=== PATIENT | male | born 1955 | race Caucasian/White ===

== ENCOUNTER 2020-04-14 09:02 | Outpatient (CLI) | payer MEDICARE, SELFPAY ==
--- NOTE | 2020-04-14 09:14 | FL_ITS ---
WS: [id number] MODIFIED BARIUM SWALLOW TECHNIQUE: Modified barium swallow with speech therapy using multiple consistencies. FLUOROSCOPY TIME: 2.6 minutes. CLINICAL INFORMATION: Other dysphagia COMPARISON: None. FINDINGS: Multiple consistencies utilized. Esophageal dilatation with stricture involving the distal esophagus. This results in delayed emptying with delayed transit of the barium tablet. Differential considerati ons include stricture related to reflux esophagitis versus carcinoma. Recommend further evaluation wi endoscopy. No aspiration or penetration. FL/FL barium swallow modifd 88952 IMPRESSION: High-grade stricture involving the distal esophagus with delayed emptying and d elayed transit of the barium tablet. Recommend further evaluation with endoscop y.
== END 2020-04-14 09:03 | disposition home or self-care (01) ==
LOC: RAD 09:10
PROVIDERS: PCP Electrodiagnostic Medicine; Visit Provider Electrodiagnostic Medicine
DX: R13.19 Other dysphagia (principal); K22.2 Esophageal obstruction
CPT/HCPCS: 74230; 92611

== ENCOUNTER 2020-04-15 12:48 | Outpatient (CLI) | payer MEDICARE, SELFPAY ==
--- NOTE | 2020-04-15 13:04 | USCV_ITS ---
Roshan Shell Age: 65 Gender: M : 1955 Exam Date: 04/15/2020 13:37 Ordering Phys: Joy Michaels Technologist: Chary Manzanares [place]am Location[place] [facility] [place] Indication: TACHY BP: 101 / 66 HR: 96 Rhythm: Other Technical Quality: Adequate MEASUREMENTS (Male / Female) Normal Values 2D ECHO LV Diastolic Diameter PLAX 5.7 cm 4.2 - 5.9 / 3.9 - 5.3 cm LV Systolic Diameter PLAX 3.1 cm LV Chamber Size 5.3 cm IVS Diastolic Thickness 0.7 cm 0.6 - 1.0 / 0.6 - 0.9 cm IVS Systolic Thickness 1.1 cm LVPW Diastolic Thickness 0.8 cm 0.6 - 1.0 / 0.6 - 0.9 cm LVPW Systolic Thickness 0.9 cm RV Chamber Size 3.9 cm LVOT Diameter 2.0 cm LV Ejection Fraction 2D Teich 75.4 % LV Ejection Fraction MOD 2C 42.1 % LV Ejection Fraction 2C AL 41.8 % LA Diameter 4.5 cm LA Width 4.7 cm LA Height 6.4 cm RA Width 3.3 cm RA Height 6.2 cm Aorta at Sinotubular Diameter 3.1 cm M-MODE LV Diastolic Diameter MM 5.6 cm 4.2 - 5.9 / 3.9 - 5.3 cm LV Systolic Diameter MM 4.2 cm LV Ejection Fraction MM Teich 49.5 % IVS Diastolic Thickness MM 0.8 cm 0.6 - 1.0 / 0.6 - 0.9 cm IVS Systolic Thickness MM 1.1 cm LVPW Diastolic Thickness MM 1.1 cm 0.6 - 1.0 / 0.6 - 0.9 cm LVPW Systolic Thickness MM 1.9 cm RV Diastolic Diameter MM 1.7 cm Aortic Annulus Diameter 3.3 cm LA Ao Ratio MM 1.5 MV E Point Septal Separation 0.2 cm DOPPLER AV Peak Velocity 110.0 cm/s LVOT Peak Velocity 80.0 cm/s AV Area Cont Eq vti 2.4 cm squared AV Area Cont Eq pk 2.3 cm squared TV Peak E Velocity 61.0 cm/s Right Atrial Pressure 3.0 mmHg PV Peak Velocity 70.0 cm/s FINDINGS Left Ventricle Normal left ventricular size, systolic function and wall thickness, with no regional wall motion abnormalities. LVEF is 50 to 55%. Normal left ventricular wall thickness. Diastolic function is indeterminate because of heart rhythm. Right Ventricle The right ventricle is normal in size and function. Right Atrium The right atrium is enlarged Left Atrium The left atrium is severely enlarged. Mitral Valve Mild mitral annular calcification is noted. There is no significant mitral stenosis. There is mild mitral regurgitation. Aortic Valve Aortic valve is thickened without any significant stenosis. There is no aortic regurgitation. Tricuspid Valve Structurally normal tricuspid valve without significant stenosis or regurgitation. Insufficient TR jet to calculate RVSP. Pulmonic Valve Structurally normal pulmonic valve without significant stenosis. There is no pulmonic regurgitation. Pericardium Normal pericardium without effusion. Aorta Normal ascending aorta dimension. CONCLUSIONS LV systolic function is normal with EF of 50 to 55%. Diastolic function is indeterminate because of rhythm. Mild mitral regurgitation is noted No comparison studies are available. Anton Castillo MD (Electronically Signed) Final Date: 15 April 2020 17:10 S
== END 2020-04-15 12:49 | disposition home or self-care (01) ==
LOC: RAD 12:50
PROVIDERS: PCP Electrodiagnostic Medicine; Visit Provider Nurse Practitioner Family
DX: R00.0 Tachycardia, unspecified (principal); I50.9 Heart failure, unspecified; K21.9 Gastro-esophageal reflux disease without esophagitis
CPT/HCPCS: 93306

== ENCOUNTER 2020-04-20 13:15 | Outpatient (CLI) | payer MEDICARE, SELFPAY ==
--- NOTE | 2020-04-20 13:25 | CT_ITS ---
WS: [id number] CT CHEST AND ABDOMEN TECHNIQUE: Contrast-enhanced CT of the chest and abdomen with coronal and sagittal reformatted images . CLINICAL INFORMATION: dysphagia COMPARISON: None. DLP: 1771.[address] scans at [facility] use at least one of these dose optimization techniques: automat ed exposure control; mA and/or kV adjustment per patient size (includes targeted exams where dose is matched to clinical indication); or iterative reconstruction. CT CHEST: Mild chronic emphysematous changes. No acute pulmonary infiltrates. Both lungs are well aerated. No f ocal pneumonia. No pleural fluid. Normal caliber thoracic aorta. Aortic calcification. Coronary calci fication. Proximal main pulmonary arteries are normal. No axillary lymphadenopathy. Normal thyroid gl and. Hypertrophic changes thoracic spine. Multiple chronic left rib fractures with callus formation. CT ABDOMEN: Mild diffuse fatty infiltration liver. Normal gallbladder. Normal spleen. Small esophageal hiatal [place]. Small left adrenal adenoma measuring 10 mm. Normal right adrenal gland. Normal portal vein and s plenic vein. Normal pancreas. Normal caliber abdominal aorta. Moderate calcification with peripherall y atheromatous disease. No aneurysm. Normal renal parenchymal enhancement. No hydronephrosis. Lumbar curve. Hypertrophic changes lumbar s pine. Advanced arthropathy lower lumbar spine. CT/CT chest abdomen w con* IMPRESSION: 1. Mild chronic emphysematous changes. No acute pulmonary infiltrates. 2. No mediastinal or hilar lymphadenopathy. 3. Small esophageal hiatal hernia. 4. Mild diffuse fatty infiltration liver. 5. Small left adrenal adenoma measuring 10 mm. 6. Normal caliber abdominal aorta. 7. Incidental fat-containing umbilical hernia.
[2020-04-20] MEDS: iohexol 300 mg/mL 50 mL Btl PO (13:29)
--- NOTE | 2020-04-20 13:35 | CT_ITS ---
WS: [id number] CT NECK TECHNIQUE: Contrast-enhanced CT of the neck with coronal and sagittal reformatted images. CLINICAL INFORMATION: DYSPHAGIA COMPARISON: G DLP: 2956.[address] scans at [facility] use at least one of these dose optimization techniques: automat ed exposure control; mA and/or kV adjustment per patient size (includes targeted exams where dose is matched to clinical indication); or iterative reconstruction. FINDINGS: Parotid glands are normal. Submandibular glands are normal. Normal tongue base. Mastoid air cells and paranasal sinuses are well aerated. Partially visualized intracranial contents are normal. No cervic al lymphadenopathy. Mild nodular thickening of the right greater than left true vocal cords. This could be further evalua karan with endoscopy. No evidence of supraglottic mass. Normal piriform sinuses. Subglottic airway is p atent. Normal thyroid gland. No cervical lymphadenopathy. Carotid bulb calcification. Moderate spondy litic changes cervical spine. CT/CT neck w con* 19231 IMPRESSION: 1. Mild nodular thickening of the true vocal cords bilaterally. This can be fu rther evaluated with endoscopy. 2. No evidence of supraglottic mass. Normal vallecula and piriform sinuses. 3. No cervical lymphadenopathy. 4. Normal salivary glands. 5. Moderate carotid bulb calcification. 6. Normal thyroid gland.
[2020-04-20 13:38] LABS: Blood Urea Nitrogen 9 mg/dL (8-23); Glomerular Filtration Rate 113.2 mL/min (90-130)
[2020-04-20] MEDS: iohexol 300 mg/mL 100 mL Btl IV ×2 (13:59→14:00)
== END 2020-04-20 13:16 | disposition home or self-care (01) ==
LOC: RADWPI 13:18
PROVIDERS: PCP Electrodiagnostic Medicine; Visit Provider Surgery
DX: K44.9 Diaphragmatic hernia without obstruction or gangrene (principal); K76.0 Fatty (change of) liver, not elsewhere classified; D35.02 Benign neoplasm of left adrenal gland; K42.9 Umbilical hernia without obstruction or gangrene; J43.9 Emphysema, unspecified; R13.10 Dysphagia, unspecified
CPT/HCPCS: 70491; 71260; 74160; 82565; 84520; Q9967

== ENCOUNTER → 2020-04-23 07:50 | Outpatient (BNVA) | payer MEDICARE, SELFPAY | PROVIDERS: PCP Electrodiagnostic Medicine; Visit Provider Surgery | DX: Z11.59 Encounter for screening for other viral diseases (principal); R13.10 Dysphagia, unspecified | CPT/HCPCS: 87635 ==

== ENCOUNTER 2020-04-28 08:30 | Day surgery (SDC) | payer MEDICARE, SELFPAY ==
[2020-04-26 11:22] VITALS: BMI 25.1
[2020-04-28 09:37] VITALS: BP 124/74; PULSE 90; RESP 16; TEMP 36.6; O2SAT 99
[2020-04-28] MEDS: sodium chloride 0.9% 1,000 ML 30 ML IV (09:38)
--- NOTE | 2020-04-28 09:42 | P.ANESASSM_ITS ---
Pre-Anesthetic Assessment Pre-Anesthetic Assessment: Height/Weight: Height 1.78 m Weight 79.379 kg Temp Pulse Resp BP Pulse Ox 98 F 90 16 124/74 99 04/28/20 09:37 04/28/20 09:37 04/28/20 09:37 04/28/20 09:37 04/28/20 09:37 Preop Diagnosis: Difficulty in swallowing Proposed Procedure: Operation Date: 04/28/20 10:15 Proposed Procedures p EGD 67028 R13.10(Not Applicable) - Ariel Whitten MD Familial anesthetic complications: None Was Beta Jany taken within 24 hours: Yes Last intake: Intake Last Liquid Date 04/27/20 Last Liquid Time 20:00 Last Solid Date 04/27/20 Last Solid Time 15:00 Social: Social History: Alcohol (10-12 beers daily, denies withdrawal symptoms) and No tobacco Exam: Pre-Anes Outpt Exam: alert, oriented x 3, clear to auscultation bilatera lly and regular rate & rhythm Airway: Cervical ROM: WNL MP: 3 Dentition: Full CV/HEM: CV/HEM: Arrythmia (irregular heart beat) and CHF ( many years ago ) Comments: echo 55%, mild MVR Hepatic: Comments: fatty liver seen on CT GI: GI: Hiatus hernia Anesthetic Plan: ASA status: 2 Anesthesia: MAC Risk of > 500 ml blood loss (7ml/kg in children): No Meds/Allergies Current Medications: Current Medications Generic Name Dose Route Start Last Admin Trade Name Freq PRN Reason Stop Dose Admin Sodium Chloride 1,000 mls @ 30 ml s/hr 04/28/20 09:00 04/28/20 09:38 Sodium Chloride 0.9% IV 30 mls/hr .Q24H T[place]LE Administration PFSH Anesthesia PFSH: Family History Denies family history of Anesthesia complication Bleeding disorder Social History Smoking and tobacco status: never smoked Second hand smoke exposure: No Alcohol intake: never Data Anesthesia Cardiac Studies: No Data to Display
--- NOTE | 2020-04-28 11:03 | SUR.OPER ---
Balloon dilation used at 8mm for 2 min, then at 9mm for 2 min.
[2020-04-28 11:15] VITALS: BP 108/69; PULSE 87; RESP 16; TEMP 36.2; O2SAT 99
--- NOTE | 2020-04-28 11:45 | ANE.PACU2 ---
Inpatient post-anesthesia follow up: Airway intact: Yes Vital signs: Temperature 97.1 F Pulse Rate 87 Respiratory Rate 16 Blood Pressure 108/69 Pulse Oximetry 99 Oxygen Delivery Me thod Nasal Cannula Oxygen Flow Rate Fraction of Inspir ed Oxygen Hydration adequate: Yes Nausea and vomiting: No Pain level: 1 Mental status: Baseline
[2020-04-29 06:09] LABS: H. Pylori / CLO Test Negative
--- NOTE | 2020-04-29 16:16 | W.PM.OPSUD ---
Surgery/Procedure H&P Update DATE OF PROCEDURE: April 28, 2020 DATE H&P PERFORMED: 04/19/20 H&P UPDATE INFORMATION: I have reviewed H&P completed within last 30 days, I have examined patient prior to procedure and No changes to prior documentation PREOP DIAGNOSIS: Difficulty in swallowing PRIMARY INDICATION FOR PROCEDURE: The same PLANNED PROCEDURE: Operation Date: 04/28/20 10:15 Proposed Procedures p EGD 25644 R13.10(Not Applicable) - Ariel Whitten MD
[2020-05-24 11:07] LABS: HER2 FISH/IHC (Non-Gastric) See Report
== END 2020-04-28 11:53 | disposition home or self-care (01) ==
PROVIDERS: PCP Electrodiagnostic Medicine; Visit Provider Surgery
PROC: 0DJ08ZZ Inspection of Upper Intestinal Tract, Via Natural or Artificial Opening Endoscopic (ICD-10-PCS; CPT 43235; principal; 2020-04-28 10:15)
DX: R13.10 Dysphagia, unspecified (principal); K29.70 Gastritis, unspecified, without bleeding; K29.80 Duodenitis without bleeding; C15.9 Malignant neoplasm of esophagus, unspecified
CPT/HCPCS: 12345; 43239; 43249; 87077; 88104; 88305; J2704; J7030

== ENCOUNTER 2020-05-13 12:55 | Outpatient (CLI) | payer MEDICARE, SELFPAY ==
--- NOTE | 2020-05-13 15:45 | ONC CON_ITS ---
Dr. Carlos New Patient Note Patient: Roshan Shell Unit #: [id number]: 1955 Dicatated By: Genoveva Carlos M.D.Date of Visit: May 13, 2020 Onc MED New Patient/Consult Referring Physician: Dr. CIARA OLSON M.D. History of Present Illness: Mr. Roshan Shell, 65-year-old gentleman with a history of progressive dysphagia since September or October 2019, as per patient initially it was solid food and then off and on with liquids too, he has lost about 75 pounds over 6 months. Because of progressive dysphagia. Patient denies any hematemesis or hemoptysis. Denies any nausea or vomiting. Denies any melena or hematochezia, denies any jaundice. Denies any abdominal pain. But longstanding history of esophageal reflux disease, as per patient he used to take Tums or Rolaids. Longstanding history of alcohol use since 1975 as per patient he takes about 5-6 beers a day in addition to 4-5 drinks per day he is a former smoker but now smoke marijuana off and on. Patient was referred to GI for evaluation and on April 28, 2020 he underwent EGD which showed in the lower third esophagus a moderate, malignant appearing, intrinsic stenosis was noted. Stenosis was 3 cm in length and 0.5 cm in diameter. And the stenosis was traversed after dilation. And in mid esophagus a 2 cm segment of sharp segment Ocampo's mucosa was present. 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 Patient underwent CT scan of neck and chest on April 20, 2020 which shows mild nodular thickening of the true vocal cords bilaterally otherwise unremarkable neck CT scan of chest abdomen showed mild chronic emphysematous changes, no acute pulmonary infiltrates. No mediastinal or hilar lymphadenopathy. Small esophageal hiatal hernia. Mild diffuse fatty infiltration liver. Small left adrenal adenoma measuring 10 mm. Also complaining of bilateral shoulder pain, Which is chronic in nature, more on the left side which are chronic in nature and limiting mobility in both shoulder joints, patient take Tylenol 10 to 15 tablets a day Past Medical History: Mr. Hanks medical history is unremarkable. Past Surgical History: Mr. Hanks surgical/procedural history consists of ACL repair. Medications: Metoprolol Succinate ER 1 Tablet (of 25 mg) Tablet SR 24 HR Oral b.i.d., Pantoprazole Sodium 1 Tablet (of 40 mg) Tablet, enteric coated Oral daily Allergies: No Known Allergies. Social History: Mr. Shell is and he is an unknown. Mr. Shell has never smoked. He has no history of drinking. Family History: Mr. Hongs mother at age 85: breast cancer. Mr. Hongs father at age 74: lung cancer. Mr. Shell has 1 brother who is alive: pancreas cancer. He has 1 sister who is alive: melanoma. Review Of Symptoms: Constitutional - Appetite is poor and weight is decreasing. No fever, night sweats, or hot flashes. Energy level is poor, ENMT - No sinus congestion/drainage. No mouth sores. No sore throat or difficulty swallowing, Hematologic/Lymphatic - No abnormal bruising or bleeding, Respiratory - Positive for shortness of breath. No cough. No pleuritic pain or hemoptysis, Cardiovascular - No angina pain. No palpitations, Gastrointestinal - No nausea or vomiting. Positive for heartburn and acid reflux. No diarrhea or constipation. No blood in the stool or black stools, Genitourinary (M) - No dysuria or hematuria. No urinary frequency. No urgency or incontinence, Musculoskeletal - No joint or bone pain, Neurologic - No headache. Positive for dizziness. No numbness or tingling. No other focal neurologic symptoms, Psychiatric - Positive for anxiety, depression and insomnia. Vital Signs: Performed on May 13, 2020 14:26: 0, 26.11, 2.01 sq.m, 70.00 in, 100 %, 108 /min (HIGH), 20 /min, 119/74 mm(hg), 98.8 F, and 182.0 lbs (HIGH). Performance Status: 1 - No physically strenuous activity, but ambulatory and able to carry out light or sedentary work (e.g. office work, light house work). (ECOG) Physical Examination: ENMT - No mouth sores, no thrush, no jaundice, No supraclavicular lymphadenopathy, Respiratory - Lungs are clear to auscultation, Cardiovascular - Regular rate and rhythm of heart, Abdomen - Soft, bowel sounds present, Extremities - No visible edema. Lab/Imaging: Most recent lab results are not available for this patient. 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 Small left adrenal adenoma measuring 10 mm. Incidental fat-containing umbilical hernia. Clinically T2 or 3, NX, MX Dysphagia/weight loss due to above. Hypertension. Plan: Discussed with patient regarding his EGD report as well as final pathology report which confirmed patient has distal esophageal moderately differentiated adenocarcinoma and a CT scan of chest abdomen showed no mediastinal or hilar or upper abdominal lymphadenopathy, clinically appears patient has localized disease eg T2 or 3 but at this point , will complete staging work-up with CT PET scan which somewhat more sensitive than CT scan of chest abdomen and also consider referral to radiation oncology and GI surgery at [place] for evaluation, and if PET scan shows local regional disease then we may consider neoadjuvant therapy with a combined chemoradiation with weekly carboplatin/Taxol followed by surgical evaluation.Patient may need J-tube for nutrition purposes and also give him Ensure for better nutritional support. As far as bilateral shoulder pain is concerned, which is chronic, patient has limited mobility in both shoulder could be due to osteoarthritis, we will refer him to orthopedics for evaluation in the meantime we will give him liquid Percocet for better pain control as patient is taking 10-15 Percocet daily to control his bilateral shoulder pain. Patient will return to clinic after CT PET scan with CBC CMP. Signed By: Genoveva Carlos M.D. <<Signature on File>>
== END 2020-05-13 12:56 | disposition home or self-care (01) ==
LOC: ONCMED 13:00
PROVIDERS: PCP Electrodiagnostic Medicine; Visit Provider Internal Medicine Hematology & Oncology
DX: C15.5 Malignant neoplasm of lower third of esophagus (principal); I10 Essential (primary) hypertension; R63.4 Abnormal weight loss; M25.512 Pain in left shoulder; M25.511 Pain in right shoulder; Z79.891 Long term (current) use of opiate analgesic
CPT/HCPCS: 99205

== ENCOUNTER → 2020-05-25 09:33 | Outpatient (BNVA) | payer MEDICARE, SELFPAY | PROVIDERS: PCP Electrodiagnostic Medicine; Referring Provider Internal Medicine Hematology & Oncology; Visit Provider Orthopaedic Surgery | DX: M25.511 Pain in right shoulder (principal); M25.512 Pain in left shoulder; M54.2 Cervicalgia | CPT/HCPCS: 72050; 73030 ==

== ENCOUNTER 2020-05-26 06:28 | Outpatient (CLI) | payer MEDICARE, SELFPAY ==
[2020-05-26 12:39] LABS: Basophils % 0.4 %; Eosinophils # 0.1 10^3/uL (0.0-0.8); Eosinophils % 0.7 %; Hematocrit 42.2 % (42.0-52.0); Hemoglobin 13.9 g/dL (11.7-16.6); Lymphocytes # 1.8 10^3/uL (0.8-4.8); Lymphocytes % 24.9 %; Mean Corpuscular HGB Conc 32.9 g/dL (30.0-36.0); Mean Corpuscular Hemoglobin 31.2 pg (28.0-34.0); Mean Corpuscular Volume 94.8 fL (80-94); Mean Platelet Volume 11.1 fL (7.4-10.4); Monocytes # 0.6 10^3/uL (0.2-0.9); Monocytes % 8.9 %; Neutrophils # 4.64 10^3/uL (1.8-7.7); Neutrophils % 64.8 %; Nucleated Red Blood Cells % 0 %; Platelet Count 160 10^3/cmm (130-400); Red Blood Count 4.45 10^6/uL (4.1-5.3); Red Cell Distribution Width 12.9 % (12.1-15.1); White Blood Count 7.2 10^3/uL (4.0-10.0)
[2020-05-26 12:56] LABS: Alanine Aminotransferase 34 U/L (0-41); Alkaline Phosphatase 73 IU/L (40-130); Anion Gap 14.1 (5-19); Aspartate Amino Transferase 27 U/L (0-40); Blood Urea Nitrogen 14 mg/dL (8-23); Calcium 9.1 mg/dL (8.5-10.5); Carbon Dioxide 25 mmol/L (22-29); Chloride 104 mmol/L (98-107); Globulin 2.5 g/dL (1.3-4.6); Glomerular Filtration Rate 135.2 mL/min (90-130); Glucose 133 mg/dL (65-115); Osmolality Calculated 290 mOsm/kg (285-295); Potassium 4.1 mmol/L (3.5-5.1); Sodium 139 mmol/L (136-145); Total Bilirubin 0.4 mg/dL (0.15-1.2); Total Protein 6.5 g/dL (6.6-8.7)
== END 2020-05-26 06:29 | disposition home or self-care (01) ==
LOC: ONCMED 06:31
PROVIDERS: PCP Electrodiagnostic Medicine; Visit Provider Internal Medicine Hematology & Oncology
DX: C15.5 Malignant neoplasm of lower third of esophagus (principal)
CPT/HCPCS: 36415; 80053; 85025

== ENCOUNTER 2020-06-10 13:55 | Outpatient (CLI) | payer MEDICARE, SELFPAY ==
--- NOTE | 2020-06-10 15:13 | N.ONRAD NP_ITS ---
Radiation Oncology Consult Patient: Roshan Shell MR#: [id number] : 1955 Attending Physician: Ramon Spicer M.D. Date of Service: 06/10/2020 Roshan Shell was seen in consultation this afternoon for evaluation regarding neoadjuvant radiotherapy for his recent diagnosis of esophageal cancer. He presented with dysphagia and a 50 pound weight loss to his primary care physician. A modified barium swallow was ordered on April 14, 2020 identified a distal esophageal stenosis. An esophagogastroduodenoscopy was performed by Ariel Schafer M.D. on April 28, 2020. In the lower third of the esophagus a malignant appearing intrinsic stenosis was present. The stenosis measured 3 cm in length and 0.5 cm in diameter with the upper border located 37 cm from the central incisors. Biopsies revealed an invasive, moderately differentiated adenocarcinoma. Immunohistochemical stains were positive for Her-2. A PET CT obtained on May 27, 2020 confirmed focal FDG uptake in the distal esophagus with a maximum SUV of 5 without evidence of metastatic disease. The patient presents for discussion about neoadjuvant radiotherapy. The patient does not have a significant past medical history. His previous surgical interventions include ACL repair. I have reviewed the patient's medication profile which is available in the electronic medical record. He denied any drug allergies. The patient's family history was remarkable for pancreatic cancer (brother). The patient was accompanied to this consultation by his domestic partner. He denied a tobacco habit but reported daily marijuana use. He also accounted for approximately 10 alcoholic drinks daily. On review of systems, he did described a 50 pound weight loss in approximately 6 months. He reported tinnitus and dysphagia to liquids and solids, but there were no head neck complaints including diplopia or epistaxis. He described an intermittent productive cough but denied angina, or palpitations. On gastrointestinal review, he reported dyspepsia and vomiting. There were no genitourinary complaints such as dysuria or hematuria. He did not report any musculoskeletal complaints including bone pain or muscle weakness. There were no neurological symptoms such as headaches, paresthesias, or seizures. On physical examination, the patient has an ECOG performance status of 0. He was 5ft 10 in tall and weighed 186 lbs. The temperature was 98.3???F. The blood pressure was 131/80 mmHg. The pulse was 103 bpm and the respiratory rate of was 18. The head was normocephalic and atraumatic. Ophthalmoscopy identified bilateral red reflexes with sharp fundi visualized. Otoscopy revealed cerumen.. Rhinoscopy exhibited non-inflamed turbinates. The oral cavity had moist mucous membranes and no oropharyngeal exudate was present. There was no cervical adenopathy or thyromegaly. Normal fremitus was noted with resonance to percussion elicited. Bronchovesicular breath sounds were auscultated in the posterior lung navarrete. Cardiac sounds were irregular in rhythm and tachycardic. No auscultated gallops or murmurs present. No JVD noted. The abdomen had active bowel sounds. No tenderness to palpation. No evidence of organomegaly. No muscle weakness upon testing. No tenderness to deep palpation along the axial skeleton. Cranial nerves II through XII were intact. No sensory deficits. Normal reflexes noted. Gait was normal. In summary, the patient presented was seen in consultation this afternoon for evaluation regarding neoadjuvant radiotherapy for his recent diagnosis of esophageal cancer. He presented with dysphagia to his primary care physician. A modified barium swallow was ordered on April 14, 2020 identified a distal esophageal stenosis. An esophagogastroduodenoscopy was performed by Ariel Schafer M.D. on April 28, 2020. In the lower third of the esophagus a malignant appearing intrinsic stenosis was present. The stenosis measured 3 cm in length and 0.5 cm in diameter with the upper border located 37 cm from the central incisors. Biopsies revealed an invasive, moderately differentiated adenocarcinoma. Immunohistochemical stains were positive for Her-2. A PET CT obtained on May 27, 2020 confirmed focal FDG uptake in the distal esophagus with a maximum SUV of 5 without evidence of metastatic disease. The patient presents for discussion about neoadjuvant radiotherapy. I discussed the patient's AJCC stage IIA versus stage IIB (T2/3N0) esophageal cancer. I reviewed the NCCN guidelines for preoperative chemoradiation. Recommendations are based upon the CROSS study which compared surgery alone to preoperative chemo-radiotherapy significantly improved overall survival and disease-free survival compared to surgery alone in patients with resectable esophageal or esophago-gastric junction cancers. I have requested surgical oncology consultation with completion of staging to include endoscopic ultrasonography. If the EUS demonstrates invasion beyond the submucosa, I would recommend neoadjuvant chemo-radiotherapy that will begin following CT radiotherapy planning. Potential toxicities of radiation treatment have been reviewed. The patient has verbalized understanding would like to proceed as recommended. Signed by: Dr. Ramon Spicer 06/10/2020 3:11:42 PM
== END 2020-06-10 13:56 | disposition home or self-care (01) ==
LOC: ONCMED 13:57
PROVIDERS: PCP Electrodiagnostic Medicine; Visit Provider Radiology Radiation Oncology
DX: C15.5 Malignant neoplasm of lower third of esophagus (principal); F12.90 Cannabis use, unspecified, uncomplicated; Z80.0 Family history of malignant neoplasm of digestive organs
CPT/HCPCS: 99203

== ENCOUNTER 2020-06-15 05:44 | Outpatient (CLI) | payer MEDICARE, SELFPAY ==
[2020-06-15 11:03] LABS: Basophils % 0.4 %; Eosinophils # 0.1 10^3/uL (0.0-0.8); Eosinophils % 0.6 %; Hematocrit 43.1 % (42.0-52.0); Hemoglobin 14.4 g/dL (11.7-16.6); Lymphocytes # 1.3 10^3/uL (0.8-4.8); Lymphocytes % 17.2 %; Mean Corpuscular HGB Conc 33.4 g/dL (30.0-36.0); Mean Corpuscular Hemoglobin 31.5 pg (28.0-34.0); Mean Corpuscular Volume 94.3 fL (80-94); Mean Platelet Volume 10.6 fL (7.4-10.4); Monocytes # 0.6 10^3/uL (0.2-0.9); Monocytes % 7.7 %; Neutrophils # 5.72 10^3/uL (1.8-7.7); Neutrophils % 73.8 %; Nucleated Red Blood Cells % 0 %; Platelet Count 176 10^3/cmm (130-400); Red Blood Count 4.57 10^6/uL (4.1-5.3); Red Cell Distribution Width 12.3 % (12.1-15.1); White Blood Count 7.8 10^3/uL (4.0-10.0)
[2020-06-15 11:23] LABS: Alanine Aminotransferase 29 U/L (0-41); Albumin Level 3.9 g/dL (3.5-5.2); Alkaline Phosphatase 70 IU/L (40-130); Anion Gap 15.1 (5-19); Aspartate Amino Transferase 23 U/L (0-40); Blood Urea Nitrogen 15 mg/dL (8-23); Calcium 9.3 mg/dL (8.5-10.5); Carbon Dioxide 25 mmol/L (22-29); Chloride 104 mmol/L (98-107); Globulin 2.7 g/dL (1.3-4.6); Glomerular Filtration Rate 135.2 mL/min (90-130); Glucose 226 mg/dL (65-115); Osmolality Calculated 298 mOsm/kg (285-295); Potassium 4.1 mmol/L (3.5-5.1); Sodium 140 mmol/L (136-145); Total Bilirubin 0.4 mg/dL (0.15-1.2); Total Protein 6.6 g/dL (6.6-8.7)
== END 2020-06-15 05:45 | disposition home or self-care (01) ==
LOC: ONCMED 05:46
PROVIDERS: PCP Electrodiagnostic Medicine; Visit Provider Internal Medicine Hematology & Oncology
DX: C15.5 Malignant neoplasm of lower third of esophagus (principal)
CPT/HCPCS: 36415; 80053; 85025

== ENCOUNTER 2020-06-16 05:33 | Outpatient (CLI) | payer MEDICARE, SELFPAY ==
--- NOTE | 2020-06-16 09:11 | ONC FU_ITS ---
Dr. Carlos follow up note Patient: Roshan Shell Unit #: [id number]: 1955 Dicatated By: Genoveva Carlos M.D.Date of Visit:Jun 16, 2020 Onc Med Follow-up/Prog Note History of Present Illness: Mr. Roshan Shell, 65-year-old gentleman with a history of progressive dysphagia since September or October 2019, as per patient initially it was solid food and then off and on with liquids too, he has lost about 75 pounds over 6 months. Because of progressive dysphagia. Patient denies any hematemesis or hemoptysis. Denies any nausea or vomiting. Denies any melena or hematochezia, denies any jaundice. Denies any abdominal pain. But longstanding history of esophageal reflux disease, as per patient he used to take Tums or Rolaids. Longstanding history of alcohol use since 1975 as per patient he takes about 5-6 beers a day in addition to 4-5 drinks per day he is a former smoker but now smoke marijuana off and on. Patient was referred to GI for evaluation and on April 28, 2020 he underwent EGD which showed in the lower third esophagus a moderate, malignant appearing, intrinsic stenosis was noted. Stenosis was 3 cm in length and 0.5 cm in diameter. And the stenosis was traversed after dilation. And in mid esophagus a 2 cm segment of sharp segment Ocampo's mucosa was present. 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 Patient underwent CT scan of neck and chest on April 20, 2020 which shows mild nodular thickening of the true vocal cords bilaterally otherwise unremarkable neck CT scan of chest abdomen showed mild chronic emphysematous changes, no acute pulmonary infiltrates. No mediastinal or hilar lymphadenopathy. Small esophageal hiatal hernia. Mild diffuse fatty infiltration liver. Small left adrenal adenoma measuring 10 mm. Patient was referred to GI surgery at [facility] he was evaluated on May 21, 2020 and the recommendations were to review CT PET scan before deciding about upfront surgery versus neoadjuvant chemoradiation followed by evaluation for surgery. Patient was also recommended to quit smoking marijuana and alcohol as a preparation and also arrange for PFTs. Staging CT PET scan was done on May 27, 2020 showed distal esophageal focal hypermetabolic activity with SUV of 5.01 and incidental, focus uptake seen at the left ventricle apex can be associated with hypertrophic cardiomyopathy. No evidence of distant mets. Came for follow-up, complaining of dysphagia but tolerating liquids and Ensure well in fact, gaining weight. But denies any fever chills denies any aspiration denies any shortness of breath denies any hemoptysis or hematemesis denies any jaundice. Still smoking marijuana and consumes about 2 drinks at night, as per patient he sleeps well with couple of drinks at night. Has a chronic back pain for which he follows with chiropractor and client on pain medication. Patient has seen surgical oncology at [facility] and, they are awaiting for CT PET scan before the making any decision. Patient has also seen radiation oncology Dr. Spicer and esophageal EUS was ordered and scheduled for June 22, 2020 in [place]. Medications: HYDROcodone-Acetaminophen 15 mL (of 7.5-325 mg/15mL) Solution Oral q 4 hours, Metoprolol Succinate ER 1 Tablet (of 25 mg) Tablet SR 24 HR Oral b.i.d., Pantoprazole Sodium 1 Tablet (of 40 mg) Tablet, enteric coated Oral daily Allergies: No Known Allergies. Review of Systems: Constitutional - Appetite is fair and weight is improving. No fever, positive for night sweats, no hot flashes. Energy level is poor, ENMT - No sinus congestion/drainage. No mouth sores. No sore throat or difficulty swallowing, Hematologic/Lymphatic - No abnormal bruising or bleeding, Respiratory - Positive for shortness of breath. No cough. No pleuritic pain or hemoptysis, Cardiovascular - No angina pain. No palpitations, Gastrointestinal - Positive for nausea or vomiting. Positive for heartburn and acid reflux. No diarrhea or constipation. No blood in the stool or black stools, Genitourinary (M) - No dysuria or hematuria. No urinary frequency. No urgency or incontinence, Musculoskeletal - positive for joint pain no bone pain, Neurologic - No headache. Positive for dizziness. No numbness or tingling. No other focal neurologic symptoms, Psychiatric - Positive for anxiety, depression and insomnia. Vital Signs: Performed on Jun 16, 2020 08:06 Height - 70.00 in Weight - 187.0 lbs (HIGH) BSA - 2.03 sq.m BMI - 26.83 Temperature - 97.7 F (LOW) Pulse - 98 /min Respiration - 18 /min BP - 121/76 mm(hg) O2 Sat - 97 % Pain - 7 Performance Status: 0 - Fully active, able to carry on all predisease activities without restrictions. (ECOG) Physical Examination: ENMT - No mouth sores, no thrush, no jaundice, Respiratory - Lungs are clear to auscultation, Cardiovascular - Regular rate and rhythm of heart, Abdomen - Soft, bowel sounds present, Extremities - No visible edema or rash. Lab/Imaging: Test performed on May 26, 2020 12:05 Sodium 139 mmol/L Potassium 4.1 mmol/L Chloride 104 mmol/L CO2 25 mmol/L Anion Gap 14.1 BUN 14 mg/dL Creatinine 0.6 mg/dL Cr Clearance (Est) 143.3300 mL/min eGFR 135.2 mL/min Glucose 133 mg/dL Osmolality - Calculated 290 mOsm/kg Calcium 9.1 mg/dL Protein, Total 6.5 g/dL Albumin 4.0 g/dL Globulin 2.5 g/dL Bilirubin, Total 0.4 mg/dL ALT (SGPT) 34 U/L AST (SGOT) 27 U/L Alkaline Phosphatase 73 IU/L WBC 7.2 10 3/uL RBC 4.45 10 6/uL HGB 13.9 g/dL HCT 42.2 % MCV 94.8 fL MCH 31.2 pg MCHC 32.9 g/dL RDW 12.9 % Platelet Count 160 10 3/cmm MPV 11.1 fL Neutrophils 4.64 10 3/uL Lymphocytes 1.8 10 3/uL Monocytes 0.6 10 3/uL Eosinophils 0.1 10 3/uL Basophils 0.0 10 3/uL Neutrophil % 64.8 % Lymphocyte % 24.9 % Monocyte % 8.9 % Eosinophil % 0.7 % Basophils % 0.4 % NRBC % 0 % Impression: Moderately differentiated invasive adenocarcinoma involving distal/mid esophagus for EGD done on April 28, 2020 HER-2/justus 3+ positive CT scan of neck/chest abdomen done on April 20, 2020 showed mild nodular thickening of true vocal cord bilaterally otherwise unremarkable neck and CT scan of chest abdomen showed no mediastinal or hilar lymphadenopathy small esophageal hiatal hernia, mild diffuse fatty infiltration liver. Small left adrenal adenoma measuring 10 mm. Incidental fat-containing umbilical hernia. CT PET scan done on May 27, 2020 showed distal esophageal focal hypermetabolic activity. No findings to suggest distant metastatic disease. Incidental focal uptake at the left ventricle apex can be associated with hypertrophic cardiomyopathy. Dysphagia/weight loss due to above. Hypertension. Plan: Discussed with patient regarding his labs white blood count 7.8 hemoglobin 14.4 hematocrit 43.1 platelets 176,000 CMP within normal limits and CT PET scan findings which shows localized disease and no evidence of distant mets Clinically, patient is doing reasonably well now with persistent but stable dysphagia tolerating liquids including Ensure, well in fact, gaining weight. Patient was referred to surgical oncology at [facility] regarding evaluation for esophagectomy and they are waiting for CT PET scan to make decision regarding upfront esophagectomy versus neoadjuvant chemoradiation followed by evaluation for esophagectomy, and patient was also suggested to quit smoking marijuana as well as alcohol use but unfortunately patient still smoking marijuana and consuming alcohol but saying he is cutting down. Case was discussed with radiation oncology esophageal EUS has been scheduled for June 22, 2020 and if it shows early disease then upfront esophagectomy may be considered on the other hand if it shows locally advanced disease then will consider combined chemoradiation with weekly carboplatin/Taxol and also refer him to surgery for Port-A-Cath placement, if needed. Patient will return to clinic next week after esophageal EUS done at [place] on Sunday, and then will discuss further treatment plans. Case was discussed with radiation oncology this morning. Patient was advised to quit marijuana and also advised to avoid alcohol use and narcotics for his chronic back pain and was offered orthopedic evaluation but patient said he will think about it. Signed By: Genoveva Carlos M.D. <<Signature on File>>
== END 2020-06-16 05:34 | disposition home or self-care (01) ==
LOC: ONCMED 05:36
PROVIDERS: PCP Electrodiagnostic Medicine; Visit Provider Internal Medicine Hematology & Oncology
DX: C15.8 Malignant neoplasm of overlapping sites of esophagus (principal); K76.0 Fatty (change of) liver, not elsewhere classified; D35.02 Benign neoplasm of left adrenal gland; I10 Essential (primary) hypertension; R63.4 Abnormal weight loss; Z68.26 Body mass index [BMI] 26.0-26.9, adult; F12.929 Cannabis use, unspecified with intoxication, unspecified; G89.29 Other chronic pain; M54.9 Dorsalgia, unspecified; Z79.891 Long term (current) use of opiate analgesic
CPT/HCPCS: 99214

== ENCOUNTER 2020-06-29 05:51 | Outpatient (RCR) | payer MEDICARE, SELFPAY ==
[2020-06-23 16:04] LABS: Basophils % 0.3 %; Eosinophils # 0.1 10^3/uL (0.0-0.8); Eosinophils % 1.5 %; Hematocrit 41.2 % (42.0-52.0); Hemoglobin 13.4 g/dL (11.7-16.6); Lymphocytes # 1.6 10^3/uL (0.8-4.8); Lymphocytes % 22.2 %; Mean Corpuscular HGB Conc 32.5 g/dL (30.0-36.0); Mean Corpuscular Hemoglobin 30.9 pg (28.0-34.0); Mean Corpuscular Volume 95.2 fL (80-94); Mean Platelet Volume 10.7 fL (7.4-10.4); Monocytes # 0.6 10^3/uL (0.2-0.9); Neutrophils # 4.82 10^3/uL (1.8-7.7); Neutrophils % 67.7 %; Nucleated Red Blood Cells % 0 %; Platelet Count 159 10^3/cmm (130-400); Red Blood Count 4.33 10^6/uL (4.1-5.3); Red Cell Distribution Width 12.3 % (12.1-15.1); White Blood Count 7.1 10^3/uL (4.0-10.0)
[2020-06-23 16:18] LABS: Alanine Aminotransferase 31 U/L (0-41); Albumin Level 3.9 g/dL (3.5-5.2); Alkaline Phosphatase 71 IU/L (40-130); Anion Gap 15.1 (5-19); Aspartate Amino Transferase 24 U/L (0-40); Blood Urea Nitrogen 17 mg/dL (8-23); Carbon Dioxide 25 mmol/L (22-29); Chloride 102 mmol/L (98-107); Globulin 2.6 g/dL (1.3-4.6); Glomerular Filtration Rate 113.2 mL/min (90-130); Glucose 161 mg/dL (65-115); Osmolality Calculated 291 mOsm/kg (285-295); Potassium 4.1 mmol/L (3.5-5.1); Sodium 138 mmol/L (136-145); Total Bilirubin 0.2 mg/dL (0.15-1.2); Total Protein 6.5 g/dL (6.6-8.7)
--- NOTE | 2020-06-24 10:04 | ONC FU_ITS ---
Dr. Carlos follow up note Patient: Roshan Shell < Unit #: [id number]: 1955 Dicatated By: Genoveva Carlos M.D.Date of Visit:Jun 24, 2020 Onc Med Follow-up/Prog Note History of Present Illness: Mr. Roshan Shell, 65-year-old gentleman with a history of progressive dysphagia since September or October 2019, as per patient initially it was solid food and then off and on with liquids too, he has lost about 75 pounds over 6 months. Because of progressive dysphagia. Patient denies any hematemesis or hemoptysis. Denies any nausea or vomiting. Denies any melena or hematochezia, denies any jaundice. Denies any abdominal pain. But longstanding history of esophageal reflux disease, as per patient he used to take Tums or Rolaids. Longstanding history of alcohol use since 1975 as per patient he takes about 5-6 beers a day in addition to 4-5 drinks per day he is a former smoker but now smoke marijuana off and on. Patient was referred to GI for evaluation and on April 28, 2020 he underwent EGD which showed in the lower third esophagus a moderate, malignant appearing, intrinsic stenosis was noted. Stenosis was 3 cm in length and 0.5 cm in diameter. And the stenosis was traversed after dilation. And in mid esophagus a 2 cm segment of sharp segment Ocampo's mucosa was present. 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 Patient underwent CT scan of neck and chest on April 20, 2020 which shows mild nodular thickening of the true vocal cords bilaterally otherwise unremarkable neck CT scan of chest abdomen showed mild chronic emphysematous changes, no acute pulmonary infiltrates. No mediastinal or hilar lymphadenopathy. Small esophageal hiatal hernia. Mild diffuse fatty infiltration liver. Small left adrenal adenoma measuring 10 mm. Patient was referred to GI surgery at [facility] he was evaluated on May 21, 2020 and the recommendations were to review CT PET scan before deciding about upfront surgery versus neoadjuvant chemoradiation followed by evaluation for surgery. Patient was also recommended to quit smoking marijuana and alcohol as a preparation and also arrange for PFTs. Staging CT PET scan was done on May 27, 2020 showed distal esophageal focal hypermetabolic activity with SUV of 5.01 and incidental, focus uptake seen at the left ventricle apex can be associated with hypertrophic cardiomyopathy. No evidence of distant mets. Underwent EUS on June 22, 2020 showed large, fungating mass in the distal esophageal, lesion was circumferential well-defined measured up to 12 mm in thickness suggesting invasion into adventitia and unable to traverse the structure so further structures were not evaluated, 2 enlarged lymph nodes were visualized in the middle paraesophageal mediastinum largest 15 mm Came for follow-up, complaining of mid sternum pain but under control with current pain medication and still having significant dysphagia, as per patient physician at [facility] suggested to him esophageal stent or J-tube placement, Medications: HYDROcodone-Acetaminophen 15 mL (of 7.5-325 mg/15mL) Solution Oral q 4 hours, Metoprolol Succinate ER 1 Tablet (of 25 mg) Tablet SR 24 HR Oral b.i.d., Pantoprazole Sodium 1 Tablet (of 40 mg) Tablet, enteric coated Oral daily Allergies: No Known Allergies. Review of Systems: Constitutional - Appetite is fair and weight is improving. No fever, positive for night sweats, no hot flashes. Energy level is poor, ENMT - No sinus congestion/drainage. No mouth sores. No sore throat or difficulty swallowing, Hematologic/Lymphatic - No abnormal bruising or bleeding, Respiratory - Positive for shortness of breath. No cough. No pleuritic pain or hemoptysis, Cardiovascular - No angina pain. No palpitations, Gastrointestinal - Positive for nausea or vomiting. Positive for heartburn and acid reflux. No diarrhea or constipation. No blood in the stool or black stools, Genitourinary (M) - No dysuria or hematuria. No urinary frequency. No urgency or incontinence, Musculoskeletal - positive for joint pain no bone pain, Neurologic - No headache. Positive for dizziness. No numbness or tingling. No other focal neurologic symptoms, Psychiatric - Positive for anxiety, depression and insomnia. Vital Signs: Performed on Jun 24, 2020 08:51 Height - 70.00 in Weight - 187.8 lbs (HIGH) BSA - 2.03 sq.m BMI - 26.95 Temperature - 98.7 F Pulse - 111 /min (HIGH) Respiration - 18 /min BP - 133/83 mm(hg) O2 Sat - 99 % Pain - 7 Performance Status: 0 - Fully active, able to carry on all predisease activities without restrictions. (ECOG) Physical Examination: ENMT - No mouth sores, no thrush, no jaundice, Respiratory - Lungs are clear to auscultation, Cardiovascular - Regular rate and rhythm of heart, Abdomen - Soft, bowel sounds present, Extremities - No visible edema or rash. Lab/Imaging: Test performed on Jun 15, 2020 10:54 Sodium 140 mmol/L Potassium 4.1 mmol/L Chloride 104 mmol/L CO2 25 mmol/L Anion Gap 15.1 BUN 15 mg/dL Creatinine 0.6 mg/dL Cr Clearance (Est) 147.26 mL/min eGFR 135.2 mL/min Glucose 226 mg/dL Osmolality - Calculated 298 mOsm/kg Calcium 9.3 mg/dL Protein, Total 6.6 g/dL Albumin 3.9 g/dL Globulin 2.7 g/dL Bilirubin, Total 0.4 mg/dL ALT (SGPT) 29 U/L AST (SGOT) 23 U/L Alkaline Phosphatase 70 IU/L WBC 7.8 10 3/uL RBC 4.57 10 6/uL HGB 14.4 g/dL HCT 43.1 % MCV 94.3 fL MCH 31.5 pg MCHC 33.4 g/dL RDW 12.3 % Platelet Count 176 10 3/cmm MPV 10.6 fL Neutrophils 5.72 10 3/uL Lymphocytes 1.3 10 3/uL Monocytes 0.6 10 3/uL Eosinophils 0.1 10 3/uL Basophils 0.0 10 3/uL Neutrophil % 73.8 % Lymphocyte % 17.2 % Monocyte % 7.7 % Eosinophil % 0.6 % Basophils % 0.4 % NRBC % 0 % Test performed on Jun 15, 2020 00:00 Manual Diff Cancelled via OM: Cancelled in Connected System Impression: Moderately differentiated invasive adenocarcinoma involving distal/mid esophagus for EGD done on April 28, 2020 HER-2/justus 3+ positive CT scan of neck/chest abdomen done on April 20, 2020 showed mild nodular thickening of true vocal cord bilaterally otherwise unremarkable neck and CT scan of chest abdomen showed no mediastinal or hilar lymphadenopathy small esophageal hiatal hernia, mild diffuse fatty infiltration liver. Small left adrenal adenoma measuring 10 mm. Incidental fat-containing umbilical hernia. CT PET scan done on May 27, 2020 showed distal esophageal focal hypermetabolic activity. No findings to suggest distant metastatic disease. Incidental focal uptake at the left ventricle apex can be associated with hypertrophic cardiomyopathy. EUS done on June 22, 2020 showed mass in the distal esophagus, circumferential measures up to 12 mm in thickness suggesting invasion into adventitia, T3 and 2 lymph nodes were seen in the middle paraesophageal mediastinum largest is 15 mm ,N1, Clinical stage III Dysphagia/weight loss due to above. Hypertension. Plan: Discussed with patient regarding his labs white blood count 7.1 hemoglobin 13.4 hematocrit 41.2 platelets 159,000 CMP within normal limits and disease status and treatment options, based on recently done EUS finding, patient has locally advanced disease so combined chemoradiation therapy with weekly carboplatin AUC 2 and Taxol 50 mg/m??? concurrent with radiation therapy is recommended. All the side effects possible benefits associated with carboplatin/Taxol including but not limited to, nausea vomiting, allergic reaction especially to the Taxol, peripheral neuropathy, bone marrow suppression, life-threatening infection, hair loss were mentioned further teaching will be done by chemotherapy nurse, will obtain approval from his insurance prior to the treatment. I will also request Port-A-Cath placement to facilitate chemotherapy administration. Patient will return to clinic 1 week after combined chemoradiation therapy is initiated with CBC CMP. Patient will discuss with radiation oncology regarding stent placement or J-tube placement or supportive care with Magic mouthwash/pain medication if and when needed, to maintain nutrition and hydration. Signed By: Genoveva Carlos M.D. <<Signature on File>>
--- NOTE | 2020-06-29 | CT_ITS ---
Radiation Therapy Planning CT images; total exam DLP: 1101.40 mGy-cm MTDD
== END 2020-07-08 23:59 | disposition home or self-care (01) ==
LOC: ONCMED 05:51
PROVIDERS: Internal Medicine Hematology & Oncology; PCP Electrodiagnostic Medicine; Visit Provider Radiology Radiation Oncology
DX: Z51.0 Encounter for antineoplastic radiation therapy (principal); C15.5 Malignant neoplasm of lower third of esophagus; I42.2 Other hypertrophic cardiomyopathy; R13.10 Dysphagia, unspecified; R63.4 Abnormal weight loss; I10 Essential (primary) hypertension; Z79.899 Other long term (current) drug therapy
CPT/HCPCS: 36415; 77290; 77300; 77301; 77334; 77338; 77470; 80053; 85025; 99215; Q9967

== ENCOUNTER → 2020-07-14 13:19 | Outpatient (BNVA) | payer MEDICARE, SELFPAY | PROVIDERS: PCP Electrodiagnostic Medicine; Visit Provider Surgery | DX: Z20.828 Contact with and (suspected) exposure to other viral communicable diseases (principal); C15.9 Malignant neoplasm of esophagus, unspecified | CPT/HCPCS: 87635 ==

== ENCOUNTER 2020-07-19 05:40 | Day surgery (SDC) | payer MEDICARE, SELFPAY ==
[2020-07-16 10:52] VITALS: BMI 25.9
[2020-07-19] VITALS (8 sets, daily range): BP systolic 108–136; BP diastolic 72–98; PULSE 95–112; RESP 9–18; TEMP 36.1–36.6; O2SAT 95–98
--- NOTE | 2020-07-19 | SCC_ITS ---
Procedure Done: Right subclavian vein PowerPort placement under fluoroscopic guidance 16.9 seconds of fluoroscopic guidance, for a cumulative dose of 2.36 mGy, was provided to Dr. Whitten by the radiology department. C-arm images of the chest were saved for the patient's permanent record. [facility]
--- NOTE | 2020-07-19 06:04 | SC_ITS ---
WS: [id number] INTRAOPERATIVE TECHNIQUE: 2 Spot fluoroscopic images for intraoperative purposes. FLUOROSCOPY TIME: 16.9 seconds CLINICAL INFORMATION: Powerport Placement COMPARISON: None. FINDINGS: Right Port-A-Cath with tip in the mid to distal SVC in good position. No visualized pneumothorax. End otracheal tube in good position. SC/C-arm FL for CVA 20751 IMPRESSION: Images obtained for intraoperative purposes.
--- NOTE | 2020-07-19 06:06 | W.PM.OPSUD ---
Surgery/Procedure H&P Update DATE OF PROCEDURE: July 19, 2020 DATE H&P PERFORMED: 07/12/20 H&P UPDATE INFORMATION: I have reviewed H&P completed within last 30 days, I have examined patient prior to procedure and Changes to prior documentation as noted here (Patient apparently changed his mind with regard to the esophageal stent and is interested to pursue feeding jejunostomy.) CHANGES TO PREVIOUS DOCUMENTATION: Patient understands the risks, benefits alternatives and indications for both procedures and he is interested to proceed. Informed consent per chart. PREOP DIAGNOSIS: Esophageal cancer PRIMARY INDICATION FOR PROCEDURE: The same PLANNED PROCEDURE: Operation Date: 07/19/20 07:00 Proposed Procedures p Portacath Placement 46667 C15.9(Not Applicable) - Ariel Whitten MD s Laparoscopic Jejunum Feeding Tube Insertion 98750 C15.9(Not Applicable) - Ariel Whitten MD
[2020-07-19] MEDS: sodium chloride 0.9% 1,000 ML 30 ML IV (06:29)
--- NOTE | 2020-07-19 06:49 | ANES.PREANE2 ---
Pre-Anesthetic Assessment Pre-Anesthetic Assessment: Height/Weight: Height 1.78 m Weight 82.1 kg Temp Pulse Resp BP Pulse Ox 97.7 F 95 16 108/72 98 07/19/20 06:13 07/19/20 06:13 07/19/20 06:13 07/19/20 06:13 07/19/20 06:13 Preop Diagnosis: Esophageal cancer Proposed Procedure: Operation Date: 07/19/20 07:00 Proposed Procedures p Portacath Placement 58285 C15.9(Not Applicable) - Ariel Whitten MD s Laparoscopic Jejunum Feeding Tube Insertion 61158 C15.9(Not Applicable) - Ariel Whitten MD Was Beta Jany taken within 24 hours: N/A Last intake: Intake Last Liquid Date 07/18/20 Last Liquid Time 21:00 Last Solid Date 07/18/20 Last Solid Time 21:00 Social: Social History: Tobacco and No alcohol Exam: Pre-Anes Outpt Exam: alert, oriented x 3 and regular rate & rhythm Airway: Submandibular: WNL Cervical ROM: WNL MP: 2 Dentition: Full Pulmonary: Pulmonary: COPD CV/HEM: CV/HEM: None reported : : None reported Hepatic: Hepatic: None reported GI: Comments: CA, weight loss Metabolic: Metabolic: None reported Musc/skel: Musc/skel: None reported Neuropsych: Neuropsych: None reported Anesthetic Plan: ASA status: 3 Anesthesia: General Risk of > 500 ml blood loss (7ml/kg in children): No Meds/Allergies Current Medications: Current Medications Generic Name Dose Route Start Last Admin Trade Name Freq PRN Reason Stop Dose Admin Sodium Chloride 1,000 mls @ 30 ml s/hr 07/19/20 06:15 07/19/20 06:29 Sodium Chloride 0.9% IV 07/20/20 06:14 30 mls/hr .Q24H [place] Administration PFSH Anesthesia PFSH: Family History Denies family history of Anesthesia complication Bleeding disorder Social History Smoking and tobacco status: never smoked Second hand smoke exposure: No Alcohol intake: never Data Anesthesia Cardiac Studies: No Data to Display
[2020-07-19] MEDS: lidocaine 2% INJ 20 mL ×2 (07:32→08:30)
[2020-07-19] MEDS: heparin, porcine 1,000 unit/mL INJ 10 mL 10000 UNIT (07:33)
--- NOTE | 2020-07-19 09:41 | P.OP_ITS ---
Operative Report Date of procedure: July 19, 2020 Pre-op Diagnosis: Esophageal cancer Post-op diagnosis: same Post-op Findings: Normal anatomy of right subclavian vein No evidence of intra-abdominal carcinomatosis and no ascites Procedure Done: Right subclavian vein PowerPort placement under fluoroscopic guidance.Interpretation of the fluoroscopy was done by me through the whole entire procedure Laparoscopic placement of feeding jejunostomy 16 [place] Citizen Implants: Right upper chest PowerPort placement at Right subclavian vein Feeding jejunostomy 16 [place] Citizen Surgeon: Ariel Whitten Fly Worker: Surgical yeison Daniel Circulating nurse Evelina Anesthesia: MAC (Terrence Zamora) Estimated blood loss (mL): 10 Condition: stable Disposition: same day Brief History: This is a pleasant 65 years old gentleman with history of esophageal cancer requiring PowerPort placement and feeding jejunostomy.Full H&P per chart Informed consent per chart Procedure: Patient was identified in the holding area and taken to the operative room and placed in supine position intubated by the anesthesia provider,both arms were tucked,Time-out was done verifying the patient's name/date of /planned procedure and destination after the procedure, all were in agreement. SCDs confirmed to be functioning, preoperative antibiotics administered per protocol, and beta silvestre protocol was confirmed, appropriate positioning of the patient was done by me. Medications were reviewed to assess for anticoagulant usage. Risks and benefits and prevention of central line associated blood stream infection (CLABSI) were discussed with the patient/CPOA, and a consent was obtained. Monitors were in place and monitored throughout the procedure. All necessary supplies were available prior to start. Hand hygiene was completed prior to starting. Maximum barrier technique was utilized including a sterile gown, sterile gloves with a hat and mask. Site was was prepped with [chlorhexidine] and a full body drape was placed. 5 mL of 2% lidocaine was injected into the skin with a 25 gauge needle. Prep& drape was done under the usual sterile technique, lidocaine 2% was injected at the site of the stick, started by the right subclavian stick that retrieved venous blood was obtained from the first stick, a guidewire was then threaded and under the guidance of fluoroscopy position was confirmed to be in the IVC and my interpretation, there was no PVC changes, at that point the guidewire was secured to the drapes with a hemostat and the needle was taken out, attention was then deviated towards creation of a pocket for the port were lidocaine 2% was injected using an 15 blade knife skin incision was created dissection using the Bovie to create a pocket for the Power port to be accommodated, hemostasis was secured, after the port being appropriately flushed it was inserted into the pocket and a tunneler was used to accommodate the catheter of the port cath to be delivered through the incision first created at the site of the stick, at that point under fluoroscopy an estimated length was measured for the catheter and was cut at the designed level, followed by that a dilator with the sheath introduced onto the guidewire the dilator and the wire were retrieved and the catheter of the port was introduced via the sheath where it was peeled off and the catheter maintained to be in the SVC that was confirmed with fluoroscopy, and the fluoroscopy interpretation was done by me throughout the entire procedure. The port was kept in its pocket,3-0 Vicryl deep subdermal interrupted sutures, skin was then closed by 4-0 Monocryl as subcuticular closure. The stick site was closed by 4-0 Monocryl and surgical glue was used followed by dry dressing. Patient tolerated the procedure well was taken to the recovery area Count was correct at the end of the procedure I was present for the whole entire procedure Laparoscopic Feeding jejunostomy placement: Attention now was deviated towards the feeding jejunostomy placement where the drapes were taken down and shoulder supports and a footboard were placed, and patient continued to be in secure position. Prep and drape of the abdomen was done under the usual sterile technique. Started by longitudinal skin incision supraumbilical using a Dumont trocar technique safe entry to the abdominal cavity was achieved verified by using 10 mm zero degree laparoscopy there were no injuries, switched to a 30? scope under direct visualization, started by low flow gas then high flow additional 11 mm was applied at the right upper quadrant followed by a 5 mm trocar at the right lower quadrant create a triangle with Dumont trocar . There was no evidence of carcinomatosis or ascites or liver metastases. At this point I asked anesthesia to place the patient in reverse T Beauchamp, where I lifted the transverse colon. I was able to locate the ligament of Treitz, using laparoscopic bowel graspers. I was able to measure 60 cm distal to ligament of Treitz, at 2-0 silk stitches x two were used to anchor the antimesenteric border of the jejunum to the abdominal wall, that was placed in the seromuscular layer,. Additional 2-0 silk stitch was applied as a pursestring suture and another 2-0 silk stitch applied left lateral to the pursestring suture at 3:00 for jejuno-pexy ,the stitch was taken anchored the jejunal loop to the abdominal wall. 5 mm trocar was introduced at the site of the feeding jejunostomy after location of the feeding jejunostomy was decided upon, local anesthesia was infiltrated and the skin incision was done, fascia was reached and a feeding jejunostomy 16 [place], was introduced through the skin incision under direct visualization, after creating an enterotomy using a [place] forceps hooked to a cautery, the tube before introduction for the enterotomy, the balloon was tested for leak,and it was intact ,the tube was lubricated ,that was done extracorporeally. The tube was then introduced distally under direct visualization and was placed in good position distally,a pursestring suture was at the jejunostomy site using 2-0 silk prior to the introduction of the feeding jejunostomy tube, followed by 2-0 silk was used to anchor the antimesenteric border 2 inches distal to the jejunostomy site x two, and another one at 9:00 o'clock at the site of the enterotomy anchored to the abdominal wall, the balloon was then inflated using 9 mL of sterile water,a 50 mL of sterile saline was infused through the tube showing no leak and no resistance Under direct visualization. Final survey under normal pressure was done showing no injuries to the viscera and otherwise normal-looking viscera,Under direct visualization using fascial closure device Dumont trocar Fascial defect was closed by interrupted #1 PDS sutures And the same technique was used to close the right upper quadrant 11 mm trocar site also under direct visualization.All trocars were taken out under direct visualization,gas was allowed to escape slowly, where there was an appropriate fixation of the jejunostomy to the abdominal wall Tension-free onto the mesentery.A 4-0 Monocryl were used to close all trocar site incisions, followed by Surgical glue. The feeding jejunostomy was anchored to the skin using 2-0 nylon stitches, count of sponges,needles and instruments were completed at the end I was present for the whole entire procedure, after extubation patient was taken to the recovery in stable condition Position of the catheter was checked with a postoperative chest x-ray and it was in good position without evidence of pneumothorax.
--- NOTE | 2020-07-19 09:45 | XRR_ITS ---
PROCEDURE INFORMATION: Exam: XR Chest, 1 View Exam date and time: 07/19/2020 9:48 AM Age: 65 years old Clinical indication: Other vascular access device placement or adjustment; Port; Additional info: Status post right subclavian powerport placement TECHNIQUE: Imaging protocol: XR of the chest Views: 1 view. COMPARISON: CT chest abdomen w con* 04/20/2020 1:45 PM FINDINGS: Tubes, catheters and devices: The tip of the right subclavian catheter projects on the SVC. Lungs: No pulmonary infiltrates are seen. There is a poor inspiration. Pleural space: Unremarkable. No pleural effusion. No pneumothorax. Heart/Mediastinum: The heart size is normal for the AP semi lordotic projection. Bones/joints: Unremarkable. Intraperitoneal space: There is free intraperitoneal air under the diaphragm. XR/XR chest 1V portable [id number] IMPRESSION: 1. The tip of the subclavian catheter projects in satisfactory position on the SVC. 2. No pneumothorax. 3. There is free intraperitoneal air. Possible etiologies include bowel perforation or recent surgery. Correlation with history is advised.
--- NOTE | 2020-07-19 10:22 | ANE.PACU2 ---
Inpatient post-anesthesia follow up: Airway intact: Yes Vital signs: Temperature 97 F Pulse Rate 108 Respiratory Rate 18 Blood Pressure 129/87 Pulse Oximetry 97 Oxygen Delivery Me thod Room Air Oxygen Flow Rate Fraction of Inspir ed Oxygen Hydration adequate: Yes Nausea and vomiting: No Pain level: 1 Mental status: Baseline
[2020-07-19] MEDS: HYDROcodone-acetaminophen 5-325 mg Tablet 1 TAB PO (11:02)
== END 2020-07-19 11:45 | disposition home or self-care (01) ==
PROVIDERS: PCP Electrodiagnostic Medicine; Visit Provider Surgery
PROC: (CPT 36561; principal; 2020-07-19 07:00)
PROC: (CPT 36561; 2020-07-19 07:00)
DX: C15.9 Malignant neoplasm of esophagus, unspecified (principal); J44.9 Chronic obstructive pulmonary disease, unspecified
CPT/HCPCS: 36561; 12345; 71045; 76000; 77001; C1788; J0330; J0690; J1100; J1644; J2405; J2704; J3010; J3490; J7030

== ENCOUNTER 2020-07-22 08:44 | Outpatient (RCR) | payer MEDICARE, SELFPAY ==
[2020-07-20 09:04] LABS: Basophils % 0.1 %; Hematocrit 38.5 % (42.0-52.0); Hemoglobin 12.9 g/dL (11.7-16.6); Lymphocytes # 0.5 10^3/uL (0.8-4.8); Lymphocytes % 4.4 %; Mean Corpuscular HGB Conc 33.5 g/dL (30.0-36.0); Mean Corpuscular Hemoglobin 31.2 pg (28.0-34.0); Mean Platelet Volume 11.2 fL (7.4-10.4); Monocytes # 0.2 10^3/uL (0.2-0.9); Monocytes % 1.5 %; Neutrophils # 11.39 10^3/uL (1.8-7.7); Neutrophils % 93.4 %; Nucleated Red Blood Cells % 0 %; Platelet Count 157 10^3/cmm (130-400); Red Blood Count 4.14 10^6/uL (4.1-5.3); Red Cell Distribution Width 12.5 % (12.1-15.1); White Blood Count 12.2 10^3/uL (4.0-10.0)
[2020-07-20 09:32] LABS: Alanine Aminotransferase 35 U/L (0-41); Alkaline Phosphatase 87 IU/L (40-130); Anion Gap 13.6 (5-19); Aspartate Amino Transferase 24 U/L (0-40); Blood Urea Nitrogen 21 mg/dL (8-23); Calcium 8.8 mg/dL (8.5-10.5); Carbon Dioxide 25 mmol/L (22-29); Chloride 102 mmol/L (98-107); Globulin 2.9 g/dL (1.3-4.6); Glomerular Filtration Rate 166.9 mL/min (90-130); Glucose 268 mg/dL (65-115); Osmolality Calculated 294 mOsm/kg (285-295); Potassium 4.6 mmol/L (3.5-5.1); Sodium 136 mmol/L (136-145); Total Bilirubin 0.5 mg/dL (0.15-1.2); Total Protein 6.9 g/dL (6.6-8.7)
--- NOTE | 2020-07-20 10:25 | ONCRAD TMN_ITS ---
Radiation OncologyTreatment Management Note Patient Name: Roshan Shell Date of : 1955 Date of Service: 07/20/2020 Attending Physician: Ramon Spicer M.D. 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 The patient has received 2 Gy of a prescribed 50 Reid with an intensity modulated radiotherapy plan utilizing a step and shoot treatment technique. He has been prescribed carboplatin(AUC 2) and paclitaxel (50 mg/m2) weekly during radiotherapy. Upon review of systems, he denied any complaints related to radiotherapy. On physical examination, the patient weighed 192 lbs. His temperature was 98.8 ???F with a blood pressure of 127/79 mmHg. His pulse was 103 bpm and the respiratory rate was 20. No erythema within the treatment navarrete. Continue esophageal radiotherapy as prescribed. Signed by: Dr. Ramon Spicer 07/20/2020 9:47:11 AM
[2020-07-20] MEDS: palonosetron 0.25 mg/5 mL SDV IVP (10:30)
[2020-07-20] MEDS: sodium chloride 0.9% 250 ML 75 ML IV (10:30)
[2020-07-20] MEDS: famotidine 20 mg/2 mL INJ IVP (10:32)
[2020-07-20] MEDS: diphenhydrAMINE 50 mg/mL SDV 1mL 25 MG IVP (10:34)
--- NOTE | 2020-07-21 10:13 | ONC FU_ITS ---
[facility] Patient Note Patient: Roshan Shell Unit #: [id number]: 1955 Dictated By: Jose HassanDate of Visit: Jul 20, 2020 Onc MED Follow-Up/Prog Note Chief Complaint: Esophageal cancer History of Present Illness: Mr. Shell is a 65-year-old gentleman with a history of progressive dysphagia since September or October 2019. He reports that he had a 75 pound weight loss over about 6 months. He began having trouble swallowing solid food off and on and then began having trouble with liquids. He states he has had esophageal reflux in the past and he used Tums or Rolaids He also has a longstanding history of alcohol use since 1975. Mr Shell states he drinks 5-6 beers in a day in addition to 4-5 drinks per day. He does smoke marijuana since age 14. He states it is off and on. He states he used to smoke it recreationally but now he smokes for pain relief and sleep benefits. He has chronic back pain. Mr. Shell underwent GI evaluation for Dr. Whitten at [facility] and on April 28, 2020 he underwent EGD which did show a malignant stricturing mass in the lower third of the esophagus. Stenosis was reported at 3 cm in length and 0.5 cm in diameter. And the stenosis was traversed after dilation. In the mid esophagus a 2 cm segment of sharp segment Ocampo's mucosa was present. 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 He had a CT of the chest/abdomen from 04/20/2020 reported mild chronic emphysematous changes no acute pulmonary infiltrates. There was no mediastinal or hilar lymphadenopathy. He did have a small esophageal hiatal hernia. Mild diffuse fatty infiltration of the liver; small adrenal adenoma-10 mm; and incidental fat-containing umbilical hernia. Mr Shell underwent CT scan of neck on April 20, 2020 which shows mild nodular thickening of the true vocal cords bilaterally otherwise unremarkable. Mr Shell was referred to GI surgery at [facility]. He was evaluated on May 21, 2020 but he had not yet had his staging PET/CT. The recommendations were to review PET/CT scan before deciding about upfront surgery versus neoadjuvant chemoradiation followed by evaluation for surgery. He was also advised to quit smoking marijuana and alcohol as a preparation for treatment. Coleen Cardenas NP did arrange for PFTs. Staging CT PET scan was done on May 27, 2020 showed distal esophageal focal hypermetabolic activity with SUV of 5.01 and incidental, focus uptake seen at the left ventricle apex can be associated with hypertrophic cardiomyopathy. No evidence of distant mets. EUS on June 22, 2020 showed large, fungating mass in the distal esophageal, lesion was circumferential well-defined measured up to 12 mm in thickness suggesting invasion into adventitia and unable to traverse the structure so further structures were not evaluated, 2 enlarged lymph nodes were visualized in the middle paraesophageal mediastinum largest 15 mm. Mr. Shell had right subclavian PowerPort port placement and jejunostomy [address] [place] placed [address] Dr[address] Whitten on July 19, 2020. He is here today to start his first week of Carboplatin/Taxol. He has no new concerns today. He denies any new pain or shortness of breath. He denies any fever or chills. He states his abdomen is little sore from the J-tube being placed yesterday but overall he feels that he is doing well. He denies any nausea or vomiting. He is able to swallow some liquids but not a lot. He denies any lower extremity edema. His ECOG is 1. Past Medical History: Congestive heart failure Gastroesophageal reflux disease Hypertension Past Surgical History: ACL repair Jejunostomy feeding tube???Dr. Whitten in 2020 Right subclavian PowerPort???Dr. Whitten in 2020 Allergies: No Known Allergies. Medications: HYDROcodone-Acetaminophen 15 mL (of 7.5-325 mg/15mL) Solution Oral q 4 hours Metoprolol Succinate ER 1 Tablet (of 25 mg) Tablet SR 24 HR Oral b.i.d. Pantoprazole Sodium 1 Tablet (of 40 mg) Tablet, enteric coated Oral daily Family History: Mr. Shell's mother at age 85: breast cancer. Mr. Shell's father at age 74: lung cancer. Mr. Shell has 1 brother who is alive: prostate cancer. He has 1 sister who is alive: melanoma. Social History: Mr. Shell is and he is an unknown. Mr. Shell has never smoked. He is an active drinker.He consumes 10 drinks/day 7 days/week. He has indicated exposure to the following products: marijuana, beer, and liquor. Mr. Shell reports the following support systems: lives with spouse, significant other, family, or friends, supportive family/friends willing to assist with needs, and adequate transportation available for expected visits. His diet consists of liquid diet. 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 Review Of Symptoms: Constitutional Denies fevers, chills, night sweats, excessive fatigue or recent/continued weight loss. Allergic/Immunologic No reactions. Eyes Denies significant visual changes. No diplopia. No amaurosis. ENMT Denies changes in hearing, sore throat, mouth sores. Has difficulty swallowing-can get crushed pills and liquid down sometimes. Hematologic/Lymphatic Denies easy bruising or bleeding. The patient denies any tender or palpable lymph nodes. Respiratory Denies dyspnea on exertion, chest pain, cough or hemoptysis. Denies orthopnea. Cardiovascular Denies anginal chest pain, palpitations or orthopnea. Sharp chest pain about 3-4 nights ago with sweats . Resolved on its own and no recurrence. Gastrointestinal Denies nausea, vomiting, diarrhea, GI bleeding, or constipation. Denies change in bowel habits and/or stool color, no heartburn or early satiety. Some abdominal discomfort due to Jejunostomy tube placement yesterday. Genitourinary (M) Denies hematuria, dysuria, increased frequency, urgency, hesitancy or incontinence. Musculoskeletal Denies joint pain, swelling or redness. No decreased range of motion. Integumentary Denies chronic rashes, inflammation, ulcerations or skin changes. Neurologic Denies headache, blurred vision, and no areas of focal weakness or numbness. Normal gait. No sensory problems. Psychiatric Denies insomnia, depression, oscar or mood swings. Vital Signs: Performed on Jul 20, 2020 09:35 Height - 70.00 in Weight - 192.4 lbs Temperature - 98.8 F Pulse - 103 Respiration - 20 BP - 127/79 mm(hg) O2 Sat - 98 % Pain - 8 Performed on Jul 20, 2020 09:35 BMI - 27.607 kg/m2 (HIGH),0 - Fully active, able to carry on all predisease activities without restrictions. (ECOG) Physical Examination: Constitutional Alert, oriented, no acute distress. Skin pink, warm and dry. Head Normocephalic; atraumatic. Eyes Conjunctivae and sclerae are clear and without icterus. Pupils are reactive and equal. Neck Supple without masses or thyromegaly. No jugular venous distension. Hematologic/Lymphatic No petechiae or purpura. No tender or palpable lymph nodes in the cervical or supraclavicular areas. Respiratory Lungs are clear to auscultation without rhonchi or wheezing. Cardiovascular Regular rate and rhythm of heart without murmurs,clicks, gallops or rubs. Chest Right subclavian venous access device insertion site is unremarkable. It was placed July 19, [address] Whitten. Abdomen Non-tender, non-distended, no masses or ascites. Good bowel sounds noted in all quads. No guarding or rebound tenderness. No pulsatile masses. Feeding tube site not assessed due to dressing. The dressing is clean, dry and intact. Back/Spine Non-tender to palpation. Extremities No visible deformities, no cyanosis, clubbing or edema. Musculoskeletal No tenderness or swelling, normal range of motion without obvious weakness. Integumentary No rashes or lesions. Neurologic No sensory or motor deficits, normal cerebellar function, normal gait. Psychiatric Alert and oriented times three. Coherent speech. Verbalizes understanding of our discussions today. Laboratory:Test performed on Jul 20, 2020 08:45 Sodium 136 mmol/L Potassium 4.6 mmol/L Chloride 102 mmol/L CO2 25 mmol/L Anion Gap 13.6 BUN 21 mg/dL Creatinine 0.5 mg/dL Cr Clearance (Est) 177.4700 mL/min eGFR 166.9 mL/min Glucose 268 mg/dL Osmolality - Calculated 294 mOsm/kg Calcium 8.8 mg/dL Protein, Total 6.9 g/dL Albumin 4.0 g/dL Globulin 2.9 g/dL Bilirubin, Total 0.5 mg/dL ALT (SGPT) 35 U/L AST (SGOT) 24 U/L Alkaline Phosphatase 87 IU/L WBC 12.2 10 3/uL RBC 4.14 10 6/uL HGB 12.9 g/dL HCT 38.5 % MCV 93.0 fL MCH 31.2 pg MCHC 33.5 g/dL RDW 12.5 % Platelet Count 157 10 3/cmm MPV 11.2 fL Neutrophils 11.39 10 3/uL Lymphocytes 0.5 10 3/uL Monocytes 0.2 10 3/uL Eosinophils 0.0 10 3/uL Basophils 0.0 10 3/uL Neutrophil % 93.4 % Lymphocyte % 4.4 % Manual Lymphocytes 4.4 % Manual Monocytes 1.5 % Monocyte % 1.5 % Eosinophil % 0.0 % Manual Eosinophils 0.0 % Basophils % 0.1 % Manual Basophils 0.1 % NRBC % 0 % Test performed on Jun 15, 2020 00:00 Manual Diff Cancelled via OM: Cancelled in Connected System Impression: Moderately differentiated invasive adenocarcinoma involving distal/mid esophagus for EGD done on April 28, 2020 HER-2/justus 3+ positive CT scan of neck/chest abdomen done on April 20, 2020 showed mild nodular thickening of true vocal cord bilaterally otherwise unremarkable neck and CT scan of chest abdomen showed no mediastinal or hilar lymphadenopathy small esophageal hiatal hernia, mild diffuse fatty infiltration liver. Small left adrenal adenoma measuring 10 mm. Incidental fat-containing umbilical hernia. CT PET scan done on May 27, 2020 showed distal esophageal focal hypermetabolic activity. No findings to suggest distant metastatic disease. Incidental focal uptake at the left ventricle apex can be associated with hypertrophic cardiomyopathy. EUS done on June 22, 2020 showed mass in the distal esophagus, circumferential measures up to 12 mm in thickness suggesting invasion into adventitia, T3 and 2 lymph nodes were seen in the middle paraesophageal mediastinum largest is 15 mm ,N1 Dysphagia/weight loss due to above. Hypertension. Dr Carlos discussed disease status and treatment options with Mr Shell. Based on the EUS finding, he has locally advanced disease so combined chemoradiation therapy with weekly carboplatin AUC 2 and Taxol 50 mg/m??? concurrent with radiation therapy was recommended. Dr Carlos did request Port-A-Cath placement to facilitate chemotherapy administration. Mr. Shell had right subclavian PowerPort port placement and jejunostomy 16 [place] placed for Dr. Whitten on July 19, 2020. Plan: PROBLEMS ADDRESSED TODAY 1. Moderately differentiated invasive adenocarcinoma in the distal/mid esophagus. A. Proceed with week 1 carboplatinum/paclitaxel in combination with radiation. B. Steroid compliance confirmed. C. Today's labs were reviewed in detail discussed with Mr. Shell and a copy was given to him. WBC 12.2 hemoglobin 12.9 platelets 1 57,000 his ANC is 11,000. Potassium 4.6 creatinine 0.5 LFTs are normal random glucose was 268 after steroids. D. He will return weekly for weekly CBC CMP and follow-up for weekly carboplatin paclitaxel while on radiation. E. He will have prochlorperazine and lorazepam on hand at home for antiemetics as needed. I have also advised him that he could try lorazepam to help him sleep if he has trouble with the steroids. F. The patient was informed of chemotherapy plan and specific drugs were discussed. We also discussed how chemotherapy works and identified common side effects including alopecia; myelosuppression-including neutropenia, anemia, thrombocytopenia; peripheral neuropathy; fatigue; nausea; diarrhea; constipation; bleeding or bruising; skin changes; mouth sores; drug hypersensitivity/allergic reactions or anaphylaxis and extravasation. They have also been informed how to contact the clinic with side effects or symptoms, including but not limited to fever greater than 100.4???, chills, sore throat, bleeding or bruising that is not explained or mouth sores, cough, nasal discharge, diarrhea, constipation, nausea and/or vomiting not relieved with medications on hand at home, as well as any other concern or question they may have. Our hours are 8:00 a.m. to 4:30 p.m. on Sunday through and 8-12:00 on Sunday. 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 We have also discussed potential long-term side effects of chemotherapy including secondary cancers, infertility, pulmonary complications, cardiac complications, and again peripheral neuropathy. We have discussed that they certainly need to let us know before taking any antioxidants or herbal or further dietary supplements, as we are unsure of how these agents react with chemotherapy and we request that they avoid these products for now. They were informed that it is okay to take multivitamins at normal doses. They verbally state that they understand to take all medications as directed by their healthcare provider unless otherwise indicated. They also verbalized understanding to leave the pressure dressing on the intravenous administration site for at least two hours after treatment. Instructions for oral care with baking soda and salt water rinses as well as a guide for use of [id number] medication were provided with the treatment plan. They have been given a written patient treatment plan, of which a copy is in the chart, as well as specific drug information. They have no questions and verbalized understanding and are willing to proceed with chemotherapy at this time. The majority of this visit was spent in face to face communication with this patient in regards to the plan of care, side effect identification and management. Signed By: Jose Hassan-WAQAS, AOCNP Genoveva Carlos MD <<Signature on File>>
== END 2020-07-22 10:00 | disposition home or self-care (01) ==
LOC: ONCMED 08:44
PROVIDERS: Internal Medicine Hematology & Oncology; PCP Electrodiagnostic Medicine; Visit Provider Radiology Radiation Oncology
DX: Z51.0 Encounter for antineoplastic radiation therapy (principal); Z51.11 Encounter for antineoplastic chemotherapy; C15.5 Malignant neoplasm of lower third of esophagus; I10 Essential (primary) hypertension; Z79.899 Other long term (current) drug therapy; Z79.52 Long term (current) use of systemic steroids
CPT/HCPCS: 77386; 80053; 85025; 96367; 96375; 96413; 96417; 99215; J1100; J1200; J2469; J3490; J7030; J7050; J9045; J9267

== ENCOUNTER 2020-07-22 10:46 | Observation (INO) | payer MEDICARE, SELFPAY ==
[2020-07-22] VITALS (8 sets, daily range): BP systolic 96–136; BP diastolic 67–89; PULSE 94–137; RESP 16–18; TEMP 36.2–36.9; O2SAT 95–99; BMI 26.5
--- NOTE | 2020-07-22 11:21 | CT_ITS ---
WS: [id number] CT ABDOMEN PELVIS TECHNIQUE: Contrast-enhanced CT of the abdomen and pelvis with coronal and sagittal reformatted image s. CLINICAL INFORMATION: recent feeding tube placed; extremely tender abd; cellulitis COMPARISON: Prior CT April 20, 2020 and June 29, 2020 DLP: 1162.[address] scans at [facility] use at least one of these dose optimization techniques: automat ed exposure control; mA and/or kV adjustment per patient size (includes targeted exams where dose is matched to clinical indication); or iterative reconstruction. FINDINGS: Contrast administered through the jejunostomy tube. Jejunostomy tube appears in good position. No hernán dence of contrast leak. Contrast is confined to the jejunum. Tubing follows the normal course of the jejunum. Cellulitis involving the left anterior abdominal wall with subcutaneous air and induration. Edema wit hin the anterior abdominal wall extending into the rectus sheath. Small amount of edema and hematoma involving the left rectus sheath. No evidence of well-defined drainable abscess or fluid collection. Scattered edema and subcutaneous air in the abdominal wall. Small scattered locules of free air in th e abdomen from recent surgery. Mild diffuse fatty infiltration liver. Small esophageal hiatal hernia. Stable small left adrenal mechelle su. Normal caliber abdominal aorta. Moderate aortic calcification. Hypertrophic changes lumbar spine . Lung bases are well aerated. Sigmoid diverticulosis. No evidence of acute diverticulitis. Normal re nal parenchymal enhancement. No hydronephrosis. Proximal gastric diverticulum measuring 4.9 with air- fluid level is unchanged. CT/CT abdomen pelvis w con* [id number] IMPRESSION: 1. Normal jejunostomy 2 no evidence of contrast leak. 2. Left abdominal wall cellulitis with subcutaneous air and scattered edema. S mall amount of scattered fluid. No drainable abscess or fluid collection. Small amount of hematoma left rectus sheath. 3. Small amount of intra-abdominal free air from recent surgery. 4. No other significant changes since the prior examinations.
--- NOTE | 2020-07-22 11:23 | ED_ITS ---
Documented by User: ANJALI Grullon 07/22/20 13:28 HPI - Abdominal Pain General: Chief Complaint: General Medical Stated Complaint: Feeding tube leaking Time Seen by Provider: 07/22/20 11:02 Source: patient Mode of arrival: ambulatory Limitations: no limitations History of Present Illness: HPI narrative: Patient is a very nice 65-year-old male who presents to the ED today at the request of Dr. Whitten for a concern related to his recent jejunostomy tube placement. Patient recently had a Port-A-Cath placed as well as feeding tube placement so patient can start chemotherapy for esophageal cancer. Patient states over the past few days he has noticed worsening pain around the site of the feeding tube and has noticed a foul odor drainage. Patient tells me he has been tolerating PO liquids, passing gas, and having normal bowel movements. Denies fevers. Oncology providers include Dr. Spicer and Dr. Carlos. MD elicited complaint: abdominal pain Associated Symptoms: Reports chills; Denies change in stool character, diarrhea, dysuria, fever(s), nausea and vomiting Review of Systems Const: Reports: chills; Denies: fever(s), body aches, fatigue or malaise Card: Denies: chest pain Resp: Denies: dyspnea GI: Reports: abdominal pain; Denies: nausea, vomiting, diarrhea or change in stool character : Denies: flank pain or dysuria Musc: Denies: neck pain or back pain Skin/Breast: Reports: erythema (abdominal skin) Neuro: Denies: headache(s) PFSH ED PFSH: Medical History 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 Carlos, HER-2/justus 3+positive, Clinical Stage III, started carboplatin/taxol 07/21/20, receiving radiation therapy History of heart failure per patient years ago, not currently on any treatment for such; Echo 04/2020 with normal EF, indeterminant diastolic function due to tachycardia Hypertension Surgical History History of incision and drainage (07/22/20) abdominal wall abscess/hematoma History of jejunostomy tube placement (07/19/20) History of knee surgery ACL reconstruction Port-A-Cath in place (07/19/20) Family History Father Cancer lung Mother Cancer breast Brother Cancer prostate cancer Sister Cancer melanoma Denies family history of Anesthesia complication Bleeding disorder Social History Smoking and tobacco status: never smoked Alcohol intake: current Alcohol intake frequency: 3 or more drinks per day Alcohol use comment: none in about a week; quart liquor/day in winter, beer in [place] Substance/Drug Use: current Substance/Drug use type: Marijuana Other substance/drug use details: occasional Physical Exam Const: COMMON NORMALS: no acute distress, patient oriented x3, no limitations, alert and well nourished ORIENTATION/CONSCIOUSNESS: Yes awake, Yes oriented to person, Yes oriented to place and Yes oriented to time Resp: COMMON NORMALS: normal respiratory effort and clear to auscultation bilaterally AUSCULTATION: clear to auscultation bilaterally Cardio: COMMON NORMALS: regular rhythm RATE: tachycardic RHYTHM: regular rhythm GI: AUSCULTATION: Yes normoactive bowel sounds OTHER: patient has diffuse abdominal tenderness mainly around L abdomen near his jejunostomy site; he has purulent foul smelling coming from site; he has warmth/cellulitis to L lower abdomen surrounding site Extremity: COMMON NORMALS: normal to inspection Neuro: COMMON NORMALS: patient oriented x3 SENSORIUM/ORIENTATION: Yes alert, Yes oriented to person, Yes oriented to place and Yes oriented to time Skin: OTHER: see abdominal exam Course Vital Signs: Vital signs: Vital Signs Temperature 97.8 F 07/24/20 14:49 Pulse Rate 95 07/24/20 14:49 Respiratory Rate 18 07/24/20 14:49 Blood Pressure 106/64 07/24/20 14:49 Pulse Oximetry 98 07/24/20 14:49 MDM - Abdominal Pain MDM Narrative: Medical decision making narrative: I spoke to Dr. Whitten prior to patient arrival to the ED. he would like CBC, CMP, lactate and would like to make the patient NPO. He requested IV Zosyn. He requested CT abdomen/pelvis with oral, IV, and feeding tube contrast. Will add blood cultures and a wound culture from site drainage. Dr. Whitten has seen patient in the emergency department. He has reviewed patient's CT abdomen/pelvis findings. He would like patient admitted to observation under his service with plan for drainage of hematoma/abscess. Patient has received IV Zosyn per Dr. Whitten here. Will have Dr[facility] Fuentes [facility] admit orders. Lab Data: Labs: Lab Results 07/22/20 07/22/20 07/22/20 Range/Units 11:20 11:20 11:20 WBC 19.4 H (4.0-10.0) 10^3/ uL RBC 4.49 (4.1-5.3) 10^6/u L Hgb 13.8 (11.7-16.6) g/dL Hct 42.1 (42.0-52.0) % MCV 93.8 (80-94) fL MCH 30.7 (28.0-34.0) pg MCHC 32.8 (30.0-36.0) g/dL RDW 12.3 (12.1-15.1) % Plt Count 134 (130-400) 10^3/c mm MPV 11.8 H (7.4-10.4) fL Neut % (Auto) 91.5 % Lymph % (Auto) 2.8 % Saunders % (Auto) 3.2 % Eos % (Auto) 0.4 % Baso % (Auto) 0.2 % Neut # (Auto) 17.71 H (1.8-7.7) 10^3/u L Lymph # (Auto) 0.5 L (0.8-4.8) 10^3/u L Saunders # (Auto) 0.6 (0.2-0.9) 10^3/u L Eos # (Auto) 0.1 (0.0-0.8) 10^3/u L Baso # (Auto) 0.0 (0.0-0.1) 10^3/u L Nucleated RBC % (a uto) 0 % Nucleated RBCs # 0.0 /100WBC Sodium 135 L (136-145) mmol/L Potassium 4.3 (3.5-5.1) mmol/L Chloride 98 (98-107) mmol/L Carbon Dioxide 27 (22-29) mmol/L Anion Gap 14.3 (5-19) BUN 20 (8-23) mg/dL Creatinine 0.6 L (0.7-1.2) mg/dL GFR Calculation 135.2 H (90-130) mL/min Glucose 213 H (65-115) mg/dL Calculated Osmolal ity 289 (285-295) mOsm/k g Lactic Acid 1.6 (0.5-2.2) mmol/L Calcium 8.9 (8.5-10.5) mg/dL Total Bilirubin 2.0 H (0.15-1.2) mg/dL AST 16 (0-40) U/L ALT 34 (0-41) U/L Alkaline Phosphata se 91 (40-130) IU/L Total Protein 6.5 L (6.6-8.7) g/dL Albumin 3.9 (3.5-5.2) g/dL Globulin 2.6 (1.3-4.6) g/dL Urine Color (Yellow) Urine Appearance (CLEAR) Urine pH (5-7) Ur Specific Gravit y (1.005-1.030) Urine Protein (Negative) Urine Glucose (UA) (Normal) Urine Ketones (Negative) Urine Blood (Negative) Urine Nitrate (Negative) Urine Bilirubin (Negative) Urine Urobilinogen (Negative) mg/dL Ur Leukocyte Raissa ase (Negative) Urine RBC (0-2) /hpf Urine WBC (0-5) /hpf Ur Squamous Epith Cells (0-5) /hpf Amorphous Sediment Urine Bacteria (NONE) /hpf 07/22/20 Range/Units 12:41 WBC (4.0-10.0) 10^3/ uL RBC (4.1-5.3) 10^6/u L Hgb (11.7-16.6) g/dL Hct (42.0-52.0) % MCV (80-94) fL MCH (28.0-34.0) pg MCHC (30.0-36.0) g/dL RDW (12.1-15.1) % Plt Count (130-400) 10^3/c mm MPV (7.4-10.4) fL Neut % (Auto) % Lymph % (Auto) % Saunders % (Auto) % Eos % (Auto) % Baso % (Auto) % Neut # (Auto) (1.8-7.7) 10^3/u L Lymph # (Auto) (0.8-4.8) 10^3/u L Saunders # (Auto) (0.2-0.9) 10^3/u L Eos # (Auto) (0.0-0.8) 10^3/u L Baso # (Auto) (0.0-0.1) 10^3/u L Nucleated RBC % (a uto) % Nucleated RBCs # /100WBC Sodium (136-145) mmol/L Potassium (3.5-5.1) mmol/L Chloride (98-107) mmol/L Carbon Dioxide (22-29) mmol/L Anion Gap (5-19) BUN (8-23) mg/dL Creatinine (0.7-1.2) mg/dL GFR Calculation (90-130) mL/min Glucose (65-115) mg/dL Calculated Osmolal ity (285-295) mOsm/k g Lactic Acid (0.5-2.2) mmol/L Calcium (8.5-10.5) mg/dL Total Bilirubin (0.15-1.2) mg/dL AST (0-40) U/L ALT (0-41) U/L Alkaline Phosphata se (40-130) IU/L Total Protein (6.6-8.7) g/dL Albumin (3.5-5.2) g/dL Globulin (1.3-4.6) g/dL Urine Color Dark yellow (Yellow) Urine Appearance Clear (CLEAR) Urine pH 5 (5-7) Ur Specific Gravit y 1.020 (1.005-1.030) Urine Protein Trace (Negative) Urine Glucose (UA) 2+ (Normal) Urine Ketones Negative (Negative) Urine Blood Neg (Negative) Urine Nitrate Negative (Negative) Urine Bilirubin 1+ H (Negative) Urine Urobilinogen Norm (Negative) mg/dL Ur Leukocyte Raissa ase Negative (Negative) Urine RBC 0-4 H (0-2) /hpf Urine WBC 0-4 H (0-5) /hpf Ur Squamous Epith Cells None (0-5) /hpf Amorphous Sediment Not Reportable Urine Bacteria Trace (NONE) /hpf Imaging Data ^: CXR: Radiologist's impression: [address] [address] XRay Report Signed Patient: Roshan Shell Unit #: [id number] : 1955 Age/Sex: 65 / M ADM Date: 07/22/20 Loc: ER Room/Bed: Attending Dr: Ordering Provider/Ordering MD: Jes Murphy Date of Service: 07/22/20 Procedure(s): XR chest 1V portable [id number] Accession Number(s): [id number] Report Number: [id number] WS: [id number] Portable AP upright chest, 07/22/2020 Clinical Data: admission Comparison: Portable chest, 07/19/2020 Findings: The right subclavian catheter remains in same position ending in the superior vena cava. There is still air underneath the diaphragm but it has diminished. The heart is enlarged. The lungs show no nodules, masses or effusions. No pneumonia or pneumothorax is present. There are old left fourth through sixth rib fractures. XR/XR chest 1V portable [id number] Impression: 1. Cardiomegaly. 2. Right subclavian catheter unchanged. 3. Decrease in free air underneath right diaphragm. Dictated By: Renae Sol MD Signed By: Renae Sol MD Signed Date/Time: 07/22/20 1218 DD/ 1216 CT Abd/Pel: Radiologist's impression: [address] [address] [address] Scan Report Signed Patient: Roshan Shell Unit #: [id number] : 1955 Age/Sex: 65 / M ADM Date: 07/22/20 Loc: ER Room/Bed: Attending Dr: Ordering Provider/Ordering MD: Jes Murphy Date of Service: 07/22/20 Procedure(s): CT abdomen pelvis w con* [id number] Accession Number(s): [id number] Report Number: [id number] WS: [id number] CT ABDOMEN PELVIS TECHNIQUE: Contrast-enhanced CT of the abdomen and pelvis with coronal and sagittal reformatted images. CLINICAL INFORMATION: recent feeding tube placed; extremely tender abd; cellulitis COMPARISON: Prior CT April 20, 2020 and June 29, 2020 DLP: 1162.[address] scans at [facility] use at least one of these dose optimization techniques: automated exposure control; mA and/or kV adjustment per patient size (includes targeted exams where dose is matched to clinical indication); or iterative reconstruction. FINDINGS: Contrast administered through the jejunostomy tube. Jejunostomy tube appears in good position. No evidence of contrast leak. Contrast is confined to the jejunum. Tubing follows the normal course of the jejunum. Cellulitis involving the left anterior abdominal wall with subcutaneous air and induration. Edema within the anterior abdominal wall extending into the rectus sheath. Small amount of edema and hematoma involving the left rectus sheath. No evidence of well-defined drainable abscess or fluid collection. Scattered edema and subcutaneous air in the abdominal wall. Small scattered locules of free air in the abdomen from recent surgery. Mild diffuse fatty infiltration liver. Small esophageal hiatal hernia. Stable small left adrenal adenoma. Normal caliber abdominal aorta. Moderate aortic calcification. Hypertrophic changes lumbar spine. Lung bases are well aerated. Sigmoid diverticulosis. No evidence of acute diverticulitis. Normal renal parenchymal enhancement. No hydronephrosis. Proximal gastric diverticulum measuring 4.9 with air-fluid level is unchanged. CT/CT abdomen pelvis w con* [id number] IMPRESSION: 1. Normal jejunostomy 2 no evidence of contrast leak. 2. Left abdominal wall cellulitis with subcutaneous air and scattered edema. Small amount of scattered fluid. No drainable abscess or fluid collection. Small amount of hematoma left rectus sheath. 3. Small amount of intra-abdominal free air from recent surgery. 4. No other significant changes since the prior examinations. Dictated By: Mehdi Washington MD Signed By: Mehdi Washington MD Signed Date/Time: 07/22/20 1258 DD/ 1234 Discharge Plan Discharge Patient Disposition: Admitted As Inpatient Admit Provider: Ariel Whitten Clinical Impression: Abdominal wall cellulitis, Hematoma of rectus sheath Condition: Stable Discharge Diet: Usual diet Discharge Activity: Limit activity as instructed Coding Level of Care Code ED Wall Crane Operator for Chg Fwd Exam Detailed Documented by User: Caitlin Fuentes MD, [facility] [place] 07/24/20 23:15 HPI - Abdominal Pain General: Chief Complaint: General Medical Stated Complaint: Feeding tube leaking Time Seen by Provider: 07/22/20 11:02 PFSH ED PFSH: Medical History 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 Carlos, HER-2/justus 3+positive, Clinical Stage III, started carboplatin/taxol 07/21/20, receiving radiation therapy History of heart failure per patient years ago, not currently on any treatment for such; Echo 04/2020 with normal EF, indeterminant diastolic function due to tachycardia Hypertension Surgical History History of incision and drainage (07/22/20) abdominal wall abscess/hematoma History of jejunostomy tube placement (07/19/20) History of knee surgery ACL reconstruction Port-A-Cath in place (07/19/20) Family History Father Cancer lung Mother Cancer breast Brother Cancer prostate cancer Sister Cancer melanoma Denies family history of Anesthesia complication Bleeding disorder Social History Smoking and tobacco status: never smoked Alcohol intake: current Alcohol intake frequency: 3 or more drinks per day Alcohol use comment: none in about a week; quart liquor/day in winter, beer in [place] Substance/Drug Use: current Substance/Drug use type: Marijuana Other substan ce/drug use details: occasional Course Vital Signs: Vital signs: Vital Signs Temperature 97.8 F 07/24/20 14:49 Pulse Rate 95 07/24/20 14:49 Respiratory Rate 18 07/24/20 14:49 Blood Pressure 106/64 07/24/20 14:49 Pulse Oximetry 98 07/24/20 14:49 MDM - Abdominal Pain MDM Narrative: Medical decision making narrative: Kindly see the midlevel providers note for complete history and physical examination. I also evaluated this patient. Essentially he is a 65-year-old male who recently had a feeding tube placed and it appears that the feeding tube has been displaced. He was evaluated by the general surgeon who placed a feeding tube and he felt he needed a revision of the tube. He was taken to the OR for revision. Lab Data: Labs: Lab Results 07/22/20 07/22/20 07/22/20 Range/Units 11:20 11:20 11:20 WBC 19.4 H (4.0-10.0) 10^3/ uL RBC 4.49 (4.1-5.3) 10^6/u L Hgb 13.8 (11.7-16.6) g/dL Hct 42.1 (42.0-52.0) % MCV 93.8 (80-94) fL MCH 30.7 (28.0-34.0) pg MCHC 32.8 (30.0-36.0) g/dL RDW 12.3 (12.1-15.1) % Plt Count 134 (130-400) 10^3/c mm MPV 11.8 H (7.4-10.4) fL Neut % (Auto) 91.5 % Lymph % (Auto) 2.8 % Saunders % (Auto) 3.2 % Eos % (Auto) 0.4 % Baso % (Auto) 0.2 % Neut # (Auto) 17.71 H (1.8-7.7) 10^3/u L Lymph # (Auto) 0.5 L (0.8-4.8) 10^3/u L Saunders # (Auto) 0.6 (0.2-0.9) 10^3/u L Eos # (Auto) 0.1 (0.0-0.8) 10^3/u L Baso # (Auto) 0.0 (0.0-0.1) 10^3/u L Nucleated RBC % (a uto) 0 % Nucleated RBCs # 0.0 /100WBC Sodium 135 L (136-145) mmol/L Potassium 4.3 (3.5-5.1) mmol/L Chloride 98 (98-107) mmol/L Carbon Dioxide 27 (22-29) mmol/L Anion Gap 14.3 (5-19) BUN 20 (8-23) mg/dL Creatinine 0.6 L (0.7-1.2) mg/dL GFR Calculation 135.2 H (90-130) mL/min Glucose 213 H (65-115) mg/dL Calculated Osmolal ity 289 (285-295) mOsm/k g Lactic Acid 1.6 (0.5-2.2) mmol/L Calcium 8.9 (8.5-10.5) mg/dL Total Bilirubin 2.0 H (0.15-1.2) mg/dL AST 16 (0-40) U/L ALT 34 (0-41) U/L Alkaline Phosphata se 91 (40-130) IU/L Total Protein 6.5 L (6.6-8.7) g/dL Albumin 3.9 (3.5-5.2) g/dL Globulin 2.6 (1.3-4.6) g/dL Urine Color (Yellow) Urine Appearance (CLEAR) Urine pH (5-7) Ur Specific Gravit y (1.005-1.030) Urine Protein (Negative) Urine Glucose (UA) (Normal) Urine Ketones (Negative) Urine Blood (Negative) Urine Nitrate (Negative) Urine Bilirubin (Negative) Urine Urobilinogen (Negative) mg/dL Ur Leukocyte Raissa ase (Negative) Urine RBC (0-2) /hpf Urine WBC (0-5) /hpf Ur Squamous Epith Cells (0-5) /hpf Amorphous Sediment Urine Bacteria (NONE) /hpf 07/22/20 Range/Units 12:41 WBC (4.0-10.0) 10^3/ uL RBC (4.1-5.3) 10^6/u L Hgb (11.7-16.6) g/dL Hct (42.0-52.0) % MCV (80-94) fL MCH (28.0-34.0) pg MCHC (30.0-36.0) g/dL RDW (12.1-15.1) % Plt Count (130-400) 10^3/c mm MPV (7.4-10.4) fL Neut % (Auto) % Lymph % (Auto) % Saunders % (Auto) % Eos % (Auto) % Baso % (Auto) % Neut # (Auto) (1.8-7.7) 10^3/u L Lymph # (Auto) (0.8-4.8) 10^3/u L Saunders # (Auto) (0.2-0.9) 10^3/u L Eos # (Auto) (0.0-0.8) 10^3/u L Baso # (Auto) (0.0-0.1) 10^3/u L Nucleated RBC % (a uto) % Nucleated RBCs # /100WBC Sodium (136-145) mmol/L Potassium (3.5-5.1) mmol/L Chloride (98-107) mmol/L Carbon Dioxide (22-29) mmol/L Anion Gap (5-19) BUN (8-23) mg/dL Creatinine (0.7-1.2) mg/dL GFR Calculation (90-130) mL/min Glucose (65-115) mg/dL Calculated Osmolal ity (285-295) mOsm/k g Lactic Acid (0.5-2.2) mmol/L Calcium (8.5-10.5) mg/dL Total Bilirubin (0.15-1.2) mg/dL AST (0-40) U/L ALT (0-41) U/L Alkaline Phosphata se (40-130) IU/L Total Protein (6.6-8.7) g/dL Albumin (3.5-5.2) g/dL Globulin (1.3-4.6) g/dL Urine Color Dark yellow (Yellow) Urine Appearance Clear (CLEAR) Urine pH 5 (5-7) Ur Specific Gravit y 1.020 (1.005-1.030) Urine Protein Trace (Negative) Urine Glucose (UA) 2+ (Normal) Urine Ketones Negative (Negative) Urine Blood Neg (Negative) Urine Nitrate Negative (Negative) Urine Bilirubin 1+ H (Negative) Urine Urobilinogen Norm (Negative) mg/dL Ur Leukocyte Raissa ase Negative (Negative) Urine RBC 0-4 H (0-2) /hpf Urine WBC 0-4 H (0-5) /hpf Ur Squamous Epith Cells None (0-5) /hpf Amorphous Sediment Not Reportable Urine Bacteria Trace (NONE) /hpf Discharge Plan Discharge Patient Disposition: Admitted As Inpatient Admit Provider: Ariel Whitten Clinical Impression: Abdominal wall cellulitis, Hematoma of rectus sheath Condition: Stable Discharge Diet: Usual diet Discharge Activity: Limit activity as instructed Coding Level of Care Code ED Wall Crane Operator for Chg Fwd Exam Detailed
[2020-07-22 11:40] LABS: Basophils % 0.2 %; Eosinophils # 0.1 10^3/uL (0.0-0.8); Eosinophils % 0.4 %; Hematocrit 42.1 % (42.0-52.0); Hemoglobin 13.8 g/dL (11.7-16.6); Lymphocytes # 0.5 10^3/uL (0.8-4.8); Lymphocytes % 2.8 %; Mean Corpuscular HGB Conc 32.8 g/dL (30.0-36.0); Mean Corpuscular Hemoglobin 30.7 pg (28.0-34.0); Mean Corpuscular Volume 93.8 fL (80-94); Mean Platelet Volume 11.8 fL (7.4-10.4); Monocytes # 0.6 10^3/uL (0.2-0.9); Monocytes % 3.2 %; Neutrophils # 17.71 10^3/uL (1.8-7.7); Neutrophils % 91.5 %; Nucleated Red Blood Cells % 0 %; Platelet Count 134 10^3/cmm (130-400); Red Blood Count 4.49 10^6/uL (4.1-5.3); Red Cell Distribution Width 12.3 % (12.1-15.1); White Blood Count 19.4 10^3/uL (4.0-10.0)
[2020-07-22] MEDS: piperacillin-tazobactam 3.375 GM in sodium chloride 0.9% (plus) 50 ML IV ×2 (11:47→17:43)
[2020-07-22] MEDS: ondansetron 2 mg/ML SDV 2 mL 4 MG IVP (11:55)
[2020-07-22 12:02] LABS: Alanine Aminotransferase 34 U/L (0-41); Albumin Level 3.9 g/dL (3.5-5.2); Alkaline Phosphatase 91 IU/L (40-130); Anion Gap 14.3 (5-19); Aspartate Amino Transferase 16 U/L (0-40); Blood Urea Nitrogen 20 mg/dL (8-23); Calcium 8.9 mg/dL (8.5-10.5); Carbon Dioxide 27 mmol/L (22-29); Chloride 98 mmol/L (98-107); Globulin 2.6 g/dL (1.3-4.6); Glomerular Filtration Rate 135.2 mL/min (90-130); Glucose 213 mg/dL (65-115); Osmolality Calculated 289 mOsm/kg (285-295); Potassium 4.3 mmol/L (3.5-5.1); Sodium 135 mmol/L (136-145); Total Protein 6.5 g/dL (6.6-8.7)
[2020-07-22 12:03] LABS: Lactic Sepsis W/Reflex 1.6 mmol/L (0.5-2.2)
--- NOTE | 2020-07-22 12:03 | XR_ITS ---
WS: [id number] Portable AP upright chest, 07/22/2020 Clinical Data: admission Comparison: Portable chest, 07/19/2020 Findings: The right subclavian catheter remains in same position ending in the superior vena cava. Th ere is still air underneath the diaphragm but it has diminished. The heart is enlarged. The lungs yesenia w no nodules, masses or effusions. No pneumonia or pneumothorax is present. There are old left fourth through sixth rib fractures. XR/XR chest 1V portable [id number] Impression: 1. Cardiomegaly. 2. Right subclavian catheter unchanged. 3. Decrease in free air underneath right diaphragm.
[2020-07-22] MEDS: iohexol 300 mg/mL 100 mL Btl IV (12:29)
[2020-07-22] MEDS: iohexol 300 mg/mL 50 mL Btl PO (12:29)
[2020-07-22 13:06] LABS: Add Urine Microscopic? YES; Bacteria Urine TRACE /hpf; Bilirubin Urine 1+ (Negative); Blood Urine Neg (Negative); Glucose Urine UA 2+ (Normal); Ketones Urine Negative (Negative); Leukocyte Esterase Urine Negative (Negative); Nitrate Urine Negative (Negative); Protein Urine Trace (Negative); RBC Urine 0-4 /hpf (0-2); Urine Appearance Clear (CLEAR); Urine Color Dark Yellow (Yellow); Urobilinogen Urine Norm (Negative); WBC Urine 0-4 /hpf (0-5); pH Urine 5 (5-7)
--- NOTE | 2020-07-22 13:41 | PC.NURSE ---
patient arrived to unit from er with 20g iv in right AC
--- NOTE | 2020-07-22 14:01 | P.ANESUD_ITS ---
Pre-Anesthetic Update Pre-Anesthetic Assessment: Date of Surgery/Procedure: 07/22/20 Preop Jennifer gnosis: Abdominal wall collection Proposed Procedure: Operation Date: 07/22/20 15:20 Proposed Procedures p Incision And Drainage abdominal hematoma(Not Applicable) - Ariel Whitten MD Any changes to Pre-Anesthetic Assessment?: No Last Intake: Intake Last Liquid Date 07/22/20 Last Liquid Time 06:30 Last Solid Date 07/21/20 Last Solid Time 14:00 Last Intake: 07:00 Labs Last 48hrs: Laboratory Results - last 48 hr 07/22/20 07/22/20 07/22/20 11:20 11:20 11:20 WBC 19.4 H RBC 4.49 Hgb 13.8 Hct 42.1 MCV 93.8 MCH 30.7 MCHC 32.8 RDW 12.3 Plt Count 134 MPV 11.8 H Neut % (Auto) 91.5 Lymph % (Auto) 2.8 [place] % (Auto) 3.2 Eos % (Auto) 0.4 Baso % (Auto) 0.2 Neut # (Auto) 17.71 H Lymph # (Auto) 0.[address] [place] # (Auto) 0.6 Eos # (Auto) 0.1 Baso # (Auto) 0.0 Nucleated RBC % (a uto) 0 Nucleated RBCs # 0.0 Sodium 135 L Potassium 4.3 Chloride 98 Carbon Dioxide 27 Anion Gap 14.3 BUN 20 Creatinine 0.6 L GFR Calculation 135.2 H Glucose 213 H Calculated Osmolal ity 289 Lactic Acid 1.6 Calcium 8.9 Total Bilirubin 2.0 H AST 16 ALT 34 Alkaline Phosphata se 91 Total Protein 6.5 L Albumin 3.9 Globulin 2.6 Urine Color Urine Appearance Urine pH Ur Specific Gravit y Urine Protein Urine Glucose (UA) Urine Ketones Urine Blood Urine Nitrate Urine Bilirubin Urine Urobilinogen Ur Leukocyte Raissa ase Urine RBC Urine WBC Ur Squamous Epith Cells Amorphous Sediment Urine Bacteria 07/22/20 12:41 WBC RBC Hgb Hct MCV MCH MCHC RDW Plt Count MPV Neut % (Auto) Lymph % (Auto) [place] % (Auto) Eos % (Auto) Baso % (Auto) Neut # (Auto) Lymph # (Auto) [place] # (Auto) Eos # (Auto) Baso # (Auto) Nucleated RBC % (a uto) Nucleated RBCs # Sodium Potassium Chloride Carbon Dioxide Anion Gap BUN Creatinine GFR Calculation Glucose Calculated Osmolal ity Lactic Acid Calcium Total Bilirubin AST ALT Alkaline Phosphata se Total Protein Albumin Globulin Urine Color Dark yellow Urine Appearance Clear Urine pH 5 Ur Specific Gravit y 1.020 Urine Protein Trace Urine Glucose (UA) 2+ Urine Ketones Negative Urine Blood Neg Urine Nitrate Negative Urine Bilirubin 1+ H Urine Urobilinogen Norm Ur Leukocyte Raissa ase Negative Urine RBC 0-4 H Urine WBC 0-4 H Ur Squamous Epith Cells None Amorphous Sediment Not Reportable Urine Bacteria Trace Vitals: Temperature 97.2 F L 07/22/20 13:42 Temperature Source Skin 07/22/20 13:42 Pulse Rate 133 H 07/22/20 13:42 Respiratory Rate 18 07/22/20 13:42 Respiratory Effort Non-Labored 07/22/20 10:48 Respiratory Depth Normal 07/22/20 10:48 Respiratory Patter n 07/22/20 10:48 Blood Pressure 136/87 07/22/20 13:42 Blood Pressure Clemencia n 103 07/22/20 13:42 Blood Pressure Pos ition Semi Fowlers 07/22/20 13:14 Pulse Oximetry 99 07/22/20 13:42 Oxygen Delivery Me thod 07/22/20 13:42 Sepsis Recent Feve r Within 48 Hours No 07/22/20 10:48 Sepsis New/Unexpla ined Change in Men cat Status No 07/22/20 10:48 Exam: Pre-Anes Outpt Exam: alert, oriented x 3, clear to auscultation bilaterally and regular rate & rhythm Cardiac Studies: No Data to Display
[2020-07-22] MEDS: lidocaine 2% INJ 20 mL INJECTION (14:36)
--- NOTE | 2020-07-22 15:02 | PM.OP ---
Operative Report Date of procedure: July 22, 2020 Pre-op Diagnosis: Abdominal wall collection Post-op diagnosis: other (Abdominal wall abscess) Post-op Findings: Infected hematoma of anterior abdominal wall towards the left rectus sheath muscle Procedure Done: Incision and drainage of abdominal wall abscess/infected hematoma Sharp debridement of the abscess Implants: Packing the abscess cavity with Kerlix wet-to-dry soaked in lidocaine 2% Specimens removed/disposition: Tissues for cultures and sensitivities Swabs for cultures and sensitivities Surgeon: Ariel Whitten Environmental Geologist: Surgical Sis Pedroza and Yara bowserub tech student Anesthesia: MAC (metal patternmaker apprentice Smart) Estimated blood loss (mL): 20 IV fluids (mL): 500 Condition: stable Disposition: observation Brief History: This is a pleasant 65 years old gentleman with history of esophageal cancer recently had uneventful right subclavian PowerPort placement and at the same session undergone a laparoscopic feeding jejunostomy tube placement. 2 days after surgery patient started to have worsening pain towards the left side of the abdomen with concern of discharge around the tube.He was seen and evaluated today at my office as a postop visit and I was concerned that the patient developed infected collection towards the left side of the abdomen so I elected to send the patient to the emergency department for an urgent CT scan of the abdomen and pelvis with IV and per jejunostomy tube contrast placement. There was no evidence of leak at the feeding tube and the contrast did not show any extravasation yet there was a hematoma towards the left rectus muscle with no drainable fluid collection yet per my physical examination I did appreciate purulent discharge around the site of the tube and I elected to consult the patient for incision and drainage of left abdominal wall collection. Informed consent per chart Procedure: After identifying the patient holding area, patient was then taken to the operative suite, was placed in supine position, IV propofol was infused by anesthesia patient was already started on IV Zosyn in the emergency department so he was within therapeutic levels prep and drape of the abdomen was done under the usual sterile technique. Time-out was done verifying the patient's name/date of /planned procedure and destination after the procedure, all were in agreement After palpation of the left lower side of the abdomen fluid collection was appreciated and a stab incision was created towards the lower part of the swelling(located at the left lower side of the abdomen) about 2 inches in diameter and A hemostat was thrusted and there was pus revealed a total of about 20, all loculations were taken down by the examining finger all the way to the site of the feeding jejunostomy without jeopardizing the entrance to the abdominal cavity. Copious and thorough irrigation were done using Pulsavac 6 L of warm saline after swabs and tissue was obtained for cultures and sensitivities. Appropriate flushing of the feeding J tube was done with 50 mL of saline without complication Appropriate hemostasis was done followed by packing the wound with Kerlix soaked in lidocaine 2% Dry dressing was then applied in the form of ABDs followed by an abdominal binder. Patient tolerated the procedure well, count of instruments, needles and sponges were completed at the end of the procedure.And then patient was taken to the recovery area in stable condition. I Was present for the whole entire procedure
--- NOTE | 2020-07-22 15:27 | SUR.PHASEI ---
1505 PT TO OPS 11 AWAKE ALERT VSS PT DENIES PAIN ABD SOFT WITH ABD BINDER OVER WET TO DRY OPEN PACKED INCISION. 1525 PT ALERT USED HIS CELL PHONE TO TALK TO FAMILY, DR PEOPLES TALKED WITH FAMILY PT TO GO TO FLOOR OVERNIGHT.
--- NOTE | 2020-07-22 15:41 | ANE.PACU2 ---
Inpatient post-anesthesia follow up: Airway intact: Yes Vital signs: Temperature 98.5 F Pulse Rate [Monito r] 137 Pulse Rate 101 Respiratory Rate 17 Blood Pressure [Le ft Arm] 96/67 Blood Pressure 128/89 Pulse Oximetry 99 Oxygen Delivery Me thod Room Air Oxygen Flow Rate Fraction of Inspir ed Oxygen Hydration adequate: Yes Nausea and vomiting: No Pain level: 2 Mental status: Baseline
[2020-07-22] MEDS: sodium chloride 0.9% 1,000 ML 50 ML IV (17:40)
[2020-07-22] MEDS: HYDROcodone-acetaminophen 5-325 mg Tablet 1 TAB PO (17:46)
[2020-07-22] MEDS: metoprolol tartrate 25 mg Tablet PO (17:47)
[2020-07-22] MEDS: famotidine 20 mg/2 mL INJ IVP (17:49)
--- NOTE | 2020-07-22 18:02 | PC.NURSE ---
Patient's bar code and medications would not scan with this scanner/computer. Patient was manually verified by name and and medications were verified prior to administration. SCDs were placed as ordered. Telemetry was placed as ordered. Patient tolerated medication administration well. He denies further needs at this time.
[2020-07-23] VITALS (11 sets, daily range): BP systolic 99–131; BP diastolic 65–79; PULSE 67–124; RESP 16–24; TEMP 36.4–37.2; O2SAT 94–99
--- NOTE | 2020-07-23 | IR_ITS ---
WS: [id number] INDICATION: Feeding tube injection. Assess for leak. TECHNIQUE: Fluoroscopic guided feeding tube injection FLUOROSCOPY TIME 0.9 minutes FINDINGS: Fluoroscopic guided jejunostomy tube injection with 15 cc oral contrast. Rapid filling of t he jejunum. No evidence of contrast leak. No other significant findings. IR/IR contrast inj [facility] [place] [id number] IMPRESSION: No evidence of jejunostomy tube leak
--- NOTE | 2020-07-23 00:53 | ECG_ITS ---
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 Measurements Intervals [place] Rate: 125 P: MO: QRS: -26 QRSD: 106 T: 35 QT: 299 QTc: 432 Interpretive Statements ATRIAL FIBRILLATION WITH RAPID VENTRICULAR RESPONSE BORDERLINE LEFT AXIS DEVIATION [QRS AXIS < -20] INCOMPLETE RIGHT BUNDLE BRANCH BLOCK [90+ ms QRS DURATION, TERMINAL R IN V1/V2, 40+ ms S IN I/aVL/V4/V5/V6] ABNORMAL RHYTHM ECG No previous ECG available for comparison Electronically Signed On 07-25-2020 9:00:27 MUSIC THERAPIST by Greta Truong M.D. [email or web address] [email or web address] [email or web address].[employer]/store/OM/[id number]
--- NOTE | 2020-07-23 01:30 | P.CONIM_ITS ---
Providers/Reason For Consult Consulting Physican/Specialty*: Frase/Hospitalist Reason for Consult*: afib with rvr Requesting Physcian: Dr Whitten Attending Physician: Ariel Whitten MD Primary Care Provider: Raleigh Boyd DO History of Present Illness History of Present Illness Roshan Shell is a 65 year old male who was sent to the emergency room by Dr. Whitten due to abdominal pain and discomfort in the abdominal wall. He had a Port-A-Cath placement and jejunostomy tube placement on the . He received his first dose of chemotherapy on the , with carboplatin and Taxol. He has been undergoing concurrent radiation therapy. Work-up in the emergency room revealed abdominal wall abscess/hematoma. He underwent incision and drainage of this area last evening. Tonight he has developed atrial fibrillation with rapid ventricular response. He is chronically on beta-blockade. He reports that he has had a irregular rhythm for years. He has never been on any form of anticoagulation. He does not know the term atrial fibrillation or atrial flutter. He says that he had heart failure years ago. No specific details surrounding this are known. Denies a history of coronary artery disease. Review of records which originate here in April of last year shows that he had an echocardiogram as part of his oncological work-up. This showed a normal ejection fraction although diastolic function was not able to be determined secondary to the rhythm. All I can identify is that he was tachycardic. I do not have prior EKGs for comparison. In talking with nursing staff, patient went into atrial fibrillation after getting up to go to the bathroom. He got back in bed and has been resting comfortably but heart rate has persisted and being elevated to the 120s to 130s. Mr. Shell himself is asymptomatic. His pain has been controlled much better than it was prior to having his procedure done. He has had some drainage noted on the abdominal binder but it has not expanded significantly. No gross bleeding has been seen. Hospitalist were consulted because of the development of arrhythmia. I did confirm that he had had his usual metoprolol dose this afternoon. Review of Systems Const: Reports: change in weight (Significant weight loss over the last 6 months or so), night sweats and diaphoresis (Sometimes) Eyes: Denies: change in vision ENMT: Reports: odynophagia and dry mouth Card: Denies: chest pain, palpitations or edema Resp: Denies: dyspnea, productive cough or non-productive cough GI: Reports: abdominal pain, nausea and constipation; Denies: vomiting or diarrhea : Denies: difficulty urinating Musc: Denies: joint swelling or joint redness Skin/Breast: Denies: rash or pruritus Neuro: Denies: headache(s), numbness in extremities, weakness in extremities or dizziness Psych: Denies: anxiety or depression Sundeep/Lymph: Denies: easy bruising or easy bleeding Meds/Allergies Home Medications and Allergies Home Medications Medication Instructions Recorded Confirmed Last Taken Type metoprolol tartrate 25 mg tablet 25 mg PO Q12H 04/19/20 07/22/20 07/22/20 05:00 History pantoprazole [Protonix] 40 mg PO DAILY 30 Days #30 tab 04/28/20 07/22/20 07/18/20 Rx hydrocodone-acetaminophen [[place]] 1 tab PO Q6H PRN #28 tab 07/19/20 07/22/20 07/22/20 05:00 Rx acetaminophen [Tylenol Arthritis 1,300 - 1,950 mg PO PRN 07/22/20 07/22/20 07/21/20 History Pain] 2 tabs acetaminophen [Tylenol Extra 1,000 mg PO PRN 07/22/20 07/22/20 Unknown History Strength] dexamethasone See Rx Instructions .ROUTE .COMPLEX 07/22/20 07/22/20 07/19/20 History hydrocodone-acetaminophen 15 ml PO Q4H PRN 07/22/20 07/22/20 07/22/20 07:30 History 7 ml ibuprofen 600 mg PO PRN 07/22/20 07/22/20 07/21/20 History lorazepam 1 mg PO TID PRN 07/22/20 07/22/20 Unknown History prochlorperazine maleate 10 mg PO Q4H PRN 07/22/20 07/22/20 Unknown History Allergies Allergy/AdvReac Type Severity Reaction Status Date / Time No Known Allergies Allergy Verified 07/22/20 11:59 Current Medications Current Medications Generic Name Dose Route Start Last Admin Trade Name Freq PRN Reason Stop Dose Admin Hydrocodone Bitart/Acetaminophen 1 tab 07/22/20 15:11 07/22/20 17:46 Hydrocodone-Acetaminophen 5-325 Mg Tablet PO 1 tab Q6H PRN Administration MODERATE PAIN Famotidine 20 mg 07/22/20 16:00 07/22/20 17:49 Famotidine 20 Mg/2 Ml Inj IVP 20 mg Q12H TENNILLE Administration Sodium Chloride 1,000 mls @ 50 mls/hr 07/22/20 15:15 07/22/20 17:40 Sodium Chloride 0.9% IV 50 mls/hr .Q20H [place]ENN[place] Administration Piperacillin Sod/Tazobactam 50 mls @ 12.5 mls/hr 07/22/20 18:00 07/22/20 17:43 Sod 3.375 gm/ Sodium Chloride IV 12.5 mls/hr Q8H TENNILLE Administration Protocol Metoprolol Tartrate 25 mg 07/22/20 16:30 07/22/20 17:47 Metoprolol Tartrate 25 Mg Tablet PO 25 mg Q12H TENN[place] Administration PFSH Acute PFSH: Medical History (Updated 07/23/20 @ 06:20 by Marilu Nieto MD) 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 Carlos, HER-2/justus 3+positive, Clinical Stage III, started carboplatin/taxol 07/21/20, receiving radiation therapy History of heart failure per patient years ago, not currently on any treatment for such; Echo 04/2020 with normal EF, indeterminant diastolic function due to tachycardia Hypertension Surgical History (Updated 07/23/20 @ 05:41 by Marilu Nieto MD) History of incision and drainage (07/22/20) abdominal wall abscess/hematoma History of jejunostomy tube placement (07/19/20) History of knee surgery ACL reconstruction Port-A-Cath in place (07/19/20) Family History (Updated 07/23/20 @ 05:45 by Marilu Nieto MD) Father Cancer lung Mother Cancer breast Brother Cancer prostate cancer Sister Cancer melanoma Denies family history of Anesthesia complication Bleeding disorder Social History (Updated 07/23/20 @ 05:52 by Marilu Nieto MD) Smoking and tobacco status: never smoked Alcohol intake: current Alcohol intake frequency: 3 or more drinks per day Alcohol use comment: none in about a week; quart liquor/day in winter, beer in [place] Substance/Drug Use: current Substance/Drug use type: Marijuana Other substance/drug use details: occasional Vitals/I&O/Wt Last Vital Signs Temp 98 F 07/23/20 00:00 Pulse 94 07/23/20 00:00 Resp 18 07/23/20 00:00 BP 99/65 07/23/20 00:00 Pulse Ox 94 07/23/20 00:00 07/22/20 07/22/20 07/23/20 14:59 22:59 06:59 Intake Total 100 / 100 Balance 100 / 100 Weight last 48 hrs Weight 83.915 kg Physical Exam Const: OTHER: Alert, oriented x3, cooperative HENMT: OTHER: Mild bitemporal wasting, dry mucous membranes, prominent gumline Eye: OTHER: Pupils equally round and reactive to light Neck/C-Spine: OTHER: Supple Resp: OTHER: No tachypnea or accessory muscle use, clear to auscultation bilaterally Cardio: OTHER: Irregularly irregular rhythm, no murmurs noted, pulses equal peripherally GI: OTHER: Abdominal binder in place over the abdomen. It was not removed. There is an area of yellowish discharge on the right side and an area of brownish red-tinged discharge on the left side of the binder. Positive bowel sounds : OTHER: Deferred Extremity: NARRATIVE EXTREMITY EXAM: No pitting edema Neuro: OTHER: Face symmetric, speech clear, moves all extremities, no tremors noted Psych: OTHER: Normal affect Skin: OTHER: Radiation therapy markers noted above the abdominal binder, skin is dry, bronze looking Data Micro: Micro: Microbiology 07/22/20 14:40 Gram Stain - Final Abdomen 07/22/20 14:40 Gram Stain - Final Abdomen 07/22/20 11:20 Gram Stain - Final Abdomen 07/22/20 12:07 Blood Culture - Pr eliminary Blood SPECIMEN [facility] 07/22/20 12:02 Blood Culture - Pr eliminary Blood SPECIMEN [facility] A&P Assessment and plan (1) Atrial fibrillation/flutter: I am not sure if patient has a history of atrial fib/flutter in the past or not. He does describe having an abnormal heart rhythm for some time off and on. Onset was with getting up to the bathroom. Hoping that he will convert on his own. Status: Acute (2) Alcohol use: Status: Acute (3) Esophageal cancer: Status: Chronic Additional A&P Information Telemetry monitoring Serial cardiac enzymes and EKGs Check electrolytes Check hemoglobin Give some IV beta-blockade, continue oral beta-blockade IV fluid bolus As needed Ativan Ensure pain control Had echocardiogram in April, prior to chemo therapy, will check a limited to reevaluate EF Antibiotics and other post procedure management as per surgery Will follow along Thank you for consultation Coding Level of Care Code Acute Accounts Payable Or Receivable Clerk for Jasen Fwd Diagnoses Atrial fibrillation/flutter I48.91; I48.92 Alcohol use Z72.89 Esophageal cancer C15.9
--- NOTE | 2020-07-23 01:30 | PC.NURSE ---
This nurse noticed the patient's HR was in the 160's. When this nurse and charge investigated, the patient was standing using the urinal. When the patient finished and lay back down his HR was in the 130's. EKG was ordered which illustrated AFIB w RVR. Patient stated that he felt fine. A fresh set of V/S were obtained. Surgeon was called and notified about the patient and consultation was setup with hospitalist.
[2020-07-23] MEDS: piperacillin-tazobactam 3.375 GM in sodium chloride 0.9% (plus) 50 ML IV ×3 (01:46→16:53)
[2020-07-23 02:01] LABS: Basophils # 0.1 10^3/uL (0.0-0.1); Basophils % 0.4 %; Eosinophils % 0.1 %; Hematocrit 36.9 % (42.0-52.0); Hemoglobin 12.1 g/dL (11.7-16.6); Lymphocytes # 0.5 10^3/uL (0.8-4.8); Lymphocytes % 4.1 %; Mean Corpuscular HGB Conc 32.8 g/dL (30.0-36.0); Mean Corpuscular Hemoglobin 30.7 pg (28.0-34.0); Mean Corpuscular Volume 93.7 fL (80-94); Mean Platelet Volume 11.2 fL (7.4-10.4); Monocytes # 0.4 10^3/uL (0.2-0.9); Monocytes % 3.3 %; Neutrophils # 12.02 10^3/uL (1.8-7.7); Neutrophils % 90.4 %; Nucleated Red Blood Cells % 0 %; Platelet Count 118 10^3/cmm (130-400); Red Blood Count 3.94 10^6/uL (4.1-5.3); Red Cell Distribution Width 12.4 % (12.1-15.1); White Blood Count 13.3 10^3/uL (4.0-10.0)
[2020-07-23 02:31] LABS: Magnesium 1.9 mg/dL (1.7-2.3); Phosphorus 1.7 mg/dL (2.5-4.5); Sodium 134 mmol/L (136-145); Troponin(5th) Baseline 33 ng/L (0-15)
[2020-07-23 02:32] LABS: Anion Gap 12.2 (5-19); Blood Urea Nitrogen 17 mg/dL (8-23); Calcium 8.7 mg/dL (8.5-10.5); Carbon Dioxide 26 mmol/L (22-29); Chloride 100 mmol/L (98-107); Glomerular Filtration Rate 166.9 mL/min (90-130); Glucose 164 mg/dL (65-115); Osmolality Calculated 283 mOsm/kg (285-295); Potassium 4.2 mmol/L (3.5-5.1)
[2020-07-23] MEDS: famotidine 20 mg/2 mL INJ IVP ×2 (03:17→15:00)
[2020-07-23] MEDS: metoprolol tartrate 1 mg/1 mL SDV 5 mL 5 MG IV (03:17)
--- NOTE | 2020-07-23 03:28 | ECG_ITS ---
[facility] Test Date: 2020-07-23 Pat Name: Roshan Shell Department: Room: 278 Gender: Male Corporate Administrative Assistant: : 1955 Requested By: Marilu Nieto Order Number: [id number] Oleksandr MD: Greta Truong M.D. Measurements Intervals [place] Rate: 107 P: AR: QRS: -27 QRSD: 111 T: 32 QT: 344 QTc: 460 Interpretive Statements ATRIAL FIBRILLATION WITH RAPID VENTRICULAR RESPONSE BORDERLINE LEFT AXIS DEVIATION [QRS AXIS < -20] INCOMPLETE RIGHT BUNDLE BRANCH BLOCK [90+ ms QRS DURATION, TERMINAL R IN V1/V2, 40+ ms S IN I/aVL/V4/V5/V6] ABNORMAL RHYTHM ECG INTERPRETATION BASED ON A DEFAULT AGE OF 40 YEARS Compared to ECG 07/23/2020 01:08:31 No significant changes Electronically Signed On 07-25-2020 9:23:11 FLEET ASSISTANT by Greta Truong M.D. [email or web address] [email or web address] ionia hospitalPurdue Research Foundation/store/NU/[id number] f
[2020-07-23] MEDS: HYDROcodone-acetaminophen 5-325 mg Tablet 1 TAB PO (03:58)
[2020-07-23] MEDS: metoprolol tartrate 25 mg Tablet PO ×2 (03:58→15:00)
[2020-07-23 04:28] LABS: Troponin 5 2HR 31.63 ng/L (0-15)
[2020-07-23 05:09] LABS: Troponin 5 2HR Delta -1.37 ABS# (0-10)
--- NOTE | 2020-07-23 05:17 | USCV_ITS ---
SulemanRoshan hurley Age: 65 Gender: M : 1955 Exam Date: 07/23/2020 15:17 Ordering Phys: Marilu Nieto MD Technologist: Luis Angel Darnell Exam Location: [facility] [place] Indication: afib BP: 112 / 69 HR: 119 Rhythm: Sinus Technical Quality: Poor MEASUREMENTS (Male / Female) Normal Values 2D ECHO LV Diastolic Diameter PLAX 4.2 cm 4.2 - 5.9 / 3.9 - 5.3 cm LV Systolic Diameter PLAX 3.1 cm IVS Diastolic Thickness 1.2 cm 0.6 - 1.0 / 0.6 - 0.9 cm IVS Systolic Thickness 1.2 cm LVPW Diastolic Thickness 1.3 cm 0.6 - 1.0 / 0.6 - 0.9 cm LVPW Systolic Thickness 1.7 cm LVOT Diameter 2.1 cm LV Ejection Fraction 2D Teich 52.9 % LV Ejection Fraction MOD 2C 51.0 % LV Ejection Fraction 2C AL 50.3 % LA Diameter 5.2 cm LA Width 4.5 cm LA Height 5.8 cm RA Width 4.7 cm RA Height 6.8 cm Aorta at Sinotubular Diameter 2.9 cm FINDINGS Left Ventricle Diffuse hypokinesia of the left ventricle with slightly diminished ejection fraction of 50%. Normal LV size. Right Ventricle Normal right ventricular size and systolic function. Right Atrium Moderately increased right atrial size. Left Atrium Moderately increased left atrial size. Mitral Valve Thickened mitral valve. Moderate mitral annular calcification. Aortic Valve Thickened aortic valve. Tricuspid Valve No gross abnormalities noted Pulmonic Valve No gross abnormalities noted Pericardium No pericardial effusion. Aorta Normal aortic annulus size. CONCLUSIONS Diffuse hypokinesia of the left ventricle with slightly diminished ejection fraction of 50%. Normal LV size. Moderate biatrial enlargement Thickened mitral valve. Moderate mitral annular calcification. Thickened aortic valve. There is no pericardial effusion. There are no intracardiac masses. Compared to the previous study from 04/15/2020, there may not be a significant change, and the 2D findings Dr Greta Truong MD [facility] (Electronically Signed) Final Date: 23 July 2020 20:18 S
--- NOTE | 2020-07-23 05:44 | P.PN_ITS ---
Subjective Subjective: Interval history: Overall patient feels better, noticed to have increase in heart rate overnight with atrial fibrillation noticed on the monitor, hospitalist consulted for medical evaluation and electrolytes replacement were done in addition to increase the dosage of beta-silvestre and was given digoxin as well.That helped with the heart rate to slow down. Trending down in leukocytosis, tolerating p.o. intake Drainage around the feeding jejunostomy site is appreciated yet wound packing shows serosanguineous with some tinge of enteric content likely the packing cause some pressure around the feeding tube site. Vitals/I&O/Wt Last Vital Signs Temp 98.9 F 07/23/20 04:00 Pulse 105 H 07/23/20 04:00 Resp 18 07/23/20 04:00 BP 112/69 07/23/20 04:00 Pulse Ox 96 07/23/20 04:00 07/22/20 07/22/20 07/23/20 14:59 22:59 06:59 Intake Total 100 / 100 50 / 150 30 / 180 Output Total 900 / 900 Balance 100 / 100 50 / 150 -870 / -720 Weight last 48 hrs Weight 185 lb Physical Exam Narrative: EXAM NARRATIVE: Patient is conscious alert oriented X3 BMI 26.5 Head and neck examination PERRLA no masses no cervical lymphadenopathy no radha dice Cardiac examination audible S1-S2 no murmurs no gallops no arrhythmias Chest is clear bilateral,abscence of Rhonchi or wheezes,no surgical emphysema Abdomen nontender except at the I&D site nondistended soft no organomegaly guarding or rigidity/no signs of peritonitis. Mild Enteric content leaking around the feeding jejunostomy Packing was removed bedside and was reapplied by me Extremities no cyanosis no clubbing no edema Data : 07/23/20 01:50 07/23/20 01:50 Micro: Microbiology 07/22/20 14:40 Gram Stain - Final Abdomen 07/22/20 14:40 Gram Stain - Final Abdomen 07/22/20 11:20 Gram Stain - Final Abdomen 07/22/20 12:07 Blood Culture - Preliminary Blood SPECIMEN COLLECTED 07/22/20 12:02 Blood Culture - Preliminary Blood SPECIMEN COLLECTED A&P Assessment and plan (1) Hematoma of rectus sheath: Continue packing daily with Kerlix wet-to-dry followed by ABDs Adjustment of feeding tube bedside by me Continue clear liquid diet and Ensure We will plan to keep the patient overnight for trending down of leukocytosis and get the benefit of antimicrobial therapy IV I appreciate the hospitalist service looking into patient's cardiac status Assurance and education All questions have been answered and all concerns have been addressed to patient's satisfaction. Status: Acute Qualifiers: Encounter type: initial encounter Qualified Code(s): S30.1XXA - Contusion of abdominal wall, initial encounter Attestations Medical Necessity Statement*: Observation for medical and surgical care. Time Spent in Patient Care: (>than 50% of time spent in counselling and/or direct pt care on unit) . Coding Level of Care Code Acute Digital Color Press Operator for Chg Fwd Diagnoses Hematoma of rectus sheath S30.1XXA Encounter type: initial encounter
[2020-07-23] MEDS: digoxin 250 mcg/ml INJ 2 mL IVP (05:45)
[2020-07-23] MEDS: LORazepam 1 mg Tablet PO (05:45)
[2020-07-23] MEDS: sodium chloride 0.9% 500 ML IV (05:46)
--- NOTE | 2020-07-23 07:43 | NUR.SHIFT ---
During the night the patient was in Afib, when the patient stood up to void, the patient's rate raised to the 150's. It stayed there until the patient lay back down in the bed, which the HR dropped to 130's and stayed their until the patient received metoprolol 5mg IV and oral metoprolol, which dropped HR down to 110's. Patients HR further dropped after receiving digoxin 2 mg to 100's. bank representative doctor examed and spoke with the patient about his condition and what staff is attempting to fix his RVR. The patient then received 500ml bolus of NS. The surgeon arrived to examed the patient surgical incisions and drainage.. The surgeon cleaned the area, repacked and pulled the feeding tube and marked said tube. New abdominal binder and dressing were applied. During the night the patient stated that he was exhausted, this was noted when this nurse would speak with the patient during the night, he would wake up and immediately fall back asleep after 30 seconds of inactivity.
[2020-07-23 08:38] LABS: Lactic Sepsis W/Reflex 1.2 mmol/L (0.5-2.2)
[2020-07-23 08:41] LABS: INR 1.32 (0.8-1.2)
[2020-07-23 08:42] LABS: Partial Thromboplastin Time 42.3 SECONDS (23.9-36.7)
[2020-07-23 08:47] LABS: Troponin 5 6HR 34.32 ng/L (0-15); Troponin 5 6HR Delta 1.32 ng/L (0-12)
[2020-07-23 08:50] LABS: Creatine Phosphokinase 31 U/L (39-308); Lactate Dehydrogenase 153 U/L (135-225)
[2020-07-23] MEDS: docusate sodium 10 mg/mL (5ml) Liq 100 MG PO ×2 (09:20→16:53)
[2020-07-23] MEDS: sodium chloride 0.9% 1,000 ML 50 ML IV (11:30)
--- NOTE | 2020-07-23 11:39 | FL_ITS ---
WS: [id number] INDICATION: Feeding tube injection. Assess for leak. TECHNIQUE: Fluoroscopic guided feeding tube injection FLUOROSCOPY TIME 0.9 minutes FINDINGS: Fluoroscopic guided jejunostomy tube injection with 15 cc oral contrast. Rapid filling of t he jejunum. No evidence of contrast leak. No other significant findings.
--- NOTE | 2020-07-23 11:50 | PC.CHAP ---
Pastoral Care Encounter/Spiritual Assessment Type of Contact [] Declined long chain quiller tender visit [] Patient/Family/Request visit [] Outpatient visit [] Follow-up visit [] Physician referral [] Code/Alert [] Routine visit [] Staff referral [] Actively dying [xx] Patient sleeping [] Family support [] [] Out of room [] Palliative care [] [xx] Receiving care in room [] Pre-surgical visit [] Trauma [] Long length of stay [] ICU visit [] Other: Relational/Emotional Strength [] Patient feels connected with others/family/visitors/staff [] Distress [] Loneliness/isolation [] Abandonment Spirituality of Patient [] Person of Mayda [] Attends Latter-Day of their Mayda [] Believes in Prayer [] Reads Bible or Nondenominational materials [] There are Spiritual issues to be addressed Investigations Director Interventions [] Prayer [] Active listening [] Non-anxious presence [] Spiritual/emotional support [] Crisis/trauma care [] Spiritual counseling [] Bereavement support [] Provided bereavement packet [] Provided Bible/devotional materials [] Provided toy/stuffed animal, coloring book to patient or family member [] Provided Communion [] Anointing/Stella [] Salvation [] Completed spiritual assessment [] Other: Impact on Illness or Injury [] Angry [] Fearful [] Anxious [] Often cries [] Exhaustion [] Unable to work [] Unable to attend evangelical [] Unable to walk/stand [] Unable to read [] Unable to drive [] Unable to eat/drink [] Unable to sleep [] Unable to be with family [] Patient intubated [] Other: Summary Patient still sedated from surgery. Follow up needed. Time spent with patient
[2020-07-23] MEDS: diatrizoate meglumine 30 mL Sol PO (12:26)
--- NOTE | 2020-07-23 12:46 | PC.NURSE ---
new large abdominal binder placed, due to previous binder too small and difficult for patient to have deep breathing.
--- NOTE | 2020-07-23 14:30 | PC.NURSE ---
patient up to bathroom, X1 void, unable to have BM but passing gas, back to bed, noted drainage on ABD over incision site on left lower abdomen, purulent serous drainage noted, new ABD applied and taped in place.
[2020-07-23] MEDS: morphine 4 mg/mL SDV 1 mL 2 MG IVP (16:50)
--- NOTE | 2020-07-23 17:10 | P.PN_ITS ---
Subjective Subjective: Interval history: Overnight notes from the hospitalist reviewed. Patient continues to be in atrial fibrillation, however rate is between 100 to 110 bpm for the most part, patient relatively asymptomatic, hemodynamically stable. Electrolytes yesterday returned within normal range. Potassium at 4.2, mag is 1.9, limited echo taken and results pending at this time. Medications: Reviewed: Yes Vitals/I&O/Wt Last Vital Signs Temp 97.6 F 07/23/20 16:00 Pulse 67 07/23/20 16:00 Resp 16 07/23/20 16:50 BP 131/79 07/23/20 16:00 Pulse Ox 99 07/23/20 16:00 07/23/20 07/23/20 07/23/20 06:59 14:59 22:59 Intake Total 80 / 230 1421.667 / 1421.667 Output Total 900 / 900 600 / 600 Balance -820 / -670 821.667 / 821.667 Weight last 48 hrs Weight 83.915 kg Physical Exam Narrative: EXAM NARRATIVE: GEN: Awake, alert and oriented, no acute distress HEENT normocephalic atraumatic, PERRLA CVS: S1S2 N RS: CTA B/L, no added sounds Abd: Soft, binder in place over the abdomen, slight discharge noticed around the jejunostomy site. LOAN SPECIALIST: no focal neuro motor deficits Data : 07/23/20 01:50 07/23/20 01:50 Micro: Microbiology 07/22/20 11:20 Gram Stain - Final Abdomen Wound Culture - Preliminary Gram Negative Rods Gram Negative Rods#2 07/22/20 12:07 Blood Culture - Preliminary Blood NEGATIVE TO DATE 07/22/20 12:02 Blood Culture - Preliminary Blood NEGATIVE TO DATE 07/22/20 14:40 Gram Stain - Final Abdomen 07/22/20 14:40 Gram Stain - Final Abdomen A&P Assessment and plan (1) Atrial fibrillation/flutter: Patient reports a history of irregular heart rate even in the past, though no documented A. fib has been noted. Currently rhythm is atrial fibrillation, rate between 100 to 120 bpm.. Patient is asymptomatic. Blood pressure is stable. Increase metoprolol to 37.5 mg p.o. twice daily. Limited echo pending Troponin without significant delta, no acute ST-T wave changes on EKG to suggest ACS Potassium and magnesium within range Would not add anticoagulation right now even if A. fib becomes persistent as patient is currently admitted for an infected rectus sheath hematoma and high risk of bleeding. On vital signs check, system charted heart rate of 67 at 1650 does not appear to be accurate as correspondingly on telemetry patient's heart rate was 120 bpm. Status: Acute (2) Alcohol use: Status: Acute (3) Esophageal cancer: Status: Chronic (4) Abdominal wall cellulitis: Management per surgical team Status: Acute (5) Hematoma of rectus sheath: Status: Acute Qualifiers: Encounter type: initial encounter Qualified Code(s): S30.1XXA - Contusion of abdominal wall, initial encounter Additional A&P Information Will follow along Thank you for consultation Attestations Medical Necessity Statement*: Please see admitting team's note. Coding Level of Care Code Acute Health Education Director for Kamerong Fwd Diagnoses Atrial fibrillation/flutter I48.91; I48.92 Alcohol use Z72.89 Esophageal cancer C15.9 Abdominal wall cellulitis L03.311 Hematoma of rectus sheath S30.1XXA Encounter type: initial encounter
--- NOTE | 2020-07-23 17:58 | PC.NURSE ---
patient resting in bed with eyes closed, equal chest rise and fall.
[2020-07-23] MEDS: sennosides 8.6 mg Tablet PO (21:28)
[2020-07-23] MEDS: metoprolol tartrate 25 mg Tablet 37.5 MG PO (21:28)
[2020-07-24] MEDS: piperacillin-tazobactam 3.375 GM in sodium chloride 0.9% (plus) 50 ML IV ×2 (02:27→12:25)
[2020-07-24 03:47] VITALS: BP 130/74; PULSE 112; RESP 20; TEMP 37.2; O2SAT 99
[2020-07-24] MEDS: famotidine 20 mg/2 mL INJ IVP (04:55)
--- NOTE | 2020-07-24 05:59 | PM.PN ---
Subjective Subjective: Interval history: Per nursing report Aliyah funes nurse, patient has been doing well and resting and has been making good urine output. No apparent distress was reported and no leaks around the feeding jejunostomy, there was some serous drainage at the packing site and the secondary dressing was changed. Fluroscopy 07/23/2020 FINDINGS: Fluoroscopic guided jejunostomy tube injection with 15 cc oral contrast. Rapid filling of the jejunum. No evidence of contrast leak. No other significant findings. FL/FL fluoroscopy 66522 IMPRESSION: No evidence of jejunostomy tube leak. Per patient's words he feels better, passing some gas but did not have a bowel movement yet. Denies any pressure or pain like the one he had prior to the I&D. Continues to have atrial fibrillation and hospitalist service on board with that. Trending down leukocytosis and no acute events overnight otherwise. Vitals/I&O/Wt Last Vital Signs Temp 98.9 F 07/24/20 03:47 Pulse 112 H 07/24/20 03:47 Resp 20 H 07/24/20 03:47 BP 130/74 07/24/20 03:47 Pulse Ox 99 07/24/20 03:47 07/23/20 07/23/20 07/24/20 14:59 22:59 06:59 Intake Total 1421.667 / 1421.667 440 / 1861.667 300 / 2161.667 Output Total 600 / 600 100 / 700 Balance 821.667 / 821.667 340 / 1161.667 300 / 1461.667 Weight last 48 hrs Weight 185 lb Physical Exam Narrative: EXAM NARRATIVE: Patient is conscious alert oriented X3 BMI 26.5 Head and neck examination PERRLA no masses no cervical lymphadenopathy no jaundice Cardiac examination audible S1-S2 no murmurs no gallops no arrhythmias Chest is clear bilateral,abscence of Rhonchi or wheezes,no surgical emphysema Abdomen nontender except at the I&D site nondistended soft no organomegaly guarding or rigidity/no signs of peritonitis. No Enteric content leaking around the feeding jejunostomy,yet some discharge that mopped and cleaned bymyself bedside. Feeding jejunostomy in good position without complication Packing was removed bedside and was reapplied by me in the form of 2 inches Nu Gauze soaked in saline. Followed by ABDs Extremities no cyanosis no clubbing no edema Data : 07/24/20 05:28 07/24/20 05:28 Micro: Microbiology 07/22/20 11:20 Gram Stain - Final Abdomen Wound Culture - Preliminary Gram Negative Rods Gram Negative Rods#2 07/22/20 12:07 Blood Culture - Preliminary Blood NEGATIVE TO DATE 07/22/20 12:02 Blood Culture - Preliminary Blood NEGATIVE TO DATE A&P Assessment and plan (1) Hematoma of rectus sheath: Continue packing daily with 2 inches Nu Gauze wet-to-dry followed by ABDs Continue clear liquid diet and Ensure Lactulose 30 mL every 6 hours as needed p.o. or per feeding jejunostomy. Education with regard to feeding jejunostomy care with cleansing of alcohol swab using Q-tip around the jejunostomy site. I did discuss with the patient in length and in depth about the importance of taking care of the feeding jejunostomy and local wound care with daily packing at least once a day. And I did explain for the patient about the importance to understand that the feeding jejunostomy should be considered as a lifeline particularly when he gets more radiation to his esophageal cancer he will encounter harder time with swallowing and likely the primary source of feeding and nutrition would be the jejunostomy tube. I did discuss the case yesterday with Dr. Carlos and Dr. Spicer and for the time being until the wound heals chemotherapy will be held because of the potential percussions on the immune status in the presence of a wound. With regard to radiation oncology Dr. Spicer would like to proceed with radiation therapy starting Sunday as the radiation field should be away from the I&D site. Patient is well educated about this discussion and the plan of care among his providers and he does express his understanding and agreement to proceed accordingly. From surgical standpoint of view once patient has a bowel movement he can be discharged home today on oral antibiotics, as long as Dr. Larios would release him medically to be discharged with regard to his other medical comorbidities including but not limited to his atrial fibrillation. 1-nutrition optimization 2-wound care in the form of packing daily using 2 inches Nu Gauze wet-to-dry w saline followed by ABD 3-management of medical comorbidities 4-feeding jejunostomy care and management, flushing of feeding jejunostomy with 50 mL of saline daily to maintain patency per jejunostomy hub and avoid deflation of the balloon at any time. 5-assurance and education All questions have been answered and all concerns have been addressed to patient's satisfaction. I appreciate the hospitalist service looking into patient's cardiac status Assurance and education All questions have been answered and all concerns have been addressed to patient's satisfaction. Status: Resolved Qualifiers: Encounter type: initial encounter Qualified Code(s): S30.1XXA - Contusion of abdominal wall, initial encounter Attestations Medical Necessity Statement*: Observation medical and surgical care Time Spent in Patient Care: 16 - 35 minutes (>than 50% of time spent in counselling and/or direct pt care on unit). Coding Level of Care Code Acute Make Ready Worker for Chg Fwd Diagnoses Hematoma of rectus sheath S30.1XXA Encounter type: initial encounter
[2020-07-24 06:00] VITALS: PULSE 122
[2020-07-24 06:12] LABS: Basophils # 0.1 10^3/uL (0.0-0.1); Basophils % 0.5 %; Eosinophils # 0.1 10^3/uL (0.0-0.8); Eosinophils % 0.8 %; Hematocrit 35.7 % (42.0-52.0); Hemoglobin 11.8 g/dL (11.7-16.6); Lymphocytes # 0.5 10^3/uL (0.8-4.8); Mean Corpuscular HGB Conc 33.1 g/dL (30.0-36.0); Mean Corpuscular Hemoglobin 30.7 pg (28.0-34.0); Mean Platelet Volume 11.1 fL (7.4-10.4); Monocytes # 0.5 10^3/uL (0.2-0.9); Monocytes % 4.9 %; Neutrophils # 8.98 10^3/uL (1.8-7.7); Neutrophils % 87.1 %; Nucleated Red Blood Cells % 0 %; Platelet Count 165 10^3/cmm (130-400); Red Blood Count 3.84 10^6/uL (4.1-5.3); Red Cell Distribution Width 12.4 % (12.1-15.1); White Blood Count 10.3 10^3/uL (4.0-10.0)
[2020-07-24 06:35] LABS: Blood Urea Nitrogen 15 mg/dL (8-23); Calcium 8.6 mg/dL (8.5-10.5); Carbon Dioxide 26 mmol/L (22-29); Chloride 103 mmol/L (98-107); Glomerular Filtration Rate 215.9 mL/min (90-130); Glucose 150 mg/dL (65-115); Osmolality Calculated 286 mOsm/kg (285-295); Sodium 136 mmol/L (136-145)
[2020-07-24 08:00] VITALS: BP 127/80; PULSE 119; RESP 20; TEMP 37.1; O2SAT 96
[2020-07-24] MEDS: HYDROcodone-acetaminophen 5-325 mg Tablet 1 TAB PO (08:20)
--- NOTE | 2020-07-24 08:54 | P.SS_ITS ---
Short Stay Summary Providers Date of Admit/Discharge: 07/24/20 Attending Provider: Ariel Whitten MD Primary Care Provider: Raleigh Boyd DO Chief Complaint: Feeding tube leaking HPI History of Present Illness oRshan Shell is a 65 year old male diagnosed with a locally advanced esophageal cancer that requiring neoadjuvant chemoradiation, patient undergone uneventful right subclavian vein PowerPort placement and laparoscopic feeding jejunostomy last Sunday and unfortunately a day or so after surgery patient started to en counter left lower sided abdominal pain and swelling and was noticed to have purulent discharge around the feeding jejunostomy per nursing staff at the cancer treatment center on Sunday, patient reports to me that 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 Patient was seen and evaluated at my office on as a postop visit as when he reported to us about that incident and urgently sent the patient for CT scan of the abdomen and pelvis with potential admission, I was concerned initially about leaking of the feeding jejunostomy or an intra-abdominal event. The CT scan showed no issues with the feeding jejunostomy location or leaking of the contrast and no evidence of intra- abdominal pathology. Except for hematoma of the left rectus muscle without distinct fluid collection for drainage, yet clinically I did appreciate purulent discharge around the feeding tube and I elected to take the patient for surgery urgently for I&D which she did undergo without complications. Packing was done for the wound and patient was kept on my service on parenteral antimicrobial therapy and hospitalist was consulted eventually overnight due to worsening tachycardia likely due to his atrial fibrillation. Patient continues to be stable with regard to his vital signs and showed trending down of WBC count and appropriate response to surgical drainage and antimicrobial therapy. And GI study in the form of water-soluble contrast was placed into the feeding jejunostomy tube per IR yesterday as there was some enteric content around the feeding tube likely it was malpositioned and so I did readjust it and obtained a study that showed no evidence of leak. Patient continued to be hemodynamically stable and tolerating p.o. intake and passing gas. Review of Systems General: Reports: 10 or more systems reviewed and unremarkable except in HPI and below Home Meds/Allergies Home Medications and Allergies Home Medications Medication Instructions Recorded Confirmed Type metoprolol tartrate 25 mg tablet 25 mg PO Q12H 04/19/20 07/22/20 History Tylenol Arthritis Pain 1,300 - 1,950 mg PO PRN 07/22/20 07/22/20 History dexamethasone See Rx Instructions .ROUTE .COMPLEX 07/22/20 07/22/20 History hydrocodone-acetaminophen 15 ml PO Q4H PRN 07/22/20 07/22/20 History ibuprofen 600 mg PO PRN 07/22/20 07/22/20 History lorazepam 1 mg PO TID PRN 07/22/20 07/22/20 History prochlorperazine maleate 10 mg PO Q4H PRN 07/22/20 07/22/20 History Allergies Allergy/AdvReac Type Severity Reaction Status Date / Time No Known Allergies Allergy Verified 07/24/20 08:59 PFSH Acute PFSH: Medical History 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 Carlos, HER-2/justus 3+positive, Clinical Stage III, started carboplatin/taxol 07/21/20, receiving radiation therapy History of heart failure per patient years ago, not currently on any treatment for such; Echo 04/2020 with normal EF, indeterminant diastolic function due to tachycardia Hypertension Surgical History History of incision and drainage (07/22/20) abdominal wall abscess/hematoma History of jejunostomy tube placement (07/19/20) History of knee surgery ACL reconstruction Port-A-Cath in place (07/19/20) Family History Father Cancer lung Mother Cancer breast Brother Cancer prostate cancer Sister Cancer melanoma Denies family history of Anesthesia complication Bleeding disorder Social History Smoking and tobacco status: never smoked Alcohol intake: current Alcohol intake frequency: 3 or more drinks per day Alcohol use comment: none in about a week; quart liquor/day in winter, beer in [place] Substance/Drug Use: current Substance/Drug use type: Marijuana Other substance/drug use details: occasional Vitals/I&O/Wt Last Vital Signs Temp 98.9 F 07/24/20 03:47 Pulse 122 H 07/24/20 06:00 Resp 20 H 07/24/20 03:47 BP 130/74 07/24/20 03:47 Pulse Ox 99 07/24/20 03:47 07/23/20 07/24/20 07/24/20 22:59 06:59 14:59 Intake Total 440 / 1861.667 540 / 2401.667 Output Total 450 / 1050 750 / 1800 Balance -10 / 811.667 -210 / 601.667 Weight last 48 hrs Weight 185 lb Physical Exam Narrative: EXAM NARRATIVE: Patient is conscious alert oriented X3 BMI 26.5 Head and neck examination PERRLA no masses no cervical lymphadenopathy no jaundice Cardiac examination audible S1-S2 no murmurs no gallops no arrhythmias Chest is clear bilateral,abscence of Rhonchi or wheezes,no surgical emphysema Abdomen nontender except at the I&D site nondistended soft no organomegaly guarding or rigidity/no signs of peritonitis. No Enteric content leaking around the feeding jejunostomy,yet some discharge that mopped and cleaned bymyself bedside. Feeding jejunostomy in good position without complication Packing was removed bedside and was reapplied by me in the form of 2 inches Nu Gauze soaked in saline. Followed by ABDs Extremities no cyanosis no clubbing no edema SSS Data Data Completed and Pending: Completed Studies During Hospitalization Category Date Time Status CT abdomen pelvis w con* [id number] Urge nt Cat Scan 07/22/20 11:21 Completed FL fluoroscopy 76 000 Routine Exams 07/23/20 11:39 Completed XR chest 1V carl ble 34611 Urgent Exams 07/22/20 12:03 Completed CV echo limited 9 3308 Routine Ultrasound 07/23/20 05:17 Completed Pending at discharge Category Date Time Status Abscess Culture a nd Gram Stain Rout ine Lab 07/22/20 14:40 Results Anaerobic Culture Routine Lab 07/22/20 14:40 Results Basic Metabolic P eugene AM LABS Lab 07/25/20 04:00 Ordered Blood Culture Sta t Lab 07/22/20 12:07 Results Complete Blood Co unt w/Auto AM LABS Lab 07/25/20 04:00 Ordered Tissue Culture an d Gram Stain Routi ne Lab 07/22/20 14:40 Results Wound Culture and Gram Stain Stat Lab 07/22/20 11:20 Results Diagnoses at Discharge Discharge Diagnosis (1) Hematoma of rectus sheath: Status: Resolved Permanent problem details: Packing of the wound daily using 2 inches wet-to-dry followed by ABD Qualifiers: Encounter type: initial encounter Qualified Code(s): S30.1XXA - Contu pauline of abdominal wall, initial encounter Discharge Plan Discharge Patient Disposition: Home Condition: Stable Prescriptions: New [place] 5-325 mg tablet 1 tab PO Q6H PRN (Reason: pain) Qty: 28 RF: 0 Cipro 500 mg tablet 500 mg PO BID 7 Days Qty: 14 RF: 0 Flagyl 500 mg tablet 500 mg PO Q8H 7 Days Qty: 21 RF: 0 Continued metoprolol tartrate 25 mg tablet 25 mg PO Q12H RF: 0 pantoprazole [Protonix] 40 mg tablet,delayed release (DR/EC) 40 mg PO DAILY 30 Days Qty: 30 RF: 2 hydrocodone-acetaminophen [[place]] 5-325 mg tablet 1 tab PO Q6H PRN (Reason: pain) Qty: 28 RF: 0 prochlorperazine maleate 10 mg tablet 10 mg PO Q4H PRN (Reason: mild nausea) RF: 0 Tylenol Arthritis Pain 650 mg Tablet Extended Release 1,300 - 1,950 mg PO PRN RF: 0 dexamethasone 4 mg tablet See Rx Instructions .ROUTE .COMPLEX RF: 0 ibuprofen 200 mg Tablet 600 mg PO PRN RF: 0 lorazepam 1 mg tablet 1 mg PO TID PRN (Reason: Nausea) RF: 0 hydrocodone-acetaminophen 7.5-325 mg/15 mL solution 15 ml PO Q4H PRN (Reason: Pain) RF: 0 Discontinued acetaminophen [Tylenol Extra Strength] 500 mg Tablet 1,000 mg PO PRN RF: 0 Discharge Orders: Discharge Order (Routine); Ordered 07/24/20 Ordered By: Ariel Whitten Referrals: Ariel Whitten MD [Physician] - (Return to surgery office this coming Sunday at surgical endoscopist in the afternoon clinic with Dr. Whitten) Ramon Spicer MD [Physician] - (Resume radiation therapy this coming 07/26/2020 as scheduled) Raleigh Boyd DO [Primary Care Provider] - (Please call Dr. Boyd's office on Sunday morning and schedule an appointment to be seen next week.) Discharge Diet: Usual diet Discharge Activity: Limit activity as instructed Patient Instructions: Alcoholism, Atrial Fibrillation, Cellulitis, Ciprofloxacin (By mouth), Hydrocodone/Acetaminophen (By mouth), Metronidazole (By mouth), How to Use and Care for Your PEG Tube (GEN) Activity Restrictions/Additional Instructions: 1. Patient can shower after 48 hours from surgery 2. Flushing of feeding jejunostomy daily with 50 mL of saline to maintain patency using the jejunostomy hub and avoid deflation of the balloon at any time. 3. Up and walking as tolerated 4. Do lift more than 5 pounds until otherwise specified by surgery service 5. Do not operate heavy machinery or drive while using pain medications. 6.Contact the office or return to the ER for worsening nausea vomiting fevers or chills, or noticing any redness around incision sites or discharge. 7. Avoid constipation 8. Daily packing of the wound with 2 inches Nu Gauze wet-to-dry using saline followed by ABDs Attestations Medical Necessity Statement*: Observation for medical and surgical care Time Spent in Patient Care*: greater than 30 min Time Spent in Smoking Cessation: Time spent discussing smoking cessation with patient: more than 10 minutes Specific Discharge Activities: Specific discharge activities: educating patient and educating and/or supporting family/caregiver Status at Discharge: Cognitive status at discharge: cognitively intact , Behavioral status at discharge: cooperative , Overall status at discharge: patient is progressing back to baseline Quality Metrics Clinical Quality Measures: During this hospital stay, did patient experience: None Coding Level of Care Code Acute Central Office Technician for Chg Fwd Diagnoses Hematoma of rectus sheath S30.1XXA Encounter type: initial encounter
[2020-07-24] MEDS: metoprolol tartrate 25 mg Tablet 37.5 MG PO (09:26)
[2020-07-24] MEDS: lactulose oral liq 20 gm/30 mL UDC PO (09:26)
[2020-07-24 09:44] VITALS: PULSE 106; RESP 18; O2SAT 96
--- NOTE | 2020-07-24 10:53 | P.PN_ITS ---
Subjective Subjective: Interval history: Patient does not offer any new complaints this morning. Heart rate is between 100-1 20, intermittently with exertion does jump up to 150s. Patient states that normally at home his heart rate runs around 110 bpm. He does not experience any palpitations with the same. Intermittently goes up to 130. Denies any chest pain dizziness during this time. Metoprolol dose was increased to 37.5 mg p.o. twice daily. Patient is planned to be discharged today Medications: Reviewed: Yes Vitals/I&O/Wt Last Vital Signs Temp 98.7 F 07/24/20 08:00 Pulse 106 H 07/24/20 09:44 Resp 18 07/24/20 09:44 BP 127/80 07/24/20 08:00 Pulse Ox 96 07/24/20 09:44 07/23/20 07/24/20 07/24/20 22:59 06:59 14:59 Intake Total 440 / 1861.667 540 / 2401.667 240 / 240 Output Total 450 / 1050 750 / 1800 Balance -10 / 811.667 -210 / 601.667 240 / 240 Physical Exam Narrative: EXAM NARRATIVE: GEN: Awake, alert and oriented, no acute distress HEENT normocephalic atraumatic, PERRLA CVS: S1S2 N RS: CTA B/L, no added sounds Abd: Soft, dressing in place over jejunostomy site, not opened for exam. FLASH RANGING CREWMEMBER: no focal neuro motor deficits Data : 07/24/20 05:28 07/24/20 05:28 Micro: Microbiology 07/22/20 11:20 Gram Stain - Final Abdomen Wound Culture - Preliminary Gram Negative Rods Gram Negative Rods#2 07/22/20 12:07 Blood Culture - Preliminary Blood NEGATIVE TO DATE 07/22/20 12:02 Blood Culture - Preliminary Blood NEGATIVE TO DATE A&P Assessment and plan (1) Atrial fibrillation/flutter: Patient reports a history of irregular heart rate even in the past, though no documented A. fib has been noted. Currently rhythm is atrial fibrillation, rate between 100 to 120 bpm.. Patient is asymptomatic. Blood pressure is stable. Increased metoprolol to 37.5 mg p.o. twice daily on July 23. Patient has been instructed to maintain a blood pressure chart and a heart rate chart over the next few days. If over the next 3 days his heart rate continues to be greater than 120 and systolic blood pressure is greater than 100, he is to increase his metoprolol dose to 50 mg p.o. twice daily. Additionally referral was provided to follow-up with cardiology for management of atrial fibrillation Limited echo shows diffuse hypokinesia of the left ventricle with slightly diminished EF of 50%. Normal LV size. Thickened mitral wall. No significant change noted compared to study from April 2020. Troponin without significant delta, no acute ST-T wave changes on EKG to suggest ACS Potassium and magnesium within range Status: Acute (2) Alcohol use: Status: Acute (3) Esophageal cancer: Status: Chronic (4) Abdominal wall cellulitis: Management per surgical team Status: Acute (5) Hematoma of rectus sheath: Status: Resolved Qualifiers: Encounter type: initial encounter Qualified Code(s): S30.1XXA - Contusion of abdominal wall, initial encounter Additional A&P Information Thank you for consultation Attestations Medical Necessity Statement*: Please see admitting team's note Coding Level of Care Code Acute Painter Interior Finish for Jasen Watkins Diagnoses Atrial fibrillation/flutter I48.91; I48.92 Alcohol use Z72.89 Esophageal cancer C15.9 Abdominal wall cellulitis L03.311 Hematoma of rectus sheath S30.1XXA Encounter type: initial encounter
[2020-07-24 12:00] VITALS: BP 106/64; PULSE 95; RESP 18; TEMP 36.6; O2SAT 98
[2020-07-24] MEDS: sodium chloride 0.9% 1,000 ML 50 ML IV (12:25)
[2020-07-24] MEDS: docusate sodium 10 mg/mL (5ml) Liq 100 MG PO (12:25)
--- NOTE | 2020-07-24 14:46 | PC.NURSE ---
pt iv taken out and intact. discharge instructions explained. alll questions answered. pt had 3 bowel movements before discharge. dressing dry and intact. extra dressing supplies sent with pt. pt taken to exit via wheelchair.
[2020-07-24 14:49] VITALS: BP 106/64; PULSE 95; RESP 18; TEMP 36.6; O2SAT 98
== END 2020-07-24 14:00 | disposition home or self-care (01) ==
LOC: ER 13:10 → OPS 13:33 → MEDSURG 15:23
PROVIDERS: Hospitalist; Admitting Provider Surgery; Emergency Provider Physician Assistant; PCP Electrodiagnostic Medicine; Visit Provider Surgery
PROC: (CPT 10140; principal; 2020-07-22 15:20)
DX: S30.1XXA Contusion of abdominal wall, initial encounter (principal); X58.XXXA Exposure to other specified factors, initial encounter; C15.9 Malignant neoplasm of esophagus, unspecified; I10 Essential (primary) hypertension; I48.91 Unspecified atrial fibrillation; I48.92 Unspecified atrial flutter; Z72.89 Other problems related to lifestyle; L03.311 Cellulitis of abdominal wall; I45.10 Unspecified right bundle-branch block
CPT/HCPCS: 10140; 12345; 36415; 49465; 71045; 74177; 76000; 80048; 80053; 81001; 82550; 83605; 83615; 83735; 84100; 84484; 85025; 85610; 85730; 87040; 87070; 87075; 87077; 87176; 87186; 87205; 93005; 93308; 96365; 96366; 96375; 99282; 99285; G0378; J0131; J1160; J2270; J2405; J2543; J2704; J3010; J3475; J3490; J7030; J7040; Q9963; Q9967

== ENCOUNTER 2020-08-03 05:37 | Outpatient (RCR) | payer MEDICARE, SELFPAY ==
--- NOTE | 2020-07-26 10:33 | ONCRAD TMN_ITS ---
Radiation OncologyTreatment Management Note Patient Name: Roshan Shell Date of : 1955 Date of Service: 07/26/2020 Attending Physician: Ramon Spicer M.D. 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 The patient has received 8 Gy of a prescribed 50 Reid with an intensity modulated radiotherapy plan utilizing a step and shoot treatment technique. He has been prescribed carboplatin(AUC 2) and paclitaxel (50 mg/m2) weekly during radiotherapy. Upon review of systems, he denied any complaints related to radiotherapy. On physical examination, the patient weighed 183 lbs. His temperature was 98.4 ???F with a blood pressure of 122/79 mmHg. His pulse was 108 bpm and the respiratory rate was 20. No erythema within the treatment navarrete. Continue esophageal radiotherapy as planned. He was admitted (07/22/20 - 07/24/20) for I&D of abdominal wall infected hematoma (culture positive for E.Coli, K. Pneumonia, & C. Freundii complex). Chemotherapy has been discontinued. Signed by: Dr. Ramon Spicer 07/26/2020 10:32:02 AM
[2020-07-27 10:12] LABS: Basophils % 0.5 %; Eosinophils % 0.3 %; Hematocrit 35.5 % (42.0-52.0); Hemoglobin 11.7 g/dL (11.7-16.6); Lymphocytes # 0.4 10^3/uL (0.8-4.8); Lymphocytes % 5.4 %; Mean Corpuscular Hemoglobin 30.9 pg (28.0-34.0); Mean Corpuscular Volume 93.7 fL (80-94); Mean Platelet Volume 10.1 fL (7.4-10.4); Monocytes # 0.9 10^3/uL (0.2-0.9); Monocytes % 11.9 %; Neutrophils # 6.14 10^3/uL (1.8-7.7); Neutrophils % 81.2 %; Nucleated Red Blood Cells % 0 %; Platelet Count 198 10^3/cmm (130-400); Red Blood Count 3.79 10^6/uL (4.1-5.3); Red Cell Distribution Width 12.1 % (12.1-15.1); White Blood Count 7.6 10^3/uL (4.0-10.0)
[2020-07-27 10:53] LABS: Alanine Aminotransferase 21 U/L (0-41); Albumin Level 3.2 g/dL (3.5-5.2); Alkaline Phosphatase 122 IU/L (40-130); Anion Gap 12.1 (5-19); Aspartate Amino Transferase 16 U/L (0-40); Blood Urea Nitrogen 16 mg/dL (8-23); Calcium 8.9 mg/dL (8.5-10.5); Carbon Dioxide 28 mmol/L (22-29); Chloride 100 mmol/L (98-107); Globulin 3.2 g/dL (1.3-4.6); Glomerular Filtration Rate 215.9 mL/min (90-130); Glucose 201 mg/dL (65-115); Osmolality Calculated 289 mOsm/kg (285-295); Potassium 4.1 mmol/L (3.5-5.1); Sodium 136 mmol/L (136-145); Total Protein 6.4 g/dL (6.6-8.7)
[2020-08-03 09:02] LABS: Basophils % 0.3 %; Hematocrit 40.6 % (42.0-52.0); Hemoglobin 13.4 g/dL (11.7-16.6); Lymphocytes # 0.3 10^3/uL (0.8-4.8); Lymphocytes % 3.8 %; Mean Corpuscular Hemoglobin 30.3 pg (28.0-34.0); Mean Corpuscular Volume 91.9 fL (80-94); Mean Platelet Volume 9.8 fL (7.4-10.4); Monocytes # 0.1 10^3/uL (0.2-0.9); Monocytes % 1.1 %; Neutrophils # 7.33 10^3/uL (1.8-7.7); Neutrophils % 93.5 %; Nucleated Red Blood Cells % 0 %; Platelet Count 412 10^3/cmm (130-400); Red Blood Count 4.42 10^6/uL (4.1-5.3); Red Cell Distribution Width 12.2 % (12.1-15.1); White Blood Count 7.8 10^3/uL (4.0-10.0)
[2020-08-03 09:38] LABS: Alanine Aminotransferase 19 U/L (0-41); Albumin Level 3.8 g/dL (3.5-5.2); Alkaline Phosphatase 97 IU/L (40-130); Anion Gap 17.7 (5-19); Aspartate Amino Transferase 13 U/L (0-40); Blood Urea Nitrogen 31 mg/dL (8-23); Calcium 9.4 mg/dL (8.5-10.5); Carbon Dioxide 23 mmol/L (22-29); Chloride 95 mmol/L (98-107); Globulin 3.9 g/dL (1.3-4.6); Glomerular Filtration Rate 50.9 mL/min (90-130); Glucose 411 mg/dL (65-115); Osmolality Calculated 296 mOsm/kg (285-295); Potassium 4.7 mmol/L (3.5-5.1); Sodium 131 mmol/L (136-145); Total Bilirubin 0.7 mg/dL (0.15-1.2); Total Protein 7.7 g/dL (6.6-8.7)
[2020-08-03 09:59] LABS: Slide Review Slide Review Perform
--- NOTE | 2020-08-03 15:07 | ONC FU_ITS ---
Dr. Carlos follow up note Patient: Roshan Shell Unit #: [id number]: 1955 Dicatated By: Genoveva Carlos M.D.Date of Visit:Aug 03, 2020 Onc Med Follow-up/Prog Note History of Present Illness: Mr. Shell is a 65-year-old gentleman with a history of progressive dysphagia since September or October 2019. He reports that he had a 75 pound weight loss over about 6 months. He began having trouble swallowing solid food off and on and then began having trouble with liquids. He states he has had esophageal reflux in the past and he used Tums or Rolaids He also has a longstanding history of alcohol use since 1975. Mr Shell states he drinks 5-6 beers in a day in addition to 4-5 drinks per day. He does smoke marijuana since age 14. He states it is off and on. He states he used to smoke it recreationally but now he smokes for pain relief and sleep benefits. He has chronic back pain. Mr. Shell underwent GI evaluation for Dr. Whitten at [facility] and on April 28, 2020 he underwent EGD which did show a malignant stricturing mass in the lower third of the esophagus. Stenosis was reported at 3 cm in length and 0.5 cm in diameter. And the stenosis was traversed after dilation. In the mid esophagus a 2 cm segment of sharp segment Ocampo's mucosa was present. 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 He had a CT of the chest/abdomen from 04/20/2020 reported mild chronic emphysematous changes no acute pulmonary infiltrates. There was no mediastinal or hilar lymphadenopathy. He did have a small esophageal hiatal hernia. Mild diffuse fatty infiltration of the liver; small adrenal adenoma-10 mm; and incidental fat-containing umbilical hernia. Mr Shell underwent CT scan of neck on April 20, 2020 which shows mild nodular thickening of the true vocal cords bilaterally otherwise unremarkable. Mr Shell was referred to GI surgery at [facility]. He was evaluated on May 21, 2020 but he had not yet had his staging PET/CT. The recommendations were to review PET/CT scan before deciding about upfront surgery versus neoadjuvant chemoradiation followed by evaluation for surgery. He was also advised to quit smoking marijuana and alcohol as a preparation for treatment. Coleen Cardenas NP did arrange for PFTs. Staging CT PET scan was done on May 27, 2020 showed distal esophageal focal hypermetabolic activity with SUV of 5.01 and incidental, focus uptake seen at the left ventricle apex can be associated with hypertrophic cardiomyopathy. No evidence of distant mets. EUS on June 22, 2020 showed large, fungating mass in the distal esophageal, lesion was circumferential well-defined measured up to 12 mm in thickness suggesting invasion into adventitia and unable to traverse the structure so further structures were not evaluated, 2 enlarged lymph nodes were visualized in the middle paraesophageal mediastinum largest 15 mm. Mr. Shell had right subclavian PowerPort port placement and jejunostomy [address] Whitten on July 19, 2020.And received first dose of weekly carboplatin Taxol concurrent with radiation therapy on July 20, 2020 then patient was admitted to hospital on July 22, 2020 for I&D of abdominal wall infected hematoma culture came back positive for E. coli, Klebsiella pneumoniae, treated with antibiotics and chemotherapy was discontinued while as per radiation oncology, continue with radiation therapy alone while being treated for infected hematoma in abdominal wall. Came for follow-up, complaining of discharge from open wound in her anterior abdomen, not being treated by Dr. Whitten patient is on oral antibiotic, having problem with swallowing, will discuss with Dr. Whitten in the morning for antibiotic in liquid form so that can take it through J-tube. And tolerating J-tube feeding well, tolerating radiation alone well otherwise Medications: HYDROcodone-Acetaminophen 15 mL (of 7.5-325 mg/15mL) Solution Oral q 4 hours, Metoprolol Succinate ER 1 Tablet (of 25 mg) Tablet SR 24 HR Oral b.i.d., Pantoprazole Sodium 1 Tablet (of 40 mg) Tablet, enteric coated Oral daily Allergies: No Known Allergies. Review of Systems: Review of Systems is not available for this patient. Vital Signs: Performed on Aug 03, 2020 10:17 Height - 70.00 in Weight - 164.8 lbs (LOW) BSA - 1.92 sq.m BMI - 23.65 Temperature - 97.6 F (LOW) Pulse - 150 /min (HIGH) Respiration - 22 /min BP - 127/75 mm(hg) O2 Sat - 97 % Pain - 10 Performance Status: 2 - Ambulatory/capable of all self-care, unable to perform any work activities. Up and about more than 50% of waking hours. (ECOG) Physical Examination: ENMT - No mouth sores, no jaundice, poor oral hygiene, Respiratory - Lungs are clear to auscultation, Cardiovascular - Regular rate and rhythm of heart, Abdomen - Soft anterior abdominal wall hematoma status post drainage now covered with gauze and dressing, bowel sounds present, Extremities - No visible edema. Lab/Imaging: Test performed on Jul 27, 2020 09:50 Sodium 136 mmol/L Potassium 4.1 mmol/L Chloride 100 mmol/L CO2 28 mmol/L Anion Gap 12.1 BUN 16 mg/dL Creatinine 0.4 mg/dL Cr Clearance (Est) 221.8400 mL/min eGFR 215.9 mL/min Glucose 201 mg/dL Osmolality - Calculated 289 mOsm/kg Calcium 8.9 mg/dL Protein, Total 6.4 g/dL Albumin 3.2 g/dL Globulin 3.2 g/dL Bilirubin, Total 1.0 mg/dL ALT (SGPT) 21 U/L AST (SGOT) 16 U/L Alkaline Phosphatase 122 IU/L WBC 7.6 10 3/uL RBC 3.79 10 6/uL HGB 11.7 g/dL HCT 35.5 % MCV 93.7 fL MCH 30.9 pg MCHC 33.0 g/dL RDW 12.1 % Platelet Count 198 10 3/cmm MPV 10.1 fL Neutrophils 6.14 10 3/uL Lymphocytes 0.4 10 3/uL Monocytes 0.9 10 3/uL Eosinophils 0.0 10 3/uL Basophils 0.0 10 3/uL Neutrophil % 81.2 % Lymphocyte % 5.4 % Monocyte % 11.9 % Eosinophil % 0.3 % Basophils % 0.5 % NRBC % 0 % Test performed on Jul 20, 2020 08:45 Manual Lymphocytes 4.4 % Manual Monocytes 1.5 % Manual Eosinophils 0.0 % Manual Basophils 0.1 % Test performed on Jun 15, 2020 00:00 Manual Diff Cancelled via OM: Cancelled in Connected System Impression: Moderately differentiated invasive adenocarcinoma involving distal/mid esophagus for EGD done on April 28, 2020 HER-2/justus 3+ positive CT scan of neck/chest abdomen done on April 20, 2020 showed mild nodular thickening of true vocal cord bilaterally otherwise unremarkable neck and CT scan of chest abdomen showed no mediastinal or hilar lymphadenopathy small esophageal hiatal hernia, mild diffuse fatty infiltration liver. Small left adrenal adenoma measuring 10 mm. Incidental fat-containing umbilical hernia. CT PET scan done on May 27, 2020 showed distal esophageal focal hypermetabolic activity. No findings to suggest distant metastatic disease. Incidental focal uptake at the left ventricle apex can be associated with hypertrophic cardiomyopathy. EUS done on June 22, 2020 showed mass in the distal esophagus, circumferential measures up to 12 mm in thickness suggesting invasion into adventitia, T3 and 2 lymph nodes were seen in the middle paraesophageal mediastinum largest is 15 mm ,N1 Clinical stage III Dysphagia/weight loss due to above. Hypertension. discussed disease status and treatment options with Mr Shell. Based on the EUS finding, he has locally advanced disease so combined chemoradiation therapy with weekly carboplatin AUC 2 and Taxol 50 mg/m??? concurrent with radiation therapy was recommended. did request Port-A-Cath placement to facilitate chemotherapy administration. Mr. Shell had right subclavian PowerPort port placement and jejunostomy [address] Whitten on July 19, 2020.Started on combined chemoradiation with weekly carboplatin/Taxol on July 20, 2020, patient was admitted to hospital on July 22, 2020 with infected hematoma in the abdominal wall, treated with IV antibiotics, at that time it was decided to discontinue concurrent chemotherapy but continue with radiation therapy alone. Plan: Discussed with patient regarding his labs white blood count 7.8 hemoglobin 13.4 hematocrit 40.6 platelets 412,000 CMP within normal limit except glucose 411, creatinine 1.4 Clinically, patient is doing reasonably well, tolerating radiation therapy alone as chemotherapy was discontinued after first dose on July 20, 2020 as patient developed abdominal wall infected hematoma which was drained and treated with IV antibiotic now being followed by Dr. Whitten. As far as hyperglycemia is concerned, patient was advised to consider low glucose J-tube feedings and follow-up with PMD regarding hyperglycemia management. And also avoid sugar rich food or sweets. And maintain good hydration and then return to clinic 2 weeks after completion of radiation therapy with CBC CMP Signed By: Genoveva Carlos M.D. <<Signature on File>>
== END 2020-08-05 10:00 | disposition home or self-care (01) ==
LOC: ONCMED 05:37
PROVIDERS: Nurse Practitioner; PCP Electrodiagnostic Medicine; Visit Provider Internal Medicine Hematology & Oncology
DX: Z51.0 Encounter for antineoplastic radiation therapy (principal); C15.5 Malignant neoplasm of lower third of esophagus; K44.9 Diaphragmatic hernia without obstruction or gangrene; K76.0 Fatty (change of) liver, not elsewhere classified; D35.02 Benign neoplasm of left adrenal gland; K42.9 Umbilical hernia without obstruction or gangrene; R13.10 Dysphagia, unspecified; R63.4 Abnormal weight loss; I10 Essential (primary) hypertension; R73.9 Hyperglycemia, unspecified; Z79.899 Other long term (current) drug therapy
CPT/HCPCS: 36591; 77336; 77386; 80053; 85025; 99214

== ENCOUNTER 2020-08-05 10:32 | Inpatient (IN) | payer MEDICARE, SELFPAY ==
[2020-08-05] VITALS (13 sets, daily range): BP systolic 86–121; BP diastolic 63–89; PULSE 67–138; RESP 16–20; TEMP 36.3–36.7; O2SAT 90–99
--- NOTE | 2020-08-05 10:45 | ECG_ITS ---
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 Measurements Intervals [place] Rate: 144 P: AL: QRS: 20 QRSD: 109 T: 54 QT: 290 QTc: 450 Interpretive Statements ATRIAL FIBRILLATION WITH RAPID VENTRICULAR RESPONSE INCOMPLETE RIGHT BUNDLE BRANCH BLOCK [90+ ms QRS DURATION, TERMINAL R IN V1/V2, 40+ ms S IN I/aVL/V4/V5/V6] ABNORMAL RHYTHM ECG Compared to ECG 07/23/2020 06:18:35 No significant changes Electronically Signed On 08-05-2020 18:04:10 OPEN DIE INSPECTOR by Greta Truong M.D. [id number]
--- NOTE | 2020-08-05 10:45 | CT_ITS ---
WS: [id number] CT ABDOMEN PELVIS TECHNIQUE: Contrast-enhanced CT of the abdomen and pelvis with coronal and sagittal reformatted image s. CLINICAL INFORMATION: abd pain COMPARISON: CT July 22, 2020 DLP: 805.[address] scans at [facility] use at least one of these dose optimization techniques: automat ed exposure control; mA and/or kV adjustment per patient size (includes targeted exams where dose is matched to clinical indication); or iterative reconstruction. FINDINGS: Mild diffuse fatty infiltration of the liver. Normal portal vein and splenic vein. Small esophageal h iatal hernia. Lung bases are well aerated. Stable gastric diverticulum with air-fluid level measuring 4.1 x 2.9 cm. No hydronephrosis. Normal renal parenchymal enhancement. Stable left adrenal adenoma. Normal caliber abdominal aorta. Aortic calcification. Enlarged calcified prostate. Sigmoid diverticulosis. No eviden ce of acute diverticulitis. No evidence of high-grade small or large bowel obstruction. Jejunostomy tube in place. Cellulitis along the anterior abdominal wall appears improved. Small amoun t of residual air in the subcutaneous soft tissues at the jejunostomy site. This is improved from pre vious. No abscess or drainable fluid collection. No other significant changes from previous. CT/CT abdomen pelvis w con* [id number] IMPRESSION: 1. Previously described jejunostomy tube is in place with improved cellulitis and postoperative changes along the anterior abdominal wall. Improved subcutane ous air at the insertion site. No drainable abscess or fluid collection. 2. Diffuse fatty infiltration of the liver. 3. Stable gastric diverticulum 4. Stable left adrenal adenoma. 5. Enlarged calcified prostate. 6. Sigmoid diverticulosis. No evidence of acute diverticulitis. 7. No other significant changes from previous. Notified Wesley Coleman DO at 08/05/2020 11:51 AM.
--- NOTE | 2020-08-05 10:45 | XR_ITS ---
WS: [id number] Exam: XR chest 1V portable [id number] Date/Time of Exam: 08/05/2020 10:48 AM Reason For Exam: dyspnea/cough Comparison 07/22/2020. The lungs are fully expanded and clear. Normal cardiomediastinal structures. A right subclavian port ends in the lower one third of the SVC in good position. Healing posterior left sixth rib fracture. H ealed posterior left fourth and fifth rib fractures. Opaque catheter partially visualized in the lowe r abdominal region. XR/XR chest 1V portable [id number] IMPRESSION: 1. No acute cardiopulmonary finding. 2. Additional findings as above.
--- NOTE | 2020-08-05 10:47 | W.ED.ABDPA2 ---
HPI - Abdominal Pain General: Chief Complaint: Wound/Laceration Stated Complaint: Feeding tube infected/midsection pain Time Seen by Provider: 08/05/20 10:34 History of Present Illness: HPI narrative: 65-year-old male presents with complaint of abdominal pain difficulties feeding tube. He had a feeding tube and a port placed about 2 weeks ago. He had an abdominal wall cellulitis then and had an abscess and the left groin crease was incised and drained he still has basically desquamation with serous drainage that is quite impressive of his left lower quadrant left groin and left proximal thigh. He has been very nauseous which in part is due to his esophageal cancer he is getting radiation treatments. Postoperatively he had some complications of the diffuse abdominal wall cellulitis reviewed CT from July 22. At that time he was started on Zosyn. He was discharged home with a diagnosis of hematoma of the rectus sheath and cellulitis was discharged home on Cipro and Flagyl on July 24. Has been changing the wound regularly the wound dressing on there looks relatively old today its markedly discolored. He has felt feverish at home but has not actually checked his temp has a large amount of serous drainage in the redness and desquamation has extended significantly. Only on a hold but he is continue with radiation. The jejunostomy tube has been having some difficulty with rates at 100 mils they start to have regurgitation through the tube they are not able to get any more down it. MD elicited complaint: abdominal pain Pertinent past history: other (Esophageal cancer receiving radiation.) Onset (ago): day(s) Pain Consistency: constant Location: LLQ ([place] wall extending into the groin and proximal thigh) Severity: severe Quality: aching and burning Exacerbating factors: movement Relieving factors: rest Associated Symptoms: Reports anorexia, fever(s), nausea and poor appetite; Denies belching, bloating, change in bowel habits, change in stool character, chills, coffee ground emesis, constipation, GI cramping, diarrhea, dyspepsia, dysuria, excessive flatus, heartburn, hematochezia, hematuria, hematemesis, fecal incontinence, loose stools, melena, syncope and vomiting Review of Systems Const: Reports: fever(s); Denies: chills ENMT: Denies: throat pain, ear or mastoid pain, nasal discharge or nasal congestion Card: Denies: syncope Resp: Denies: dyspnea, productive cough or non-productive cough GI: Reports: nausea; Denies: vomiting, hematemesis, coffee ground emesis, heartburn, diarrhea, constipation, bloating, GI cramping, belching, excessive flatus, fecal incontinence, change in bowel habits, change in stool character, hematochezia or melena : Denies: dysuria or hematuria Skin/Breast: Denies: rash or pruritus PFSH ED PFSH: Medical History 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 Carlos, HER-2/justus 3+positive, Clinical Stage III, started carboplatin/taxol 07/21/20, receiving radiation therapy History of heart failure per patient years ago, not currently on any treatment for such; Echo 04/2020 with normal EF, indeterminant diastolic function due to tachycardia Hypertension Surgical History History of incision and drainage (07/22/20) abdominal wall abscess/hematoma History of jejunostomy tube placement (07/19/20) History of knee surgery ACL reconstruction Port-A-Cath in place (07/19/20) Family History Father Cancer lung Mother Cancer breast Brother Cancer prostate cancer Sister Cancer melanoma Denies family history of Anesthesia complication Bleeding disorder Social History Smoking and tobacco status: never smoked Alcohol intake: current Alcohol intake frequency: 3 or more drinks per day Physical Exam Const: COMMON NORMALS: no acute distress GENERAL APPEARANCE: cooperative and comfortable ORIENTATION/CONSCIOUSNESS: Yes awake, Yes oriented to person, Yes oriented to place and Yes oriented to time HENMT: COMMON NORMALS: normocephalic, atraumatic and hearing grossly normal bilaterally HEAD & SCALP: normocephalic and atraumatic Neck/C-Spine: COMMON NORMALS: no JVD Resp: COMMON NORMALS: normal respiratory effort, No retractions, No use of accessory muscles and clear to auscultation bilaterally AUSCULTATION: clear to auscultation bilaterally Cardio: COMMON NORMALS: no JVD and No murmurs present (Cardio) RATE: tachycardic RHYTHM: abnormal rhythm irregularly irregular GI: COMMON NORMALS: Soft to palpation and No hepatosplenomegaly present AUSCULTATION: Yes normoactive bowel sounds PALPATION: Yes Soft to palpation, No Tenderness to palpation present (GI), No Guarding due to palpation present (GI) and Yes No hepatosplenomegaly present Extremity: COMMON NORMALS: normal to inspection, capillary refill normal, no clubbing, cyanosis or edema, no calf tenderness and no pedal edema Neuro: SENSORIUM/ORIENTATION: Yes oriented to person, Yes oriented to place and Yes oriented to time Skin: NARRATIVE SKIN EXAM: Excoriation and scalding of the skin in the left lower quadrant into the groin crease and the proximal thigh. Area of the previously incised abscess is still open and draining but there is no purulence. All of this area is exquisitely tender. The immediate area around the PEG tube is also inflamed. Course Vital Signs: Vital signs: Vital Signs Temperature 97.6 F 08/06/20 04:00 Pulse Rate 102 H 08/06/20 04:00 Respiratory Rate 18 08/06/20 05:16 Blood Pressure 111/75 08/06/20 04:00 Pulse Oximetry 98 08/06/20 04:00 MDM - Abdominal Pain MDM Narrative: Medical decision making narrative: Cussed with Dr. Coates as well as with Dr. Whitten patient will be admitted started on IV antibiotics we will also do another CT after infusion of Gastrografin through the PEG tube to ensure that it works the describes some difficulty with management of it and getting anything confused. Started on vancomycin and Zosyn for cellulitis coverage. Lab Data: Labs: Lab Results 08/05/20 08/05/20 08/05/20 Range/Units 11:12 11:12 11:12 WBC 15.5 H (4.0-10.0) 10^3/ uL RBC 4.96 (4.1-5.3) 10^6/u L Hgb 15.0 (11.7-16.6) g/dL Hct 44.3 (42.0-52.0) % MCV 89.3 (80-94) fL MCH 30.2 (28.0-34.0) pg MCHC 33.9 (30.0-36.0) g/dL RDW 12.1 (12.1-15.1) % Plt Count 463 H (130-400) 10^3/c mm MPV 9.8 (7.4-10.4) fL Neut % (Auto) 88.7 % Lymph % (Auto) 2.4 % Clinch % (Auto) 7.9 % Eos % (Auto) 0.0 % Baso % (Auto) 0.3 % Neut # (Auto) 13.77 H (1.8-7.7) 10^3/u L Lymph # (Auto) 0.4 L (0.8-4.8) 10^3/u L Clinch # (Auto) 1.2 H (0.2-0.9) 10^3/u L Eos # (Auto) 0.0 (0.0-0.8) 10^3/u L Baso # (Auto) 0.0 (0.0-0.1) 10^3/u L Nucleated RBC % (a uto) 0 % Nucleated RBCs # 0.0 /100WBC Sodium 132 L (136-145) mmol/L Potassium 4.6 (3.5-5.1) mmol/L Chloride 91 L (98-107) mmol/L Carbon Dioxide 27 (22-29) mmol/L Anion Gap 18.6 (5-19) BUN 69 H (8-23) mg/dL Creatinine 1.6 H (0.7-1.2) mg/dL GFR Calculation 43.6 L (90-130) mL/min Glucose 308 H (65-115) mg/dL Calculated Osmolal ity 306 H (285-295) mOsm/k g Lactic Acid 2.0 (0.5-2.2) mmol/L Calcium 9.8 (8.5-10.5) mg/dL Magnesium 2.4 H (1.7-2.3) mg/dL Total Bilirubin 1.1 (0.15-1.2) mg/dL AST 16 (0-40) U/L ALT 19 (0-41) U/L Alkaline Phosphata se 110 (40-130) IU/L Creatine Kinase 43 (39-308) U/L Total Protein 7.8 (6.6-8.7) g/dL Albumin 3.9 (3.5-5.2) g/dL Globulin 3.9 (1.3-4.6) g/dL Lipase 57 (13-60) U/L Discharge Plan Discharge Patient Disposition: Admitted As Inpatient Admit Provider: Gaviota Mcmillan Clinical Impression: Abdominal wall cellulitis, Esophageal cancer, Atrial fibrillation/flutter, Constipation, Acute renal failure Condition: Stable Coding Level of Care Code ED Practice Physician for Jasen Watkins
[2020-08-05] MEDS: morphine 4 mg/mL SDV 1 mL IVP (11:19)
[2020-08-05] MEDS: ondansetron 2 mg/ML SDV 2 mL 4 MG IVP (11:19)
[2020-08-05 11:20] LABS: Basophils % 0.3 %; Hematocrit 44.3 % (42.0-52.0); Lymphocytes # 0.4 10^3/uL (0.8-4.8); Lymphocytes % 2.4 %; Mean Corpuscular HGB Conc 33.9 g/dL (30.0-36.0); Mean Corpuscular Hemoglobin 30.2 pg (28.0-34.0); Mean Corpuscular Volume 89.3 fL (80-94); Mean Platelet Volume 9.8 fL (7.4-10.4); Monocytes # 1.2 10^3/uL (0.2-0.9); Monocytes % 7.9 %; Neutrophils # 13.77 10^3/uL (1.8-7.7); Neutrophils % 88.7 %; Nucleated Red Blood Cells % 0 %; Platelet Count 463 10^3/cmm (130-400); Red Blood Count 4.96 10^6/uL (4.1-5.3); Red Cell Distribution Width 12.1 % (12.1-15.1); White Blood Count 15.5 10^3/uL (4.0-10.0)
[2020-08-05] MEDS: sodium chloride 0.9% 1,000 ML 999 ML IV ×2 (11:20→13:34)
[2020-08-05] MEDS: iodixanol 320 mg/mL 100mL Btl IV (11:37)
[2020-08-05 11:40] LABS: Alanine Aminotransferase 19 U/L (0-41); Albumin Level 3.9 g/dL (3.5-5.2); Alkaline Phosphatase 110 IU/L (40-130); Anion Gap 18.6 (5-19); Aspartate Amino Transferase 16 U/L (0-40); Blood Urea Nitrogen 69 mg/dL (8-23); Calcium 9.8 mg/dL (8.5-10.5); Carbon Dioxide 27 mmol/L (22-29); Chloride 91 mmol/L (98-107); Creatine Phosphokinase 43 U/L (39-308); Globulin 3.9 g/dL (1.3-4.6); Glomerular Filtration Rate 43.6 mL/min (90-130); Glucose 308 mg/dL (65-115); Lipase 57 U/L (13-60); Magnesium 2.4 mg/dL (1.7-2.3); Osmolality Calculated 306 mOsm/kg (285-295); Potassium 4.6 mmol/L (3.5-5.1); Sodium 132 mmol/L (136-145); Total Bilirubin 1.1 mg/dL (0.15-1.2); Total Protein 7.8 g/dL (6.6-8.7)
--- NOTE | 2020-08-05 12:16 | CT_ITS ---
WS: [id number] CT ABDOMEN PELVIS TECHNIQUE: Noncontrast CT of the abdomen and pelvis with coronal and sagittal reformatted images. CLINICAL INFORMATION: check jujenostomy tube COMPARISON: CT earlier today DLP: 1068.[address] scans at [facility] use at least one of these dose optimization techniques: automat ed exposure control; mA and/or kV adjustment per patient size (includes targeted exams where dose is matched to clinical indication); or iterative reconstruction. FINDINGS: Injection of indwelling jejunostomy tube. Contrast injection demonstrates normal filling of the jejun ostomy tube. No evidence of contrast leak. No extravasation in the abdominal wall or rectus sheath. N o intra-abdominal contrast leakage. No other significant changes from earlier today. CT/CT abdomen pelvis wo con [id number] IMPRESSION: Normal jejunostomy tube injection. No evidence of contrast leak or extravasatio n into the rectus sheath or abdomen.
--- NOTE | 2020-08-05 12:20 | PC.PHAR ---
PT STATES HE TAKES CARE OF HIS OWN MEDICATIONS-PT STATES HE HAS BEEN TAKING THE LIQUID NORCO 7.5/325/15ML BUT RAN OUT OF THIS MEDICATION YESTERDAY 08/04/20-PT STATES THE TABS WOULD KEEP COMING BACK UP-PT STATES HE IS STILL TAKING 25MG BID OF METOPROLOL TARTRATE -RX WRITTEN ON 07/24/20 FOR 37.5MG Q12H BUT PT STATES HE WASNT AWARE OF THE CHANGE-PT STATES HE TAKES THE MILD NAUSEA MEDICATION PROCHLORPERAZINE 10MG DAILY AND SOMETIMES MORE IF NEEDED-RX FILLED ON 07/16/20 FOR 10MG PO Q4H PRN MILD NAUSEA-
[2020-08-05] MEDS: piperacillin-tazobactam 3.375 GM in sodium chloride 0.9% (plus) 50 ML IV ×2 (12:36→18:31)
--- NOTE | 2020-08-05 12:55 | P.HP_ITS ---
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 Patient did not know any significant systemic signs of infection. Denies any fever chills. He was advised to change packing however on arrival to ER did not appear that he was doing this. Initial laboratory workup in emergency room showed a WBC of 15.5, hemoglobin 15.0, hematocrit of 44.3 and platelet count of 463. Sodium 132, potassium 4.6, chloride 91, bicarb 27, BUN 69 and creatinine of 1.6. This had been increased from 0.4 on 07/27/2020. Glucose was elevated at 308. Imaging studies included a CT abdomen pelvis which showed previously described jejunostomy tube in place with improved cellulitis and postoperative changes along the anterior abdominal wall. Improved subcutaneous air at the insertion site. No drainable abscess or fluid collection. After contrast repeat CT abdomen pelvis was performed which showed normal jejunostomy tube injection. No evidence of contrast leak or extravasation into the rectus sheath or abdomen. General surgery was consulted in ER. Patient was given vancomycin and Zosyn. In addition to IV fluid bolus. Packing was changed and wound care instructions were provided by General surgery. Discussed care with general surgery advised to initiate bowel regimen as patient was constipated. He had a okay to initiate oral diet. Patient was awake, alert during my eval in mild discomfort after packing change. Review of Systems General: Reports: 10 or more systems reviewed and unremarkable except in HPI and below Const: Reports: fever(s); Denies: chills ENMT: Denies: throat pain, ear or mastoid pain, nasal discharge or nasal congestion Card: Denies: syncope Resp: Denies: dyspnea, productive cough or non-productive cough GI: Reports: nausea; Denies: vomiting, hematemesis, coffee ground emesis, heartburn, diarrhea, constipation, bloating, GI cramping, belching, excessive flatus, fecal incontinence, change in bowel habits, change in stool character, hematochezia or melena : Denies: dysuria or hematuria Skin/Breast: Denies: rash or pruritus Medications/Allergies Home Medications Medication Instructions Recorded Confirmed Last Taken Type pantoprazole [Protonix] 40 mg PO DAILY 30 Days #30 tab 04/28/20 08/05/20 07/18/20 Rx acetaminophen [Tylenol Arthritis 1,300 - 1,950 mg PO PRN 07/22/20 08/05/20 07/21/20 History Pain] 2 tabs dexamethasone See Rx Instructions .ROUTE .COMPLEX 07/22/20 08/05/20 07/19/20 History hydrocodone-acetaminophen 15 ml PO Q4H PRN 07/22/20 08/05/20 08/04/20 History pt states out of med ibuprofen 600 mg PO PRN 07/22/20 08/05/20 07/21/20 History lorazepam 1 mg PO TID PRN 07/22/20 08/05/20 Unknown History prochlorperazine maleate 10 mg PO Q4H PRN 07/22/20 08/05/20 08/04/20 History metoprolol tartrate 37.5 mg PO Q12H #0 tab 07/24/20 08/05/20 08/05/20 Rx 25 MG amoxicillin 875 mg-potassium 1 tab PO BID 10 Days #20 tab 07/29/20 08/05/20 08/05/20 06:30 Rx clavulanate 125 mg tablet acetaminophen [Tylenol Extra 1,000 mg PO PRN 08/05/20 08/05/20 08/05/20 06:30 History Strength] aspirin 325 mg PO PRN 08/05/20 08/05/20 Unknown History lidocaine-prilocaine 1 applic TOPICAL DIRECTED 08/05/20 08/05/20 08/04/20 History Allergies Allergy/AdvReac Type Severity Reaction Status Date / Time No Known Allergies Allergy Verified 08/05/20 12:20 PFSH Acute PFSH: Medical History 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 Carlos, HER-2/justus 3+positive, Clinical Stage III, started carboplatin/taxol 07/21/20, receiving radiation therapy History of heart failure per patient years ago, not currently on any treatment for such; Echo 04/2020 with normal EF, indeterminant diastolic function due to tachycardia Hypertension Surgical History History of incision and drainage (07/22/20) abdominal wall abscess/hematoma History of jejunostomy tube placement (07/19/20) History of knee surgery ACL reconstruction Port-A-Cath in place (07/19/20) Family History Father Cancer lung Mother Cancer breast Brother Cancer prostate cancer Sister Cancer melanoma Denies family history of Anesthesia complication Bleeding disorder Social History Smoking and tobacco status: never smoked Alcohol intake: current Alcohol intake frequency: 3 or more drinks per day Vitals/I&O/Wt Last Vital Signs Temp 97.3 F L 08/05/20 10:39 Pulse 138 H 08/05/20 11:59 Resp 18 08/05/20 11:59 BP 109/89 08/05/20 11:59 Pulse Ox 98 08/05/20 11:59 Weight last 48 hrs Weight 63.503 kg Physical Exam Narrative: EXAM NARRATIVE: General : Alert, awake and oriented, mild abdominal pain HEENT : Grossly unremarkable CVS : Sinus tachycardia CHEST : Non-labored respiration ABD/Skin: Tenderness at wound site, serous discharge, no purulence noted, skin - radiation dermatitis. See surgery exam for detailed Ext: No edema Data : 08/05/20 11:12 08/05/20 11:12 Micro: Microbiology 08/05/20 11:46 Blood Culture - Preliminary Blood SPECIMEN COLLECTED 08/05/20 11:12 Blood Culture - Preliminary Blood SPECIMEN COLLECTED A&P Assessment and plan (1) Alcohol use: Status: Acute (2) Skin excoriation: Status: Acute (3) Dysphagia: Status: Chronic (4) Constipation: Status: Acute (5) Acute renal failure: Status: Acute Abdominal pain due complicated abdominal wound / radiation dermatitis vs cellulitis Dysphagia - Suspected J-tube malfunction due to constipation Acute renal failure Esophageal adenocarcinoma on chemo-radiation Paroxysmal Atrial fibrillation Chronic systolic HF w/o exacerbation ( EF 50 %) GI pox DVT pox Plan: Will empirically continue IV antibiotics. Vancomycin pharmacy to dose. Zosyn 3.375 g IV q.8 hours. Follow-up on wound cultures. Follow-up on blood cultures x2. Discussed with general surgery. Does not appear to obvious to be acutely infected abdominal wound. Serous output. Wound care instructions as per General surgery. Will continue pain control. As per surgery recommendations started on bowel regimen. Will keep on clear liquid diet until patient has a bowel movement. Milk of Mag p.o. x1. Colace 100 mg oral twice a day. Will continue IV fluids at 75 cc/hour. Monitor urine output. Repeat CBC and BMP in a.m.. Check procalcitonin in a.m. as well. Will hold metoprolol due to hypotension at this time. Pepcid 20 mg oral b.I.d.. Heparin 5000 units q.8 hours for DVT prophylaxis. Attestations Medical Necessity Statement*: Anticipate over 2 midnights stay in hospital for evaluation and treatment of complicated abdominal infection requiring IV antibiotic and possible move function of G-tube, constipate and acute renal failure Time Spent in Patient Care: Greater than 35 minutes Coding Level of Care Code Acute Supervisor Conditioning Yard for g Fwd Diagnoses Alcohol use Z72.89 Skin excoriation T14.8XXA Dysphagia R13.10 Constipation K59.00 Acute renal failure N17.9
[2020-08-05] MEDS: iohexol 300 mg/mL 50 mL Btl IV (13:06)
[2020-08-05] MEDS: HYDROmorphone 1 mg/mL INJ 1 mL IVP (13:34)
--- NOTE | 2020-08-05 13:41 | P.CONIM_ITS ---
Providers/Reason For Consult Consulting Physican/Specialty*: Ariel Whitten MD Reason for Consult*: Cellulitic changes of the anterior abdominal wall Requesting Physcian: Dr. Coleman Primary Care Provider: Raleigh Boyd DO History of Present Illness History of Present Illness Chief complaint: I am sore HPI: Mr. Roshan Shell is a 65 year old male well-known to me from previous clinical encounters, patient undergone uneventful right upper chest PowerPort for chemotherapy and a laparoscopic feeding jejunostomy tube for locally advanced esophageal cancer. Patient initially did well then unfortunately developed an abscess inferior to the feeding tube towards the left lower side of the abdomen that was incised and drained and patient was educated about the appropriate local wound care. And has been followed up on at my office almost on weekly basis, today he comes to the emergency department with worsening pain and discomfort due to excoriation of the skin at the site of the incision and drainage likely because of excessive drainage.Meanwhile patient is undergoing radiation treatment for his esophageal cancer. General surgery was consulted after a CT scan of the abdomen and pelvis was done that showed: 1. Previously described jejunostomy tube is in place with improved cellulitis and postoperative changes along the anterior abdominal wall. Improved subcutaneous air at the insertion site. No drainable abscess or fluid collection. 2. Diffuse fatty infiltration of the liver. 3. Stable gastric diverticulum 4. Stable left adrenal adenoma. 5. Enlarged calcified prostate. 6. Sigmoid diverticulosis. No evidence of acute diverticulitis. 7. No other significant changes from previous. I elected to repeat the CT scan with contrast via the feeding jejunostomy to make sure there is nothing going on with the tube as the patient reports that his not getting enough feeds via the tube, also patient looks to be cachectic with a BMI of 20 and weighs [address] scan with jejunostomy tube contrast showed: Normal jejunostomy tube injection. No evidence of contrast leak or extravasation into the rectus sheath or abdomen. Patient was seen and evaluated in room #16 in the emergency department Review of Systems General: Reports: 10 or more systems reviewed and unremarkable except in HPI and below Meds/Allergies Home Medications and Allergies Home Medications Medication Instructions Recorded Confirmed Last Taken Type pantoprazole [Protonix] 40 mg PO DAILY 30 Days #30 tab 04/28/20 08/05/20 07/18/20 Rx acetaminophen [Tylenol Arthritis 1,300 - 1,950 mg PO PRN 07/22/20 08/05/20 07/21/20 History Pain] 2 tabs dexamethasone See Rx Instructions .ROUTE .COMPLEX 07/22/20 08/05/20 07/19/20 History hydrocodone-acetaminophen 15 ml PO Q4H PRN 07/22/20 08/05/20 08/04/20 History pt states out of med ibuprofen 600 mg PO PRN 07/22/20 08/05/20 07/21/20 History lorazepam 1 mg PO TID PRN 07/22/20 08/05/20 Unknown History prochlorperazine maleate 10 mg PO Q4H PRN 07/22/20 08/05/20 08/04/20 History metoprolol tartrate 37.5 mg PO Q12H #0 tab 07/24/20 08/05/20 08/05/20 Rx 25 MG amoxicillin 875 mg-potassium 1 tab PO BID 10 Days #20 tab 07/29/20 08/05/20 08/05/20 06:30 Rx clavulanate 125 mg tablet acetaminophen [Tylenol Extra 1,000 mg PO PRN 08/05/20 08/05/20 08/05/20 06:30 History Strength] aspirin 325 mg PO PRN 08/05/20 08/05/20 Unknown History lidocaine-prilocaine 1 applic TOPICAL DIRECTED 08/05/20 08/05/20 08/04/20 History Allergies Allergy/AdvReac Type Severity Reaction Status Date / Time No Known Allergies Allergy Verified 08/05/20 12:20 PFSH Acute PFSH: Medical History 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 Carlos, HER-2/justus 3+positive, Clinical Stage III, started carboplatin/taxol 07/21/20, receiving radiation therapy History of heart failure per patient years ago, not currently on any treatment for such; Echo 04/2020 with normal EF, indeterminant diastolic function due to tachycardia Hypertension Surgical History History of incision and drainage (07/22/20) abdominal wall abscess/hematoma History of jejunostomy tube placement (07/19/20) History of knee surgery ACL reconstruction Port-A-Cath in place (07/19/20) Family History Father Cancer lung Mother Cancer breast Brother Cancer prostate cancer Sister Cancer melanoma Denies family history of Anesthesia complication Bleeding disorder Social History Smoking and tobacco status: never smoked Alcohol intake: current Alcohol intake frequency: 3 or more drinks per day Vitals/I&O/Wt Last Vital Signs Temp 97.3 F L 08/05/20 10:39 Pulse 138 H 08/05/20 11:59 Resp 18 08/05/20 13:34 BP 109/89 08/05/20 11:59 Pulse Ox 98 08/05/20 11:59 08/04/20 08/05/20 08/05/20 22:59 06:59 14:59 Intake Total 50 / 50 Balance 50 / 50 Weight last 48 hrs Weight 140 lb Physical Exam Narrative: EXAM NARRATIVE: Patient is conscious alert oriented X3 Cachectic BMI 20 Head and neck examination PERRLA no masses no cervical lymphadenopathy no jaundice Cardiac examination audible S1-S2 no murmurs no gallops no arrhythmias Chest is clear bilateral,abscence of Rhonchi or wheezes,no surgical emphysema Abdomen nontender except at the left lower quadrant with skin excoriation due to excessive drainage of nonpurulent discharge from the previous incision and drainage site, normal drainage surrounding the feeding tube and jejunostomy tube seems to be in good position without complication otherwise nondistended soft no organomegaly guarding or rigidity/no signs of peritonitis Extremities no cyanosis no clubbing no edema Data Micro: Micro: Microbiology 08/05/20 11:46 Blood Culture - Pr eliminary Blood SPECIMEN [facility] 08/05/20 11:12 Blood Culture - Pr eliminary Blood SPECIMEN [facility] A&P Assessment and plan (1) Skin excoriation: After history taking physical examination and reviewing the chart and images with my personal interpretation and discussing the images with Dr. Washington the radiologist. Skin care: Silvadene cream once to twice a day on the excoriated area,followed by Inter dry Sheet to capture the Moisture as needed. Wound care: Packing of the wound 3 times a day with dry to dry using mini Kerlix followed by ABDs. Nutrition consultation to optimize nutrition Patient can be fed via oral intake with Ensure 3 to 4 cans a day Bowel regimen, based on the CT scan images patient's colon is loaded with stool Repeat Am Labs We will continue to follow Continue flushing the feeding jejunostomy tube with 50 mL of water every 8 hours or as needed Assurance and education All questions have been answered and all concerns have been addressed to patient's satisfaction. Status: Acute Consult Attestations Medical Necessity Statement: Inpatient hospitalization for medical and surgical care Time Spent in Patient Care: 16 - 35 minutes (>than 50% of time spent in counselling and/or direct pt care on unit) . Coding Level of Care Code Acute Electrician Station Assistant for Chg Fwd Diagnoses Skin excoriation T14.8XXA
[2020-08-05] MEDS: vancomycin 1,000 MG in sodium chloride 0.9% 250 ML 250 MG IV (13:43)
[2020-08-05] MEDS: D5-NS 0.45% + KCL 20 mEq 20 MEQ/1,000 ML BAG 100 MEQ IV (16:03)
[2020-08-05] MEDS: magnesium hydroxide 30 mL UDC PO (16:07)
[2020-08-05] MEDS: heparin 5,000 unit/mL INJ 1 mL 5000 UNIT SUBCUT (16:07)
[2020-08-05] MEDS: morphine 4 mg/mL SDV 1 mL 2 MG IVP (16:33)
[2020-08-05 16:58] LABS: Add Urine Microscopic? NO
[2020-08-05 17:12] LABS: Bilirubin Urine Neg (Negative); Blood Urine Neg (Negative); Glucose Urine UA Norm (Normal); Ketones Urine Negative (Negative); Leukocyte Esterase Urine Negative (Negative); Nitrate Urine Negative (Negative); Protein Urine Neg (Negative); Urine Appearance Clear (CLEAR); Urine Color Yellow (Yellow); Urobilinogen Urine Norm (Negative); pH Urine 5 (5-7)
[2020-08-05] MEDS: silver sulfadiazine cream 1% 50 gm 1 APPLIC TOPICAL (18:00)
--- NOTE | 2020-08-05 18:22 | PC.NURSE ---
Wound care orders received as follows from Dr. Whitten verbal at bedside during admission assessment: cleanse wound and PEG tube surrounding area/macerated areas with antibacterial soap and water and pat dry. Apply Silvadene to all macerated/burned areas and apply Duoderm below PEG tube to protect skin and Interdry to his skin folds that are excoriated. Dressing changes were made as ordered above. Patient stood up at the bedside while myself and Jie Wilson CNA changed the bed linens. Patient got back in bed and I re-assessed the dressings. At that time, the Interdry had fallen off and the Duoderm was saturated and coming off under the PEG tube guard. New wound care orders obtained and dressing change performed as follows: Wound and surrounding area cleansed with antibacterial soap and water then patted dry. Surgical incision to left lower abdomen (below PEG tube) with tube feeding drainage as well as serosanguineous drainage noted. It was measured then packed with conform gauze. Covered with 4x4 gauze, abd, and secured with tape only on the top border and left lower corner of the abd pad d/t excoriation to surrounding wound. Excoriation noted to all of LLQ of abdomen, below PEG tube, to left groin, and left flank. Silvadene cream applied to these areas as ordered and approved by Dr. Whitten. Patient did not tolerate wound care well. He had increased pain with wincing, guarding, and audible complaint. Silvadene was applied to patient's left groin where Interdry was originally placed. 4x4 gauze was folded and applied to a small fold to patients mid-abdomen that was slightly pink from drainage. Dr. Horta was updated on patient's status and he states that dressing effectiveness will be evaluated tomorrow, 08/06/2020. No new orders received at this time.
[2020-08-05] MEDS: famotidine 20 mg Tablet PO (18:30)
[2020-08-05] MEDS: sodium chloride 0.9% 1,000 ML 75 ML IV (18:30)
[2020-08-05] MEDS: docusate sodium 100 mg Capsule PO (18:30)
[2020-08-05] MEDS: HYDROcodone-acetaminophen 5-325 mg Tablet 1 TAB PO (18:30)
--- NOTE | 2020-08-05 19:30 | PC.NURSE ---
I spoke with Dr. Fragoso and reviewed dressing change orders and informed him of patient's poor tolerance of dressing change. He gave a verbal order for 0.5 mg of Dilaudid every 4 hours for severe pain. I placed the new order and informed Tomeka Srinivasan LPN of changes. He verbalizes understanding.
[2020-08-05] MEDS: HYDROmorphone 1 mg/mL INJ 1 mL 0.5 MG IVP (20:48)
[2020-08-06] VITALS (14 sets, daily range): BP systolic 105–122; BP diastolic 69–79; PULSE 97–109; RESP 16–26; TEMP 36.4–36.9; O2SAT 96–100
[2020-08-06] MEDS: HYDROmorphone 1 mg/mL INJ 1 mL 0.5 MG IVP ×5 (00:42→23:37)
[2020-08-06] MEDS: piperacillin-tazobactam 3.375 GM in sodium chloride 0.9% (plus) 50 ML IV ×3 (03:48→18:25)
[2020-08-06 04:47] LABS: Basophils % 0.2 %; Eosinophils % 0.1 %; Hematocrit 39.1 % (42.0-52.0); Hemoglobin 12.8 g/dL (11.7-16.6); Lymphocytes # 0.4 10^3/uL (0.8-4.8); Lymphocytes % 4.9 %; Mean Corpuscular HGB Conc 32.7 g/dL (30.0-36.0); Mean Corpuscular Hemoglobin 30.3 pg (28.0-34.0); Mean Corpuscular Volume 92.4 fL (80-94); Monocytes # 1.1 10^3/uL (0.2-0.9); Monocytes % 13.2 %; Neutrophils # 6.89 10^3/uL (1.8-7.7); Neutrophils % 80.9 %; Nucleated Red Blood Cells % 0 %; Platelet Count 300 10^3/cmm (130-400); Red Blood Count 4.23 10^6/uL (4.1-5.3); Red Cell Distribution Width 12.3 % (12.1-15.1); White Blood Count 8.5 10^3/uL (4.0-10.0)
[2020-08-06 05:05] LABS: Alanine Aminotransferase 16 U/L (0-41); Albumin Level 3.2 g/dL (3.5-5.2); Alkaline Phosphatase 74 IU/L (40-130); Anion Gap 11.2 (5-19); Aspartate Amino Transferase 14 U/L (0-40); Blood Urea Nitrogen 49 mg/dL (8-23); Calcium 8.7 mg/dL (8.5-10.5); Carbon Dioxide 29 mmol/L (22-29); Chloride 100 mmol/L (98-107); Glucose 196 mg/dL (65-115); Osmolality Calculated 300 mOsm/kg (285-295); Potassium 4.2 mmol/L (3.5-5.1); Sodium 136 mmol/L (136-145); Total Bilirubin 0.6 mg/dL (0.15-1.2); Total Protein 6.2 g/dL (6.6-8.7)
[2020-08-06] MEDS: HYDROmorphone 1 mg/mL INJ 1 mL IVP (06:55)
--- NOTE | 2020-08-06 07:28 | P.PN_ITS ---
Subjective Subjective: Interval history: Excessive drainage per I&D site.Excoriating the skin., Noticed to have bilious drainage, Likely the Feeding tube got loosened from its place. Vitals/I&O/Wt Last Vital Signs Temp 97.6 F 08/06/20 04:00 Pulse 102 H 08/06/20 04:00 Resp 20 H 08/06/20 06:55 BP 111/75 08/06/20 04:00 Pulse Ox 98 08/06/20 04:00 08/05/20 08/06/20 08/06/20 22:59 06:59 14:59 Intake Total 310 / 1360 Output Total 700 / 700 Balance 310 / 1360 -700 / 660 Weight last 48 hrs Weight 140 lb Physical Exam Narrative: EXAM NARRATIVE: Patient is conscious alert oriented X3 BMI 20 Head and neck examination PERRLA no masses no cervical lymphadenopathy no jaundice Abdomen nontender except at the left lower quadrant with skin excoriation due to excessive drainage of Biliousdischarge from the previous incision and drainage site. Noticed that the feeding jejunostomy tube Got loosened.Which explains the bilious drainage from the wound site.Adjustment of the tube Was done by me bedsideAnd was flushed easily.Without evidence of leak Copious irrigation of the wound was done bedside and patient was given IV DilaudidAs he was encountering pain,Following that packing with dry mini Kerlix and Silvadene cream application to the excoriated area which looked better than yesterday.Then ABD Data : 08/06/20 04:18 08/06/20 04:18 Micro: Microbiology 08/05/20 11:46 Blood Culture - Preliminary Blood SPECIMEN COLLECTED 08/05/20 11:12 Blood Culture - Preliminary Blood SPECIMEN COLLECTED A&P Assessment and plan (1) Skin excoriation: Continue Silvadene cream once to twice a day on the excoriated area,followed by ABDs to capture the Moisture as needed Packing of the wound 3 times a day with dry to dry using mini Kerlix followed by ABDs Nutrition consultation to optimize nutrition Patient can be fed via oral intake with Ensure 3 to 4 cans a day Aggressive Bowel regimen Repeat Am Labs We will continue to follow Continue flushing the feeding jejunostomy tube with 50 mL of water every 8 hours or as needed We will try to fashion an ostomy bag to capture the moisture make more controlled output to minimize skin excoriation. I am very concerned about the patient nutrition status moving forward I think the patient would benefit more from getting an esophageal stent for appropriate nutrition optimization and DC the feeding jejunostomy at some point down the road to allow healing of the wound and patient can resume his therapy as of now we are on hold with regard to the chemotherapy. I did discuss the case with Dr. Carlos and he agrees on my thought process with that regard. Assurance and education All questions have been answered and all concerns have been addressed to patient's satisfaction. Status: Acute Attestations Medical Necessity Statement*: Continue Inpatient hospitalization for medical and surgical care Time Spent in Patient Care: 16 - 35 minutes (>than 50% of time spent in counselling and/or direct pt care on unit) . Coding Level of Care Code Acute Television Repairman for Jasen Watkins Diagnoses Skin excoriation T14.8XXA
[2020-08-06] MEDS: sodium chloride 0.9% 1,000 ML 75 ML IV ×2 (08:07→22:03)
[2020-08-06] MEDS: docusate sodium 100 mg Capsule PO ×2 (09:09→18:25)
[2020-08-06] MEDS: famotidine 20 mg Tablet PO ×2 (09:09→18:25)
[2020-08-06] MEDS: HYDROcodone-acetaminophen 5-325 mg Tablet 1 TAB PO ×2 (09:10→15:16)
--- NOTE | 2020-08-06 09:14 | PC.OT ---
PER NURSING, PATIENT HAS ABDOMINAL WOUND THAT IS WEEPING AND AWAITING CONSULT WITH SURGEON. HOLD AND ATTEMPT AGAIN TOMORROW.
--- NOTE | 2020-08-06 12:33 | PC.CHAP ---
Pastoral Care Encounter/Spiritual Assessment Type of Contact [] Declined patient support specialist visit [] Patient/Family/Request visit [] Outpatient visit [] Follow-up visit [] Physician referral [] Code/Alert [xx] Routine visit [] Staff referral [] Actively dying [] Patient sleeping [] Family support [] [] Out of room [] Palliative care [] [] Receiving care in room [] Pre-surgical visit [] Trauma [] Long length of stay [] ICU visit [] Other: Relational/Emotional Strength [xx] Patient feels connected with others/family/visitors/staff [] Distress [] Loneliness/isolation [] Abandonment Spirituality of Patient [xx] Person of Mayda [] Attends Judaism of their Mayda [xx] Believes in Prayer [xx] Reads Bible or Buddhism materials [] There are Spiritual issues to be addressed [employer] Interventions [xx] Prayer [xx] Active listening [xx] Non-anxious presence [] Spiritual/emotional support [] Crisis/trauma care [] Spiritual counseling [] Bereavement support [] Provided bereavement packet [] Provided Bible/devotional materials [] Provided toy/stuffed animal, coloring book to patient or family member [] Provided Communion [] Anointing/[place] [] Salvation [xx] Completed spiritual assessment [] Other: Impact on Illness or Injury [] Angry [] Fearful [] Anxious [] Often cries [] Exhaustion [] Unable to work [] Unable to attend baptist [] Unable to walk/stand [] Unable to read [] Unable to drive [] Unable to eat/drink [] Unable to sleep [] Unable to be with family [] Patient intubated [] Other: Summary Patient believes he will be long-term patient as he has cancer and surgical site not healing properly. Patient stated he takes one day at a time but is assured he is saved and going to [facility]. He is not afraid to . He watched both his parents of cancer. Time spent with patient 7 minutes
[2020-08-06] MEDS: vancomycin 1,000 MG in sodium chloride 0.9% 250 ML 250 MG IV (15:15)
--- NOTE | 2020-08-06 18:02 | PM.PN ---
Subjective Subjective: Interval history: Overnight patient was noted to have significant drainage from wound site. Patient was seen by General surgery. Dressing was changed. no fever, chills, nausea vomiting. Abdominal pain was under control. Medications: Reviewed: Yes Vitals/I&O/Wt Last Vital Signs Temp 98.4 F 08/06/20 15:30 Pulse 109 H 08/06/20 15:30 Resp 18 08/06/20 15:30 BP 109/69 08/06/20 15:30 Pulse Ox 97 08/06/20 15:30 08/06/20 08/06/20 08/06/20 06:59 14:59 22:59 Intake Total 1850 / 1850 988.75 / 2838.75 Output Total 700 / 700 800 / 800 Balance -700 / 660 1850 / 1850 188.75 / 2038.75 Weight last 48 hrs Weight 63.503 kg Physical Exam Narrative: EXAM NARRATIVE: General : Alert, awake and oriented, mild abdominal pain HEENT : Grossly unremarkable CVS : Sinus tachycardia CHEST : Non-labored respiration ABD/Skin: Tenderness at wound site, serous discharge, no purulence noted, skin - radiation dermatitis. 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 For now will continue broad-spectrum antibiotics. Diet changed to clear liquid diet. Will consult real estate representative for evaluation. Plan to transfer to [facility] on Sunday as per General surgery. Will continue current plan and arrange transfer. Repeat labs in a.m.. Attestations Medical Necessity Statement*: Will continue hospitalization for management of possible abdominal infection Requiring IV antibiotics and pending transfer Time Spent in Patient Care: Greater than 35 minutes Coding Level of Care Code Acute Community Support Associate for Chg Fwd Diagnoses Alcohol use Z72.89 Skin excoriation T14.8XXA Dysphagia R13.10 Constipation K59.00 Acute renal failure N17.9
[2020-08-07] VITALS (10 sets, daily range): BP systolic 103–117; BP diastolic 66–72; PULSE 63–109; RESP 14–19; TEMP 36.6–37; O2SAT 95–100
[2020-08-07] MEDS: piperacillin-tazobactam 3.375 GM in sodium chloride 0.9% (plus) 50 ML IV ×3 (03:25→18:20)
[2020-08-07 04:53] LABS: Basophils % 0.1 %; Eosinophils % 0.4 %; Hematocrit 37.2 % (42.0-52.0); Lymphocytes # 0.5 10^3/uL (0.8-4.8); Lymphocytes % 6.5 %; Mean Corpuscular HGB Conc 32.3 g/dL (30.0-36.0); Mean Corpuscular Hemoglobin 30.2 pg (28.0-34.0); Mean Corpuscular Volume 93.7 fL (80-94); Mean Platelet Volume 10.2 fL (7.4-10.4); Monocytes # 0.7 10^3/uL (0.2-0.9); Monocytes % 9.6 %; Neutrophils # 6.09 10^3/uL (1.8-7.7); Neutrophils % 82.9 %; Nucleated Red Blood Cells % 0 %; Platelet Count 234 10^3/cmm (130-400); Red Blood Count 3.97 10^6/uL (4.1-5.3); Red Cell Distribution Width 12.4 % (12.1-15.1); White Blood Count 7.4 10^3/uL (4.0-10.0)
[2020-08-07 05:19] LABS: Lactate (Lactic Acid level) 0.9 mmol/L (0.5-2.2)
[2020-08-07 05:30] LABS: Procalcitonin 0.08 ng/mL (0-0.5)
--- NOTE | 2020-08-07 05:44 | PC.NURSE ---
SHIFT SUMMARY Has rested well tonight. IV infusing at 75ml/hr rate with antibiotics as ordered. Wound to left abdomen with yellow/green bile along with some thick fall drainage. Wound packed with gauze X2 tonight. ABD over wound but not taped. 4x4 fluffs placed in abd crease on left side to keep dry. Redness/excoriation across abdomen but kerwin on left abd and around to side. Is very tender to touch and cleaning. Keeping dry and applying Silvadene cream to areas. Is painful to pack wound. Has been premedicated with IV Dilaudid prior and says does help quite a bit. Is very pleasant.
[2020-08-07 05:47] LABS: Alanine Aminotransferase 15 U/L (0-41); Albumin Level 2.8 g/dL (3.5-5.2); Alkaline Phosphatase 71 IU/L (40-130); Anion Gap 11.9 (5-19); Aspartate Amino Transferase 15 U/L (0-40); Blood Urea Nitrogen 24 mg/dL (8-23); Calcium 8.5 mg/dL (8.5-10.5); Carbon Dioxide 27 mmol/L (22-29); Chloride 105 mmol/L (98-107); Globulin 2.6 g/dL (1.3-4.6); Glomerular Filtration Rate 215.9 mL/min (90-130); Glucose 142 mg/dL (65-115); Osmolality Calculated 296 mOsm/kg (285-295); Potassium 3.9 mmol/L (3.5-5.1); Sodium 140 mmol/L (136-145); Total Bilirubin 0.6 mg/dL (0.15-1.2); Total Protein 5.4 g/dL (6.6-8.7)
--- NOTE | 2020-08-07 06:02 | P.PN_ITS ---
Subjective Subjective: Interval history: Patient overall feels better, feeding jejunostomy tube adjustment bedside was done by me yesterday and it seems to help to minimize leaking through the wound.[facility] GI service was contacted yesterday for potential transfer to get the esophageal stent for optimization of nutrition and had the patient healing of his wound. Otherwise no acute events overnight, patient continues to have stable vital signs and good urine output and tolerating p.o. intake Vitals/I&O/Wt Last Vital Signs Temp 98.5 F 08/07/20 04:00 Pulse 95 08/07/20 05:02 Resp 16 08/07/20 04:00 BP 110/68 08/07/20 04:00 Pulse Ox 100 08/07/20 04:00 08/06/20 08/06/20 08/07/20 14:59 22:59 06:59 Intake Total 1850 / 1850 1850.00 / 3700.00 360 / 4060.00 Output Total 800 / 800 300 / 1100 Balance 1850 / 1850 1050.00 / 2900.00 60 / 2960.00 Weight last 48 hrs Weight 140 lb Physical Exam Narrative: EXAM NARRATIVE: Patient is conscious alert oriented X3 BMI 20 Head and neck examination PERRLA no masses no cervical lymphadenopathy no jaundice Abdomen nontender except at the left lower quadrant with skin excoriation which looks much better and responding appropriately to the adjustment of the feeding jejunostomy as well as the local skin care. Feeding jejunostomy tube continues to be in appropriate in good position without evidence of leak Less dainage at the wound Premedication with IV Dilaudid I did perform copious irrigation of the wound was done bedside.Following that packing with dry 1 inch Nu Gauze and Silvadene cream application to the excoriated area which looked better than yesterday. Data : 08/07/20 04:17 08/07/20 04:17 Micro: Microbiology 08/05/20 11:46 Blood Culture - Preliminary Blood NEGATIVE TO DATE 08/05/20 11:12 Blood Culture - Preliminary Blood NEGATIVE TO DATE A&P Assessment and plan (1) Skin excoriation: 1-Will Continue Silvadene cream once to twice a day on the excoriated area,followed by ABDs to capture the Moisture as needed Packing of the wound 3 times a day with dry to dry using Two inches Nu Gauze followed by ABDs 2-Nutrition consultation to optimize nutrition,Will follow on nutrition consult recommendations Continue Ensure 3 to 4 cans a day From surgical standpoint of view patient can be fed by mouth as much as he tolerates depending on protein shakes and can get fed through the feeding jejunostomy per Nutrition recs. 3-Aggressive Bowel regimen, will provide the patient with a bottle of mag citrate to help with a bowel movement 4-Repeat Am Labs Will send for PCR to rule out Covid as a requirement for patient's procedure on Sunday at [facility]. 5-Feeding jejunostomy care 6-Managment of Afib and Other medical conditions per Hospitalist servcie. Assurance and education All questions have been answered and all concerns have been addressed to patient's satisfaction. Status: Acute Attestations Medical Necessity Statement*: Inpatient hospitalization for medical and surgical care Time Spent in Patient Care: 16 - 35 minutes (>than 50% of time spent in counselling and/or direct pt care on unit) . Coding Level of Care Code Acute Diesel Maintenance Electrician for Jasen Watkins Diagnoses Skin excoriation T14.8XXA
[2020-08-07] MEDS: HYDROmorphone 1 mg/mL INJ 1 mL IVP (06:12)
--- NOTE | 2020-08-07 06:25 | PC.NURSE ---
DR WHITTEN VISIT Dr Whitten here for am rounds. Pt was given IV Dilaudid 1 mg per one time order. Wound was irrigated well with NS and repacked with 2in Nugauze by . Fresh Silvadene applied and will cover with ABDs. Dr happy with wound appearance this am and pt as well says it feels much better. Redness cont to decrease and tenderness.
[2020-08-07 08:23] LABS: SARS Covid-2 Antigen Negative (Negative)
[2020-08-07] MEDS: magnesium citrate Btl 296 mL 150 ML PO (09:25)
[2020-08-07] MEDS: famotidine 20 mg Tablet PO (09:26)
[2020-08-07] MEDS: docusate sodium 100 mg Capsule PO (09:26)
[2020-08-07] MEDS: sodium chloride 0.9% 1,000 ML 75 ML IV (11:45)
[2020-08-07] MEDS: HYDROcodone-acetaminophen 5-325 mg Tablet 1 TAB PO (11:46)
[2020-08-07 12:46] LABS: Vancomycin Trough < 4.0 ug/mL (10-15)
[2020-08-07] MEDS: metoprolol tartrate 25 mg Tablet 12.5 MG PO ×2 (13:52→20:52)
[2020-08-07] MEDS: vancomycin 1,000 MG in sodium chloride 0.9% 250 ML 250 MG IV ×2 (13:52→22:30)
--- NOTE | 2020-08-07 14:29 | P.PN_ITS ---
Subjective Subjective: Interval history: Patient was awating transfer to [facility] in am Medications: Reviewed: Yes Vitals/I&O/Wt Last Vital Signs Temp 98.8 F 08/08/20 11:20 Pulse 94 08/08/20 11:20 Resp 18 08/08/20 11:20 BP 112/74 08/08/20 11:20 Pulse Ox 94 08/08/20 11:20 08/07/20 08/08/20 08/08/20 22:59 06:59 14:59 Intake Total 100 / 1560.0 1550 / 3110.0 Output Total 575 / 575 Balance 100 / 1560.0 975 / 2535.0 Physical Exam Narrative: EXAM NARRATIVE: General : Alert, awake and oriented, mild abdominal pain HEENT : Grossly unremarkable CVS : Sinus tachycardia CHEST : Non-labored respiration ABD/Skin: Tenderness at wound site, serous discharge, no purulence noted, skin - radiation dermatitis. 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 Attestations Medical Necessity Statement*: Pending placement to [facility] Time Spent in Patient Care: Greater than 35 minutes Coding Level of Care Code Acute Certified Substance Abuse Counselor for Chg Fwd Diagnoses Alcohol use Z72.89 Skin excoriation T14.8XXA Dysphagia R13.10 Constipation K59.00 Acute renal failure N17.9
--- NOTE | 2020-08-07 14:59 | PC.PT ---
Patient sitting up in bed, states being transferred to [facility]; declines physical therapy evaluation, states does very well getting around in room without difficulty; this is corroborated by nursing staff, no further attempts to be made.
--- NOTE | 2020-08-07 15:00 | PC.NURSE ---
Called Dr Horta to update on patient, see new orders for Jevity.
--- NOTE | 2020-08-07 16:51 | PC.NUTR ---
NUTR TF RECOMMENDATIONS: Jevity on continuous feed with goal rate of 50 ml/hr providing 1440 kcal (80%), 66 g PRO (103%), and 968 ml fluid (53%)(%NEEDS). Suggest starting TF at 20 ml/hr and increase by 10 ml Q6H as tolerated till goal rate is met. Suggest H2O flushes of 120 ml Q4H to approach fluid needs or per physician. BOLUS: 5 cans daily total over 3 feedings with 1 cup H2O flushes after each feeding.
[2020-08-07] MEDS: ondansetron 2 mg/ML SDV 2 mL 4 MG IVP (18:03)
--- NOTE | 2020-08-07 18:30 | PC.NURSE ---
Called Dr Whitten,notified of patient feeling full and nauseous, see new orders for hold Jevity till tomorrow AM.
[2020-08-07] MEDS: HYDROmorphone 1 mg/mL INJ 1 mL 0.5 MG IVP (21:03)
[2020-08-08] MEDS: sodium chloride 0.9% 1,000 ML 75 ML IV (02:44)
[2020-08-08] MEDS: piperacillin-tazobactam 3.375 GM in sodium chloride 0.9% (plus) 50 ML IV ×2 (02:45→10:29)
[2020-08-08 03:54] VITALS: BP 118/72; PULSE 99; RESP 16; TEMP 36.5; O2SAT 97
[2020-08-08] MEDS: ondansetron 2 mg/ML SDV 2 mL 4 MG IVP (05:24)
[2020-08-08] MEDS: vancomycin 1,000 MG in sodium chloride 0.9% 250 ML 250 MG IV ×2 (05:43→15:03)
[2020-08-08] MEDS: HYDROcodone-acetaminophen 5-325 mg Tablet 1 TAB PO (05:48)
--- NOTE | 2020-08-08 06:36 | P.PN_ITS ---
Subjective Subjective: Interval history: Per nursing staff patient had a good night without acute events except for some spits, adequate urine output, patient is on clear liquid diet with protein shakes and tube feeds were held for now as patient felt full. Patient did have multiple bowel movements and feels better. Per patient's report he did have some regular diet and it seems it was placed by error on the patient's table, afterwards patient got sick and he vomited unfortunately, that was redirected and education was given to the nursing staff about the importance to keep it only for clear liquid diet with protein shakes. Vitals/I&O/Wt Last Vital Signs Temp 97.7 F 08/08/20 03:54 Pulse 99 08/08/20 03:54 Resp 16 08/08/20 03:54 BP 118/72 08/08/20 03:54 Pulse Ox 97 08/08/20 03:54 08/07/20 08/07/20 08/08/20 14:59 22:59 06:59 Intake Total 1460.0 / 1460.0 100 / 1560.0 1250 / 2810.0 Output Total 575 / 575 Balance 1460.0 / 1460.0 100 / 1560.0 675 / 2235.0 Physical Exam Narrative: EXAM NARRATIVE: Patient is conscious alert oriented X3 BMI 20 Head and neck examination PERRLA no masses no cervical lymphadenopathy no jau ndice Abdomen nontender except at the left lower quadrant with skin excoriation which looks a whole much better and responding appropriately to the adjustment of the feeding jejunostomy as well as the local skin care. Feeding jejunostomy tube continues to be in appropriate in good position without evidence of leak Less dainage at the wound Premedication with IV Dilaudid Continue to perform copious irrigation of the wound was done bedside.Following that packing with dry 1 inch Nu Gauze and Silvadene cream application to the excoriated area which continues to look better than yesterday. Data : 08/07/20 04:17 08/07/20 04:17 A&P Assessment and plan (1) Skin excoriation: 1-Continue Silvadene cream once to twice a day on the excoriated area,followed by ABDs to capture the Moisture as needed Packing of the wound 3 times a day with dry to dry using Two inches Nu Gauze followed by ABDs 2-Nutrition consultation to optimize nutrition,Will follow on nutrition consult recommendations Continue Ensure 3 to 4 cans a day. From surgical standpoint of view patient can be fed by mouth as much as he to lerates depending on protein shakes will hold off on Feeding thru the Feeding J for now. 3-Continue Bowel regimen 4-Resume Pharmacologic DVT prophylaxis 5-Feeding jejunostomy care 6-Managment of Afib and Other medical conditions per Hospitalist servcie. 7-PPI therapy 8-PCR for COVID-19 still pending, rapid test was done yesterday that was negative. Patient will be transferred today to [facility] to get endoscopy with stent placement, likely the patient will benefit from covered or semicovered stent to optimize his nutrition and down the road likely to be retrieved for potential surgical intervention, pending discussion further with oncology service and thoracic surgery team. We will plan to see the patient back at my office in 1 week. More than 50% of the clinical encounter was spent with the patient [id number] in the presence of his nursing staff Jenae, educating him about the importance to optimize nutrition and local skin care. At some point likely will exchange the feeding jejunostomy to another one once her tract is mature enough. Assurance and education All questions have been answered and all concerns have been addressed to patient's satisfaction. Status: Acute Attestations Medical Necessity Statement*: Continue inpatient hospitalization for medical and surgical care Time Spent in Patient Care: 16 - 35 minutes (>than 50% of time spent in counselling and/or direct pt care on unit) . Coding Level of Care Code Acute Retail Support Associate for Jasen Bairdd Diagnoses Skin excoriation T14.8XXA
[2020-08-08 07:12] VITALS: BP 118/71; PULSE 104; RESP 18; TEMP 36.7; O2SAT 96
[2020-08-08] MEDS: heparin 5,000 unit/mL INJ 1 mL 5000 UNIT SUBCUT ×2 (07:47→15:09)
--- NOTE | 2020-08-08 09:00 | PC.SOCIAL ---
Pg 2 IMM Explained to pt Pg 2 IMM. No questions voiced. Provided pt a copy. Signed, dated, & timed a copy & placed in chart.
[2020-08-08] MEDS: HYDROmorphone 1 mg/mL INJ 1 mL 0.5 MG IVP ×2 (09:27→15:08)
[2020-08-08] MEDS: docusate sodium 100 mg Capsule PO (09:29)
[2020-08-08] MEDS: metoprolol tartrate 25 mg Tablet 12.5 MG PO (09:29)
[2020-08-08] MEDS: famotidine 20 mg Tablet PO (09:30)
[2020-08-08 11:20] VITALS: BP 112/74; PULSE 94; RESP 18; TEMP 37.1; O2SAT 94
[2020-08-08 14:28] LABS: Vancomycin Trough 13.3 ug/mL (10-15)
--- NOTE | 2020-08-08 14:43 | PM.DCS ---
Discharge Providers Date of Admission: 08/05/20 12:19 Date of Discharge: August 08, 2020 Attending Provider at Admission: Gaviota Mcmillan Attending Provider at Discharge: Gaviota Mcmillan Primary Care Provider: Raleigh Boyd DO Diagnoses at Discharge Discharge Diagnosis (1) Alcohol use: Status: Acute (2) Skin excoriation: Status: Acute (3) Dysphagia: Status: Chronic (4) Constipation: Status: Acute (5) Acute renal failure: Status: Acute Reason for Visit Reason for Visit: Feeding tube infected/midsection pain Hospital Course Hospital Course 65 year old with past medical history of hypertension, recent atrial fibrillation with mild systolic HF EF of 50%, moderately differentiated invasive adenocarcinoma of distal/mid esophagus on chemo-radiation, s/p mediport placement, subsequently developed dysphagia requiring laparoscopic jejunostomy tube placement, developed infected left sided diffuse abdominal wall cellulitis with hematoma of rectus sheath who was discharged on cipro/flagyl who is presenting today with increasing drainage from wound and abdominal pain. Patient did not know any significant systemic signs of infection. Denies any fever chills. He was advised to change packing however on arrival to ER did not appear that he was doing this. Initial laboratory workup in emergency room showed a WBC of 15.5, hemoglobin 15.0, hematocrit of 44.3 and platelet count of 463. Sodium 132, potassium 4.6, chloride 91, bicarb 27, BUN 69 and creatinine of 1.6. This had been increased from 0.4 on 07/27/2020. Glucose was elevated at 308. Imaging studies included a CT abdomen pelvis which showed previously described jejunostomy tube in place with improved cellulitis and postoperative changes along the anterior abdominal wall. Improved subcutaneous air at the insertion site. No drainable abscess or fluid collection. After contrast repeat CT abdomen pelvis was performed which showed normal jejunostomy tube injection. No evidence of contrast leak or extravasation into the rectus sheath or abdomen. General surgery was consulted in ER. Patient was given vancomycin and Zosyn. In addition to IV fluid bolus. Packing was changed and wound care instructions were provided by General surgery. Discussed care with general surgery advised to initiate bowel regimen as patient was constipated. He had a okay to initiate oral diet. Patient was awake, alert during my eval in mild discomfort after packing change. Upon admission patient was started on board spectrum antibiotics. Unfortunately patient continued to have significant drainage. General surgery arranged transfer to [facility] for endoscopy and stent placement. Once bed was available patient was transferred in stable condition. Physical Exam Narrative: EXAM NARRATIVE: General : Alert, awake and oriented, mild abdominal pain - improved. HEENT : Grossly unremarkable CVS : Sinus tachycardia CHEST : Non-labored respiration ABD/Skin: Tenderness at wound site, serous discharge, no purulence noted, skin - radiation dermatitis. See surgery exam for detailed Ext: No edema Discharge Data Data Completed and Pending: Completed Studies During Hospitalization Category Date Time Status CT abdomen pelvis w con* [id number] Stat Cat Scan 08/05/20 10:[address] abdomen pelvis wo con [id number] Urge nt Cat Scan 08/05/20 12:16 Completed XR chest 1V carl ble [id number] Stat Exams 08/05/20 10:45 Completed Pending at discharge Category Date Time Status Blood Culture Sta t Lab 08/05/20 11:46 Results Coronavirus Test [facility] Lab 08/07/20 15:20 Received Vancomycin Trough Timed Lab 08/08/20 12:20 Received Labs from last 24 hours 08/08/20 08/07/20 12:20 15:20 Vancomycin Trough Pending Nasal/Oral COVID-1 9 PCR Pending Vitals: Last Vital Signs Temp 98.8 F 08/08/20 11:20 Pulse 94 08/08/20 11:20 Resp 18 08/08/20 11:20 BP 112/74 08/08/20 11:20 Pulse Ox 94 08/08/20 11:20 Discharge Plan Discharge Patient Disposition: Xfer Other Condition: Stable Prescriptions: Continued amoxicillin-pot clavulanate [Augmentin] 875-125 mg tablet 1 tab PO BID 10 Days Qty: 20 RF: 0 aspirin 325 mg Tablet 325 mg PO PRN RF: 0 Tylenol Extra Strength 500 mg Tablet 1,000 mg PO PRN RF: 0 lidocaine-prilocaine 2.5-2.5 % cream 1 applic topical DIRECTED RF: 0 pantoprazole [Protonix] 40 mg tablet,delayed release (DR/EC) 40 mg PO DAILY 30 Days Qty: 30 RF: 2 prochlorperazine maleate 10 mg tablet 10 mg PO Q4H PRN (Reason: mild nausea) RF: 0 acetaminophen [Tylenol Arthritis Pain] 650 mg Tablet Extended Release 1,300 - 1,950 mg PO PRN RF: 0 dexamethasone 4 mg tablet See Rx Instructions .ROUTE .COMPLEX RF: 0 ibuprofen 200 mg Tablet 600 mg PO PRN RF: 0 lorazepam 1 mg tablet 1 mg PO TID PRN (Reason: Nausea) RF: 0 hydrocodone-acetaminophen 7.5-325 mg/15 mL solution 15 ml PO Q4H PRN (Reason: Pain) RF: 0 metoprolol tartrate 25 mg tablet 37.5 mg PO Q12H Qty: 0 RF: 0 Discharge Orders: Discharge Order (Routine); Ordered 08/08/20 Ordered By: Gaviota Mcmillan Referrals: Ariel Whitten MD [Physician] - 7-10 days (Please follow up with Dr. Wallace in one week. [facility] will call you Sunday with an appointment.) Discharge Diet: Clear Liquid Discharge Activity: Increase activity as tolerated Activity Restrictions/Additional Instructions: Packing of the wound with dry to dry using 1 inch Nu Gauze 3 times a day or as needed, after flushing the wound with saline flushes. Duderm application as needed at the underbase(3-9 Oclock) of the feeding tube base to prevent skin breakdwon. Application of Silvadene cream at least twice a day to minimize skin excoriation ABDs to be applied to absorb any excessive moisture Flushing feeding jejunostomy twice to thrice a day using 50 mL of water to maintain patency Discharge Attestations Time Spent in Discharge Care*: greater than 30 min Specific Discharge Activities: educating patient, discussing with pcp/other providers, discussing with outpatient case manager/social workers/dc planners, documenting/other paperwork and evaluating patient/reviewing data Status at Discharge: Cognitive status at discharge: cognitively intact, Behavioral status at discharge: cooperative, Overall status at discharge: patient is not back to baseline Quality Metrics Clinical Quality Measures During this hospital stay, did patient experience: None Coding Level of Care Code Acute Marine Driller for Chg Fwd Diagnoses Alcohol use Z72.89 Skin excoriation T14.8XXA Dysphagia R13.10 Constipation K59.00 Acute renal failure N17.9
[2020-08-08 15:08] VITALS: RESP 20
[2020-08-08 15:22] VITALS: BP 111/69; PULSE 101; RESP 18; TEMP 36.6; O2SAT 99
[2020-08-08 15:49] VITALS: BP 111/69; PULSE 101; RESP 18; TEMP 36.6; O2SAT 99
[2020-08-09 14:50] LABS: Coronavirus Test Green County Not Detected
== END 2020-08-08 15:50 | disposition short-term general hospital (02) | DRG 914 ==
LOC: ER 10:38 → MEDSURG 14:05
PROVIDERS: Surgery; Admitting Provider Hospitalist; Emergency Provider Family Medicine; PCP Electrodiagnostic Medicine; Visit Provider Hospitalist
DX: S39.81XA Other specified injuries of abdomen, initial encounter (principal); N17.9 Acute kidney failure, unspecified; C15.9 Malignant neoplasm of esophagus, unspecified; I50.22 Chronic systolic (congestive) heart failure; X58.XXXA Exposure to other specified factors, initial encounter; Y93.9 Activity, unspecified; Y92.009 Unspecified place in unspecified non-institutional (private) residence as the place of occurrence of the external cause; R13.10 Dysphagia, unspecified; K59.00 Constipation, unspecified; Z79.82 Long term (current) use of aspirin; Z79.83 Long term (current) use of bisphosphonates; I48.0 Paroxysmal atrial fibrillation; I11.0 Hypertensive heart disease with heart failure; I95.9 Hypotension, unspecified
CPT/HCPCS: 12345; 36415; 36591; 71045; 74176; 74177; 77386; 80053; 80202; 81003; 82550; 83605; 83690; 83735; 84145; 85025; 87040; 87426; 87635; 93005; 96372; 97165; 99214; 99283; A6446; J1170; J1644; J2270; J2405; J2543; J3370; J7030; J7050; Q9967

== ENCOUNTER 2020-08-21 14:52 | Emergency (ER) | payer MEDICARE, SELFPAY ==
[2020-08-21 15:17] VITALS: BP 111/70; PULSE 112; RESP 18; TEMP 36.8; O2SAT 99; BMI 22.9
--- NOTE | 2020-08-21 16:10 | ED_ITS ---
HPI - Wound/Laceration General: Chief Complaint: Wound/Laceration Stated Complaint: issues w/feeding tube Time Seen by Provider: 08/21/20 15:35 History of Present Illness: HPI narrative: Patient has a leaking tube and then his stomach. Just recently returned from hospitalist in [place]. Tubes been leaking for 2 days a while skin breakdown is pretty severe. Patient said he just wants the tube out right now Onset (ago): week(s) Associated symptoms: Denies chills, fever(s), nausea or vomiting Review of Systems Narrative: Patient is able to eat without problems ate pancakes today without problems. States that he wants his G-tube taken out today. Complains about skin breakdown. Const: Denies: fever(s), chills or body aches Eyes: Denies: change in vision or blurry vision ENMT: Denies: throat pain or nasal congestion Card: Denies: chest pain or dyspnea on exertion Resp: Denies: dyspnea, productive cough or non-productive cough GI: Reports: other (GI tube leaking); Denies: abdominal pain, nausea or vomiting : Denies: difficulty urinating Musc: Denies: extremity pain Skin/Breast: Reports: other (Skin breakdown around tube is irritating him); Denies: rash Neuro: Denies: headache(s) Psych: Denies: anxiety or depression Sundeep/Lymph: Denies: easy bruising PFSH ED PFSH: Medical History 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 Carlos, HER-2/justus 3+positive, Clinical Stage III, started carboplatin/taxol 07/21/20, receiving radiation therapy History of heart failure per patient years ago, not currently on any treatment for such; Echo 04/2020 with normal EF, indeterminant diastolic function due to tachycardia Hypertension Surgical History History of incision and drainage (07/22/20) abdominal wall abscess/hematoma History of jejunostomy tube placement (07/19/20) History of knee surgery ACL reconstruction Port-A-Cath in place (07/19/20) Family History Father Cancer lung Mother Cancer breast Brother Cancer prostate cancer Sister Cancer melanoma Denies family history of Anesthesia complication Bleeding disorder Social History Smoking and tobacco status: never smoked Alcohol intake: current Alcohol intake frequency: 3 or more drinks per day Physical Exam Const: COMMON NORMALS: no acute distress, average body habitus and patient oriented x3 HENMT: COMMON NORMALS: normocephalic HEAD & SCALP: normal to inspection and normocephalic FACE & SINUS: normal facial exam Eye: COMMON NORMALS: conjunctivae normal GENERAL EYE: appearance normal, both eyes and all related structures CONJUNCTIVA: Yes conjunctivae normal Neck/C-Spine: COMMON NORMALS: no JVD Chest: COMMONS NORMALS: normal inspection of the chest Resp: COMMON NORMALS: normal respiratory effort and clear to auscultation bilaterally AUSCULTATION: clear to auscultation bilaterally Cardio: COMMON NORMALS: no JVD, regular rate and regular rhythm RATE: regular rate RHYTHM: regular rhythm GI: OTHER: GI tube is obviously leaking gauzes soaked around tube skin is broke down and a large area around the tube. Sutures are out skin. Extremity: COMMON NORMALS: normal to inspection and full ROM Neuro: COMMON NORMALS: patient oriented x3 Course Vital Signs: Vital signs: Vital Signs Temperature 98.3 F 08/21/20 15:17 Pulse Rate 112 H 08/21/20 15:17 Respiratory Rate 18 08/21/20 15:17 Blood Pressure 111/70 08/21/20 15:17 Pulse Oximetry 99 08/21/20 15:17 MDM - Wound/Laceration MDM Narrative: Medical decision making narrative: Spoke with Dr. Glass twice about patient's J-tube skin breakdown and what we do about it. Dr. Jenkins recommend we use Desitin cream 3 times a day for him. Recommend that we have him follow-up with Dr. Martin on Sunday as patient is scheduled for possible movement of the tube. I shared this with patient patient understands will follow Dr. Martin on Sunday. Discharge Plan Discharge Patient Disposition: Home Clinical Impression: Skin excoriation Condition: Stable Prescriptions: New hydrocodone-acetaminophen 5-325 mg tablet 1 tab PO TID PRN (Reason: pain) Qty: 20 RF: 0 No Action amoxicillin-pot clavulanate [Augmentin] 875-125 mg tablet 1 tab PO BID 10 Days Qty: 20 RF: 0 aspirin 325 mg Tablet 325 mg PO PRN RF: 0 Tylenol Extra Strength 500 mg Tablet 1,000 mg PO PRN RF: 0 lidocaine-prilocaine 2.5-2.5 % cream 1 applic topical DIRECTED RF: 0 pantoprazole [Protonix] 40 mg tablet,delayed release (DR/EC) 40 mg PO DAILY 30 Days Qty: 30 RF: 2 prochlorperazine maleate 10 mg tablet 10 mg PO Q4H PRN (Reason: mild nausea) RF: 0 acetaminophen [Tylenol Arthritis Pain] 650 mg Tablet Extended Release 1,300 - 1,950 mg PO PRN RF: 0 dexamethasone 4 mg tablet See Rx Instructions .ROUTE .COMPLEX RF: 0 ibuprofen 200 mg Tablet 600 mg PO PRN RF: 0 lorazepam 1 mg tablet 1 mg PO TID PRN (Reason: Nausea) RF: 0 hydrocodone-acetaminophen 7.5-325 mg/15 mL solution 15 ml PO Q4H PRN (Reason: Pain) RF: 0 metoprolol tartrate 25 mg tablet 37.5 mg PO Q12H Qty: 0 RF: 0 Discharge Orders: Discharge ED (Routine); Ordered 08/21/20 Ordered By: Mj Dennis Referrals: Raleigh Boyd DO [Primary Care Provider] - Discharge Diet: Usual diet Discharge Activity: Resume usual activity Patient Instructions: Opioid Safety Activity Restrictions/Additional Instructions: Keep appoint with Dr. Martin on Sunday. Apply petroleum jelly dressing daily. Take medication as directed. 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
[2020-08-21] MEDS: HYDROcodone-acetaminophen 10-325 mg Tablet 1 TAB PO (16:30)
--- NOTE | 2020-08-21 16:51 | PC.NURSE ---
wound cleaned and covered with vasoline gauze and covered with abd
[2020-08-21 16:53] VITALS: BP 127/76; PULSE 99; RESP 18; O2SAT 99
== END 2020-08-21 16:55 | disposition home or self-care (01) ==
PROVIDERS: Emergency Provider Nurse Practitioner Family; PCP Electrodiagnostic Medicine
DX: S30.811A Abrasion of abdominal wall, initial encounter (principal); X58.XXXA Exposure to other specified factors, initial encounter; Z79.82 Long term (current) use of aspirin; Z85.01 Personal history of malignant neoplasm of esophagus; I10 Essential (primary) hypertension
CPT/HCPCS: 99283

== ENCOUNTER 2020-08-23 15:08 | Observation (INO) | payer MEDICARE, SELFPAY ==
[2020-08-23 15:39] VITALS: BP 87/52; PULSE 105; RESP 14; TEMP 36.5; O2SAT 99; BMI 22.9
[2020-08-23 16:25] LABS: Basophils % 0.4 %; Eosinophils % 0.4 %; Hematocrit 36.5 % (42.0-52.0); Hemoglobin 11.9 g/dL (11.7-16.6); Lymphocytes # 1.3 10^3/uL (0.8-4.8); Lymphocytes % 16.9 %; Mean Corpuscular HGB Conc 32.6 g/dL (30.0-36.0); Mean Corpuscular Volume 91.9 fL (80-94); Mean Platelet Volume 9.7 fL (7.4-10.4); Monocytes # 0.7 10^3/uL (0.2-0.9); Monocytes % 8.7 %; Neutrophils # 5.46 10^3/uL (1.8-7.7); Neutrophils % 73.3 %; Nucleated Red Blood Cells % 0 %; Platelet Count 158 10^3/cmm (130-400); Red Blood Count 3.97 10^6/uL (4.1-5.3); White Blood Count 7.5 10^3/uL (4.0-10.0)
[2020-08-23 16:51] LABS: Lactic Sepsis W/Reflex 1.4 mmol/L (0.5-2.2)
[2020-08-23 16:53] LABS: Alanine Aminotransferase 17 U/L (0-41); Albumin Level 3.6 g/dL (3.5-5.2); Alkaline Phosphatase 90 IU/L (40-130); Anion Gap 12.2 (5-19); Aspartate Amino Transferase 17 U/L (0-40); Blood Urea Nitrogen 15 mg/dL (8-23); Calcium 9.6 mg/dL (8.5-10.5); Carbon Dioxide 29 mmol/L (22-29); Chloride 103 mmol/L (98-107); Globulin 3.2 g/dL (1.3-4.6); Glomerular Filtration Rate 166.9 mL/min (90-130); Glucose 140 mg/dL (65-115); Osmolality Calculated 293 mOsm/kg (285-295); Potassium 4.2 mmol/L (3.5-5.1); Sodium 140 mmol/L (136-145); Total Bilirubin 0.6 mg/dL (0.15-1.2); Total Protein 6.8 g/dL (6.6-8.7)
--- NOTE | 2020-08-23 17:55 | CTR_ITS ---
PROCEDURE INFORMATION: Exam: CT Abdomen And Pelvis With Contrast Exam date and time: 08/23/2020 6:02 PM Age: 65 years old Clinical indication: Prior surgery; Surgery type: Jujenostomy, esophageal stent; Patient HX: J-tube leaking, vomiting, abdominal pain; Additional info: Nausea and vomiting TECHNIQUE: Imaging protocol: Computed tomography of the abdomen and pelvis with contrast. Radiation optimization: All CT scans at this facility use at least one of these dose optimization techniques: automated exposure control; mA and/or kV adjustment per patient size (includes targeted exams where dose is matched to clinical indication); or iterative reconstruction. Contrast material: OMNI 300; Contrast volume: 95 ml; Contrast route: INTRAVENOUS (IV); COMPARISON: 1. CT abdomen pelvis wo con [id number] 08/05/2020 12:[address] abdomen pelvis w con* [id number] 08/05/2020 11:24:18 AM RADIATION DOSE METRICS: Total DLP (mGy-cm): 1067.31 FINDINGS: Tubes, catheters and devices: Jejunostomy tube is in place. This appears to be longer tube than on prior studies. Mediastinal space: There is a stent in the distal esophagus, new from previous study. Liver: There is no focal abnormality within the liver. Gallbladder and bile ducts: The gallbladder is normal. Pancreas: The pancreas is normal. Spleen: The spleen is normal. Adrenal glands: 1 cm sized benign appearing adenoma left adrenal gland is not changed from previous. The right adrenal gland is normal. Kidneys and ureters: There are multiple bilateral renal collecting system calcifications. There is no evidence of hydronephrosis. There is no stone along the course of either ureter. Stomach and bowel: There is a diverticulum from the fundus of the stomach not changed from previous. There is no evidence of colitis/diverticulitis. There is a short focal intussusception in the jejunum proximally 6 cm beyond the insertion point of the jejunostomy tube. Correlation with clinical findings is suggested. No gross evidence of obstruction is identified. Moderate diverticulosis is present in the distal colon. Appendix: Not identified Intraperitoneal space: There is no evidence of free intraperitoneal fluid. Vasculature: There are atherosclerotic changes throughout the abdominal aorta without aneurysm, stable compared with prior examinations. Lymph nodes: No adenopathy Urinary bladder: Unremarkable as visualized. Reproductive: Unremarkable as visualized. Bones/joints: Unremarkable. No acute fracture. Soft tissues: Unremarkable. CT/CT abdomen pelvis w con* [id number] IMPRESSION: Small focal jejunal intussusception of uncertain significance. Radiation Dose CTDIVOL = (mGy): DLP = 1067.31 (mGy-cm)
[2020-08-23] MEDS: iohexol 300 mg/mL 100 mL Btl IV (18:41)
[2020-08-23 18:51] VITALS: RESP 18; O2SAT 98
[2020-08-23] MEDS: morphine 4 mg/mL SDV 1 mL IVP (18:51)
[2020-08-23] MEDS: ondansetron 2 mg/ML SDV 2 mL 4 MG IVP (18:52)
--- NOTE | 2020-08-23 20:10 | P.HP_ITS ---
Providers/Chief Complaint Primary Care Provider: Raleigh Boyd DO Chief Complaint: G.I tube Leaking History of Present Illness Roshan Shell is a 65 year old male who carries history of invasive adenocarcinoma moderately differentiated of distal/mid esophagus on chemo radiotherapy, recent diagnosis of atrial fibrillation currently on high-dose aspirin, mild systolic heart failure EF 50%, he was recently admitted about 2 weeks ago for management of left-sided abdominal wall cellulitis, CT abdomen pelvis did not show any abscess collection, no jejunostomy tube leakage was noted with contrast study General surgery was consulted who recommended transfer to [facility] for endoscopy and stent placement because of continuous drainage and active pain. Medications/Allergies Home Medications Medication Instructions Recorded Confirmed Last Taken Type pantoprazole [Protonix] 40 mg PO DAILY 30 Days #30 tab 04/28/20 08/05/20 07/18/20 Rx acetaminophen [Tylenol Arthritis 1,300 - 1,950 mg PO PRN 07/22/20 08/05/20 07/21/20 History Pain] 2 tabs dexamethasone See Rx Instructions .ROUTE .COMPLEX 07/22/20 08/05/20 07/19/20 History hydrocodone-acetaminophen 15 ml PO Q4H PRN 07/22/20 08/05/20 08/04/20 History pt states out of med ibuprofen 600 mg PO PRN 07/22/20 08/05/20 07/21/20 History lorazepam 1 mg PO TID PRN 07/22/20 08/05/20 Unknown History prochlorperazine maleate 10 mg PO Q4H PRN 07/22/20 08/05/20 08/04/20 History metoprolol tartrate 37.5 mg PO Q12H #0 tab 07/24/20 08/05/20 08/05/20 Rx 25 MG amoxicillin 875 mg-potassium 1 tab PO BID 10 Days #20 tab 07/29/20 08/05/20 08/05/20 06:30 Rx clavulanate 125 mg tablet acetaminophen [Tylenol Extra 1,000 mg PO PRN 08/05/20 08/05/20 08/05/20 06:30 History Strength] aspirin 325 mg PO PRN 08/05/20 08/05/20 Unknown History lidocaine-prilocaine 1 applic TOPICAL DIRECTED 08/05/20 08/05/20 08/04/20 History hydrocodone-acetaminophen 1 tab PO TID PRN #20 tab 08/21/20 Unknown Rx Allergies Allergy/AdvReac Type Severity Reaction Status Date / Time No Known Allergies Allergy Verified 08/21/20 15:16 PFSH Acute PFSH: Medical History 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 Carlos, HER-2/justus 3+positive, Clinical Stage III, started carboplatin/taxol 07/21/20, receiving radiation therapy History of heart failure per patient years ago, not currently on any treatment for such; Echo 04/2020 with normal EF, indeterminant diastolic function due to tachycardia Hypertension Surgical History History of incision and drainage (07/22/20) abdominal wall abscess/hematoma History of jejunostomy tube placement (07/19/20) History of knee surgery ACL reconstruction Port-A-Cath in place (07/19/20) Family History Father Cancer lung Mother Cancer breast Brother Cancer prostate cancer Sister Cancer melanoma Denies family history of Anesthesia complication Bleeding disorder Social History Smoking and tobacco status: never smoked Alcohol intake: current Alcohol intake frequency: 3 or more drinks per day Vitals/I&O/Wt Last Vital Signs Temp 97.7 F 08/23/20 15:39 Pulse 105 H 08/23/20 15:39 Resp 18 08/23/20 18:51 BP 87/52 08/23/20 15:39 Pulse Ox 98 08/23/20 18:51 Weight last 48 hrs Weight 72.575 kg Data : 08/23/20 16:10 08/23/20 16:10 Micro: Microbiology 08/23/20 16:10 Blood Culture - Preliminary Blood SPECIMEN COLLECTED 08/23/20 16:10 Blood Culture - Preliminary Blood SPECIMEN COLLECTED Coding Level of Care Code Acute 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
--- NOTE | 2020-08-23 21:17 | P.CONIM_ITS ---
Providers/Reason For Consult Consulting Physican/Specialty*: Hospitalist Reason for Consult*: New onset A. fib history of alcohol abuse Primary Care Provider: Raleigh Boyd DO History of Present Illness History of Present Illness Rsohan Shell is a 65 year old male who carries history of invasive adenocarcinoma moderately differentiated of distal/mid esophagus on chemo radiotherapy, recent diagnosis of atrial fibrillation currently on high-dose aspirin, mild systolic heart failure EF 50%, he was recently admitted about 2 weeks ago for management of left-sided abdominal wall cellulitis, CT abdomen pelvis did not show any abscess collection, no jejunostomy tube leakage was noted with contrast study General surgery was consulted who recommended transfer to [facility] for endoscopy and stent placement. Mr. Shell returned from [facility] recently after placement of stent. His symptoms resolved after placement of stent . In last 3 days he has been experiencing excessive bouts of cough, he has not noticed any sputum production, fever. With excessive coughing he thinks his jejunostomy tube was dislodged and he started noticing excessive drainage with coughing. Yesterday he also had 2-3 sips of red beer while watching Super Bowl. Today he started vomiting that is why he decided to come to the hospital for further evaluation. Of note, he is currently taking clindamycin for his excoriation and cellulitis of abdominal wall around feeding tube. He is able to eat mechanically soft diet and able to tolerate it well, he wants his feeding tube to be removed. Diagnostics in the ER revealed normal hemodynamics, no signs of sepsis, Dr. Whitten has been notified, he asked hospital service to admit him overnight because of his recent history of atrial fibrillation and alcohol abuse. Patient is stating that he only had 2-3 sips of red beer otherwise he has no plans to continue drinking alcohol. For his atrial fibrillation he is taking aspirin, he is not on any anticoagulating agent. CT abdomen revealed small focal jejunal intussusception, Dr. Whitten recommended to deflate the balloon which was done in the ER. Patient is endorsing feeling better after deflation of the balloon. No active drainage excessive cough or abdominal pain Review of Systems Const: Reports: body aches, change in appetite, fatigue and malaise; Denies: fever(s) Eyes: Denies: change in vision ENMT: Denies: throat pain Card: Denies: chest pain Resp: Reports: non-productive cough and pain on inspiration; Denies: dyspnea GI: Reports: abdominal pain, nausea, vomiting and GI cramping; Denies: constipation or bloating : Reports: flank pain Musc: Denies: joint pain Skin/Breast: Reports: skin tenderness, skin swelling, sores, lesions and striae Neuro: Denies: headache(s) Psych: Denies: anxiety Endo: Denies: polyuria Sundeep/Lymph: Denies: easy bruising All/Imm: Denies: urticaria Meds/Allergies Home Medications and Allergies Home Medications Medication Instructions Recorded Confirmed Last Taken Type pantoprazole [Protonix] 40 mg PO DAILY 30 Days #30 tab 04/28/20 08/05/20 07/18/20 Rx acetaminophen [Tylenol Arthritis 1,300 - 1,950 mg PO PRN 07/22/20 08/05/20 07/21/20 History Pain] 2 tabs dexamethasone See Rx Instructions .ROUTE .COMPLEX 07/22/20 08/05/20 07/19/20 History hydrocodone-acetaminophen 15 ml PO Q4H PRN 07/22/20 08/05/20 08/04/20 History pt states out of med ibuprofen 600 mg PO PRN 07/22/20 08/05/20 07/21/20 History lorazepam 1 mg PO TID PRN 07/22/20 08/05/20 Unknown History prochlorperazine maleate 10 mg PO Q4H PRN 07/22/20 08/05/20 08/04/20 History metoprolol tartrate 37.5 mg PO Q12H #0 tab 07/24/20 08/05/20 08/05/20 Rx 25 MG amoxicillin 875 mg-potassium 1 tab PO BID 10 Days #20 tab 07/29/20 08/05/20 08/05/20 06:30 Rx clavulanate 125 mg tablet acetaminophen [Tylenol Extra 1,000 mg PO PRN 08/05/20 08/05/20 08/05/20 06:30 History Strength] aspirin 325 mg PO PRN 08/05/20 08/05/20 Unknown History lidocaine-prilocaine 1 applic TOPICAL DIRECTED 08/05/20 08/05/20 08/04/20 History hydrocodone-acetaminophen 1 tab PO TID PRN #20 tab 08/21/20 Unknown Rx Allergies Allergy/AdvReac Type Severity Reaction Status Date / Time No Known Allergies Allergy Verified 08/21/20 15:16 PFSH Acute PFSH: Medical History 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 Carlos, HER-2/justus 3+positive, Clinical Stage III, started carboplatin/taxol 07/21/20, receiving radiation therapy History of heart failure per patient years ago, not currently on any treatment for such; Echo 04/2020 with normal EF, indeterminant diastolic function due to tachycardia Hypertension Surgical History History of incision and drainage (07/22/20) abdominal wall abscess/hematoma History of jejunostomy tube placement (07/19/20) History of knee surgery ACL reconstruction Port-A-Cath in place (07/19/20) Family History Father Cancer lung Mother Cancer breast Brother Cancer prostate cancer Sister Cancer melanoma Denies family history of Anesthesia complication Bleeding disorder Social History Smoking and tobacco status: never smoked Alcohol intake: current Alcohol intake frequency: 3 or more drinks per day Vitals/I&O/Wt Last Vital Signs Temp 97.7 F 08/23/20 15:39 Pulse 105 H 08/23/20 15:39 Resp 18 08/23/20 18:51 BP 87/52 08/23/20 15:39 Pulse Ox 98 08/23/20 18:51 Weight last 48 hrs Weight 72.575 kg Physical Exam Narrative: EXAM NARRATIVE: Pleasant middle-age male who appears more than stated age Clinically looks dehydrated No active distress Saturating well on room air Cachectic malnourished appearance S1, S2 sinus rhythm Feeding tube site with excoriation nonpurulent cellulitis with drainage no active abscess or purulent drainage noticed Skin is moist and macerated around feeding tube insertion site Mild tenderness to deep palpation Lower extremity no edema gangrene ulcer No neurological deficit No acute respiratory distress Appropriate mood and affect Data Micro: Micro: Microbiology 08/23/20 16:10 Blood Culture - Pr eliminary Blood SPECIMEN COLLEC LEVI 08/23/20 16:10 Blood Culture - Pr eliminary Blood SPECIMEN [facility] A&P Assessment and plan (1) Intussusception of jejunum: Intussusception of jejunum No active nausea or vomiting Keep patient n.p.o. Dr. Whitten notified, patient wants his feeding tube to be removed because now he is able to tolerate oral diet D5 half-normal maintenance fluid overnight Dr. Whitten recommended deflating the balloon of feeding tube, patient is endorsing feeling better No evidence of colitis diverticulitis or stomach distention I would hold off on putting NG tube for now, if he starts experiencing intractable nausea vomiting threshold to place nasogastric tube will be low Status: Acute (2) Skin excoriation: Nonpurulent cellulitis, I would continue his clindamycin but use IV form because he is n.p.o., no sign of sepsis Status: Acute (3) Atrial fibrillation/flutter: Rate controlled, continue AV parker blocking agent and high-dose aspirin Status: Acute Consult Attestations Medical Necessity Statement: As per general surgery Time Spent in Patient Care: 35mins Coding Level of Care Code Acute Road Service Locksmith for [facility] Fwd Diagnoses Intussusception of jejunum K56.1 Skin excoriation T14.8XXA Atrial fibrillation/flutter I48.91; I48.92
--- NOTE | 2020-08-23 23:02 | W.ED.NAVMDI ---
HPI - Nausea/Vomiting/Diarrhea General: Chief complaint: ER Hold Stated complaint: G.I tube Leaking/VOMITING Time Seen by Provider: 08/23/20 16:35 Source: patient, RN notes reviewed and old records reviewed Mode of arrival: ambulatory Limitations: no limitations History of Present Illness: HPI Narrative: This gentleman is a 65-year-old male with a recent diagnosis of esophageal cancer. In preparation for radiation and chemotherapy he was advised to obtain a jejunostomy which he had done about 5 weeks ago. His course has been complicated by issues with the jejunostomy including leakage around the stoma and significant skin excoriation. He states that everything that he pulled through the tube drains are completely and he therefore does not want it anymore. He also states that he is able to take some things by mouth and he also notices that they look out from the stoma site. He is feeling frustrated and says he wants the tube out regardless. Today he started vomiting and has vomited about 4 times. He denies any fever or abdominal pain. He denies any diarrhea. Associated nausea: No Context: recent surgery/procedure Associated symtoms: Denies altered mental status, anxiety, bloating, change in vision, chest pain, cough, diaphoresis, decreased urine output, dizziness, dysuria, epistaxis, fatigue, fecal incontinence, fevers/chills, headache(s), anorexia, malaise, myalgias, nausea, numbness, palpitations, rash, short of breath, syncope, tenesmus, tinnitus or weakness Review of Systems General: Reports: 10 or more systems reviewed and unremarkable except in HPI and below Const: Denies: fever(s), chills, body aches, fatigue, malaise or diaphoresis Eyes: Denies: change in vision or blurry vision ENMT: Denies: throat pain, enlarged tonsils, odynophagia, hoarseness, mouth pain, swelling of lips/tongue, tinnitus or epistaxis Card: Denies: chest pain, palpitations, irregular heart rhythm, edema, swelling of feet/ankles or syncope Resp: Denies: dyspnea, productive cough or non-productive cough GI: Denies: abdominal pain, nausea, vomiting, bloating or fecal incontinence : Denies: flank pain, dysuria, urinary frequency, urinary urgency or urinary hesitancy Musc: Denies: neck pain, back pain or extremity swelling Skin/Breast: Denies: rash, pruritus or erythema Neuro: Denies: headache(s), numbness in extremities, weakness in extremities or dizziness Psych: Denies: anxiety Endo: Denies: polyuria, polydipsia or tired all the time PFSH ED PFSH: Medical History 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 Carlos, HER-2/justus 3+positive, Clinical Stage III, started carboplatin/taxol 07/21/20, receiving radiation therapy History of heart failure per patient years ago, not currently on any treatment for such; Echo 04/2020 with normal EF, indeterminant diastolic function due to tachycardia Hypertension Surgical History History of incision and drainage (07/22/20) abdominal wall abscess/hematoma History of jejunostomy tube placement (07/19/20) History of knee surgery ACL reconstruction Port-A-Cath in place (07/19/20) Family History Father Cancer lung Mother Cancer breast Brother Cancer prostate cancer Sister Cancer melanoma Denies family history of Anesthesia complication Bleeding disorder Social History Smoking and tobacco status: never smoked Alcohol intake: current Alcohol intake frequency: 3 or more drinks per day Physical Exam Const: COMMON NORMALS: no acute distress, average body habitus, patient oriented x3, no limitations, healthy appearing, alert and well nourished EXAM LIMITATIONS: no altered mental status HENMT: COMMON NORMALS: normocephalic, atraumatic and moist oral mucous membranes HEAD & SCALP: normocephalic and atraumatic Neck/C-Spine: COMMON NORMALS: no meningeal signs and no JVD Resp: COMMON NORMALS: normal respiratory effort, No retractions, No use of accessory muscles, clear to auscultation bilaterally and percussion normal AUSCULTATION: clear to auscultation bilaterally PERCUSSION: percussion normal Cardio: COMMON NORMALS: no JVD, regular rate, regular rhythm, S1 normal heart sound present, S2 normal heart sound present, No gallops present (Cardio), No clicks present (Cardio), No murmurs present (Cardio), No rub (Cardio) and Peripheral pulses 2+ throughout RATE: regular rate RHYTHM: regular rhythm HEART SOUNDS: S1 normal heart sound present and S2 normal heart sound present PERIPHERAL PULSES: Peripheral pulses 2+ throughout GI: COMMON NORMALS: Soft to palpation, non-tender, No hepatosplenomegaly present, no masses and no bruits INSPECTION: Yes GI ostomy present PALPATION: Yes Soft to palpation and Yes No hepatosplenomegaly present OTHER: Jejunostomy tube with a wound dressing on it, soaked with yellowish material. There is some skin excoriation on around the stoma. There is a small wound inferior to the stoma that is just about closed. Extremity: COMMON NORMALS: normal to inspection, full ROM, capillary refill normal, no calf tenderness and no pedal edema Neuro: COMMON NORMALS: patient oriented x3 SENSORIUM/ORIENTATION: Yes alert MENINGEAL SIGNS: Yes no meningeal signs Skin: COMMON NORMALS: no rashes or lesions noted, no wounds, turgor normal, no jaundice, no petechiae and no mottling GENERAL SKIN EXAM: no rashes or lesions noted and turgor normal Course Consultations: Consultation #1: Discussed the patient with Dr. Whitten, surgeon multiple times between 1717 hrs and now. Initial plan was to discharge the patient and have him follow-up in the clinic on Sunday but the patient was very reluctant to do that. He advised that we get a CT scan and check for any complications since the patient is vomiting and to also check if the esophageal stent is in place and has not migrated. CT scan done showed a small intussusception distal to the entrance of the jejunostomy tube. He is therefore being admitted to the service of the surgeon for further evaluation and management. He will be n.p.o. and be seen tomorrow morning. Time: 19:34 Consultation #2: Discussed the patient with Dr. Fragoso, hospitalist and he will consult on the patient as requested by Dr. Whitten. Vital Signs: Vital signs: Vital Signs Temperature 98.0 F 08/24/20 02:05 Pulse Rate 98 08/24/20 12:15 Respiratory Rate 17 08/24/20 12:15 Blood Pressure 112/68 08/24/20 12:15 Pulse Oximetry 100 08/24/20 12:15 MDM - Nausea/Vomiting/Diarrhea MDM Narrative: Medical decision making narrative: This unfortunate gentleman who was recently diagnosed with esophageal cancer and is being planned for radiation and chemotherapy. In anticipation of complications of radiation he had a jejunostomy tube placed. However he has had complications following the procedure including a hematoma at the op site. Patient admitted he was not compliant with post op instructions and lifted more weight than he was instructed to. This has cascaded into leaking from the tube and significant skin excoriation from the leakage. He is now frustrated and wants the tube taken out as it is delaying his chemo and radiation therapy. He declined to be discharged home and wanted something done today. Eventually, after a CT scan showed intussusception distal to the insertion of the jejunostomy tube he was admitted to the service of the surgeon. I deflated the balloon of the jejunostomy tube as instructed by the surgeon and it will be likely taken out tomorrow. Medical Records: Attestation: I reviewed the patient's medical records. Lab Data: Attestation: I reviewed the patient's lab results. Labs: Lab Results 08/23/20 08/23/20 08/23/20 Range/Units 16:10 16:10 16:10 WBC 7.5 (4.0-10.0) 10^3/ uL RBC 3.97 L (4.1-5.3) 10^6/u L Hgb 11.9 (11.7-16.6) g/dL Hct 36.5 L (42.0-52.0) % MCV 91.9 (80-94) fL MCH 30.0 (28.0-34.0) pg MCHC 32.6 (30.0-36.0) g/dL RDW 14.0 (12.1-15.1) % Plt Count 158 (130-400) 10^3/c mm MPV 9.7 (7.4-10.4) fL Neut % (Auto) 73.3 % Lymph % (Auto) 16.9 % [place] % (Auto) 8.7 % Eos % (Auto) 0.4 % Baso % (Auto) 0.4 % Neut # (Auto) 5.46 (1.8-7.7) 10^3/u L Lymph # (Auto) 1.3 (0.8-4.8) 10^3/u L [place] # (Auto) 0.7 (0.2-0.9) 10^3/u L Eos # (Auto) 0.0 (0.0-0.8) 10^3/u L Baso # (Auto) 0.0 (0.0-0.1) 10^3/u L Nucleated RBC % (a uto) 0 % Nucleated RBCs # 0.0 /100WBC Sodium 140 (136-145) mmol/L Potassium 4.2 (3.5-5.1) mmol/L Chloride 103 (98-107) mmol/L Carbon Dioxide 29 (22-29) mmol/L Anion Gap 12.2 (5-19) BUN 15 (8-23) mg/dL Creatinine 0.5 L (0.7-1.2) mg/dL GFR Calculation 166.9 H (90-130) mL/min Glucose 140 H (65-115) mg/dL Calculated Osmolal ity 293 (285-295) mOsm/k g Lactic Acid 1.4 (0.5-2.2) mmol/L Calcium 9.6 (8.5-10.5) mg/dL Total Bilirubin 0.6 (0.15-1.2) mg/dL AST 17 (0-40) U/L ALT 17 (0-41) U/L Alkaline Phosphata se 90 (40-130) IU/L Total Protein 6.8 (6.6-8.7) g/dL Albumin 3.6 (3.5-5.2) g/dL Globulin 3.2 (1.3-4.6) g/dL Imaging Data^: CT Abd/Pel: Attestation: I personally reviewed and interpreted this imaging study as follows: Radiologist's impression: [address] [address] [address] Scan Report Signed Patient: Yosi Shell #: [id number] : 5Acct#:[id number] Age/Sex: 65 / MADM Date: 08/23/20 Loc: ERRoom/Bed: Attending Dr: Ordering Provider/Ordering MD: Caitlin Fuentes MD, [facility] [place] Date of Service: 08/23/20 Procedure(s): CT abdomen pelvis w con* [id number] Accession Number(s): [id number] Report Number: [id number] PROCEDURE INFORMATION: Exam: CT Abdomen And Pelvis With Contrast Exam date and time: 08/23/2020 6:02 PM Age: 65 years old Clinical indication: Prior surgery; Surgery type: Jujenostomy, esophageal stent; Patient HX: J-tube leaking, vomiting, abdominal pain; Additional info: Nausea and vomiting TECHNIQUE: Imaging protocol: Computed tomography of the abdomen and pelvis with contrast. Radiation optimization: All CT scans at this facility use at least one of these dose optimization techniques: automated exposure control; mA and/or kV adjustment per patient size (includes targeted exams where dose is matched to clinical indication); or iterative reconstruction. Contrast material: OMNI 300; Contrast volume: 95 ml; Contrast route: INTRAVENOUS (IV); COMPARISON: 1. CT abdomen pelvis wo con [id number] 08/05/2020 12:[address] abdomen pelvis w con* [id number] 08/05/2020 11:24:18 AM RADIATION DOSE METRICS: Total DLP (mGy-cm): 1067.31 FINDINGS: Tubes, catheters and devices: Jejunostomy tube is in place. This appears to be longer tube than on prior studies. Mediastinal space: There is a stent in the distal esophagus, new from previous study. Liver: There is no focal abnormality within the liver. Gallbladder and bile ducts: The gallbladder is normal. Pancreas: The pancreas is normal. Spleen: The spleen is normal. Adrenal glands: 1 cm sized benign appearing adenoma left adrenal gland is not changed from previous. The right adrenal gland is normal. Kidneys and ureters: There are multiple bilateral renal collecting system calcifications. There is no evidence of hydronephrosis. There is no stone along the course of either ureter. Stomach and bowel: There is a diverticulum from the fundus of the stomach not changed from previous. There is no evidence of colitis/diverticulitis. There is a short focal intussusception in the jejunum proximally 6 cm beyond the insertion point of the jejunostomy tube. Correlation with clinical findings is suggested. No gross evidence of obstruction is identified. Moderate diverticulosis is present in the distal colon. Appendix: Not identified Intraperitoneal space: There is no evidence of free intraperitoneal fluid. Vasculature: There are atherosclerotic changes throughout the abdominal aorta without aneurysm, stable compared with prior examinations. Lymph nodes: No adenopathy Urinary bladder: Unremarkable as visualized. Reproductive: Unremarkable as visualized. Bones/joints: Unremarkable. No acute fracture. Soft tissues: Unremarkable. CT/CT abdomen pelvis w con* [id number] IMPRESSION: Small focal jejunal intussusception of uncertain significance. Radiation Dose CTDIVOL = (mGy): DLP = 1067.31 (mGy-cm) Dictated By:Tomas Huerta Signed By:Pilo Huertaigned Date/Time:08/23/201924 DD/ 23 Discharge Plan Discharge Patient Disposition: Placed in Observation Admit Provider: Ariel Whitten Clinical Impression: Jejunal intussusception, Esophageal cancer, Jejunostomy tube leak Condition: Stable Discharge Orders: Discharge Order (Routine); Ordered 08/24/20 Ordered By: Ariel Whitten Discharge Diet: Usual diet Discharge Activity: Increase activity as tolerated Coding Level of Care Code ED Pier Worker for Chg Fwd Exam Comprehensive
[2020-08-23 23:08] VITALS: BP 132/89; PULSE 108; RESP 16; O2SAT 97
[2020-08-23] MEDS: sodium chloride 0.9% 1,000 ML 100 ML IV (23:50)
[2020-08-24 00:38] VITALS: RESP 16; O2SAT 97
[2020-08-24] MEDS: ondansetron 2 mg/ML SDV 2 mL 4 MG IVP (00:38)
[2020-08-24] MEDS: morphine 4 mg/mL SDV 1 mL IVP (00:38)
[2020-08-24] MEDS: dextrose 5%-sod chloride 0.45% 1,000 ML 30 ML IV (01:53)
[2020-08-24] MEDS: clindamycin 600 MG/50 ML PREMIX 100 MG IV ×2 (01:53→09:20)
[2020-08-24 02:05] VITALS: BP 126/72; PULSE 102; RESP 16; TEMP 36.7; O2SAT 97
--- NOTE | 2020-08-24 02:10 | PC.NURSE ---
Changed patient bandage around J-tube, 2 ABD pads placed and secured with tape. Patient skin under previous bandage is red and excoriated around j-tube and laterally across abdomen. Drainage is yellow-green from J-tube site.
[2020-08-24 04:17] LABS: Basophils % 0.4 %; Eosinophils # 0.1 10^3/uL (0.0-0.8); Eosinophils % 1.2 %; Hematocrit 33.1 % (42.0-52.0); Hemoglobin 10.9 g/dL (11.7-16.6); Lymphocytes # 1.2 10^3/uL (0.8-4.8); Lymphocytes % 20.7 %; Mean Corpuscular HGB Conc 32.9 g/dL (30.0-36.0); Mean Corpuscular Hemoglobin 30.3 pg (28.0-34.0); Mean Corpuscular Volume 91.9 fL (80-94); Mean Platelet Volume 9.6 fL (7.4-10.4); Monocytes # 0.7 10^3/uL (0.2-0.9); Monocytes % 11.9 %; Neutrophils % 65.4 %; Nucleated Red Blood Cells % 0 %; Platelet Count 123 10^3/cmm (130-400); Red Cell Distribution Width 13.9 % (12.1-15.1); White Blood Count 5.7 10^3/uL (4.0-10.0)
[2020-08-24 04:34] LABS: Alanine Aminotransferase 15 U/L (0-41); Albumin Level 3.2 g/dL (3.5-5.2); Alkaline Phosphatase 76 IU/L (40-130); Aspartate Amino Transferase 14 U/L (0-40); Blood Urea Nitrogen 15 mg/dL (8-23); Calcium 8.7 mg/dL (8.5-10.5); Carbon Dioxide 29 mmol/L (22-29); Chloride 104 mmol/L (98-107); Globulin 2.7 g/dL (1.3-4.6); Glomerular Filtration Rate 166.9 mL/min (90-130); Glucose 103 mg/dL (65-115); Osmolality Calculated 291 mOsm/kg (285-295); Sodium 140 mmol/L (136-145); Total Bilirubin 0.5 mg/dL (0.15-1.2); Total Protein 5.9 g/dL (6.6-8.7)
--- NOTE | 2020-08-24 05:36 | PM.HP ---
Providers/Chief Complaint Admitting Physician: Ariel Whitten MD Primary Care Provider: Raleigh Boyd DO Chief Complaint: G.I tube Leaking History of Present Illness Chief Complaint: I have issues with the feeding tube History of present illness: Mr. Roshan Shell is a pleasant 65 year old male with well-known history of distal esophageal carcinoma, patient is well-known to me from previous clinical encounters as I did perform right upper chest PowerPort and laparoscopic feeding jejunostomy tube back in July 2020, patient overall did well yet he did unfortunately develop a hematoma after surgery at the left lower side of the abdomen that got infected and had to undergo incision and drainage by me and since then the patient has been having issues with the feeding jejunostomy, as it has been leaking through the wound and after further care I was able to have a better control of the seepage around the tube and better skin care. About 2 weeks ago I did elect to send the patient for [facility] to get an esophageal stent with the plan to discontinue the feeding jejunostomy tube.He was supposed to come and see me yesterday in the office but because of the inclement weather he was not able to make it and he came over the weekend to the ER and he was discharged with the plan to follow-up with me the following day the office because of the issues he is having with the feeding tube. Patient presented yesterday to the emergency department as he does have leaks around the feeding tube and according to him whenever he eats by mouth or through the tube does leak and he does have diarrheal motions.He denies any fevers or chills yet he did have 4 bouts of vomiting yesterday per his description. I did also requested the hospitalist service to be on board due to the patient's heavy drinking history and I was concerned for development of DTs. Patient was further evaluated in the emergency department and blood work was not of significance yet a CT scan that was requested per my recommendation as I was concerned that the stent could have migrated and after discussing the case further with Dr. Fuentes, the CT scan did show: FINDINGS: Tubes, catheters and devices: Jejunostomy tube is in place. This appears to be longer tube than on prior studies. Mediastinal space: There is a stent in the distal esophagus, new from previous study. Liver: There is no focal abnormality within the liver. Gallbladder and bile ducts: The gallbladder is normal. Pancreas: The pancreas is normal. Spleen: The spleen is normal. Adrenal glands: 1 cm sized benign appearing adenoma left adrenal gland is not changed from previous. The right adrenal gland is normal. Kidneys and ureters: There are multiple bilateral renal collecting system calcifications. There is no evidence of hydronephrosis. There is no stone along the course of either ureter. Stomach and bowel: There is a diverticulum from the fundus of the stomach not changed from previous. There is no evidence of colitis/diverticulitis. There is a short focal intussusception in the jejunum proximally 6 cm beyond the insertion point of the jejunostomy tube. Correlation with clinical findings is suggested. No gross evidence of obstruction is identified. Moderate diverticulosis is present in the distal colon. Appendix: Not identified Intraperitoneal space: There is no evidence of free intraperitoneal fluid. Vasculature: There are atherosclerotic changes throughout the abdominal aorta without aneurysm, stable compared with prior examinations. Lymph nodes: No adenopathy Urinary bladder: Unremarkable as visualized. Reproductive: Unremarkable as visualized. Bones/joints: Unremarkable. No acute fracture. Soft tissues: Unremarkable. CT/CT abdomen pelvis w con* [id number] IMPRESSION: Small focal jejunal intussusception of uncertain significance. Patient was seen and evaluated in the emergency department room #9 in the presence of caring nurse Lakesha Patient reports to me that he has been having bowel movements and passing gas. Review of Systems General: Reports: 10 or more systems reviewed and unremarkable except in HPI and below Medications/Allergies Home Medications Medication Instructions Recorded Confirmed Last Taken Type pantoprazole [Protonix] 40 mg PO DAILY 30 Days #30 tab 04/28/20 08/05/20 07/18/20 Rx acetaminophen [Tylenol Arthritis 1,300 - 1,950 mg PO PRN 07/22/20 08/05/20 07/21/20 History Pain] 2 tabs dexamethasone See Rx Instructions .ROUTE .COMPLEX 07/22/20 08/05/20 07/19/20 History hydrocodone-acetaminophen 15 ml PO Q4H PRN 07/22/20 08/05/20 08/04/20 History pt states out of med ibuprofen 600 mg PO PRN 07/22/20 08/05/20 07/21/20 History lorazepam 1 mg PO TID PRN 07/22/20 08/05/20 Unknown History prochlorperazine maleate 10 mg PO Q4H PRN 07/22/20 08/05/20 08/04/20 History metoprolol tartrate 37.5 mg PO Q12H #0 tab 07/24/20 08/05/20 08/05/20 Rx 25 MG aspirin 325 mg PO PRN 08/05/20 08/05/20 Unknown History lidocaine-prilocaine 1 applic TOPICAL DIRECTED 08/05/20 08/05/20 08/04/20 History nystatin 1 applic TOPICAL BID #15 g 08/24/20 Unknown Rx Allergies Allergy/AdvReac Type Severity Reaction Status Date / Time No Known Allergies Allergy Verified 08/24/20 06:04 PFSH Acute PFSH: Medical History 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 Carlos, HER-2/justus 3+positive, Clinical Stage III, started carboplatin/taxol 07/21/20, receiving radiation therapy History of heart failure per patient years ago, not currently on any treatment for such; Echo 04/2020 with normal EF, indeterminant diastolic function due to tachycardia Hypertension Surgical History History of incision and drainage (07/22/20) abdominal wall abscess/hematoma History of jejunostomy tube placement (07/19/20) History of knee surgery ACL reconstruction Port-A-Cath in place (07/19/20) Family History Father Cancer lung Mother Cancer breast Brother Cancer prostate cancer Sister Cancer melanoma Denies family history of Anesthesia complication Bleeding disorder Social History Smoking and tobacco status: never smoked Alcohol intake: current Alcohol intake frequency: 3 or more drinks per day Vitals/I&O/Wt Last Vital Signs Temp 98.0 F 08/24/20 02:05 Pulse 102 H 08/24/20 02:05 Resp 16 08/24/20 02:05 BP 126/72 08/24/20 02:05 Pulse Ox 97 08/24/20 02:05 02/15/21 02/15/21 02/16/21 14:59 22:59 06:59 Intake Total 273.333 / 273.333 Balance 273.333 / 273.333 Weight last 48 hrs Weight 160 lb Physical Exam Narrative: EXAM NARRATIVE: Patient is conscious alert oriented X3 BMI 23 Head and neck examination PERRLA no masses no cervical lymphadenopathy no jaundice Cardiac examination audible S1-S2 no murmurs no gallops no arrhythmias Chest is clear bilateral,abscence of Rhonchi or wheezes,no surgical emphysema Abdomen nontender except around the feeding jejunostomy with skin excoriation is appreciated nondistended soft no organomegaly guarding or rigidity/no signs of peritonitis Feeding tube in place Extremities no cyanosis no clubbing no edema Data : 08/24/20 04:12 08/24/20 04:12 Micro: Microbiology 08/23/20 16:10 Blood Culture - Preliminary Blood SPECIMEN COLLECTED 08/23/20 16:10 Blood Culture - Preliminary Blood SPECIMEN COLLECTED A&P Assessment and plan (1) Jejunostomy tube leak: After history taking physical examination and reviewing the chart and images of the CT scan with my personal interpretation as the surgery was done back in July 19, 2020 and since the patient has been having issues with the feeding jejunostomy tube and he already had a stent for his distal esophageal cancer, will plan today to discontinue the feeding jejunostomy bedside. I discussed with the patient in detail the risk,benefits,alternatives and indications.The risk of bleeding, soft tissue injury, perforation of the bowel and other potential concomitant complications were explained to the patient in details,aslo the potential need for Abdominal surgery to repair any complications.The patient understood this well and did agree to proceed. Rationale was carefully and clearly discussed with the patient.Appropriate informed consent have been reviewed and signed in the presence of patient's caring nurse Lakesha. All questions have been answered and all concerns have been addressed to patient's satisfaction. The balloon was completely deflated as there was residual 5 cc of fluid, then the tube was flushed with 20 mL of sterile water to avoid any potential debris's that would hold the tube from being explanted with ease, following that the feeding jejunostomy was then removed By me without difficulty and no complications or bleeding at the site. Status: Acute (2) Skin excoriation: Application of zinc oxide cream for skin protection 3 times a day and or as needed basis Covered the site of the feeding jejunostomy with ABD Assurance and education All questions have been answered and all concerns have been addressed to patient's satisfaction. Status: Acute (3) Intussusception of jejunum: Incidental finding on the CT scan without clinical significance,.CT scan images were further discussed with Dr. Lozano and recommended no further imaging would be required as long as the patient clinically shows no symptoms as the incidental finding was pretty subtle for the intussusception Repeated physical examination We will obtain a KUB That showed later on: Increased fecal material and air throughout the colon. No free air or obstructive pattern. Calcification measuring 7 mm over the mid abdomen is probably a LEFT renal calcification. Rotoscoliosis and degenerative changes in the spine. Sclerosis involving the RIGHT femoral head is probably avascular necrosis. XR/XR abdomen min 2V [id number] IMPRESSION: 1. Diffuse constipation. 2. No free air or obstruction. Once patient tolerates p.o. intake we will plan to send him home Status: Acute Attestations Medical Necessity Statement*: Observation for medical and surgical care Time Spent in Patient Care: 16 - 35 minutes (>than 50% of time spent in counselling and/or direct pt care on unit). Coding Level of Care Code Acute Rope Coiling Machine Operator for Chg Fwd Diagnoses Jejunostomy tube leak K94.13 Skin excoriation T14.8XXA Intussusception of jejunum K56.1
[2020-08-24] MEDS: HYDROmorphone 1 mg/mL INJ 1 mL 0.4 MG IVP (05:59)
--- NOTE | 2020-08-24 06:07 | PC.NURSE ---
Dr Benton removed J-tube. Skin protective ointment placed on skin and ABD pad bandage placed.
--- NOTE | 2020-08-24 06:09 | PC.NURSE ---
Dr. Benton gave verbal order to increase current running fluids to 100 mL/hr(5%Dextrose in 0.45 Sodium Chloride).
--- NOTE | 2020-08-24 06:10 | XR_ITS ---
WS: [id number] ABDOMEN 2 VIEW(S) HISTORY: s/p explantation of feeding jejunostomy tube COMPARISON: 08/23/2020. Increased fecal material and air throughout the colon. No free air or obstructive pattern. Calcification measuring 7 mm over the mid abdomen is probably a LEFT renal calcification. Rotoscoliosis and degenerative changes in the spine. Sclerosis involving the RIGHT femoral head is pr obably avascular necrosis. XR/XR abdomen min 2V [id number] IMPRESSION: 1. Diffuse constipation. 2. No free air or obstruction.
[2020-08-24 07:41] VITALS: BP 130/85; PULSE 90; RESP 16; O2SAT 98
[2020-08-24 08:51] VITALS: BP 94/67; PULSE 108; RESP 18; O2SAT 99
--- NOTE | 2020-08-24 09:00 | PC.NURSE ---
pt given clear liquids at 0855.
--- NOTE | 2020-08-24 10:15 | PC.NURSE ---
Attempted twice to call Dr Be regarding pt request for pain medication. Unable to reach.
[2020-08-24] MEDS: acetaminophen 325 mg Tablet 650 MG PO (10:31)
[2020-08-24 12:15] VITALS: BP 112/68; PULSE 98; RESP 17; O2SAT 100
--- NOTE | 2020-08-24 17:03 | PM.PN ---
Subjective Subjective: Interval history: He is doing well after removal of PEG tube by surgery. He is having a trial of diet. He denies any shortness of breath. Denies any chest pain. He states that he understands the finding of intussusception on CT scan after he has discussed it in detail with surgery this morning. Denies abdominal pain. Denies any nausea vomiting or diarrhea. Vitals/I&O/Wt Last Vital Signs Temp 98.0 F 08/24/20 02:05 Pulse 98 08/24/20 12:15 Resp 17 08/24/20 12:15 BP 112/68 08/24/20 12:15 Pulse Ox 100 08/24/20 12:15 08/24/20 08/24/20 08/24/20 06:59 14:59 22:59 Intake Total 400.833 / 400.833 422.5 / 422.5 Output Total 200 / 200 Balance 200.833 / 200.833 422.5 / 422.5 Weight last 48 hrs Weight 72.575 kg Physical Exam Const: COMMON NORMALS: no acute distress and patient oriented x3 HENMT: COMMON NORMALS: oropharynx normal Neck/C-Spine: COMMON NORMALS: no JVD Resp: COMMON NORMALS: normal respiratory effort and clear to auscultation bilaterally AUSCULTATION: clear to auscultation bilaterally Cardio: COMMON NORMALS: no JVD, regular rhythm, S1 normal heart sound present, S2 normal heart sound present and No murmurs present (Cardio) RHYTHM: regular rhythm HEART SOUNDS: S1 normal heart sound present and S2 normal heart sound present GI: COMMON NORMALS: Normal to inspection, nondistended, normoactive bowel sounds present, Soft to palpation and non-tender PALPATION: Yes Soft to palpation OTHER: Horizontal area of erythema surrounding the PEG tube entry site. No active drainage. No bleeding. Extremity: COMMON NORMALS: no joint enlargement and no pedal edema Neuro: COMMON NORMALS: patient oriented x3 and moves all extremities Skin: COMMON NORMALS: no rashes or lesions noted GENERAL SKIN EXAM: no rashes or lesions noted Data : 08/24/20 04:12 08/24/20 04:12 Micro: Microbiology 08/23/20 16:10 Blood Culture - Preliminary Blood NEGATIVE TO DATE 08/23/20 16:10 Blood Culture - Preliminary Blood NEGATIVE TO DATE A&P Assessment and plan (1) Intussusception of jejunum: PEG tube removed today with surgery. He is having trial of PO diet, and feels good about going home if tolerates this after discussion with surgery who may discharge him in the afternoon if his clinical condition and repeat imaging is found satisfactory. Denies any abdominal pain. States that he understands, however, to watch out for any red flags, and seek medical attention immediately in case of any abdominal pain, nausea vomiting, any bloody stools, or any other concerning symptoms that may suggest worsening of intussusception, bowel ischemia, or other concerning developments. Status: Acute (2) Skin excoriation: He continues on clindamycin, and will complete course as prescribed. He may apply nystatin cream, although superficial skin irritation from leakage around PEG tube should improve with removal of source of irritation. He states he may try nystatin ointment in case there is no improvement with moisture barrier is which he has been using so far. Status: Acute (3) Atrial fibrillation/flutter: Rate controlled, continue AV parker blocking agent and high-dose aspirin Status: Acute Attestations Medical Necessity Statement*: Disposition and follow up per surgical team. Coding Level of Care Code Acute Design Studio Consultant for Jasen Watkins Diagnoses Intussusception of jejunum K56.1 Skin excoriation T14.8XXA Atrial fibrillation/flutter I48.91; I48.92
--- NOTE | 2020-08-24 17:33 | PM.SDS ---
Short Stay Summary Providers Date of Admit/Discharge: 08/24/20 Attending Provider: Ariel Whitten MD Primary Care Provider: Raleigh Boyd DO Chief Complaint: G.I tube Leaking HPI History of Present Illness Roshan Shell is a 65 year old male With history of esophageal carcinoma required a Port-A-Cath placement and feeding jejunostomy.Patient had skin excoriation related to the leak of the feeding jejunostomy and presented to the ER for further care.Full H&P per chart. Review of Systems General: Reports: 10 or more systems reviewed and unremarkable except in HPI and below Home Meds/Allergies Home Medications and Allergies Home Medications Medication Instructions Recorded Confirmed Type acetaminophen [Tylenol Arthritis 1,300 - 1,950 mg PO PRN 07/22/20 08/05/20 History Pain] dexamethasone See Rx Instructions .ROUTE .COMPLEX 07/22/20 08/05/20 History hydrocodone-acetaminophen 15 ml PO Q4H PRN 07/22/20 08/05/20 History ibuprofen 600 mg PO PRN 07/22/20 08/05/20 History lorazepam 1 mg PO TID PRN 07/22/20 08/05/20 History prochlorperazine maleate 10 mg PO Q4H PRN 07/22/20 08/05/20 History aspirin 325 mg PO PRN 08/05/20 08/05/20 History lidocaine-prilocaine 1 applic TOPICAL DIRECTED 08/05/20 08/05/20 History Allergies Allergy/AdvReac Type Severity Reaction Status Date / Time No Known Allergies Allergy Verified 08/24/20 06:04 PFSH Acute PFSH: Medical History 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 Carlos, HER-2/justus 3+positive, Clinical Stage III, started carboplatin/taxol 07/21/20, receiving radiation therapy History of heart failure per patient years ago, not currently on any treatment for such; Echo 04/2020 with normal EF, indeterminant diastolic function due to tachycardia Hypertension Surgical History History of incision and drainage (07/22/20) abdominal wall abscess/hematoma History of jejunostomy tube placement (07/19/20) History of knee surgery ACL reconstruction Port-A-Cath in place (07/19/20) Family History Father Cancer lung Mother Cancer breast Brother Cancer prostate cancer Sister Cancer melanoma Denies family history of Anesthesia complication Bleeding disorder Social History Smoking and tobacco status: never smoked Alcohol intake: current Alcohol intake frequency: 3 or more drinks per day Vitals/I&O/Wt Last Vital Signs Temp 98.0 F 08/24/20 02:05 Pulse 98 08/24/20 12:15 Resp 17 08/24/20 12:15 BP 112/68 08/24/20 12:15 Pulse Ox 100 08/24/20 12:15 08/24/20 08/24/20 08/24/20 06:59 14:59 22:59 Intake Total 400.833 / 400.833 422.5 / 422.5 Output Total 200 / 200 Balance 200.833 / 200.833 422.5 / 422.5 Weight last 48 hrs Weight 160 lb Physical Exam Narrative: EXAM NARRATIVE: Patient is conscious alert oriented X3 BMI 23 Head and neck examination PERRLA no masses no cervical lymphadenopathy no jaundice Cardiac examination audible S1-S2 no murmurs no gallops no arrhythmias Chest is clear bilateral,abscence of Rhonchi or wheezes,no surgical emphysema Abdomen nontender except around the feeding jejunostomy with skin excoriation is appreciated nondistended soft no organomegaly guarding or rigidity/no signs of peritonitis Feeding tube in place Left lower abdominal skin incision healed Extremities no cyanosis no clubbing no edema Hospital Course Hospital Course Patient overall did well during his short hospitalization for observation status as the feeding tube was discontinued by me after appropriate work-up was done, patient tolerated p.o. intake and maintained to have stable vital signs, passing gas and having no fevers and appropriate urine output. Blood work maintained to be appropriate. And no signs of sepsis. Patient was discharged safely with the plan to follow-up with me in surgery office in 1 week. Discharge Summary This is a pleasant 65 years old gentleman with history of esophageal cancer required feeding jejunostomy that was causing the patient discomfort and skin irritation due to the leaking around the tube. Patient had an esophageal stent per my request at [facility] before couple of weeks and presented to the emergency department for further care with regard to the feeding tube which after further work-up I discontinued the feeding tube with appropriate skin care and education to the patient. Patient continued to tolerate p.o. intake and was discharged safely home. SSS Data Data Completed and Pending: Completed Studies During Hospitalization Category Date Time Status CT abdomen pelvis w con* [id number] Stat Cat Scan 08/23/20 17:55 Completed XR abdomen min 2V [id number] Stat Exams 08/24/20 06:10 Completed Pending at discharge Category Date Time Status Blood Culture Sta t Lab 08/23/20 16:10 Results Diagnoses at Discharge Discharge Diagnosis (1) Jejunostomy tube leak: Status: Acute Permanent problem details: Discontinue feeding tube (2) Skin excoriation: Status: Acute Permanent problem details: Skin care and teaching (3) Intussusception of jejunum: Status: Acute Permanent problem details: Incidental finding without clinical significance Discharge Plan Discharge Patient Disposition: Home Condition: Stable Prescriptions: New nystatin 100,000 unit/gram ointment 1 applic topical BID Qty: 15 RF: 0 Continued aspirin 325 mg Tablet 325 mg PO PRN RF: 0 lidocaine-prilocaine 2.5-2.5 % cream 1 applic topical DIRECTED RF: 0 pantoprazole [Protonix] 40 mg tablet,delayed release (DR/EC) 40 mg PO DAILY 30 Days Qty: 30 RF: 2 prochlorperazine maleate 10 mg tablet 10 mg PO Q4H PRN (Reason: mild nausea) RF: 0 acetaminophen [Tylenol Arthritis Pain] 650 mg Tablet Extended Release 1,300 - 1,950 mg PO BID PRN (Reason: Pain) RF: 0 dexamethasone 4 mg tablet See Rx Instructions .ROUTE .COMPLEX RF: 0 ibuprofen 200 mg Tablet 600 mg PO Q8H PRN (Reason: Pain) RF: 0 lorazepam 1 mg tablet 1 mg PO TID PRN (Reason: Nausea) RF: 0 hydrocodone-acetaminophen 7.5-325 mg/15 mL solution 15 ml PO Q4H PRN (Reason: Pain) RF: 0 metoprolol tartrate 25 mg tablet 37.5 mg PO Q12H Qty: 0 RF: 0 Discharge Orders: Discharge Order (Routine); Ordered 08/24/20 Ordered By: Ariel Whitten Referrals: Giurgius,Ariel, MD [Physician] - (Return to surgery office in 1 week) Discharge Diet: Usual diet Discharge Activity: Increase activity as tolerated Patient Instructions: Acute Wound Care (DC) Activity Restrictions/Additional Instructions: 1-Emphasis on daily skin care by application of zinc oxide at least 3 times a day or as needed followed by ABD to prevent any soilage of the skin. 2-avoid heavy lifting 3-focus on protein shakes 3 to 4 cans a day to optimize nutrition 4-avoid constipation Assurance and education All questions have been answered and all concerns have been addressed to patient's satisfaction. Follow up with Dr Whitten at his office on Sunday09/01/20 at 2 pm. Attestations Medical Necessity Statement*: Observation for medical and surgical care Time Spent in Patient Care*: greater than 30 min Specific Discharge Activities: Specific discharge activities: educating patient Status at Discharge: Cognitive status at discharge: cognitively intact, Behavioral status at discharge: cooperative, Quality Metrics Clinical Quality Measures: During this hospital stay, did patient experience: None Coding Level of Care Code Acute Money Examiner for [facility] Fwd Diagnoses Jejunostomy tube leak K94.13 Skin excoriation T14.8XXA Intussusception of jejunum K56.1
== END 2020-08-24 12:15 | disposition home or self-care (01) ==
LOC: ER 19:52 → ER IP 23:56 → MEDSURG 08-24 11:01 → ER IP 08-24 11:47
PROVIDERS: Physician Assistant; Admitting Provider Surgery; Emergency Provider Family Medicine; PCP Electrodiagnostic Medicine; Visit Provider Surgery
DX: K94.13 Enterostomy malfunction (principal); T14.8XXA Other injury of unspecified body region, initial encounter; K56.1 Intussusception; I48.91 Unspecified atrial fibrillation; I48.92 Unspecified atrial flutter; Z85.01 Personal history of malignant neoplasm of esophagus; Z79.82 Long term (current) use of aspirin
CPT/HCPCS: 36415; 74019; 74177; 80053; 83605; 85025; 87040; 96361; 96365; 96375; 96376; 99285; G0378; J1170; J2270; J2405; J3490; J7030; J7799; Q9967

== ENCOUNTER 2020-09-06 10:02 | Outpatient (CLI) | payer MEDICARE, SELFPAY ==
[2020-09-06 10:50] LABS: Basophils % 0.3 %; Eosinophils % 0.1 %; Hematocrit 33.3 % (42.0-52.0); Hemoglobin 10.9 g/dL (11.7-16.6); Lymphocytes # 1.1 10^3/uL (0.8-4.8); Mean Corpuscular HGB Conc 32.7 g/dL (30.0-36.0); Mean Corpuscular Hemoglobin 30.3 pg (28.0-34.0); Mean Corpuscular Volume 92.5 fL (80-94); Mean Platelet Volume 9.8 fL (7.4-10.4); Monocytes # 0.7 10^3/uL (0.2-0.9); Monocytes % 7.6 %; Neutrophils # 7.77 10^3/uL (1.8-7.7); Neutrophils % 80.7 %; Nucleated Red Blood Cells % 0 %; Platelet Count 178 10^3/cmm (130-400); Red Cell Distribution Width 14.9 % (12.1-15.1); White Blood Count 9.6 10^3/uL (4.0-10.0)
[2020-09-06 11:02] LABS: Alanine Aminotransferase 15 U/L (0-41); Albumin Level 3.8 g/dL (3.5-5.2); Alkaline Phosphatase 80 IU/L (40-130); Anion Gap 15.1 (5-19); Aspartate Amino Transferase 18 U/L (0-40); Blood Urea Nitrogen 15 mg/dL (8-23); Calcium 9.3 mg/dL (8.5-10.5); Carbon Dioxide 26 mmol/L (22-29); Chloride 104 mmol/L (98-107); Globulin 2.7 g/dL (1.3-4.6); Glomerular Filtration Rate 166.9 mL/min (90-130); Glucose 138 mg/dL (65-115); Osmolality Calculated 295 mOsm/kg (285-295); Potassium 4.1 mmol/L (3.5-5.1); Sodium 141 mmol/L (136-145); Total Bilirubin 0.9 mg/dL (0.15-1.2); Total Protein 6.5 g/dL (6.6-8.7)
== END 2020-09-06 10:03 | disposition home or self-care (01) ==
LOC: ONCMED 10:05
PROVIDERS: PCP Electrodiagnostic Medicine; Visit Provider Internal Medicine Hematology & Oncology
DX: C15.5 Malignant neoplasm of lower third of esophagus (principal)
CPT/HCPCS: 80053; 85025

== ENCOUNTER 2020-09-07 05:29 | Outpatient (CLI) | payer MEDICARE, SELFPAY ==
--- NOTE | 2020-10-11 15:01 | ONC FU_ITS ---
Dr. Carlos follow up note Patient: Roshan Shell < Unit #: [id number]: 1955 Dicatated By: Genoveva Carlos M.D.Date of Visit:Sep 07, 2020 Onc Med Follow-up/Prog Note History of Present Illness: Mr. Shell is a 65-year-old gentleman with a history of progressive dysphagia since September or October 2019. He reports that he had a 75 pound weight loss over about 6 months. He began having trouble swallowing solid food off and on and then began having trouble with liquids. He states he has had esophageal reflux in the past and he used Tums or Rolaids He also has a longstanding history of alcohol use since 1975. Mr Shell states he drinks 5-6 beers in a day in addition to 4-5 drinks per day. He does smoke marijuana since age 14. He states it is off and on. He states he used to smoke it recreationally but now he smokes for pain relief and sleep benefits. He has chronic back pain. Mr. Shell underwent GI evaluation for Dr. Whitten at [facility] and on April 28, 2020 he underwent EGD which did show a malignant stricturing mass in the lower third of the esophagus. Stenosis was reported at 3 cm in length and 0.5 cm in diameter. And the stenosis was traversed after dilation. In the mid esophagus a 2 cm segment of sharp segment Ocampo's mucosa was present. 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 He had a CT of the chest/abdomen from 04/20/2020 reported mild chronic emphysematous changes no acute pulmonary infiltrates. There was no mediastinal or hilar lymphadenopathy. He did have a small esophageal hiatal hernia. Mild diffuse fatty infiltration of the liver; small adrenal adenoma-10 mm; and incidental fat-containing umbilical hernia. Mr Shell underwent CT scan of neck on April 20, 2020 which shows mild nodular thickening of the true vocal cords bilaterally otherwise unremarkable. Mr Shell was referred to GI surgery at [facility]. He was evaluated on May 21, 2020 but he had not yet had his staging PET/CT. The recommendations were to review PET/CT scan before deciding about upfront surgery versus neoadjuvant chemoradiation followed by evaluation for surgery. He was also advised to quit smoking marijuana and alcohol as a preparation for treatment. [facility] NP did arrange for PFTs. Staging CT PET scan was done on May 27, 2020 showed distal esophageal focal hypermetabolic activity with SUV of 5.01 and incidental, focus uptake seen at the left ventricle apex can be associated with hypertrophic cardiomyopathy. No evidence of distant mets. EUS on June 22, 2020 showed large, fungating mass in the distal esophageal, lesion was circumferential well-defined measured up to 12 mm in thickness suggesting invasion into adventitia and unable to traverse the structure so further structures were not evaluated, 2 enlarged lymph nodes were visualized in the middle paraesophageal mediastinum largest 15 mm. Mr. Shell had right subclavian PowerPort port placement and jejunostomy [address] Whitten on July 19, 2020.And received first dose of weekly carboplatin Taxol concurrent with radiation therapy on July 20, 2020 then patient was admitted to hospital on July 22, 2020 for I&D of abdominal wall infected hematoma culture came back positive for E. coli, Klebsiella pneumoniae, treated with antibiotics and chemotherapy was discontinued while as per radiation oncology, continue with radiation therapy alone while being treated for infected hematoma in abdominal wall. Follow-up CT scan of abdomen done on August 05, 2020 showed no contrast leak from J-tube, improved cellulitis and postoperative changes with stable diffuse fatty infiltration of the liver, small esophageal hernia, stable gastric diverticulum with a air-filled level measuring 4.1 x 2.9 cm. Stable left adrenal adenoma, sigmoid diverticulosis, on August 09, 2020 patient underwent esophageal stent placement at [place] CT scan of abdomen done on August 23, 2020 showed jejunostomy tube is in place, stent in the distal esophagus, no focal abnormality in the liver, no free intraperitoneal fluid, admitted to hospital on August 23, 2020 with excessive coughing and vomiting, patient was on clindamycin for cellulitis of abdominal wall around feeding tube and was tolerating orally well and wanted to remove his feeding tube and CT scan of abdomen done on August 23, 2020 showed intussusception distal to the insertion of jejunostomy tube patient was admitted to surgical service, jejunostomy tube was removed Came for follow-up, denies any specific complaints denies any fever chills denies any nausea or vomiting denies any diarrhea constipation tolerating orally well since esophageal stent placed in but still complaining of substernal pain/discomfort no hemoptysis or hematemesis, no fever chills, abdominal wall cellulitis has resolved. No abdominal pain, no jaundice, no abdominal fullness Medications: HYDROcodone-Acetaminophen 15 mL (of 7.5-325 mg/15mL) Solution Oral q 4 hours, Metoprolol Succinate ER 1 Tablet (of 25 mg) Tablet SR 24 HR Oral b.i.d., Pantoprazole Sodium 1 Tablet (of 40 mg) Tablet, enteric coated Oral daily Allergies: No Known Allergies. Review of Systems: Review of Systems is not available for this patient. Vital Signs: Performed on Sep 07, 2020 08:16 Height - 70.00 in Weight - 164.0 lbs (LOW) BSA - 1.92 sq.m BMI - 23.53 Temperature - 98.5 F Pulse - 77 /min Respiration - 18 /min BP - 99/53 mm(hg) O2 Sat - 99 % Pain - 7 Fatigue - 8 Performance Status: 2 - Ambulatory/capable of all self-care, unable to perform any work activities. Up and about more than 50% of waking hours. (ECOG) Physical Examination: ENMT - No mouth sores, no thrush, no jaundice, Respiratory - Lungs are clear to auscultation, Cardiovascular - Irregular rate and rhythm, Abdomen - Soft, bowel sounds present pigmentation of skin overlying abdominal skin, no swelling or tenderness or mass palpable, Extremities - No visible edema. Lab/Imaging: Test performed on Aug 03, 2020 08:50 Sodium 131 mmol/L Potassium 4.7 mmol/L Chloride 95 mmol/L CO2 23 mmol/L Anion Gap 17.7 BUN 31 mg/dL Creatinine 1.4 mg/dL Cr Clearance (Est) 55.62 mL/min eGFR 50.9 mL/min Glucose 411 mg/dL Osmolality - Calculated 296 mOsm/kg Calcium 9.4 mg/dL Protein, Total 7.7 g/dL Albumin 3.8 g/dL Globulin 3.9 g/dL Bilirubin, Total 0.7 mg/dL ALT (SGPT) 19 U/L AST (SGOT) 13 U/L Alkaline Phosphatase 97 IU/L WBC 7.8 10 3/uL RBC 4.42 10 6/uL HGB 13.4 g/dL HCT 40.6 % MCV 91.9 fL MCH 30.3 pg MCHC 33.0 g/dL RDW 12.2 % Platelet Count 412 10 3/cmm MPV 9.8 fL Neutrophils 7.33 10 3/uL Lymphocytes 0.3 10 3/uL Monocytes 0.1 10 3/uL Eosinophils 0.0 10 3/uL Basophils 0.0 10 3/uL Neutrophil % 93.5 % Lymphocyte % 3.8 % Monocyte % 1.1 % Eosinophil % 0.0 % Basophils % 0.3 % NRBC % 0 % CBC Slide Review Slide Review Perform SLIDE REVIEW AGREES WITH AUTOMATED RESULTS ST Test performed on Jul 20, 2020 08:45 Manual Lymphocytes 4.4 % Manual Monocytes 1.5 % Manual Eosinophils 0.0 % Manual Basophils 0.1 % Test performed on Jun 15, 2020 00:00 Manual Diff Cancelled via OM: Cancelled in Connected System Impression: Moderately differentiated invasive adenocarcinoma involving distal/mid esophagus for EGD done on April 28, 2020 HER-2/justus 3+ positive CT scan of neck/chest abdomen done on April 20, 2020 showed mild nodular thickening of true vocal cord bilaterally otherwise unremarkable neck and CT scan of chest abdomen showed no mediastinal or hilar lymphadenopathy small esophageal hiatal hernia, mild diffuse fatty infiltration liver. Small left adrenal adenoma measuring 10 mm. Incidental fat-containing umbilical hernia. CT PET scan done on May 27, 2020 showed distal esophageal focal hypermetabolic activity. No findings to suggest distant metastatic disease. Incidental focal uptake at the left ventricle apex can be associated with hypertrophic cardiomyopathy. EUS done on June 22, 2020 showed mass in the distal esophagus, circumferential measures up to 12 mm in thickness suggesting invasion into adventitia, T3 and 2 lymph nodes were seen in the middle paraesophageal mediastinum largest is 15 mm ,N1 Clinical stage III Dysphagia/weight loss due to above. Hypertension. discussed disease status and treatment options with Mr Shell. Based on the EUS finding, he has locally advanced disease so combined chemoradiation therapy with weekly carboplatin AUC 2 and Taxol 50 mg/m??? concurrent with radiation therapy was recommended. did request Port-A-Cath placement to facilitate chemotherapy administration. Mr. Shell had right subclavian PowerPort port placement and jejunostomy [address] Whitten on July 19, 2020.Started on combined chemoradiation with weekly carboplatin/Taxol on July 20, 2020, patient was admitted to hospital on July 22, 2020 with infected hematoma in the abdominal wall, treated with IV antibiotics, at that time it was decided to discontinue concurrent chemotherapy but continue with radiation therapy alone., Patient underwent esophageal stent placement on August 09, 2020, J-tube was removed and abdominal wall cellulitis resolved Plan: With patient regarding his labs white blood count 7.8 hemoglobin 13.4 hematocrit 40.6 platelets 412,000 CMP within normal limit except sodium 131 and creatinine 1.4 BUN 3 1 Clinically, patient is doing well with no new signs symptoms but persistent mid sub-sternal pain/discomfort, concern is disease progression as patient could not complete his combined chemoradiation therapy due to post J-tube placement abdominal cellulitis, at this point we will consider CT PET scan to assess disease status, if localized, then will discuss with radiation therapy regarding combined chemoradiation versus surgical option if metastatic disease then will consider chemotherapy plus Herceptin, patient was given prescription for pain medication then he will return to clinic after CT PET scan for further discussion Mildly elevated creatinine/BUN patient was advised to maintain good hydration and will follow with creatinine level Signed By: Genoveva Carlos M.D. <<Signature on File>>
== END 2020-09-07 05:30 | disposition home or self-care (01) ==
LOC: ONCMED 05:31
PROVIDERS: PCP Electrodiagnostic Medicine; Visit Provider Internal Medicine Hematology & Oncology
DX: C15.8 Malignant neoplasm of overlapping sites of esophagus (principal); K76.0 Fatty (change of) liver, not elsewhere classified; I10 Essential (primary) hypertension; R07.2 Precordial pain; R79.89 Other specified abnormal findings of blood chemistry
CPT/HCPCS: 99214

== ENCOUNTER 2020-09-17 09:29 | Emergency (ER) | payer MEDICARE, SELFPAY ==
[2020-09-17 09:39] VITALS: BP 116/80; PULSE 100; RESP 15; TEMP 36.3; O2SAT 100; BMI 22.9
--- NOTE | 2020-09-17 09:52 | CT_ITS ---
WS: [id number] CT ABDOMEN PELVIS TECHNIQUE: Contrast-enhanced CT of the abdomen and pelvis with coronal and sagittal reformatted image s. CLINICAL INFORMATION: abd pain COMPARISON: August 23, 2020 DLP: 1527.[address] scans at [facility] use at least one of these dose optimization techniques: automat ed exposure control; mA and/or kV adjustment per patient size (includes targeted exams where dose is matched to clinical indication); or iterative reconstruction. FINDINGS: Esophageal stent. Lung bases are well aerated. Normal liver. Gallbladder is contracted. Normal portal vein and splenic vein. Stable left adrenal adenoma. Adrenal gland is normal. Normal renal parenchymal enhancement. No hydronephrosis. Interval removal of the jejunostomy tube. Gastric fundal diverticulum unchanged. Normal spleen. Normal splenic vein. Enlarged prostate measuring 4.9 CM. Sigmoid diverticulosis. No evidence of acute diverticulitis. No e vidence of small or large bowel obstruction. Diffuse body wall anasarca. Tiny fat-containing umbilica l hernia. Normal caliber abdominal aorta. No abdominal lymphadenopathy. No inguinal lymphadenopathy. No evidenc e of high-grade small or large bowel obstruction. Moderate spondylitic changes lumbar spine. CT/CT abdomen pelvis w con* [id number] IMPRESSION: 1. Esophageal stent is unchanged. 2. Jejunostomy tube has been removed. Previously described intussusception no longer visualized. 3. No evidence of small or large bowel obstruction. 4. Sigmoid diverticulosis. No evidence of acute diverticulitis. 5. Stable gastric fundal diverticulum. 6. No other significant changes from previous Notified Wesley Coleman DO at 09/17/2020 11:06 AM.
--- NOTE | 2020-09-17 09:52 | ECG_ITS ---
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1955 Requested By: Wesley Sosa Order Number: [id number] Reading MD: FRAN PARIS Measurements Intervals [place] Rate: 108 P: NM: QRS: -5 QRSD: 101 T: 47 QT: 319 QTc: 428 Interpretive Statements ATRIAL FIBRILLATION WITH RAPID VENTRICULAR RESPONSE INCOMPLETE RIGHT BUNDLE BRANCH BLOCK [90+ ms QRS DURATION, TERMINAL R IN V1/V2, 40+ ms S IN I/aVL/V4/V5/V6] ABNORMAL RHYTHM ECG Compared to ECG 08/05/2020 11:15:42 No significant changes Electronically Signed On 09-17-2020 19:24:41 CONSTRUCTION TECHNICIAN by FRAN PARIS [id number]
--- NOTE | 2020-09-17 09:57 | W.ED.NAVMDI ---
HPI - Nausea/Vomiting/Diarrhea General: Chief complaint: Nausea/Vomiting/Diarrhea Stated complaint: Sick, Unable keep food down Time Seen by Provider: 09/17/20 09:35 History of Present Illness: HPI Narrative: 65-year-old male presents emergency room with complaint of epigastric left upper quadrant abdominal pain. He has a history of distal esophageal cancer stage III HER-2/justus positive. His previous notes were reviewed. He had a jejunostomy tube in but had some complications from that in late July he was admitted with a cellulitis of the abdominal wall and ultimately the tube was removed. He states he is not been able to eat or drink anything the last couple of days been throwing up a lot. Is chemotherapy and radiation have been on hold due to intolerance of the treatments. He denies any chest pain at this time he is awake and alert no difficulty breathing. He was directed here by his oncologist from from an office visit. MD elicited complaint: nausea and vomiting Onset (ago): day(s) Description of vomiting: food contents and bilious Associated nausea: Yes Location of pain: Epigastric and LUQ Pain consistency: constant Severity: moderate Quality: cramping Exacerbating factors: eating and vomiting Context: other (Esophageal cancer with distal esophageal stent) Associated symtoms: Reports bloating, anorexia, malaise and nausea; Denies chest pain, cough, diaphoresis, decreased urine output, dizziness, dysuria, epistaxis, fatigue, fecal incontinence, fevers/chills, headache(s), myalgias, numbness, palpitations, rash, short of breath, syncope, tenesmus, tinnitus or weakness Review of Systems Const: Reports: malaise; Denies: fatigue or diaphoresis ENMT: Denies: tinnitus or epistaxis Card: Denies: chest pain, palpitations or syncope Resp: Denies: dyspnea, productive cough or non-productive cough GI: Reports: nausea and bloating; Denies: fecal incontinence : Denies: dysuria Skin/Breast: Denies: rash or pruritus Neuro: Denies: headache(s) or dizziness PFSH ED PFSH: Medical History Atrial fibrillation/flutter Dysphagia 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 Carlos, HER-2/justus 3+positive, Clinical Stage III, started carboplatin/taxol 07/21/20, receiving radiation therapy History of heart failure per patient years ago, not currently on any treatment for such; Echo 04/2020 with normal EF, indeterminant diastolic function due to tachycardia Hypertension Intussusception of jejunum Incidental finding without clinical significance Jejunal intussusception Jejunostomy tube leak Surgical History History of incision and drainage (07/22/20) abdominal wall abscess/hematoma History of jejunostomy tube placement (07/19/20) History of knee surgery ACL reconstruction Port-A-Cath in place (07/19/20) Family History Father Cancer lung Mother Cancer breast Brother Cancer prostate cancer Sister Cancer melanoma Denies family history of Anesthesia complication Bleeding disorder Social History Smoking and tobacco status: never smoked Alcohol intake: current Alcohol intake frequency: 3 or more drinks per day Physical Exam Const: COMMON NORMALS: no acute distress GENERAL APPEARANCE: cooperative and comfortable ORIENTATION/CONSCIOUSNESS: Yes awake, Yes oriented to person, Yes oriented to place and Yes oriented to time HENMT: COMMON NORMALS: normocephalic, atraumatic and hearing grossly normal bilaterally HEAD & SCALP: normocephalic and atraumatic Neck/C-Spine: COMMON NORMALS: no JVD Resp: COMMON NORMALS: normal respiratory effort, No retractions, No use of accessory muscles and clear to auscultation bilaterally AUSCULTATION: clear to auscultation bilaterally Cardio: COMMON NORMALS: no JVD, regular rate, regular rhythm and No murmurs present (Cardio) RATE: regular rate RHYTHM: regular rhythm GI: COMMON NORMALS: Soft to palpation and No hepatosplenomegaly present AUSCULTATION: Yes normoactive bowel sounds PALPATION: Yes Soft to palpation, No Tenderness to palpation present (GI), No Guarding due to palpation present (GI) and Yes No hepatosplenomegaly present Extremity: COMMON NORMALS: normal to inspection, capillary refill normal, no clubbing, cyanosis or edema, no calf tenderness and no pedal edema Neuro: SENSORIUM/ORIENTATION: Yes oriented to person, Yes oriented to place and Yes oriented to time Skin: COMMON NORMALS: no rashes or lesions noted GENERAL SKIN EXAM: no rashes or lesions noted Course Vital Signs: Vital signs: Vital Signs Temperature 97.3 F L 09/17/20 09:39 Pulse Rate 112 H 09/17/20 10:18 Respiratory Rate 18 09/17/20 10:18 Blood Pressure 108/70 09/17/20 10:18 Pulse Oximetry 96 09/17/20 10:18 MDM - Nausea/Vomiting/Diarrhea MDM Narrative: Medical decision making narrative: CT is unremarkable reviewed labs and imaging with the patient. He is feeling much better after fluids because of his history of heart failure gave him 500 initially and then we will repeat another 500 we will go and discharge him home with Sushila he is asking about pain medicine as well we gave him a few you should follow-up with oncology for further pain meds. Lab Data: Labs: Lab Results 09/17/20 09/17/20 09/17/20 Range/Units 10:07 10:07 10:07 WBC 5.2 (4.0-10.0) 10^3/ uL RBC 3.41 L (4.1-5.3) 10^6/u L Hgb 10.6 L (11.7-16.6) g/dL Hct 32.3 L (42.0-52.0) % MCV 94.7 H (80-94) fL MCH 31.1 (28.0-34.0) pg MCHC 32.8 (30.0-36.0) g/dL RDW 15.3 H (12.1-15.1) % Plt Count 198 (130-400) 10^3/c mm MPV 9.7 (7.4-10.4) fL Neut % (Auto) 62.3 % Lymph % (Auto) 24.2 % Blount % (Auto) 12.3 % Eos % (Auto) 0.4 % Baso % (Auto) 0.6 % Neut # (Auto) 3.24 (1.8-7.7) 10^3/u L Lymph # (Auto) 1.3 (0.8-4.8) 10^3/u L Blount # (Auto) 0.6 (0.2-0.9) 10^3/u L Eos # (Auto) 0.0 (0.0-0.8) 10^3/u L Baso # (Auto) 0.0 (0.0-0.1) 10^3/u L Nucleated RBC % (a uto) 0 % Nucleated RBCs # 0.0 /100WBC Sodium 135 L (136-145) mmol/L Potassium 4.1 (3.5-5.1) mmol/L Chloride 99 (98-107) mmol/L Carbon Dioxide 27 (22-29) mmol/L Anion Gap 13.1 (5-19) BUN 17 (8-23) mg/dL Creatinine 0.6 L (0.7-1.2) mg/dL GFR Calculation 135.2 H (90-130) mL/min Glucose 153 H (65-115) mg/dL Calculated Osmolal ity 285 (285-295) mOsm/k g Lactic Acid 1.4 (0.5-2.2) mmol/L Calcium 9.0 (8.5-10.5) mg/dL Magnesium 1.7 (1.7-2.3) mg/dL Total Bilirubin 0.4 (0.15-1.2) mg/dL AST 19 (0-40) U/L ALT 16 (0-41) U/L Alkaline Phosphata se 71 (40-130) IU/L Creatine Kinase 91 (39-308) U/L Total Protein 5.9 L (6.6-8.7) g/dL Albumin 3.6 (3.5-5.2) g/dL Globulin 2.3 (1.3-4.6) g/dL Lipase 18 (13-60) U/L Urine Color (Yellow) Urine Appearance (CLEAR) Urine pH (5-7) Ur Specific Gravit y (1.005-1.030) Urine Protein (Negative) Urine Glucose (UA) (Normal) Urine Ketones (Negative) Urine Blood (Negative) Urine Nitrate (Negative) Urine Bilirubin (Negative) Urine Urobilinogen (Negative) mg/dL Ur Leukocyte Raissa ase (Negative) Urine RBC (0-2) /hpf Urine WBC (0-5) /hpf Ur Squamous Epith Cells (0-5) /hpf Amorphous Sediment /hpf Urine Bacteria (NONE) /hpf 09/17/20 Range/Units 10:39 WBC (4.0-10.0) 10^3/ uL RBC (4.1-5.3) 10^6/u L Hgb (11.7-16.6) g/dL Hct (42.0-52.0) % MCV (80-94) fL MCH (28.0-34.0) pg MCHC (30.0-36.0) g/dL RDW (12.1-15.1) % Plt Count (130-400) 10^3/c mm MPV (7.4-10.4) fL Neut % (Auto) % Lymph % (Auto) % Blount % (Auto) % Eos % (Auto) % Baso % (Auto) % Neut # (Auto) (1.8-7.7) 10^3/u L Lymph # (Auto) (0.8-4.8) 10^3/u L Blount # (Auto) (0.2-0.9) 10^3/u L Eos # (Auto) (0.0-0.8) 10^3/u L Baso # (Auto) (0.0-0.1) 10^3/u L Nucleated RBC % (a uto) % Nucleated RBCs # /100WBC Sodium (136-145) mmol/L Potassium (3.5-5.1) mmol/L Chloride (98-107) mmol/L Carbon Dioxide (22-29) mmol/L Anion Gap (5-19) BUN (8-23) mg/dL Creatinine (0.7-1.2) mg/dL GFR Calculation (90-130) mL/min Glucose (65-115) mg/dL Calculated Osmolal ity (285-295) mOsm/k g Lactic Acid (0.5-2.2) mmol/L Calcium (8.5-10.5) mg/dL Magnesium (1.7-2.3) mg/dL Total Bilirubin (0.15-1.2) mg/dL AST (0-40) U/L ALT (0-41) U/L Alkaline Phosphata se (40-130) IU/L Creatine Kinase (39-308) U/L Total Protein (6.6-8.7) g/dL Albumin (3.5-5.2) g/dL Globulin (1.3-4.6) g/dL Lipase (13-60) U/L Urine Color Yellow (Yellow) Urine Appearance Hazy A (CLEAR) Urine pH 7 (5-7) Ur Specific Gravit y 1.010 (1.005-1.030) Urine Protein Neg (Negative) Urine Glucose (UA) Norm (Normal) Urine Ketones Negative (Negative) Urine Blood Neg (Negative) Urine Nitrate Negative (Negative) Urine Bilirubin Neg (Negative) Urine Urobilinogen 1 H (Negative) mg/dL Ur Leukocyte Raissa ase Negative (Negative) Urine RBC None (0-2) /hpf Urine WBC None (0-5) /hpf Ur Squamous Epith Cells 0-4 H (0-5) /hpf Amorphous Sediment 2+ /hpf Urine Bacteria 1+ H (NONE) /hpf Discharge Plan Discharge Patient Disposition: Home Clinical Impression: Esophageal cancer Condition: Stable Prescriptions: New Zofran 4 mg tablet 4 mg PO Q6H PRN (Reason: nausea and vomiting) Qty: 20 RF: 0 hydrocodone-acetaminophen 5-325 mg tablet 1 tab PO Q6H PRN (Reason: pain) Qty: 15 RF: 0 No Action aspirin 325 mg Tablet 325 mg PO PRN RF: 0 metoprolol tartrate 25 mg tablet 25 mg PO Q12H RF: 0 pantoprazole [Protonix] 40 mg tablet,delayed release (DR/EC) 40 mg PO DAILY 30 Days Qty: 30 RF: 2 prochlorperazine maleate 10 mg tablet 10 mg PO Q4H PRN (Reason: mild nausea) RF: 0 acetaminophen [Tylenol Arthritis Pain] 650 mg Tablet Extended Release 1,300 - 1,950 mg PO BID PRN (Reason: Pain) RF: 0 ibuprofen 200 mg Tablet 600 mg PO Q8H PRN (Reason: Pain) RF: 0 lorazepam 1 mg tablet 1 mg PO TID PRN (Reason: Nausea) RF: 0 hydrocodone-acetaminophen 7.5-325 mg/15 mL solution 15 ml PO Q4H PRN (Reason: Pain) RF: 0 Discharge Orders: Discharge ED (Routine); Ordered 09/17/20 Ordered By: Wesley Coleman Referrals: Raleigh Boyd DO [Primary Care Provider] - Discharge Diet: Clear Liquid Discharge Activity: Increase activity as tolerated Patient Instructions: Opioid Safety Activity Restrictions/Additional Instructions: Clear liquid diet for the next 24 to 48 hours and advance as tolerated Coding Level of Care Code ED Business Strategy Manager for Chg Fwd Exam Comprehensive
[2020-09-17] MEDS: ondansetron 2 mg/ML SDV 2 mL 4 MG IVP (10:12)
[2020-09-17] MEDS: sodium chloride 0.9% 500 ML 999 ML IV ×2 (10:13→11:12)
[2020-09-17 10:14] LABS: Basophils % 0.6 %; Eosinophils % 0.4 %; Hematocrit 32.3 % (42.0-52.0); Hemoglobin 10.6 g/dL (11.7-16.6); Lymphocytes # 1.3 10^3/uL (0.8-4.8); Lymphocytes % 24.2 %; Mean Corpuscular HGB Conc 32.8 g/dL (30.0-36.0); Mean Corpuscular Hemoglobin 31.1 pg (28.0-34.0); Mean Corpuscular Volume 94.7 fL (80-94); Mean Platelet Volume 9.7 fL (7.4-10.4); Monocytes # 0.6 10^3/uL (0.2-0.9); Monocytes % 12.3 %; Neutrophils # 3.24 10^3/uL (1.8-7.7); Neutrophils % 62.3 %; Nucleated Red Blood Cells % 0 %; Platelet Count 198 10^3/cmm (130-400); Red Blood Count 3.41 10^6/uL (4.1-5.3); Red Cell Distribution Width 15.3 % (12.1-15.1); White Blood Count 5.2 10^3/uL (4.0-10.0)
[2020-09-17 10:18] VITALS: BP 108/70; PULSE 112; RESP 18; O2SAT 96
[2020-09-17] MEDS: iohexol 300 mg/mL 100 mL Btl IV (10:30)
[2020-09-17 10:43] LABS: Alanine Aminotransferase 16 U/L (0-41); Albumin Level 3.6 g/dL (3.5-5.2); Alkaline Phosphatase 71 IU/L (40-130); Anion Gap 13.1 (5-19); Aspartate Amino Transferase 19 U/L (0-40); Blood Urea Nitrogen 17 mg/dL (8-23); Carbon Dioxide 27 mmol/L (22-29); Chloride 99 mmol/L (98-107); Creatine Phosphokinase 91 U/L (39-308); Globulin 2.3 g/dL (1.3-4.6); Glomerular Filtration Rate 135.2 mL/min (90-130); Glucose 153 mg/dL (65-115); Lipase 18 U/L (13-60); Magnesium 1.7 mg/dL (1.7-2.3); Osmolality Calculated 285 mOsm/kg (285-295); Potassium 4.1 mmol/L (3.5-5.1); Sodium 135 mmol/L (136-145); Total Bilirubin 0.4 mg/dL (0.15-1.2); Total Protein 5.9 g/dL (6.6-8.7)
[2020-09-17 10:54] LABS: Urine Appearance Hazy (CLEAR); Urine Color Yellow (Yellow); pH Urine 7 (5-7)
[2020-09-17 10:55] LABS: Add Urine Microscopic? YES; Bilirubin Urine Neg (Negative); Blood Urine Neg (Negative); Glucose Urine UA Norm (Normal); Ketones Urine Negative (Negative); Leukocyte Esterase Urine Negative (Negative); Nitrate Urine Negative (Negative); Protein Urine Neg (Negative); Urobilinogen Urine 1 mg/dL (Negative)
[2020-09-17 10:59] LABS: Lactic Sepsis W/Reflex 1.4 mmol/L (0.5-2.2)
[2020-09-17 11:01] LABS: Add Urine Culture? No; Amorphous Sediment Urine 2+ /hpf; Bacteria Urine 1+ /hpf; Squamous Epithelial Cell Urine 0-4 /hpf (0-5)
[2020-09-17 11:34] VITALS: BP 122/79; PULSE 95; RESP 16; O2SAT 99
== END 2020-09-17 11:38 | disposition home or self-care (01) ==
PROVIDERS: Emergency Provider Family Medicine; PCP Electrodiagnostic Medicine
DX: C15.9 Malignant neoplasm of esophagus, unspecified (principal); Z79.82 Long term (current) use of aspirin; I48.91 Unspecified atrial fibrillation; I10 Essential (primary) hypertension
CPT/HCPCS: 74177; 80053; 81001; 82550; 83605; 83690; 83735; 85025; 93005; 96374; 99284; J2405; J7040; Q9967

== ENCOUNTER 2020-09-24 16:26 | Emergency (ER) | payer MEDICARE, SELFPAY ==
[2020-09-24 17:11] VITALS: BP 115/64; PULSE 120; RESP 18; TEMP 37.4; O2SAT 98; BMI 21.8
--- NOTE | 2020-09-24 21:00 | ED_ITS ---
HPI - Nausea/Vomiting/Diarrhea General: Chief complaint: Nausea/Vomiting/Diarrhea Stated complaint: dehydration, hasn't kept fluids down in 3 days Time Seen by Provider: 09/24/20 20:47 Source: patient Mode of arrival: ambulatory Limitations: no limitations History of Present Illness: HPI Narrative: Patient is a very nice 65-year-old gentleman with a history of esophageal cancer who presents to ED today with a complaint of nausea/vomiting/not being able to hold anything down over the past few days. Patient was initially seen in our ED about a week ago for similar symptoms. He tells me he felt better upon discharge and was okay for a day or so but symptoms returned. He tells me he has not been able to hold down any of his medications including pain medications, his metoprolol that he takes for his atrial fibrillation, or his protonix. Patient does not complain of abdominal pain. No fevers. Has not noticed any blood in his vomit. Patient had a feeding tube placed at one point by Dr. Whitten however this was removed due to recurrent problems and infections. Patient has not had any form of chemo/radiation over the last 2 months secondary to these infections. MD elicited complaint: nausea and vomiting Onset (ago): day(s) Associated nausea: Yes Associated abdominal pain: No Location of pain: None Exacerbating factors: eating Context: other (esophageal cancer) Associated symtoms: Reports nausea; Denies change in vision, chest pain, dysuria, fatigue, headache(s), malaise or palpitations Review of Systems Const: Denies: fever(s), chills, body aches, fatigue or malaise Eyes: Denies: change in vision or blurry vision ENMT: Denies: throat pain or odynophagia Card: Denies: chest pain or palpitations Resp: Denies: dyspnea GI: Reports: nausea and vomiting; Denies: abdominal pain, diarrhea or change in stool character : Denies: flank pain, difficulty urinating, dysuria, urinary frequency, urinary urgency or urinary hesitancy Musc: Denies: neck pain or back pain Skin/Breast: Denies: rash Neuro: Denies: headache(s) PFS ED PFSH: Medical History Atrial fibrillation/flutter Dysphagia 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 Carlos, HER-2/justus 3+positive, Clinical Stage III, started carboplatin/taxol 07/21/20, receiving radiation therapy History of heart failure per patient years ago, not currently on any treatment for such; Echo 04/2020 with normal EF, indeterminant diastolic function due to tachycardia Hypertension Intussusception of jejunum Incidental finding without clinical significance Jejunal intussusception Jejunostomy tube leak Surgical History History of incision and drainage (07/22/20) abdominal wall abscess/hematoma History of jejunostomy tube placement (07/19/20) History of knee surgery ACL reconstruction Port-A-Cath in place (07/19/20) Family History Father Cancer lung Mother Cancer breast Brother Cancer prostate cancer Sister Cancer melanoma Denies family history of Anesthesia complication Bleeding disorder Social History Smoking and tobacco status: never smoked Alcohol intake: current Alcohol intake frequency: 3 or more drinks per day Physical Exam Const: COMMON NORMALS: no acute distress, patient oriented x3, no limitations and alert GENERAL APPEARANCE: cooperative ORIENTATION/CONSCIOUSNESS: Yes awake, Yes oriented to person, Yes oriented to place and Yes oriented to time HENMT: COMMON NORMALS: normocephalic and atraumatic HEAD & SCALP: normocephalic and atraumatic Resp: COMMON NORMALS: normal respiratory effort and clear to auscultation bilaterally AUSCULTATION: clear to auscultation bilaterally Cardio: COMMON NORMALS: regular rate and regular rhythm RATE: regular rate RHYTHM: regular rhythm GI: COMMON NORMALS: Normal to inspection, nondistended, normoactive bowel sounds present, Soft to palpation, non-tender, No hepatosplenomegaly present and no masses PALPATION: Yes Soft to palpation and Yes No hepatosplenomegaly present : COMMON NORMALS: Yes no CVA tenderness BLADDER/KIDNEY EXAM: Yes no CVA tenderness Back/Pelvis: COMMON NORMALS: no CVA tenderness Extremity: COMMON NORMALS: no pedal edema Neuro: MARIA GUADALUPE COMA SCALE: document GCS findings Maria Guadalupe coma scale eye opening: Spontaneous [place] coma scale verbal response: Orientated [place] coma scale motor response: Obey commands [place] coma scale total score: 15 COMMON NORMALS: patient oriented x3 SENSORIUM/ORIENTATION: Yes alert, Yes oriented to person, Yes oriented to place and Yes oriented to time Skin: COMMON NORMALS: no rashes or lesions noted GENERAL SKIN EXAM: no rashes or lesions noted Course ED course: Patient was doing good holding down ice chips however when he went to drink water he had an episode of vomiting. The RN alerted me to what look like coffee-ground emesis. The emesis was Gastrocculted it and was found to be positive. Vital Signs: Vital signs: Vital Signs Temperature 98.3 F 09/25/20 00:56 Pulse Rate 103 H 09/25/20 00:56 Respiratory Rate 16 09/25/20 00:56 Blood Pressure 111/63 09/25/20 00:56 Pulse Oximetry 95 09/25/20 00:56 MDM - Nausea/Vomiting/Diarrhea MDM Narrative: Medical decision making narrative: Patient is a very nice gentleman here for nausea and vomiting. Patient has a history of esophageal cancer. He was given IV Zofran and 500 mL of gentle fluid hydration secondary to CHF status. Patient was doing well holding down ice chips but when he went to swallow water he vomited. RN had alerted me to what look like coffee-ground emesis. Emesis was Gastroccult positive. I gave him a dose of IV Protonix. He was given IV Reglan which he stated helped. He was able to hold down putting/Jell-O. I offered patient admission but he would like to go home. I have spoken to Dr. Barton who agrees with this plan at this point. He is hemodynamically stable. Patient has an appointment with Dr. Whitten mid next week. Strict return to ED precautions given. Of note patient has not able to hold down his metoprolol at home therefore when he arrived to the ED he was in a. fib with RVR. He was given 2.5 mg IV metoprolol which helped with patient's rate. He does tell me his HR normally runs pretty high. Patient did not complain of any abdominal pain during his visit. He was scanned during his last visit a week ago. I did not feel we needed to re-scan his abdomen at this time. Lab Data: Labs: Lab Results 09/24/20 09/24/20 09/24/20 Range/Units 21:03 21:03 21:03 WBC 5.0 (4.0-10.0) 10^3/ uL RBC 3.92 L (4.1-5.3) 10^6/u L Hgb 11.8 (11.7-16.6) g/dL Hct 37.1 L (42.0-52.0) % MCV 94.6 H (80-94) fL MCH 30.1 (28.0-34.0) pg MCHC 31.8 (30.0-36.0) g/dL RDW 14.6 (12.1-15.1) % Plt Count 272 (130-400) 10^3/c mm MPV 9.2 (7.4-10.4) fL Neut % (Auto) 67.0 % Lymph % (Auto) 22.4 % Geary % (Auto) 9.8 % Eos % (Auto) 0.2 % Baso % (Auto) 0.4 % Neut # (Auto) 3.35 (1.8-7.7) 10^3/u L Lymph # (Auto) 1.1 (0.8-4.8) 10^3/u L Geary # (Auto) 0.5 (0.2-0.9) 10^3/u L Eos # (Auto) 0.0 (0.0-0.8) 10^3/u L Baso # (Auto) 0.0 (0.0-0.1) 10^3/u L Nucleated RBC % (a uto) 0 % Nucleated RBCs # 0.0 /100WBC Sodium 143 (136-145) mmol/L Potassium 3.8 (3.5-5.1) mmol/L Chloride 103 (98-107) mmol/L Carbon Dioxide 28 (22-29) mmol/L Anion Gap 15.8 (5-19) BUN 16 (8-23) mg/dL Creatinine 0.5 L (0.7-1.2) mg/dL GFR Calculation 166.9 H (90-130) mL/min Glucose 130 H (65-115) mg/dL Calculated Osmolal ity 299 H (285-295) mOsm/k g Lactic Acid 0.8 (0.5-2.2) mmol/L Calcium 10.0 (8.5-10.5) mg/dL Total Bilirubin 0.6 (0.15-1.2) mg/dL AST 15 (0-40) U/L ALT 15 (0-41) U/L Alkaline Phosphata se 76 (40-130) IU/L Total Protein 7.5 (6.6-8.7) g/dL Albumin 4.2 (3.5-5.2) g/dL Globulin 3.3 (1.3-4.6) g/dL Discharge Plan Discharge Patient Disposition: Home Clinical Impression: Esophageal cancer Qualifiers: Malignant neoplasm of esophagus location: unspecified location Qualified Code(s): C15.9 - Malignant neoplasm of esophagus, unspecified Hematemesis Qualifiers: Nausea presence: with nausea Qualified Code(s): K92.0 - Hematemesis Condition: Stable Prescriptions: New Reglan 10 mg tablet 10 mg PO Q6H Qty: 15 RF: 0 No Action aspirin 325 mg Tablet 325 mg PO PRN RF: 0 metoprolol tartrate 25 mg tablet See Rx Instructions .ROUTE .COMPLEX RF: 0 ondansetron HCl [Zofran] 4 mg tablet 4 mg PO Q6H PRN (Reason: nausea and vomiting) Qty: 20 RF: 0 hydrocodone-acetaminophen 5-325 mg tablet 1 tab PO Q6H PRN (Reason: pain) Qty: 15 RF: 0 prochlorperazine maleate 10 mg tablet 10 mg PO Q4H PRN (Reason: mild nausea) RF: 0 acetaminophen [Tylenol Arthritis Pain] 650 mg Tablet Extended Release 1,300 mg PO PRN RF: 0 ibuprofen 200 mg Tablet 600 mg PO PRN RF: 0 lorazepam 1 mg tablet 1 mg PO TID PRN (Reason: Nausea) RF: 0 hydrocodone-acetaminophen 7.5-325 mg/15 mL solution 15 - 30 ml PO Q4H PRN (Reason: Pain) RF: 0 nystatin 100,000 unit/gram ointment See Rx Instructions .ROUTE .COMPLEX RF: 0 lidocaine-prilocaine 2.5-2.5 % cream See Rx Instructions .ROUTE .COMPLEX RF: 0 dexamethasone 4 mg tablet See Rx Instructions .ROUTE .COMPLEX RF: 0 Protonix 40 mg tablet,delayed release (DR/EC) 40 mg PO BID RF: 0 Discharge Orders: Discharge ED (Routine); Ordered 09/25/20 Ordered By: Jes Murphy Referrals: Raleigh Boyd, DO [Primary Care Provider] - Activity Restrictions/Additional Instructions: As discussed if you continue vomiting and not being able to hold down food or medications you need to return to the emergency department for re-evaluation. You also need to return to the emergency department for continued episodes of bloody vomit. Otherwise please follow-up with Dr. Whitten on Sunday as scheduled. I hope you begin to feel better soon. Coding Level of Care Code ED Salvage Winder for Chg Fwd Exam Comprehensive
--- NOTE | 2020-09-24 21:01 | ECG_ITS ---
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 Measurements Intervals [place] Rate: 126 P: OR: QRS: 72 QRSD: 124 T: 59 QT: 295 QTc: 428 Interpretive Statements ATRIAL FIBRILLATION WITH RAPID VENTRICULAR RESPONSE POSSIBLE RIGHT VENTRICULAR CONDUCTION DELAY [RSR (QR) IN V1/V2] ABNORMAL RHYTHM ECG Compared to ECG 09/17/2020 09:59:51 Incomplete right bundle-branch block no longer present Electronically Signed On 09-24-2020 23:28:03 CDT by Greta Truong M.D. [id number]
[2020-09-24 21:16] LABS: Basophils % 0.4 %; Eosinophils % 0.2 %; Hematocrit 37.1 % (42.0-52.0); Hemoglobin 11.8 g/dL (11.7-16.6); Lymphocytes # 1.1 10^3/uL (0.8-4.8); Lymphocytes % 22.4 %; Mean Corpuscular HGB Conc 31.8 g/dL (30.0-36.0); Mean Corpuscular Hemoglobin 30.1 pg (28.0-34.0); Mean Corpuscular Volume 94.6 fL (80-94); Mean Platelet Volume 9.2 fL (7.4-10.4); Monocytes # 0.5 10^3/uL (0.2-0.9); Monocytes % 9.8 %; Neutrophils # 3.35 10^3/uL (1.8-7.7); Nucleated Red Blood Cells % 0 %; Platelet Count 272 10^3/cmm (130-400); Red Blood Count 3.92 10^6/uL (4.1-5.3); Red Cell Distribution Width 14.6 % (12.1-15.1)
[2020-09-24] MEDS: sodium chloride 0.9% 1,000 ML 500 ML IV (21:16)
[2020-09-24] MEDS: ondansetron 2 mg/ML SDV 2 mL 4 MG IVP (21:16)
[2020-09-24 21:18] VITALS: RESP 18
[2020-09-24] MEDS: morphine 4 mg/mL SDV 1 mL IVP (21:18)
[2020-09-24 21:43] LABS: Alanine Aminotransferase 15 U/L (0-41); Albumin Level 4.2 g/dL (3.5-5.2); Alkaline Phosphatase 76 IU/L (40-130); Anion Gap 15.8 (5-19); Aspartate Amino Transferase 15 U/L (0-40); Blood Urea Nitrogen 16 mg/dL (8-23); Carbon Dioxide 28 mmol/L (22-29); Chloride 103 mmol/L (98-107); Globulin 3.3 g/dL (1.3-4.6); Glomerular Filtration Rate 166.9 mL/min (90-130); Glucose 130 mg/dL (65-115); Osmolality Calculated 299 mOsm/kg (285-295); Potassium 3.8 mmol/L (3.5-5.1); Sodium 143 mmol/L (136-145); Total Bilirubin 0.6 mg/dL (0.15-1.2); Total Protein 7.5 g/dL (6.6-8.7)
[2020-09-24 21:44] LABS: Lactic Sepsis W/Reflex 0.8 mmol/L (0.5-2.2)
[2020-09-24] MEDS: metoprolol tartrate 1 mg/1 mL SDV 5 mL 2.5 MG IV (22:14)
[2020-09-24 22:15] VITALS: BP 150/92; PULSE 121; RESP 16; O2SAT 100
[2020-09-24 23:00] VITALS: BP 123/93; PULSE 109; RESP 16; O2SAT 93
[2020-09-24] MEDS: metoclopramide 5 mg/mL SDV 2 mL 10 MG IVP (23:15)
[2020-09-24] MEDS: pantoprazole 40 mg SDV IV (23:56)
[2020-09-25 00:56] VITALS: BP 111/63; PULSE 103; RESP 16; TEMP 36.8; O2SAT 95
== END 2020-09-25 00:56 | disposition home or self-care (01) ==
PROVIDERS: Emergency Provider Physician Assistant; PCP Electrodiagnostic Medicine
DX: C15.9 Malignant neoplasm of esophagus, unspecified (principal); K92.0 Hematemesis; Z79.82 Long term (current) use of aspirin; I48.91 Unspecified atrial fibrillation; Z85.01 Personal history of malignant neoplasm of esophagus; I10 Essential (primary) hypertension
CPT/HCPCS: 80053; 83605; 85025; 87040; 93005; 96361; 96374; 96375; 96376; 99284; C9113; J2270; J2405; J2765; J3490; J7030

== ENCOUNTER 2020-10-08 07:50 | Outpatient (CLI) | payer MEDICARE, SELFPAY ==
[2020-10-08 08:27] LABS: Basophils % 0.4 %; Eosinophils % 0.4 %; Hematocrit 30.7 % (42.0-52.0); Hemoglobin 9.7 g/dL (11.7-16.6); Lymphocytes # 0.9 10^3/uL (0.8-4.8); Lymphocytes % 17.2 %; Mean Corpuscular HGB Conc 31.6 g/dL (30.0-36.0); Mean Corpuscular Hemoglobin 30.4 pg (28.0-34.0); Mean Corpuscular Volume 96.2 fL (80-94); Mean Platelet Volume 9.7 fL (7.4-10.4); Monocytes # 0.5 10^3/uL (0.2-0.9); Monocytes % 9.5 %; Neutrophils # 3.82 10^3/uL (1.8-7.7); Neutrophils % 72.1 %; Nucleated Red Blood Cells % 0 %; Platelet Count 185 10^3/cmm (130-400); Red Blood Count 3.19 10^6/uL (4.1-5.3); Red Cell Distribution Width 14.6 % (12.1-15.1); White Blood Count 5.3 10^3/uL (4.0-10.0)
[2020-10-08 08:46] LABS: Alanine Aminotransferase 19 U/L (0-41); Albumin Level 3.7 g/dL (3.5-5.2); Alkaline Phosphatase 60 IU/L (40-130); Anion Gap 12.1 (5-19); Aspartate Amino Transferase 19 U/L (0-40); Blood Urea Nitrogen 14 mg/dL (8-23); Calcium 8.7 mg/dL (8.5-10.5); Carbon Dioxide 29 mmol/L (22-29); Chloride 103 mmol/L (98-107); Globulin 2.4 g/dL (1.3-4.6); Glomerular Filtration Rate 215.9 mL/min (90-130); Glucose 148 mg/dL (65-115); Osmolality Calculated 293 mOsm/kg (285-295); Potassium 4.1 mmol/L (3.5-5.1); Sodium 140 mmol/L (136-145); Total Bilirubin 0.3 mg/dL (0.15-1.2); Total Protein 6.1 g/dL (6.6-8.7)
[2020-10-08 10:44] LABS: Reticulocyte % 2.6 % (0.5-2.0)
[2020-10-08 10:54] LABS: Iron 51 ug/dL (59-158); Percent Saturation 20.4 % (20-50); Total Iron Binding Capacity 249 mcg/dl; Unsaturated Iron Binding 198 ug/dL (112-347)
[2020-10-08 11:10] LABS: Vitamin B12 338 pg/mL (232-1245)
--- NOTE | 2020-10-08 12:01 | ONC FU_ITS ---
Dr. Carlos follow up note Patient: Roshan Shell Unit #: [id number]: 1955 Dicatated By: Genoveva Carlos M.D.Date of Visit:Oct 08, 2020 Onc Med Follow-up/Prog Note History of Present Illness: Mr. Shell is a 65-year-old gentleman with a history of progressive dysphagia since September or October 2019. He reports that he had a 75 pound weight loss over about 6 months. He began having trouble swallowing solid food off and on and then began having trouble with liquids. He states he has had esophageal reflux in the past and he used Tums or Rolaids He also has a longstanding history of alcohol use since 1975. Mr Shell states he drinks 5-6 beers in a day in addition to 4-5 drinks per day. He does smoke marijuana since age 14. He states it is off and on. He states he used to smoke it recreationally but now he smokes for pain relief and sleep benefits. He has chronic back pain. Mr. Shell underwent GI evaluation for Dr. Whitten at [facility] and on April 28, 2020 he underwent EGD which did show a malignant stricturing mass in the lower third of the esophagus. Stenosis was reported at 3 cm in length and 0.5 cm in diameter. And the stenosis was traversed after dilation. In the mid esophagus a 2 cm segment of sharp segment Ocampo's mucosa was present. Biopsies were obtained and final pathology report came back moderately differentiated invasive adenocarcinoma, HER-2/jsutus 3+ positive. He had a CT of the chest/abdomen from 04/20/2020 reported mild chronic emphysematous changes no acute pulmonary infiltrates. There was no mediastinal or hilar lymphadenopathy. He did have a small esophageal hiatal hernia. Mild diffuse fatty infiltration of the liver; small adrenal adenoma-10 mm; and incidental fat-containing umbilical hernia. Mr Shell underwent CT scan of neck on April 20, 2020 which shows mild nodular thickening of the true vocal cords bilaterally otherwise unremarkable. Mr Shell was referred to GI surgery at [facility]. He was evaluated on May 21, 2020 but he had not yet had his staging PET/CT. The recommendations were to review PET/CT scan before deciding about upfront surgery versus neoadjuvant chemoradiation followed by evaluation for surgery. He was also advised to quit smoking marijuana and alcohol as a preparation for treatment. [facility] NP did arrange for PFTs. Staging CT PET scan was done on May 27, 2020 showed distal esophageal focal hypermetabolic activity with SUV of 5.01 and incidental, focus uptake seen at the left ventricle apex can be associated with hypertrophic cardiomyopathy. No evidence of distant mets. EUS on June 22, 2020 showed large, fungating mass in the distal esophageal, lesion was circumferential well-defined measured up to 12 mm in thickness suggesting invasion into adventitia and unable to traverse the structure so further structures were not evaluated, 2 enlarged lymph nodes were visualized in the middle paraesophageal mediastinum largest 15 mm. Mr. Shell had right subclavian PowerPort port placement and jejunostomy [address] Whitten on July 19, 2020.And received first dose of weekly carboplatin Taxol concurrent with radiation therapy on July 20, 2020 then patient was admitted to hospital on July 22, 2020 for I&D of abdominal wall infected hematoma culture came back positive for E. coli, Klebsiella pneumoniae, treated with antibiotics and chemotherapy was discontinued while as per radiation oncology, continue with radiation therapy alone while being treated for infected hematoma in abdominal wall. Follow-up CT scan of abdomen done on August 05, 2020 showed no contrast leak from J-tube, improved cellulitis and postoperative changes with stable diffuse fatty infiltration of the liver, small esophageal hernia, stable gastric diverticulum with a air-filled level measuring 4.1 x 2.9 cm. Stable left adrenal adenoma, sigmoid diverticulosis, on August 09, 2020 patient underwent esophageal stent placement at [facility] CT scan of abdomen done on August 23, 2020 showed jejunostomy tube is in place, stent in the distal esophagus, no focal abnormality in the liver, no free intraperitoneal fluid, admitted to hospital on August 23, 2020 with excessive coughing and vomiting, patient was on clindamycin for cellulitis of abdominal wall around feeding tube and was tolerating orally well and wanted to remove his feeding tube and CT scan of abdomen done on August 23, 2020 showed intussusception distal to the insertion of jejunostomy tube patient was admitted to surgical service, jejunostomy tube was removed Follow-up CT PET scan done on September 28, 2020 showed status post esophageal stent placement, there is a new increased FDG uptake along the proximal and distal aspect of stent with a maximum SUV 4.8 and 5.4, may be postprocedural or inflammatory. New mildly hypermetabolic right supraclavicular, pretracheal and subcarinal lymph nodes with FDG uptake slightly above the mediastinal blood pool. May be inflammatory, metastatic disease not completely excluded. Mildly hypermetabolic tree-in-bud opacities within the superior right lower lobe, measuring below level of mediastinal blood pool likely due to inflammatory or aspiration. Came for follow-up, denies any specific complaint except off-and-on nausea vomiting most of the time within the seconds of eating. No fever chills, no shortness of breath, no diarrhea constipation. Sometimes abdominal pain especially when he do not eat well or after nausea vomiting usually controlled by narcotics. Medications: HYDROcodone-Acetaminophen 15 mL (of 7.5-325 mg/15mL) Solution Oral q 4 hours, Metoclopramide HCl 1 Tablet (of 10 mg) Oral PRN, Metoprolol Succinate ER 1 Tablet (of 25 mg) Tablet SR 24 HR Oral b.i.d., Pantoprazole Sodium 1 Tablet (of 40 mg) Tablet, enteric coated Oral daily Allergies: No Known Allergies. Review of Systems: Review of Systems is not available for this patient. Vital Signs: Performed on Oct 08, 2020 08:59 Height - 70.00 in Weight - 169.2 lbs (HIGH) BSA - 1.94 sq.m BMI - 24.28 Temperature - 97.9 F (LOW) Pulse - 110 /min (HIGH) Respiration - 18 /min BP - 114/66 mm(hg) O2 Sat - 98 % Pain - 3 Performance Status: 1 - No physically strenuous activity, but ambulatory and able to carry out light or sedentary work (e.g. office work, light house work). (ECOG) Physical Examination: [place] [employer] - No mouth sores, no thrush, no jaundice, Respiratory - Lungs are clear to auscultation, Cardiovascular - Regular rate and rhythm of heart, Abdomen - Soft, bowel sounds present, Extremities - No visible edema. Lab/Imaging: Test performed on Aug 03, 2020 08:50 Sodium 131 mmol/L Potassium 4.7 mmol/L Chloride 95 mmol/L CO2 23 mmol/L Anion Gap 17.7 BUN 31 mg/dL Creatinine 1.4 mg/dL Cr Clearance (Est) 55.62 mL/min eGFR 50.9 mL/min Glucose 411 mg/dL Osmolality - Calculated 296 mOsm/kg Calcium 9.4 mg/dL Protein, Total 7.7 g/dL Albumin 3.8 g/dL Globulin 3.9 g/dL Bilirubin, Total 0.7 mg/dL ALT (SGPT) 19 U/L AST (SGOT) 13 U/L Alkaline Phosphatase 97 IU/L WBC 7.8 10 3/uL RBC 4.42 10 6/uL HGB 13.4 g/dL HCT 40.6 % MCV 91.9 fL MCH 30.3 pg MCHC 33.0 g/dL RDW 12.2 % Platelet Count 412 10 3/cmm MPV 9.8 fL Neutrophils 7.33 10 3/uL Lymphocytes 0.3 10 3/uL Monocytes 0.1 10 3/uL Eosinophils 0.0 10 3/uL Basophils 0.0 10 3/uL Neutrophil % 93.5 % Lymphocyte % 3.8 % Monocyte % 1.1 % Eosinophil % 0.0 % Basophils % 0.3 % NRBC % 0 % CBC Slide Review Slide Review Perform SLIDE REVIEW AGREES WITH AUTOMATED RESULTS ST Test performed on Jul 20, 2020 08:45 Manual Lymphocytes 4.4 % Manual Monocytes 1.5 % Manual Eosinophils 0.0 % Manual Basophils 0.1 % Test performed on Jun 15, 2020 00:00 Manual Diff Cancelled via OM: Cancelled in Connected System Impression: Moderately differentiated invasive adenocarcinoma involving distal/mid esophagus for EGD done on April 28, 2020 HER-2/justus 3+ positive CT scan of neck/chest abdomen done on April 20, 2020 showed mild nodular thickening of true vocal cord bilaterally otherwise unremarkable neck and CT scan of chest abdomen showed no mediastinal or hilar lymphadenopathy small esophageal hiatal hernia, mild diffuse fatty infiltration liver. Small left adrenal adenoma measuring 10 mm. Incidental fat-containing umbilical hernia. CT PET scan done on May 27, 2020 showed distal esophageal focal hypermetabolic activity. No findings to suggest distant metastatic disease. Incidental focal uptake at the left ventricle apex can be associated with hypertrophic cardiomyopathy. EUS done on June 22, 2020 showed mass in the distal esophagus, circumferential measures up to 12 mm in thickness suggesting invasion into adventitia, T3 and 2 lymph nodes were seen in the middle paraesophageal mediastinum largest is 15 mm ,N1 Clinical stage III Dysphagia/weight loss due to above. Hypertension. discussed disease status and treatment options with Mr Shell. Based on the EUS finding, he has locally advanced disease so combined chemoradiation therapy with weekly carboplatin AUC 2 and Taxol 50 mg/m??? concurrent with radiation therapy was recommended. did request Port-A-Cath placement to facilitate chemotherapy administration. Mr. Shell had right subclavian PowerPort port placement and jejunostomy [address] Whitten on July 19, 2020.Started on combined chemoradiation with weekly carboplatin/Taxol on July 20, 2020, patient was admitted to hospital on July 22, 2020 with infected hematoma in the abdominal wall, treated with IV antibiotics, at that time it was decided to discontinue concurrent chemotherapy but continue with radiation therapy alone., Patient underwent esophageal stent placement on August 09, 2020, J-tube was removed and abdominal wall cellulitis resolved Plan: Discussed with patient regarding his labs white blood count 5.3 hemoglobin 9.7 g compared to 13.4 g on August 03, 2020 hematocrit 30.7 MCV 96.2 platelets 185,000 CMP within normal limits, creatinine is pending and CT PET scan finding Clinically, patient is doing reasonably well, his follow-up CT PET scan shows increased uptake in the proximal and distal aspects of the stent could be from post procedure or inflammation but there was a concern about right supraclavicular mildly hypermetabolic lymph node and pretracheal and subcarinal lymph node which could be inflammatory as PET scan further noticed mildly hypermetabolic tree-in-bud opacities in the superior right lower lobe could be due to aspiration. Case was discussed with radiation oncologist Dr. Spicer as patient could not complete his recommended treatments earlier and received only 9 out of 25 recommended radiation therapy and 1 course of weekly carboplatin Taxol concurrently but then it was put on hold because of development of infection/cellulitis/abscess around feeding -tube site. Now infection has resolved, so we will consider resuming his treatment with weekly carboplatin and Taxol concurrent with radiation therapy., He will return to clinic 1 week after initiation of combined chemoradiation with CBC CMP. As far as mild nausea vomiting associated with feeding is concerned, patient was advised to eat slowly and chew well, and also maintain good hydration. Signed By: Genoveva Carlos M.D. <<Signature on File>>
== END 2020-10-08 07:51 | disposition home or self-care (01) ==
LOC: ONCMED 07:52
PROVIDERS: PCP Electrodiagnostic Medicine; Visit Provider Internal Medicine Hematology & Oncology
DX: C15.5 Malignant neoplasm of lower third of esophagus (principal); R93.89 Abnormal findings on diagnostic imaging of other specified body structures; K76.0 Fatty (change of) liver, not elsewhere classified; D35.02 Benign neoplasm of left adrenal gland; K42.9 Umbilical hernia without obstruction or gangrene; I10 Essential (primary) hypertension; Z79.899 Other long term (current) drug therapy; Z96.89 Presence of other specified functional implants; Z92.3 Personal history of irradiation; Z93.1 Gastrostomy status
CPT/HCPCS: 36591; 80053; 82607; 83540; 83550; 85025; 85045; 99215

== ENCOUNTER 2020-10-29 05:51 | Outpatient (RCR) | payer MEDICARE, SELFPAY ==
--- NOTE | 2020-10-13 | CT_ITS ---
Radiation Therapy Planning CT images; total exam DLP: 933.75 mGy-cm MTDD
[2020-10-20 09:36] LABS: Basophils % 0.1 %; Hematocrit 31.6 % (42.0-52.0); Lymphocytes # 0.3 10^3/uL (0.8-4.8); Lymphocytes % 2.8 %; Mean Corpuscular HGB Conc 31.6 g/dL (30.0-36.0); Mean Corpuscular Volume 97.8 fL (80-94); Mean Platelet Volume 10.6 fL (7.4-10.4); Monocytes % 0.3 %; Neutrophils # 11.04 10^3/uL (1.8-7.7); Neutrophils % 96.2 %; Nucleated Red Blood Cells % 0 %; Platelet Count 151 10^3/cmm (130-400); Red Blood Count 3.23 10^6/uL (4.1-5.3); Red Cell Distribution Width 14.3 % (12.1-15.1); White Blood Count 11.5 10^3/uL (4.0-10.0)
[2020-10-20 10:08] LABS: Alanine Aminotransferase 18 U/L (0-41); Albumin Level 3.9 g/dL (3.5-5.2); Alkaline Phosphatase 74 IU/L (40-130); Anion Gap 14.1 (5-19); Aspartate Amino Transferase 12 U/L (0-40); Blood Urea Nitrogen 25 mg/dL (8-23); Carbon Dioxide 23 mmol/L (22-29); Chloride 99 mmol/L (98-107); Globulin 2.4 g/dL (1.3-4.6); Glomerular Filtration Rate 166.9 mL/min (90-130); Glucose 375 mg/dL (65-115); Osmolality Calculated 294 mOsm/kg (285-295); Potassium 4.1 mmol/L (3.5-5.1); Sodium 132 mmol/L (136-145); Total Bilirubin 0.5 mg/dL (0.15-1.2); Total Protein 6.3 g/dL (6.6-8.7)
[2020-10-20] MEDS: sodium chloride 0.9% 250 ML 75 ML IV (10:50)
[2020-10-20] MEDS: famotidine 20 mg/2 mL INJ IVP (10:50)
[2020-10-20] MEDS: diphenhydrAMINE 50 mg/mL SDV 1mL 25 MG IVP (10:52)
[2020-10-20] MEDS: palonosetron 0.25 mg/5 mL SDV IVP (10:55)
--- NOTE | 2020-10-25 10:02 | ONCRAD TMN_ITS ---
Radiation Oncology Treatment Management Note Patient Name: Roshan Shell Date of : 1955 Date of Service: 10/25/2020 Attending Physician: Ramon Spicer M.D. 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 The patient has received 26 Gy of a prescribed 50 Reid with an intensity modulated radiotherapy plan utilizing a step and shoot treatment technique. He has been prescribed carboplatin (AUC 2) and paclitaxel (50 mg/m2) weekly during radiotherapy. Upon review of systems, he denied any complaints related to radiotherapy. On physical examination, the patient weighed 168 lbs. His temperature was 98.7 ???F with a blood pressure of 105/70 mmHg. His pulse was 107 bpm and the respiratory rate was 20. There was no erythema within the treatment navarrete. Continue esophageal radiotherapy as prescribed. Signed by: Dr. Ramon Spicer 10/25/2020 10:01:44 AM
[2020-10-27 09:37] LABS: Basophils % 0.5 %; Hematocrit 31.8 % (42.0-52.0); Hemoglobin 10.2 g/dL (11.7-16.6); Lymphocytes # 0.1 10^3/uL (0.8-4.8); Lymphocytes % 2.7 %; Mean Corpuscular HGB Conc 32.1 g/dL (30.0-36.0); Mean Corpuscular Hemoglobin 30.8 pg (28.0-34.0); Mean Corpuscular Volume 96.1 fL (80-94); Mean Platelet Volume 9.8 fL (7.4-10.4); Monocytes # 0.1 10^3/uL (0.2-0.9); Monocytes % 1.5 %; Neutrophils # 3.85 10^3/uL (1.8-7.7); Neutrophils % 94.3 %; Nucleated Red Blood Cells % 0 %; Platelet Count 168 10^3/cmm (130-400); Red Blood Count 3.31 10^6/uL (4.1-5.3); Red Cell Distribution Width 13.5 % (12.1-15.1); White Blood Count 4.1 10^3/uL (4.0-10.0)
[2020-10-27 10:01] LABS: Alanine Aminotransferase 16 U/L (0-41); Albumin Level 3.6 g/dL (3.5-5.2); Alkaline Phosphatase 67 IU/L (40-130); Anion Gap 10.6 (5-19); Aspartate Amino Transferase 14 U/L (0-40); Blood Urea Nitrogen 13 mg/dL (8-23); Calcium 8.4 mg/dL (8.5-10.5); Carbon Dioxide 26 mmol/L (22-29); Chloride 102 mmol/L (98-107); Globulin 2.2 g/dL (1.3-4.6); Glomerular Filtration Rate 215.9 mL/min (90-130); Glucose 268 mg/dL (65-115); Osmolality Calculated 288 mOsm/kg (285-295); Potassium 4.6 mmol/L (3.5-5.1); Sodium 134 mmol/L (136-145); Total Bilirubin 0.3 mg/dL (0.15-1.2); Total Protein 5.8 g/dL (6.6-8.7)
[2020-10-27] MEDS: sodium chloride 0.9% 250 ML 75 ML IV (12:35)
[2020-10-27] MEDS: famotidine 20 mg/2 mL INJ IVP (12:36)
[2020-10-27] MEDS: diphenhydrAMINE 50 mg/mL SDV 1mL 25 MG IV (12:38)
[2020-10-27] MEDS: palonosetron 0.25 mg/5 mL SDV IV (12:43)
[2020-10-29] MEDS: famotidine 20 mg/2 mL INJ IVP (08:36)
[2020-10-29] MEDS: LORazepam 2 mg/mL INJ 1 mL 0.5 MG IV (08:37)
[2020-10-29] MEDS: sodium chloride 0.9% 1,000 ML 999 ML IV (08:40)
--- NOTE | 2020-11-01 09:54 | ONCRAD TMN_ITS ---
Radiation Oncology Treatment Management Note Patient Name: Roshan Shell Date of : 1955 Date of Service: 11/01/2020 Attending Physician: Ramon Spicer M.D. 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 The patient has received 34 Gy of a prescribed 50 Reid with an intensity modulated radiotherapy plan utilizing a step and shoot treatment technique. He has been prescribed carboplatin (AUC 2) and paclitaxel (50 mg/m2) weekly during radiotherapy. Upon review of systems, he denied any complaints related to radiotherapy. He is having intractable nausea. On physical examination, the patient weighed 158 lbs. His temperature was 97 ???F with a blood pressure of 91/58 mmHg. His pulse was 72 bpm and the respiratory rate was 22. There was no erythema within the treatment navarrete. Continue esophageal radiotherapy as planned. He will be given intravenous fluids today and repeat labs. Signed by: Dr. Ramon Spicer 11/01/2020 9:52:37 AM
--- NOTE | 2020-11-13 17:43 | ONC FU_ITS ---
[facility] Patient Note Patient: Roshan Shell Unit #: [id number]: 1955 Dictated By: Jose HassanDate of Visit: Oct 27, 2020 Onc MED Follow-Up/Prog Note Chief Complaint: Esophageal cancer History of Present Illness: Mr. Shell is a 65-year-old gentleman with a history of progressive dysphagia since September or October 2019. He reports that he had a 75 pound weight loss over about 6 months. He began having trouble swallowing solid food off and on and then began having trouble with liquids. He states he has had esophageal reflux in the past and he used Tums or Rolaids He also has a longstanding history of alcohol use since 1975. Mr Shell states he drinks 5-6 beers in a day in addition to 4-5 drinks per day. He does smoke marijuana since age 14. He states it is off and on. He states he used to smoke it recreationally but now he smokes for pain relief and sleep benefits. He has chronic back pain. Mr. Shell underwent GI evaluation for Dr. Whitten at [facility] and on April 28, 2020 he underwent EGD which did show a malignant stricturing mass in the lower third of the esophagus. Stenosis was reported at 3 cm in length and 0.5 cm in diameter. And the stenosis was traversed after dilation. In the mid esophagus a 2 cm segment of sharp segment Ocampo's mucosa was present. 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 He had a CT of the chest/abdomen from 04/20/2020 reported mild chronic emphysematous changes no acute pulmonary infiltrates. There was no mediastinal or hilar lymphadenopathy. He did have a small esophageal hiatal hernia. Mild diffuse fatty infiltration of the liver; small adrenal adenoma-10 mm; and incidental fat-containing umbilical hernia. Mr Shell underwent CT scan of neck on April 20, 2020 which shows mild nodular thickening of the true vocal cords bilaterally otherwise unremarkable. Mr Shell was referred to GI surgery at [facility]. He was evaluated on May 21, 2020 but he had not yet had his staging PET/CT. The recommendations were to review PET/CT scan before deciding about upfront surgery versus neoadjuvant chemoradiation followed by evaluation for surgery. He was also advised to quit smoking marijuana and alcohol as a preparation for treatment. Coleen [facility]arden[facility] NP did arrange for PFTs. Staging CT PET scan was done on May 27, 2020 showed distal esophageal focal hypermetabolic activity with SUV of 5.01 and incidental, focus uptake seen at the left ventricle apex can be associated with hypertrophic cardiomyopathy. No evidence of distant mets. EUS on June 22, 2020 showed large, fungating mass in the distal esophageal, lesion was circumferential well-defined measured up to 12 mm in thickness suggesting invasion into adventitia and unable to traverse the structure so further structures were not evaluated, 2 enlarged lymph nodes were visualized in the middle paraesophageal mediastinum largest 15 mm. Mr. Shell had right subclavian PowerPort port placement and jejunostomy [address] Whitten on July 19, 2020.And received first dose of weekly carboplatin Taxol concurrent with radiation therapy on July 20, 2020 then patient was admitted to hospital on July 22, 2020 for I&D of abdominal wall infected hematoma culture came back positive for E. coli, Klebsiella pneumoniae, treated with antibiotics and chemotherapy was discontinued while as per radiation oncology, continue with radiation therapy alone while being treated for infected hematoma in abdominal wall. Follow-up CT scan of abdomen done on August 05, 2020 showed no contrast leak from J-tube, improved cellulitis and postoperative changes with stable diffuse fatty infiltration of the liver, small esophageal hernia, stable gastric diverticulum with a air-filled level measuring 4.1 x 2.9 cm. Stable left adrenal adenoma, sigmoid diverticulosis, on August 09, 2020 patient underwent esophageal stent placement at [place] CT scan of abdomen done on August 23, 2020 showed jejunostomy tube is in place, stent in the distal esophagus, no focal abnormality in the liver, no free intraperitoneal fluid, admitted to hospital on August 23, 2020 with excessive coughing and vomiting, patient was on clindamycin for cellulitis of abdominal wall around feeding tube and was tolerating orally well and wanted to remove his feeding tube and CT scan of abdomen done on August 23, 2020 showed intussusception distal to the insertion of jejunostomy tube patient was admitted to surgical service, jejunostomy tube was removed. Follow-up CT PET scan done on September 28, 2020 showed status post esophageal stent placement, there is a new increased FDG uptake along the proximal and distal aspect of stent with a maximum SUV 4.8 and 5.4, may be postprocedural or inflammatory. New mildly hypermetabolic right supraclavicular, pretracheal and subcarinal lymph nodes with FDG uptake slightly above the mediastinal blood pool. May be inflammatory, metastatic disease not completely excluded. Mildly hypermetabolic tree-in-bud opacities within the superior right lower lobe, measuring below level of mediastinal blood pool likely due to inflammatory or aspiration. Mr Shell began concurrent chemoradiation on October 20, 2020 with carboplatin paclitaxel. He has tolerated it well thus far. He is here today for follow-up and consideration of week to carboplatin paclitaxel. He has no new concerns today. He denies any fever or chills. He denies mouth sores, sore throat or difficulty swallowing. He denies any new shortness of breath. He denies any orthopnea. He has had no hemoptysis. He denies any chest pain or palpitations. He states he is swallowing liquids really well and actually ate some small pieces of steak over the weekend but states that the little harder now. He denies any neuropathy symptoms from the chemotherapy. He states he has not had any fever or chills. His bowels and bladder are normal for him. His ECOG is 1. Past Medical History: Congestive heart failure Gastroesophageal reflux disease Hypertension Past Surgical History: ACL repair Jejunostomy feeding tube???Dr. Whitten in 2020 Right subclavian PowerPort???Dr. Whitten in 2020 Allergies: No Known Allergies. Medications: HYDROcodone-Acetaminophen 15 mL (of 7.5-325 mg/15mL) Solution Oral q 4 hours LORazepam 0.5 - 1 Tablet (of 1 mg) Oral t.i.d. PRN Metoclopramide HCl 1 Tablet (of 10 mg) Oral PRN Metoprolol Succinate ER 1 Tablet (of 25 mg) Tablet SR 24 HR Oral b.i.d. Pantoprazole Sodium 1 Tablet (of 40 mg) Tablet, enteric coated Oral daily traZODone HCl 1 Tablet (of 50 mg) Oral at bedtime Family History: Mr. Shell's mother at age 85: breast cancer. Mr. Hongs father at age 74: lung cancer. Mr. Shell has 1 brother who is alive: prostate cancer. He has 1 sister who is alive: melanoma. Social History: Mr. Shell is and he is an unknown. Mr. Shell has never smoked. He is an active drinker.He consumes 10 drinks/day 7 days/week. He has indicated exposure to the following products: marijuana, beer, and liquor. Mr. Shell reports the following support systems: lives with spouse, significant other, family, or friends, supportive family/friends willing to assist with needs, and adequate transportation available for expected visits. His diet consists of liquid diet. 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 09/07/2020- Reports decreasing alcohol consumption, now drinking about 1 half glass per day instead of a whole bottle. Review Of Symptoms: see above Vital Signs: Performed on Oct 27, 2020 15:20 Height - 70.00 in Temperature - 98.3 F (LOW) Pulse - 119 /min (HIGH) Respiration - 18 /min BP - 109/80 mm(hg) O2 Sat - 100 % Performed on Oct 27, 2020 11:54 Height - 70.00 in Weight - 170.8 lbs (HIGH) BSA - 1.95 sq.m BMI - 24.51 Temperature - 98.5 F Pulse - 110 /min (HIGH) Respiration - 18 /min BP - 131/83 mm(hg) O2 Sat - 98 % Pain - 3 Fatigue - 9,1 - No physically strenuous activity, but ambulatory and able to carry out light or sedentary work (e.g. office work, light house work). (ECOG) Physical Examination: Constitutional Alert, oriented, no acute distress. Skin pink, warm and dry. Head Normocephalic; atraumatic. Eyes Conjunctivae and sclerae are clear and without icterus. Pupils are reactive and equal. Neck Supple without masses or thyromegaly. No jugular venous distension. Hematologic/Lymphatic No petechiae or purpura. No tender or palpable lymph nodes in the cervical or supraclavicular areas. Respiratory Lungs are clear to auscultation without rhonchi or wheezing. Cardiovascular Regular rate and rhythm of heart without murmurs,clicks, gallops or rubs. Chest Right subclavian venous access device insertion site is unremarkable. It was placed July 19, [address] Whitten. Abdomen Non-tender, non-distended, no masses or ascites. Good bowel sounds noted in all quads. No guarding or rebound tenderness. No pulsatile masses. Feeding tube site not assessed due to dressing. The dressing is clean, dry and intact. Back/Spine Non-tender to palpation. Extremities No visible deformities, no cyanosis, clubbing or edema. Musculoskeletal No tenderness or swelling, normal range of motion without obvious weakness. Integumentary No rashes or lesions. Neurologic No sensory or motor deficits, normal cerebellar function, normal gait. Psychiatric Alert and oriented times three. Coherent speech. Verbalizes understanding of our discussions today. Laboratory:Test performed on November 08, 2020 14:06 Glucose 288 mg/dL BUN 9 mg/dL Creatinine 0.5 mg/dL Cr Clearance (Est) 159.89 mL/min Sodium 138 mmol/L Potassium 4.0 mmol/L Chloride 103 mmol/L CO2 26 mmol/L Calcium 8.5 mg/dL Protein, Total 5.6 g/dL Albumin 3.4 g/dL Globulin 2.2 g/dL Bilirubin, Total 0.3 mg/dL Alkaline Phosphatase 59 IU/L AST (SGOT) 17 IU/L ALT (SGPT) 13 IU/L WBC 2.3 10^9/L RBC 3.45 10^12/L HGB 10.5 g/dL HCT 32.7 % MCV 94.9 fl MCH 30.4 pg MCHC 32.1 g/dL RDW 13.4 % Platelet Count 100 10^9/L MPV 10.1 fL Neutrophils (Gran) 1.58 10^9/L Lymphocytes 0.2 10^9/L Monocytes 0.4 10^9/L Eosinophils 0.0 10^9/L Basophils 0.0 10^9/L Manual Lymphocytes 9.1 % Manual Monocytes 19.0 % Manual Eosinophils 0.9 % Manual Basophils 0.9 % Test performed on Oct 27, 2020 09:10 Anion Gap 10.6 eGFR 215.9 mL/min Osmolality - Calculated 288 mOsm/kg Neutrophil % 94.3 % Lymphocyte % 2.7 % Monocyte % 1.5 % Eosinophil % 0.0 % Basophils % 0.5 % NRBC % 0 % Test performed on Oct 08, 2020 09:12 Iron 51 mcg/dL Vitamin B12 338 pg/mL Iron Binding Capacity (TIBC) 249 mcg/dl % Iron Saturation 20.4 % UIBC 198 mcg/dL Retic Count % 2.6 % Impression: Moderately differentiated invasive adenocarcinoma involving distal/mid esophagus for EGD done on April 28, 2020 HER-2/justus 3+ positive CT scan of neck/chest abdomen done on April 20, 2020 showed mild nodular thickening of true vocal cord bilaterally otherwise unremarkable neck and CT scan of chest abdomen showed no mediastinal or hilar lymphadenopathy small esophageal hiatal hernia, mild diffuse fatty infiltration liver. Small left adrenal adenoma measuring 10 mm. Incidental fat-containing umbilical hernia. CT PET scan done on May 27, 2020 showed distal esophageal focal hypermetabolic activity. No findings to suggest distant metastatic disease. Incidental focal uptake at the left ventricle apex can be associated with hypertrophic cardiomyopathy. EUS done on June 22, 2020 showed mass in the distal esophagus, circumferential measures up to 12 mm in thickness suggesting invasion into adventitia, T3 and 2 lymph nodes were seen in the middle paraesophageal mediastinum largest is 15 mm ,N1 Dysphagia/weight loss due to above. Hypertension. Dr Carlos discussed disease status and treatment options with Mr Shell. Based on the EUS finding, he has locally advanced disease so combined chemoradiation therapy with weekly carboplatin AUC 2 and Taxol 50 mg/m??? concurrent with radiation therapy was recommended. Dr Carlos did request Port-A-Cath placement to facilitate chemotherapy administration. Mr. Shell had right subclavian PowerPort port placement and jejunostomy [address] Whitten on July 19, 2020. Plan: PROBLEMS ADDRESSED TODAY 1. Moderately differentiated invasive adenocarcinoma in the distal/mid esophagus. A. Proceed with week 2 carboplatinum/paclitaxel in combination with radiation. B. Steroid compliance confirmed. C. Today's labs were reviewed in detail discussed with Mr. Shell and a copy was given to him. WBC 4.1, hemoglobin 10.2, platelets 268,000, ANC is 3850???it was 11,000 last week. Potassium 4.6, random glucose 268???steroid-induced creatinine 0.5 LFTs are normal. D. He will return weekly for weekly CBC CMP and follow-up for weekly carboplatin paclitaxel while on radiation. E. He will have prochlorperazine and lorazepam on hand at home for antiemetics as needed. I have also advised him that he could try lorazepam to help him sleep if he has trouble with the steroids. F. We will make sure that he has refills on his pantozoprole. He is encouraged to take it daily. G. Mr. Shell was instructed to contact us in interim should questions or problems arise. Signed By: Jose Hassan-, [facility] Genoveva Carlos MD <<Signature on File>>
--- NOTE | 2020-11-15 23:47 | ONC FU_ITS ---
[facility] Patient Note Patient: Roshan Shell Unit #: [id number]: 1955 Dictated By: Jose HassanDate of Visit: Nov 03, 2020 Onc MED Follow-Up/Prog Note Chief Complaint: Esophageal cancer History of Present Illness: Mr. Shell is a 65-year-old gentleman with a history of progressive dysphagia since September or October 2019. He reports that he had a 75 pound weight loss over about 6 months. He began having trouble swallowing solid food off and on and then began having trouble with liquids. He states he has had esophageal reflux in the past and he used Tums or Rolaids He also has a longstanding history of alcohol use since 1975. Mr Shell states he drinks 5-6 beers in a day in addition to 4-5 drinks per day. He does smoke marijuana since age 14. He states it is off and on. He states he used to smoke it recreationally but now he smokes for pain relief and sleep benefits. He has chronic back pain. Mr. Shell underwent GI evaluation for Dr. Whitten at [facility] and on April 28, 2020 he underwent EGD which did show a malignant stricturing mass in the lower third of the esophagus. Stenosis was reported at 3 cm in length and 0.5 cm in diameter. And the stenosis was traversed after dilation. In the mid esophagus a 2 cm segment of sharp segment Ocampo's mucosa was present. 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 He had a CT of the chest/abdomen from 04/20/2020 reported mild chronic emphysematous changes no acute pulmonary infiltrates. There was no mediastinal or hilar lymphadenopathy. He did have a small esophageal hiatal hernia. Mild diffuse fatty infiltration of the liver; small adrenal adenoma-10 mm; and incidental fat-containing umbilical hernia. Mr Shell underwent CT scan of neck on April 20, 2020 which shows mild nodular thickening of the true vocal cords bilaterally otherwise unremarkable. Mr Shell was referred to GI surgery at [facility]. He was evaluated on May 21, 2020 but he had not yet had his staging PET/CT. The recommendations were to review PET/CT scan before deciding about upfront surgery versus neoadjuvant chemoradiation followed by evaluation for surgery. He was also advised to quit smoking marijuana and alcohol as a preparation for treatment. Coleen Cardenas NP did arrange for PFTs. Staging CT PET scan was done on May 27, 2020 showed distal esophageal focal hypermetabolic activity with SUV of 5.01 and incidental, focus uptake seen at the left ventricle apex can be associated with hypertrophic cardiomyopathy. No evidence of distant mets. EUS on June 22, 2020 showed large, fungating mass in the distal esophageal, lesion was circumferential well-defined measured up to 12 mm in thickness suggesting invasion into adventitia and unable to traverse the structure so further structures were not evaluated, 2 enlarged lymph nodes were visualized in the middle paraesophageal mediastinum largest 15 mm. Mr. Shell had right subclavian PowerPort port placement and jejunostomy [address] Whitten on July 19, 2020.And received first dose of weekly carboplatin Taxol concurrent with radiation therapy on July 20, 2020 then patient was admitted to hospital on July 22, 2020 for I&D of abdominal wall infected hematoma culture came back positive for E. coli, Klebsiella pneumoniae, treated with antibiotics and chemotherapy was discontinued while as per radiation oncology, continue with radiation therapy alone while being treated for infected hematoma in abdominal wall. Follow-up CT scan of abdomen done on August 05, 2020 showed no contrast leak from J-tube, improved cellulitis and postoperative changes with stable diffuse fatty infiltration of the liver, small esophageal hernia, stable gastric diverticulum with a air-filled level measuring 4.1 x 2.9 cm. Stable left adrenal adenoma, sigmoid diverticulosis, on August 09, 2020 patient underwent esophageal stent placement at [place] CT scan of abdomen done on August 23, 2020 showed jejunostomy tube is in place, stent in the distal esophagus, no focal abnormality in the liver, no free intraperitoneal fluid, admitted to hospital on August 23, 2020 with excessive coughing and vomiting, patient was on clindamycin for cellulitis of abdominal wall around feeding tube and was tolerating orally well and wanted to remove his feeding tube and CT scan of abdomen done on August 23, 2020 showed intussusception distal to the insertion of jejunostomy tube patient was admitted to surgical service, jejunostomy tube was removed. Follow-up CT PET scan done on September 28, 2020 showed status post esophageal stent placement, there is a new increased FDG uptake along the proximal and distal aspect of stent with a maximum SUV 4.8 and 5.4, may be postprocedural or inflammatory. New mildly hypermetabolic right supraclavicular, pretracheal and subcarinal lymph nodes with FDG uptake slightly above the mediastinal blood pool. May be inflammatory, metastatic disease not completely excluded. Mildly hypermetabolic tree-in-bud opacities within the superior right lower lobe, measuring below level of mediastinal blood pool likely due to inflammatory or aspiration. Mr Shell began concurrent chemoradiation on October 20, 2020 with carboplatin/paclitaxel. He is here today for follow-up and consideration of week 3 carboplatin paclitaxel. Mr. Shell was seen in the emergency room at [facility] on October 29, 2020 for nausea and vomiting. He had been unable to keep any fluids or food down for a last couple of days. He was admitted and then discharged on October 30, 2020. He was found to be neutropenic with an ANC of 1090. He was given 1 dose of filgrastim and he was discharged on multivitamin, levofloxacin 500 mg daily and ondansetron 8 mg ODT. He has no new concerns today. He denies any fever or chills. He states he has been more tired than normal but feels better since discharge. He denies mouth sores, sore throat. He denies any new shortness of breath. He denies any orthopnea. He denies any cough or hemoptysis. He has had no hemoptysis. He denies any chest pain or palpitations. He states he is swallowing liquids ok , and is still able to get some solid foods down. although he admits it is somewhat uncomfortable when he swallows even with just water. We did discuss that this is likely to get worse before it gets better. He states that his current pain medication does not do much for relief. He denies any neuropathy symptoms from the chemotherapy. His bowels and bladder are normal for him. His ECOG is 1. Past Medical History: Congestive heart failure Gastroesophageal reflux disease Hypertension Past Surgical History: ACL repair Jejunostomy feeding tube???Dr. Whitten in 2020 Right subclavian PowerPort???Dr. Whitten in 2020 Allergies: No Known Allergies. Medications: HYDROcodone-Acetaminophen 15 mL (of 7.5-325 mg/15mL) Solution Oral q 4 hours LORazepam 0.5 - 1 Tablet (of 1 mg) Oral t.i.d. PRN Metoclopramide HCl 1 Tablet (of 10 mg) Oral PRN Metoprolol Succinate ER 1 Tablet (of 25 mg) Tablet SR 24 HR Oral b.i.d. Pantoprazole Sodium 1 Tablet (of 40 mg) Tablet, enteric coated Oral daily traZODone HCl 1 Tablet (of 50 mg) Oral at bedtime Family History: Mr. Shell's mother at age 85: breast cancer. Mr. Shell's father at age 74: lung cancer. Mr. Shell has 1 brother who is alive: prostate cancer. He has 1 sister who is alive: melanoma. Social History: Mr. Shell is and he is an unknown. Mr. Shell has never smoked. He is an active drinker.He consumes 10 drinks/day 7 days/week. He has indicated exposure to the following products: marijuana, beer, and liquor. Mr. Shell reports the following support systems: lives with spouse, significant other, family, or friends, supportive family/friends willing to assist with needs, and adequate transportation available for expected visits. His diet consists of liquid diet. 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 09/07/2020- Reports decreasing alcohol consumption, now drinking about 1 half glass per day instead of a whole bottle. Review Of Symptoms: <See Above> Vital Signs: Performed on Nov 03, 2020 09:22 Height - 70.00 in Weight - 161.0 lbs (HIGH) BSA - 1.90 sq.m BMI - 23.10 Temperature - 99.0 F (HIGH) Pulse - 120 /min (HIGH) Respiration - 18 /min BP - 96/64 mm(hg) O2 Sat - 82 % (LOW) Pain - 2,1 - No physically strenuous activity, but ambulatory and able to carry out light or sedentary work (e.g. office work, light house work). (ECOG) Physical Examination: Constitutional Alert, oriented, no acute distress. Skin pink, warm and dry. Head Normocephalic; atraumatic. Eyes Conjunctivae and sclerae are clear and without icterus. Pupils are reactive and equal. Neck Supple without masses or thyromegaly. No jugular venous distension. Respiratory Lungs are clear to auscultation without rhonchi or wheezing. Cardiovascular Regular rate and rhythm of heart without murmurs,clicks, gallops or rubs. Chest Right subclavian venous access device insertion site is unremarkable. Back/Spine Non-tender to palpation. Extremities No visible deformities, no cyanosis, clubbing or edema. Musculoskeletal No tenderness or swelling, normal range of motion without obvious weakness. Integumentary No rashes or lesions. Neurologic No sensory or motor deficits, normal cerebellar function, normal gait. Psychiatric Alert and oriented times three. Coherent speech. Verbalizes understanding of our discussions today. Laboratory:Test performed on November 08, 2020 14:06 Glucose 288 mg/dL BUN 9 mg/dL Creatinine 0.5 mg/dL Cr Clearance (Est) 159.89 mL/min Sodium 138 mmol/L Potassium 4.0 mmol/L Chloride 103 mmol/L CO2 26 mmol/L Calcium 8.5 mg/dL Protein, Total 5.6 g/dL Albumin 3.4 g/dL Globulin 2.2 g/dL Bilirubin, Total 0.3 mg/dL Alkaline Phosphatase 59 IU/L AST (SGOT) 17 IU/L ALT (SGPT) 13 IU/L WBC 2.3 10^9/L RBC 3.45 10^12/L HGB 10.5 g/dL HCT 32.7 % MCV 94.9 fl MCH 30.4 pg MCHC 32.1 g/dL RDW 13.4 % Platelet Count 100 10^9/L MPV 10.1 fL Neutrophils (Gran) 1.58 10^9/L Lymphocytes 0.2 10^9/L Monocytes 0.4 10^9/L Eosinophils 0.0 10^9/L Basophils 0.0 10^9/L Manual Lymphocytes 9.1 % Manual Monocytes 19.0 % Manual Eosinophils 0.9 % Manual Basophils 0.9 % Impression: Moderately differentiated invasive adenocarcinoma involving distal/mid esophagus for EGD done on April 28, 2020 HER-2/justus 3+ positive CT scan of neck/chest abdomen done on April 20, 2020 showed mild nodular thickening of true vocal cord bilaterally otherwise unremarkable neck and CT scan of chest abdomen showed no mediastinal or hilar lymphadenopathy small esophageal hiatal hernia, mild diffuse fatty infiltration liver. Small left adrenal adenoma measuring 10 mm. Incidental fat-containing umbilical hernia. CT PET scan done on May 27, 2020 showed distal esophageal focal hypermetabolic activity. No findings to suggest distant metastatic disease. Incidental focal uptake at the left ventricle apex can be associated with hypertrophic cardiomyopathy. EUS done on June 22, 2020 showed mass in the distal esophagus, circumferential measures up to 12 mm in thickness suggesting invasion into adventitia, T3 and 2 lymph nodes were seen in the middle paraesophageal mediastinum largest is 15 mm ,N1 Dysphagia/weight loss due to above. Hypertension. Dr Carlos discussed disease status and treatment options with Mr Shell. Based on the EUS finding, he has locally advanced disease so combined chemoradiation therapy with weekly carboplatin AUC 2 and Taxol 50 mg/m??? concurrent with radiation therapy was recommended. Dr Carlos did request Port-A-Cath placement to facilitate chemotherapy administration. Mr. Shell had right subclavian PowerPort port placement and jejunostomy [address] Whitten on July 19, 2020. Mr. Shell began combined chemotherapy radiation on October 20, 2020. Plan/Problems Addressed at this Visit: 1. Moderately differentiated invasive adenocarcinoma in the distal/mid esophagus. A. HOLD week 3 carboplatinum/paclitaxel Due to persistent neutropenia with an ANC today of 1300. His platelet count is 84,000. B. He will have supportive care today with hydration, antiemetics and fluconazole. C. November 01, 2020 labs were reviewed in detail discussed with Mr. Shell and a copy was given to him. WBC 1.7, hemoglobin 9.9, platelets 84,000, ANC is 1300. Potassium 3.9 creatinine 0.4 albumin 3.2 LFTs are normal. His weight is 161.0 today D. He will return weekly for weekly CBC CMP and follow-up for weekly carboplatin paclitaxel while on radiation. E. I did not pursue growth factor support with him today as his platelet count was 84,000. He will recheck a CBC next week and plan to receive chemotherapy at that time. G. Mr. Shell was instructed to contact us in interim should questions or problems arise. H. We will have him try hydromorphone 4 mg 1 to 2 tablets every 4-6 hours as needed for pain. He has tried this in the past and states it has been successful. He was given a dose IV today and did have good response. A written prescription was obtained per Dr. Carlos. Signed By: Jose Hassan-, AOCNP Genoveva Carlos MD <<Signature on File>>
== END 2020-10-29 14:00 | disposition home or self-care (01) ==
LOC: ONCMED 05:51
PROVIDERS: Internal Medicine Hematology & Oncology; Nurse Practitioner; Absent Provider Radiology Radiation Oncology; PCP Electrodiagnostic Medicine; Visit Provider Radiology Radiation Oncology
DX: Z51.0 Encounter for antineoplastic radiation therapy (principal); Z51.11 Encounter for antineoplastic chemotherapy; C15.5 Malignant neoplasm of lower third of esophagus; D35.02 Benign neoplasm of left adrenal gland; I10 Essential (primary) hypertension; K42.9 Umbilical hernia without obstruction or gangrene; K44.9 Diaphragmatic hernia without obstruction or gangrene; K76.0 Fatty (change of) liver, not elsewhere classified; R13.10 Dysphagia, unspecified; Z79.899 Other long term (current) drug therapy
CPT/HCPCS: 77300; 77301; 77334; 77336; 77338; 77386; 80053; 85025; 96361; 96365; 96367; 96368; 96372; 96374; 96375; 96413; 96417; 99214; J1100; J1200; J1815; J2060; J2469; J3490; J7030; J7050; J9045; J9267; Q9967

== ENCOUNTER 2020-10-29 14:35 | Observation (INO) | payer MEDICARE, SELFPAY ==
[2020-10-29 14:51] VITALS: BP 112/73; PULSE 108; RESP 18; TEMP 37.1; O2SAT 99; BMI 24.3
[2020-10-29] MEDS: sodium chloride 0.9% 1,000 ML 999 ML IV (18:20)
[2020-10-29] MEDS: ondansetron 2 mg/ML SDV 2 mL 4 MG IVP (18:21)
[2020-10-29 18:27] LABS: Basophils % 0.5 %; Hematocrit 34.9 % (42.0-52.0); Hemoglobin 11.3 g/dL (11.7-16.6); Lymphocytes # 0.2 10^3/uL (0.8-4.8); Mean Corpuscular HGB Conc 32.4 g/dL (30.0-36.0); Mean Corpuscular Hemoglobin 31.3 pg (28.0-34.0); Mean Corpuscular Volume 96.7 fL (80-94); Mean Platelet Volume 9.7 fL (7.4-10.4); Monocytes # 0.2 10^3/uL (0.2-0.9); Monocytes % 8.4 %; Neutrophils # 1.79 10^3/uL (1.8-7.7); Neutrophils % 83.6 %; Nucleated Red Blood Cells % 0 %; Platelet Count 149 10^3/cmm (130-400); Red Blood Count 3.61 10^6/uL (4.1-5.3); Red Cell Distribution Width 13.5 % (12.1-15.1); White Blood Count 2.1 10^3/uL (4.0-10.0)
[2020-10-29 18:44] LABS: Alanine Aminotransferase 17 U/L (0-41); Albumin Level 4.1 g/dL (3.5-5.2); Alkaline Phosphatase 68 IU/L (40-130); Anion Gap 13.9 (5-19); Aspartate Amino Transferase 15 U/L (0-40); Blood Urea Nitrogen 15 mg/dL (8-23); Calcium 8.8 mg/dL (8.5-10.5); Carbon Dioxide 27 mmol/L (22-29); Chloride 103 mmol/L (98-107); Globulin 2.2 g/dL (1.3-4.6); Glomerular Filtration Rate 215.9 mL/min (90-130); Glucose 135 mg/dL (65-115); Lactic Sepsis W/Reflex 0.9 mmol/L (0.5-2.2); Osmolality Calculated 293 mOsm/kg (285-295); Potassium 3.9 mmol/L (3.5-5.1); Sodium 140 mmol/L (136-145); Total Bilirubin 0.8 mg/dL (0.15-1.2); Total Protein 6.3 g/dL (6.6-8.7)
[2020-10-29 18:48] LABS: Creatinine Clr Calc Pharmacy 97.1932
[2020-10-29 20:07] VITALS: BP 121/69; PULSE 110; RESP 19; O2SAT 99
--- NOTE | 2020-10-29 20:10 | P.HP_ITS ---
Providers/Chief Complaint Primary Care Provider: Raleigh Boyd DO Chief Complaint: CANCER PT, UNABLE TO KEEP ANYTHING DOWN History of Present Illness Emery Shell is a 65 year old male who was diagnosed with stage III distal esophageal adenocarcinoma, currently undergoing chemo and radiation treatments. His last chemotherapy was several days ago and last radiation treatment was today. Since last chemo he developed increased nausea and vomiting. Basically he was unable to keep any food or liquids down for last couple of days. Denies any hematemesis. Denies fevers or chills. Denies diarrhea. Denies chest pain or shortness of breath. No significant abdominal pain. Reports similar in the past. He reports that he has lost about 85 pounds since when he was diagnosed with cancer. Review of Systems General: Reports: 10 or more systems reviewed and unremarkable except in HPI and below Medications/Allergies Home Medications Medication Instructions Recorded Confirmed Last Taken Type acetaminophen [Tylenol Arthritis 1,300 mg PO PRN 07/22/20 10/29/20 09/17/20 History Pain] ibuprofen 600 mg PO PRN 07/22/20 10/29/20 09/17/20 History lorazepam 1 mg PO TID PRN 07/22/20 10/29/20 10/27/20 History prochlorperazine maleate 10 mg PO Q4H PRN 07/22/20 10/29/20 09/21/20 History aspirin 325 mg PO PRN 08/05/20 10/29/20 Unknown History metoprolol tartrate See Rx Instructions .ROUTE .COMPLEX 09/17/20 10/29/20 10/27/20 History ondansetron HCl [Zofran] 4 mg PO Q6H PRN #20 tab 09/17/20 10/29/20 Unknown Rx lidocaine-prilocaine See Rx Instructions .ROUTE .COMPLEX 09/24/20 10/29/20 Unknown History nystatin See Rx Instructions .ROUTE .COMPLEX 09/24/20 10/29/20 Unknown History pantoprazole [Protonix] 40 mg PO DAILY 09/24/20 10/29/20 10/27/20 History metoclopramide HCl [Reglan] 10 mg PO Q6H #15 tab 09/25/20 10/29/20 10/27/20 Rx hydrocodone-acetaminophen 15 - 30 ml PO PRN PRN 10/29/20 10/29/20 10/27/20 History Allergies Allergy/AdvReac Type Severity Reaction Status Date / Time No Known Allergies Allergy Verified 10/01/20 16:12 PFSH Acute PFSH: Medical History Atrial fibrillation/flutter Dysphagia 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 Carlos, HER-2/justus 3+positive, Clinical Stage III, started carboplatin/taxol 07/21/20, receiving radiation therapy History of heart failure per patient years ago, not currently on any treatment for such; Echo 04/2020 with normal EF, indeterminant diastolic function due to tachycardia Hypertension Intussusception of jejunum Incidental finding without clinical significance Jejunal intussusception Jejunostomy tube leak Surgical History History of incision and drainage (07/22/20) abdominal wall abscess/hematoma History of jejunostomy tube placement (07/19/20) History of knee surgery ACL reconstruction Port-A-Cath in place (07/19/20) Family History Father Cancer lung Mother Cancer breast Brother Cancer prostate cancer Sister Cancer melanoma Denies family history of Anesthesia complication Bleeding disorder Social History Smoking and tobacco status: never smoked Alcohol intake: current Alcohol intake frequency: 3 or more drinks per day Vitals/I&O/Wt Last Vital Signs Temp 98.7 F 10/29/20 14:51 Pulse 110 H 10/29/20 20:07 Resp 19 H 10/29/20 20:07 BP 121/69 10/29/20 20:07 Pulse Ox 99 10/29/20 20:07 Weight last 48 hrs Weight 77.111 kg Physical Exam Narrative: EXAM NARRATIVE: The patient is awake alert and oriented. Pleasant. No acute distress. Mood and affect are appropriate. Responses are adequate. Skin is warm and dry. Dry mucous membranes Eyes PERRL, extraocular muscles are intact Normal speech. Neck supple. No JVD Lungs are clear to auscultation bilaterally. No wheezes or crackles Heart S1, S2, regular Abdomen soft, nontender, bowel sounds are present Extremities no edema cyanosis or calf tenderness bilaterally. No focal weakness on neuro evaluation. Data : 10/29/20 18:20 10/29/20 18:20 Other Labs: Laboratory Results WBC 2.1 10^3/uL (4.0-10.0) L 10/29/20 18:20 RBC 3.61 10^6/uL (4.1-5.3) L 10/29/20 18:20 Hgb 11.3 g/dL (11.7-16.6) L 10/29/20 18:20 Hct 34.9 % (42.0-52.0) L 10/29/20 18:20 MCV 96.7 fL (80-94) H 10/29/20 18:20 MCH 31.3 pg (28.0-34.0) 10/29/20 18:20 MCHC 32.4 g/dL (30.0-36.0) 10/29/20 18:20 RDW 13.5 % (12.1-15.1) 10/29/20 18:20 Plt Count 149 10^3/cmm (130-400) 10/29/20 18:20 MPV 9.7 fL (7.4-10.4) 10/29/20 18:20 Neut % (Auto) 83.6 % 10/29/20 18:20 Lymph % (Auto) 7.0 % 10/29/20 18:20 [place] % (Auto) 8.4 % 10/29/20 18:20 Eos % (Auto) 0.0 % 10/29/20 18:20 Baso % (Auto) 0.5 % 10/29/20 18:20 Neut # (Auto) 1.79 10^3/uL (1.8-7.7) L 10/29/20 18:20 Lymph # (Auto) 0.2 10^3/uL (0.8-4.8) L 10/29/20 18:20 [place] # (Auto) 0.2 10^3/uL (0.2-0.9) 10/29/20 18:20 Eos # (Auto) 0.0 10^3/uL (0.0-0.8) 10/29/20 18:20 Baso # (Auto) 0.0 10^3/uL (0.0-0.1) 10/29/20 18:20 Nucleated RBC % (auto) 0 % 10/29/20 18:20 Nucleated RBCs # 0.0 /100WBC 10/29/20 18:20 Sodium 140 mmol/L (136-145) 10/29/20 18:20 Potassium 3.9 mmol/L (3.5-5.1) 10/29/20 18:20 Chloride 103 mmol/L (98-107) 10/29/20 18:20 Carbon Dioxide 27 mmol/L (22-29) 10/29/20 18:20 Anion Gap 13.9 (5-19) 10/29/20 18:20 BUN 15 mg/dL (8-23) 10/29/20 18:20 Creatinine 0.4 mg/dL (0.7-1.2) L 10/29/20 18:20 GFR Calculation 215.9 mL/min (90-130) H 10/29/20 18:20 Glucose 135 mg/dL (65-115) H 10/29/20 18:20 Calculated Osmolality 293 mOsm/kg (285-295) 10/29/20 18:20 Lactic Acid 0.9 mmol/L (0.5-2.2) 10/29/20 18:20 Calcium 8.8 mg/dL (8.5-10.5) 10/29/20 18:20 Total Bilirubin 0.8 mg/dL (0.15-1.2) 10/29/20 18:20 AST 15 U/L (0-40) 10/29/20 18:20 ALT 17 U/L (0-41) 10/29/20 18:20 Alkaline Phosphatase 68 IU/L (40-130) 10/29/20 18:20 Total Protein 6.3 g/dL (6.6-8.7) L 10/29/20 18:20 Albumin 4.1 g/dL (3.5-5.2) 10/29/20 18:20 Globulin 2.2 g/dL (1.3-4.6) 10/29/20 18:20 A&P Additional A&P Information 65-year-old male with past medical history of distal esophageal adenocarcinoma stage III diagnosed around last [place] currently undergoing chemo and radiation treatments who is presenting with nausea and vomiting and not being able to keep food and liquids down since last couple of days. Dehydration secondary to nausea vomiting secondary to chemo and radiation treatments. No evidence of infection. No diarrhea. Will admit for observation for hydration with IV fluids. Will monitor and replace electrolytes. Most likely he will be able to go home in a day or 2. Will ask for nutritional consult for advice regarding food intake. We will start clear liquid diet home orrow morning and advance as tolerated. Nausea medications as needed. Anemia and leukocytopenia probably secondary to cancer treatments. Mild. Stable. No evidence of infection. We will continue monitoring. His oncologist is Dr. Carlos. Might require additional work-up in outpatient settings. DVT prophylaxis. Lovenox, teds and SCDs Hypertension. Currently well controlled. Continue home medications. History of EtOH. Will prescribe thiamine and folate. Not active drinker now. CODE STATUS. He wants to be DNR. He fully understands the concept of DNR and is adamant in his decision. The plan of care was discussed with the patient. He verbalized understanding and agreement. Attestations Medical Necessity Statement*: Observation Coding Level of Care Code Acute Student Outreach Coordinator for Jasen Watkins
[2020-10-29 20:14] LABS: Add Urine Microscopic? NO; Charge for UA Resulting for Rev
[2020-10-29 20:18] LABS: Bilirubin Urine Neg (Negative); Blood Urine Neg (Negative); Glucose Urine UA Norm (Normal); Ketones Urine 1+ (Negative); Leukocyte Esterase Urine Negative (Negative); Nitrate Urine Negative (Negative); Protein Urine Neg (Negative); Specific Gravity, Urine 1.015 (1.005-1.030); Urine Appearance Clear (CLEAR); Urine Color Yellow (Yellow); Urobilinogen Urine Norm (Negative); pH Urine 6 (5-7)
--- NOTE | 2020-10-29 20:44 | ED_ITS ---
HPI - Nausea/Vomiting/Diarrhea General: Chief complaint: Nausea/Vomiting/Diarrhea Stated complaint: CANCER PT, UNABLE TO KEEP ANYTHING DOWN Time Seen by Provider: 10/29/20 17:45 Source: patient Mode of arrival: ambulatory Limitations: no limitations History of Present Illness: HPI Narrative: This is a 65-year-old male with esophageal cancer who had chemotherapy 2 days ago and has been unable to keep anything down since then. He has had intractable nausea and vomiting. He was unable to receive radiation therapy yesterday because of this. Today he was given some IV fluids and given radiation but his vomiting has persisted and so he was asked to come to the emergency department to be evaluated. He denies any fever or loss of appetite. He denies constipation or diarrhea. MD elicited complaint: nausea and vomiting Pertinent past history: other (esophageal cancer) Onset (ago): day(s) (2) Description of vomiting: food contents Associated nausea: Yes Associated abdominal pain: No Location of pain: None Relieving factors: none Associated symtoms: Reports fatigue and nausea; Denies altered mental status, anxiety, bloating, change in vision, chest pain, cough, diaphoresis, decreased urine output, dizziness, dysuria, epistaxis, fecal incontinence, fevers/chills, headache(s), anorexia, malaise, myalgias, numbness, palpitations, rash, short of breath, syncope, tenesmus, tinnitus or weakness Review of Systems General: Reports: 10 or more systems reviewed and unremarkable except in HPI and below Const: Reports: fatigue; Denies: malaise or diaphoresis Eyes: Denies: change in vision ENMT: Denies: tinnitus or epistaxis Card: Denies: chest pain, palpitations or syncope GI: Reports: nausea; Denies: bloating or fecal incontinence : Denies: dysuria Neuro: Denies: headache(s) or dizziness Psych: Denies: anxiety PFSH ED PFSH: Medical History (Reviewed 10/29/20 @ 20:49 by Caitlin Fuentes MD, [facility] [place] Atrial fibrillation/flutter Dysphagia 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 Carlos, HER-2/justus 3+positive, Clinical Stage III, started carboplatin/taxol 07/21/20, receiving radiation therapy History of heart failure per patient years ago, not currently on any treatment for such; Echo 04/2020 with normal EF, indeterminant diastolic function due to tachycardia Hypertension Intussusception of jejunum Incidental finding without clinical significance Jejunal intussusception Jejunostomy tube leak Surgical History (Reviewed 10/29/20 @ 20:49 by Caitlin Fuentes MD, [facility] [place] History of incision and drainage (07/22/20) abdominal wall abscess/hematoma History of jejunostomy tube placement (07/19/20) History of knee surgery ACL reconstruction Port-A-Cath in place (07/19/20) Family History (Reviewed 10/29/20 @ 20:49 by Caitlin Fuentes MD, [facility] [place]) Father Cancer lung Mother Cancer breast Brother Cancer prostate cancer Sister Cancer melanoma Denies family history of Anesthesia complication Bleeding disorder Social History (Reviewed 10/29/20 @ 20:49 by Caitlin Fuentes MD, [facility] [place]) Smoking and tobacco status: never smoked Alcohol intake: current Alcohol intake frequency: 3 or more drinks per day Physical Exam Const: COMMON NORMALS: no acute distress, average body habitus, patient oriented x3, no limitations, healthy appearing, alert and well nourished EXAM LIMITATIONS: no altered mental status HENMT: COMMON NORMALS: normocephalic, atraumatic and moist oral mucous membranes HEAD & SCALP: normocephalic and atraumatic Neck/C-Spine: COMMON NORMALS: no meningeal signs and no JVD Resp: COMMON NORMALS: normal respiratory effort, No retractions, No use of accessory muscles, clear to auscultation bilaterally and percussion normal AUSCULTATION: clear to auscultation bilaterally PERCUSSION: percussion normal Cardio: COMMON NORMALS: no JVD, regular rate, regular rhythm, S1 normal heart sound present, S2 normal heart sound present, No gallops present (Cardio), No clicks present (Cardio), No murmurs present (Cardio), No rub (Cardio) and Peripheral pulses 2+ throughout RATE: regular rate RHYTHM: regular rhythm HEART SOUNDS: S1 normal heart sound present and S2 normal heart sound present PERIPHERAL PULSES: Peripheral pulses 2+ throughout GI: COMMON NORMALS: Normal to inspection, nondistended, normoactive bowel sounds present, Soft to palpation, non-tender, No hepatosplenomegaly present, no masses and no bruits PALPATION: Yes Soft to palpation and Yes No hepatosplenomegaly present Extremity: COMMON NORMALS: normal to inspection, full ROM, capillary refill normal, no calf tenderness and no pedal edema Neuro: COMMON NORMALS: patient oriented x3 SENSORIUM/ORIENTATION: Yes alert MENINGEAL SIGNS: Yes no meningeal signs Skin: COMMON NORMALS: no rashes or lesions noted, no wounds, turgor normal, no jaundice, no petechiae and no mottling GENERAL SKIN EXAM: no rashes or lesions noted and turgor normal Course Consultations: Consultation #1: Discussed the patient with Dr. Carlos, oncologist. He happens to be this patient's oncologist also. He advised that we admit the patient for hydration overnight and we can see how he feels tomorrow to see if you be fit for discharge. Time: 19:22 Consultation #2: Discussed the patient with Dr. Taylor, hospitalist and he kindly accepted patient to his service. Time: 19:38 Vital Signs: Vital signs: Vital Signs Temperature 97.9 F 10/29/20 22:00 Pulse Rate 96 10/29/20 22:00 Respiratory Rate 16 10/29/20 22:04 Blood Pressure 115/73 10/29/20 22:00 Pulse Oximetry 100 10/29/20 22:00 MDM - Nausea/Vomiting/Diarrhea MDM Narrative: Medical decision making narrative: 65-year-old male with esoph ageal cancer who presents to the emergency department with intractable nausea and vomiting. He has been unable to keep anything down for about 3 days now. He also received radiation therapy today as well as chemo 3 days ago. He is admitted overnight for hydration, antiemetics and further evaluation and management. Medical Records: Attestation: I reviewed the patient's medical records. Lab Data: Attestation: I reviewed the patient's lab results. Labs: Lab Results 10/29/20 10/29/20 10/29/20 Range/Units 18:20 18:20 18:20 WBC 2.1 L (4.0-10.0) 10^3/ uL RBC 3.61 L (4.1-5.3) 10^6/u L Hgb 11.3 L (11.7-16.6) g/dL Hct 34.9 L (42.0-52.0) % MCV 96.7 H (80-94) fL MCH 31.3 (28.0-34.0) pg MCHC 32.4 (30.0-36.0) g/dL RDW 13.5 (12.1-15.1) % Plt Count 149 (130-400) 10^3/c mm MPV 9.7 (7.4-10.4) fL Neut % (Auto) 83.6 % Lymph % (Auto) 7.0 % [place] % (Auto) 8.4 % Eos % (Auto) 0.0 % Baso % (Auto) 0.5 % Neut # (Auto) 1.79 L (1.8-7.7) 10^3/u L Lymph # (Auto) 0.2 L (0.8-4.8) 10^3/u L [place] # (Auto) 0.2 (0.2-0.9) 10^3/u L Eos # (Auto) 0.0 (0.0-0.8) 10^3/u L Baso # (Auto) 0.0 (0.0-0.1) 10^3/u L Nucleated RBC % (a uto) 0 % Nucleated RBCs # 0.0 /100WBC Sodium 140 (136-145) mmol/L Potassium 3.9 (3.5-5.1) mmol/L Chloride 103 (98-107) mmol/L Carbon Dioxide 27 (22-29) mmol/L Anion Gap 13.9 (5-19) BUN 15 (8-23) mg/dL Creatinine 0.4 L (0.7-1.2) mg/dL GFR Calculation 215.9 H (90-130) mL/min Glucose 135 H (65-115) mg/dL Calculated Osmolal ity 293 (285-295) mOsm/k g Lactic Acid 0.9 (0.5-2.2) mmol/L Calcium 8.8 (8.5-10.5) mg/dL Total Bilirubin 0.8 (0.15-1.2) mg/dL AST 15 (0-40) U/L ALT 17 (0-41) U/L Alkaline Phosphata se 68 (40-130) IU/L Total Protein 6.3 L (6.6-8.7) g/dL Albumin 4.1 (3.5-5.2) g/dL Globulin 2.2 (1.3-4.6) g/dL Discharge Plan Discharge Patient Disposition: Admitted As Inpatient Admit Provider: Ben Taylor Clinical Impression: Nausea and vomiting, Esophageal cancer Condition: Stable Coding Level of Care Code ED Tamping Machine Operator for Chg Fwd Exam Comprehensive
[2020-10-29 21:35] VITALS: BP 105/62; PULSE 100; RESP 15; O2SAT 99
[2020-10-29 22:00] VITALS: BP 115/73; PULSE 96; RESP 16; TEMP 36.6; O2SAT 100
[2020-10-29] MEDS: lactated ringers 1,000 ML 100 ML IV (22:01)
[2020-10-29 22:04] VITALS: RESP 16
[2020-10-29] MEDS: morphine 4 mg/mL SDV 1 mL 2 MG IVP (22:04)
[2020-10-29] MEDS: enoxaparin 40 mg/0.4 mL Syringe SUBCUT (22:06)
[2020-10-29 23:50] VITALS: BP 116/72; PULSE 96; RESP 17; TEMP 36.1; O2SAT 99
[2020-10-30 03:48] VITALS: BP 113/68; PULSE 103; RESP 18; TEMP 37; O2SAT 98
[2020-10-30] MEDS: ondansetron 2 mg/ML SDV 2 mL 4 MG IVP (05:30)
[2020-10-30] MEDS: lactated ringers 1,000 ML 100 ML IV (05:30)
[2020-10-30 07:35] LABS: Basophils % 0.7 %; Eosinophils % 0.7 %; Hematocrit 32.8 % (42.0-52.0); Hemoglobin 10.3 g/dL (11.7-16.6); Lymphocytes # 0.2 10^3/uL (0.8-4.8); Lymphocytes % 13.6 %; Mean Corpuscular HGB Conc 31.4 g/dL (30.0-36.0); Mean Corpuscular Hemoglobin 30.4 pg (28.0-34.0); Mean Corpuscular Volume 96.8 fL (80-94); Mean Platelet Volume 10.2 fL (7.4-10.4); Monocytes # 0.2 10^3/uL (0.2-0.9); Monocytes % 10.2 %; Neutrophils # 1.09 10^3/uL (1.8-7.7); Neutrophils % 74.1 %; Nucleated Red Blood Cells % 0 %; Platelet Count 118 10^3/cmm (130-400); Red Blood Count 3.39 10^6/uL (4.1-5.3); Red Cell Distribution Width 13.4 % (12.1-15.1); White Blood Count 1.5 10^3/uL (4.0-10.0)
[2020-10-30 07:59] LABS: Albumin Level 3.3 g/dL (3.5-5.2); Anion Gap 12.9 (5-19); Blood Urea Nitrogen 12 mg/dL (8-23); Calcium 8.2 mg/dL (8.5-10.5); Carbon Dioxide 26 mmol/L (22-29); Chloride 103 mmol/L (98-107); Creatinine Clr Calc Pharmacy 97.1932; Glomerular Filtration Rate 215.9 mL/min (90-130); Glucose 109 mg/dL (65-115); Magnesium 1.7 mg/dL (1.7-2.3); Phosphorus 2.7 mg/dL (2.5-4.5); Potassium 3.9 mmol/L (3.5-5.1); Sodium 138 mmol/L (136-145)
[2020-10-30 08:00] VITALS: BP 113/69; PULSE 105; RESP 16; TEMP 36.5; O2SAT 99
[2020-10-30] MEDS: folic acid 1 mg Tablet PO (09:06)
[2020-10-30] MEDS: metoprolol tartrate 25 mg Tablet PO (09:06)
[2020-10-30] MEDS: pantoprazole DR 40 mg Tablet PO (09:06)
[2020-10-30] MEDS: prochlorperazine 10 mg Tablet PO (09:07)
[2020-10-30 11:36] VITALS: BP 98/66; PULSE 92; RESP 16; TEMP 36.8; O2SAT 99
--- NOTE | 2020-10-30 13:17 | P.DS_ITS ---
Discharge Providers Date of Admission: 10/29/20 19:42 Date of Discharge: October 30, 2020 Attending Provider at Admission: Ben Taylor Attending Provider at Discharge: Estiven Del Cid MD Primary Care Provider: Raleigh Boyd DO Reason for Visit 2 Reason for Visit: CANCER PT, UNABLE TO KEEP ANYTHING DOWN Hospital Course Hospital Course Emery Shell is a 65 year old male who was diagnosed with stage III distal esophageal adenocarcinoma, currently undergoing chemo and radiation treatments. His last chemotherapy was several days ago and last radiation treatment was today. Since last chemo he developed increased nausea and vomiting. Basically he was unable to keep any food or liquids down for last couple of days. Denies any hematemesis. Denies fevers or chills. Denies diarrhea. Denies chest pain or shortness of breath. No significant abdominal pain. Reports similar in the past. He reports that he has lost about 85 pounds since Miguel A when he was diagnosed with cancer. Patient went to the hospital under observation for hydration. During hospitalization did not have any further episodes of vomiting. He responded well to the treatment. On review of labs he was found to have leukopenia/neutropenia most likely from recent chemo radiation therapy. Case was discussed with his outpatient oncologist and he was given 1 shot of filgrastim prior to discharge. He is been discharged hemodynamically stable condition with advised to take bland/brat diet which includes mostly applesauce, toast, bananas, mashed potatoes and advance as tolerated. He is also being discharged on disintegrating Zofran tablets which she should take every 8 hours for now. He is to follow-up with his primary care provider within next 4 to 7 days. He is to take levofloxacin for 7 days. Physical Exam Narrative: EXAM NARRATIVE: The patient is awake alert and oriented. Pleasant. No acute distress. Mood and affect are appropriate. Responses are adequate. Skin is warm and dry. Dry mucous membranes Eyes PERRL, extraocular muscles are intact Normal speech. Neck supple. No JVD Lungs are clear to auscultation bilaterally. No wheezes or crackles Heart S1, S2, regular Abdomen soft, nontender, bowel sounds are present Extremities no edema cyanosis or calf tenderness bilaterally. No focal weakness on neuro evaluation. Discharge Data Data Completed and Pending: Labs from last 24 hours 10/30/20 10/30/20 10/29/20 05:50 05:50 20:10 WBC 1.5 L RBC 3.39 L Hgb 10.3 L Hct 32.8 L MCV 96.8 H MCH 30.4 MCHC 31.4 RDW 13.4 Plt Count 118 L MPV 10.2 Neut % (Auto) 74.1 Lymph % (Auto) 13.6 [place] % (Auto) 10.2 Eos % (Auto) 0.7 Baso % (Auto) 0.7 Neut # (Auto) 1.09 L Lymph # (Auto) 0.2 L [place] # (Auto) 0.2 Eos # (Auto) 0.0 Baso # (Auto) 0.0 Nucleated RBC % (a uto) 0 Nucleated RBCs # 0.0 Sodium 138 Potassium 3.9 Chloride 103 Carbon Dioxide 26 Anion Gap 12.9 BUN 12 Creatinine 0.4 L GFR Calculation 215.9 H Glucose 109 Calculated Osmolal ity Lactic Acid Calcium 8.2 L Phosphorus 2.7 Magnesium 1.7 Total Bilirubin AST ALT Alkaline Phosphata se Total Protein Albumin 3.3 L Globulin Urine Color Yellow Urine Appearance Clear Urine pH 6 Ur Specific Gravit y 1.015 Urine Protein Neg Urine Glucose (UA) Norm Urine Ketones 1+ H Urine Blood Neg Urine Nitrate Negative Urine Bilirubin Neg Urine Urobilinogen Norm Ur Leukocyte Raissa ase Negative 10/29/20 10/29/20 10/29/20 18:20 18:20 18:20 WBC 2.1 L RBC 3.61 L Hgb 11.3 L Hct 34.9 L MCV 96.7 H MCH 31.3 MCHC 32.4 RDW 13.5 Plt Count 149 MPV 9.7 Neut % (Auto) 83.6 Lymph % (Auto) 7.0 [place] % (Auto) 8.4 Eos % (Auto) 0.0 Baso % (Auto) 0.5 Neut # (Auto) 1.79 L Lymph # (Auto) 0.2 L [place] # (Auto) 0.2 Eos # (Auto) 0.0 Baso # (Auto) 0.0 Nucleated RBC % (a uto) 0 Nucleated RBCs # 0.0 Sodium 140 Potassium 3.9 Chloride 103 Carbon Dioxide 27 Anion Gap 13.9 BUN 15 Creatinine 0.4 L GFR Calculation 215.9 H Glucose 135 H Calculated Osmolal ity 293 Lactic Acid 0.9 Calcium 8.8 Phosphorus Magnesium Total Bilirubin 0.8 AST 15 ALT 17 Alkaline Phosphata se 68 Total Protein 6.3 L Albumin 4.1 Globulin 2.2 Urine Color Urine Appearance Urine pH Ur Specific Gravit y Urine Protein Urine Glucose (UA) Urine Ketones Urine Blood Urine Nitrate Urine Bilirubin Urine Urobilinogen Ur Leukocyte Raissa ase Vitals: Last Vital Signs Temp 98.2 F 10/30/20 11:36 Pulse 92 10/30/20 11:36 Resp 16 10/30/20 11:36 BP 98/66 10/30/20 11:36 Pulse Ox 99 10/30/20 11:36 Discharge Plan Discharge Patient Disposition: Home Condition: Stable Prescriptions: New ferrous fum-vit C-vit B12-FA 460-60-0.01-1 mg capsule 1 cap PO DAILY Qty: 30 RF: 0 levofloxacin 500 mg tablet 500 mg PO DAILY 7 Days Qty: 7 RF: 0 ondansetron 8 mg tablet,disintegrating 8 mg PO Q8H 5 Days Qty: 15 RF: 0 Continued aspirin 325 mg Tablet 325 mg PO PRN RF: 0 metoprolol tartrate 25 mg tablet See Rx Instructions .ROUTE .COMPLEX RF: 0 ondansetron HCl [Zofran] 4 mg tablet 4 mg PO Q6H PRN (Reason: nausea and vomiting) Qty: 20 RF: 0 prochlorperazine maleate 10 mg tablet 10 mg PO Q4H PRN (Reason: mild nausea) RF: 0 acetaminophen [Tylenol Arthritis Pain] 650 mg Tablet Extended Release 1,300 mg PO PRN RF: 0 ibuprofen 200 mg Tablet 600 mg PO PRN RF: 0 lorazepam 1 mg tablet 1 mg PO TID PRN (Reason: Nausea) RF: 0 nystatin 100,000 unit/gram ointment See Rx Instructions .ROUTE .COMPLEX RF: 0 lidocaine-prilocaine 2.5-2.5 % cream See Rx Instructions .ROUTE .COMPLEX RF: 0 pantoprazole [Protonix] 40 mg tablet,delayed release (DR/EC) 40 mg PO DAILY RF: 0 metoclopramide HCl [Reglan] 10 mg tablet 10 mg PO Q6H Qty: 15 RF: 0 hydrocodone-acetaminophen 7.5-325 mg/15 mL solution 15 - 30 ml PO PRN PRN (Reason: Pain) RF: 0 Discharge Orders: Discharge Order (Routine); Ordered 10/30/20 Ordered By: Estiven Del Cid Referrals: Raleigh Boyd, DO [Primary Care Provider] - 4-7 days (Please call Dr. Boyd's office on Sunday and schedule an appointment to be seen within 7 days.) Discharge Diet: Advance as tolerated and GI Soft Discharge Activity: Resume usual activity Patient Instructions: Opioid Safety Activity Restrictions/Additional Instructions: Please follow-up with your primary care provider within next 4 to 7 days. Please take levofloxacin which is an antibiotic for next 7 days. Please continue chemotherapy radiation therapy as before. Discussed in detail he can take GI soft diet/brat diet which includes mostly toast, applesauce, bananas, mashed potatoes which are known to be easier on the stomach and easy to digest and advance gradually within next 4 to 7 days as you can. Discharge Attestations Time Spent in Discharge Care*: greater than 30 min Status at Discharge: Cognitive status at discharge: cognitively intact , Behavioral status at discharge: cooperative , Quality Metrics Clinical Quality Measures During this hospital stay, did patient experience: None Coding Level of Care Code Acute Chg FW ALEXANDREA note
--- NOTE | 2020-10-30 14:05 | PC.NURSE ---
Discharge instructions given per the physician's instructions. Patient verbalized understanding of teaching and did not have any further questions. IV has been removed. Patient dressed self. No further needs identified at this time.
[2020-10-30 14:28] VITALS: BP 98/66; PULSE 92; RESP 16; TEMP 36.8; O2SAT 99
== END 2020-10-30 14:05 | disposition home or self-care (01) ==
LOC: ER 17:45 → MEDSURG 20:37
PROVIDERS: Physician Assistant; Admitting Provider Internal Medicine; Emergency Provider Family Medicine; PCP Electrodiagnostic Medicine; Visit Provider Student in an Organized Health Care Education/Training Program
DX: R11.2 Nausea with vomiting, unspecified (principal); C15.5 Malignant neoplasm of lower third of esophagus; I48.91 Unspecified atrial fibrillation; I11.0 Hypertensive heart disease with heart failure; I50.9 Heart failure, unspecified
CPT/HCPCS: 36415; 80053; 80069; 81003; 83605; 83735; 85025; 96361; 96372; 96374; 96375; 99285; G0378; J1442; J1650; J2270; J2405; J3411; J7030; Q0164

== ENCOUNTER 2020-11-05 05:47 | Outpatient (RCR) | payer MEDICARE, SELFPAY ==
[2020-11-01] MEDS: sodium chloride 0.9% 1,000 ML 999 ML IV (10:05)
[2020-11-01] MEDS: LORazepam 2 mg/mL INJ 1 mL 0.5 MG IV (10:05)
[2020-11-01] MEDS: famotidine 20 mg/2 mL INJ IVP (10:08)
[2020-11-01 11:20] LABS: Basophils % 1.2 %; Eosinophils % 0.6 %; Hematocrit 30.1 % (42.0-52.0); Hemoglobin 9.9 g/dL (11.7-16.6); Lymphocytes # 0.2 10^3/uL (0.8-4.8); Lymphocytes % 8.7 %; Mean Corpuscular HGB Conc 32.9 g/dL (30.0-36.0); Mean Corpuscular Hemoglobin 31.5 pg (28.0-34.0); Mean Corpuscular Volume 95.9 fL (80-94); Mean Platelet Volume 10.2 fL (7.4-10.4); Monocytes # 0.2 10^3/uL (0.2-0.9); Monocytes % 13.4 %; Neutrophils # 1.29 10^3/uL (1.8-7.7); Neutrophils % 74.9 %; Nucleated Red Blood Cells % 0 %; Platelet Count 84 10^3/cmm (130-400); Red Blood Count 3.14 10^6/uL (4.1-5.3); Red Cell Distribution Width 13.3 % (12.1-15.1); White Blood Count 1.7 10^3/uL (4.0-10.0)
[2020-11-01 12:03] LABS: Alanine Aminotransferase 10 U/L (0-41); Albumin Level 3.2 g/dL (3.5-5.2); Alkaline Phosphatase 65 IU/L (40-130); Anion Gap 8.9 (5-19); Aspartate Amino Transferase 10 U/L (0-40); Blood Urea Nitrogen 11 mg/dL (8-23); Calcium 7.6 mg/dL (8.5-10.5); Carbon Dioxide 25 mmol/L (22-29); Chloride 107 mmol/L (98-107); Globulin 1.8 g/dL (1.3-4.6); Glomerular Filtration Rate 215.9 mL/min (90-130); Glucose 176 mg/dL (65-115); Osmolality Calculated 288 mOsm/kg (285-295); Potassium 3.9 mmol/L (3.5-5.1); Sodium 137 mmol/L (136-145); Total Bilirubin 0.3 mg/dL (0.15-1.2)
[2020-11-01 12:22] LABS: Slide Review Slide Review Perform
[2020-11-03] MEDS: HYDROmorphone 1 mg/mL INJ 1 mL 2 MG IV (10:15)
[2020-11-03] MEDS: sodium chloride 0.9% 1,000 ML 999 ML IV (10:15)
[2020-11-03] MEDS: famotidine 20 mg/2 mL INJ IVP (10:18)
[2020-11-03] MEDS: ondansetron 2 mg/ML SDV 2 mL 8 MG IVP (10:20)
[2020-11-03] MEDS: fluconazole premix 100 MG/50 ML PREMIX 50 MG IV (10:30)
== END 2020-11-05 23:59 | disposition home or self-care (01) ==
LOC: ONCMED 05:47
PROVIDERS: Nurse Practitioner; Absent Provider Radiology Radiation Oncology; PCP Electrodiagnostic Medicine; Visit Provider Radiology Radiation Oncology
DX: C15.5 Malignant neoplasm of lower third of esophagus (principal); Z79.899 Other long term (current) drug therapy
CPT/HCPCS: 80053; 85025; J1170; J1450; J2060; J2405; J3490; J7030

== ENCOUNTER 2020-11-11 05:33 | Outpatient (RCR) | payer MEDICARE, SELFPAY ==
--- NOTE | 2020-11-08 09:51 | ONCRAD TMN_ITS ---
Radiation Oncology Treatment Management Note Patient Name: Roshan Shell Date of : 1955 Date of Service: 11/08/2020 Attending Physician: Ramon Spicer M.D. 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 The patient has received 44 Gy of a prescribed 50 Reid with an intensity modulated radiotherapy plan utilizing a step and shoot treatment technique. He has been prescribed carboplatin (AUC 2) and paclitaxel (50 mg/m2) weekly during radiotherapy. Upon review of systems, he denied any complaints related to radiotherapy. On physical examination, the patient weighed 165 lbs. His temperature was 97.6 ???F with a blood pressure of 112/66 mmHg. His pulse was 88 bpm and the respiratory rate was 20. There was no erythema within the treatment navarrete. Continue esophageal radiotherapy as prescribed. Signed by: Dr. Ramon Spicer 11/08/2020 9:50:28 AM
[2020-11-08 10:25] LABS: Basophils % 0.9 %; Eosinophils % 0.9 %; Hematocrit 32.7 % (42.0-52.0); Hemoglobin 10.5 g/dL (11.7-16.6); Lymphocytes # 0.2 10^3/uL (0.8-4.8); Lymphocytes % 9.1 %; Mean Corpuscular HGB Conc 32.1 g/dL (30.0-36.0); Mean Corpuscular Hemoglobin 30.4 pg (28.0-34.0); Mean Corpuscular Volume 94.8 fL (80-94); Mean Platelet Volume 10.1 fL (7.4-10.4); Monocytes # 0.4 10^3/uL (0.2-0.9); Neutrophils # 1.58 10^3/uL (1.8-7.7); Neutrophils % 68.4 %; Nucleated Red Blood Cells % 0 %; Platelet Count 100 10^3/cmm (130-400); Red Blood Count 3.45 10^6/uL (4.1-5.3); Red Cell Distribution Width 13.4 % (12.1-15.1); White Blood Count 2.3 10^3/uL (4.0-10.0)
[2020-11-08 11:03] LABS: Alanine Aminotransferase 13 U/L (0-41); Albumin Level 3.4 g/dL (3.5-5.2); Alkaline Phosphatase 59 IU/L (40-130); Aspartate Amino Transferase 17 U/L (0-40); Blood Urea Nitrogen 9 mg/dL (8-23); Calcium 8.5 mg/dL (8.5-10.5); Carbon Dioxide 26 mmol/L (22-29); Chloride 103 mmol/L (98-107); Globulin 2.2 g/dL (1.3-4.6); Glomerular Filtration Rate 166.9 mL/min (90-130); Glucose 150 mg/dL (65-115); Osmolality Calculated 288 mOsm/kg (285-295); Sodium 138 mmol/L (136-145); Total Bilirubin 0.3 mg/dL (0.15-1.2); Total Protein 5.6 g/dL (6.6-8.7)
[2020-11-09] MEDS: famotidine 20 mg/2 mL INJ IVP (09:28)
[2020-11-09] MEDS: sodium chloride 0.9% 250 ML 75 ML IV (09:28)
[2020-11-09] MEDS: diphenhydrAMINE 50 mg/mL SDV 1mL 25 MG IVP (09:31)
[2020-11-09] MEDS: palonosetron 0.25 mg/5 mL SDV IVP (09:34)
[2020-11-09] MEDS: fosaprepitant 150 MG in sodium chloride 0.9% 150 ML 300 MG IV (10:02)
[2020-11-09 10:14] VITALS: RESP 18
[2020-11-09] MEDS: HYDROmorphone 1 mg/mL INJ 1 mL 2 MG IV (10:14)
[2020-11-10 09:25] VITALS: RESP 16; O2SAT 99
[2020-11-10] MEDS: HYDROmorphone 1 mg/mL INJ 1 mL 2 MG IV (09:25)
[2020-11-10] MEDS: fluconazole premix 100 MG in empty flexible container 1 EACH 50 MG IV (09:30)
[2020-11-10] MEDS: sodium chloride 0.9% 1,000 ML 999 ML IV (10:31)
[2020-11-11] MEDS: sodium chloride 0.9% 1,000 ML 999 ML IV (09:15)
[2020-11-11] MEDS: fluconazole premix 100 MG in empty flexible container 1 EACH 50 MG IV (09:37)
--- NOTE | 2020-11-26 13:01 | ONC FU_ITS ---
Dr. Carlos follow up note Patient: Roshan Shell Unit #: [id number]: 1955 Dicatated By: Genoveva Carlos M.D.Date of Visit:November 25, 2020 Onc Med Follow-up/Prog Note History of Present Illness: Mr. Shell is a 65-year-old gentleman with a history of progressive dysphagia since September or October 2019. He reports that he had a 75 pound weight loss over about 6 months. He began having trouble swallowing solid food off and on and then began having trouble with liquids. He states he has had esophageal reflux in the past and he used Tums or Rolaids He also has a longstanding history of alcohol use since 1975. Mr Shell states he drinks 5-6 beers in a day in addition to 4-5 drinks per day. He does smoke marijuana since age 14. He states it is off and on. He states he used to smoke it recreationally but now he smokes for pain relief and sleep benefits. He has chronic back pain. Mr. Shell underwent GI evaluation for Dr. Whitten at [facility] and on April 28, 2020 he underwent EGD which did show a malignant stricturing mass in the lower third of the esophagus. Stenosis was reported at 3 cm in length and 0.5 cm in diameter. And the stenosis was traversed after dilation. In the mid esophagus a 2 cm segment of sharp segment Ocampo's mucosa was present. 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 He had a CT of the chest/abdomen from 04/20/2020 reported mild chronic emphysematous changes no acute pulmonary infiltrates. There was no mediastinal or hilar lymphadenopathy. He did have a small esophageal hiatal hernia. Mild diffuse fatty infiltration of the liver; small adrenal adenoma-10 mm; and incidental fat-containing umbilical hernia. Mr Shell underwent CT scan of neck on April 20, 2020 which shows mild nodular thickening of the true vocal cords bilaterally otherwise unremarkable. Mr Shell was referred to GI surgery at [facility]. He was evaluated on May 21, 2020 but he had not yet had his staging PET/CT. The recommendations were to review PET/CT scan before deciding about upfront surgery versus neoadjuvant chemoradiation followed by evaluation for surgery. He was also advised to quit smoking marijuana and alcohol as a preparation for treatment. [facility] NP did arrange for PFTs. Staging CT PET scan was done on May 27, 2020 showed distal esophageal focal hypermetabolic activity with SUV of 5.01 and incidental, focus uptake seen at the left ventricle apex can be associated with hypertrophic cardiomyopathy. No evidence of distant mets. EUS on June 22, 2020 showed large, fungating mass in the distal esophageal, lesion was circumferential well-defined measured up to 12 mm in thickness suggesting invasion into adventitia and unable to traverse the structure so further structures were not evaluated, 2 enlarged lymph nodes were visualized in the middle paraesophageal mediastinum largest 15 mm. Mr. Shell had right subclavian PowerPort port placement and jejunostomy [address] Whitten on July 19, 2020.And received first dose of weekly carboplatin Taxol concurrent with radiation therapy on July 20, 2020 then patient was admitted to hospital on July 22, 2020 for I&D of abdominal wall infected hematoma culture came back positive for E. coli, Klebsiella pneumoniae, treated with antibiotics and chemotherapy was discontinued while as per radiation oncology, continue with radiation therapy alone while being treated for infected hematoma in abdominal wall. Follow-up CT scan of abdomen done on August 05, 2020 showed no contrast leak from J-tube, improved cellulitis and postoperative changes with stable diffuse fatty infiltration of the liver, small esophageal hernia, stable gastric diverticulum with a air-filled level measuring 4.1 x 2.9 cm. Stable left adrenal adenoma, sigmoid diverticulosis, on August 09, 2020 patient underwent esophageal stent placement at [facility] CT scan of abdomen done on August 23, 2020 showed jejunostomy tube is in place, stent in the distal esophagus, no focal abnormality in the liver, no free intraperitoneal fluid, admitted to hospital on August 23, 2020 with excessive coughing and vomiting, patient was on clindamycin for cellulitis of abdominal wall around feeding tube and was tolerating orally well and wanted to remove his feeding tube and CT scan of abdomen done on August 23, 2020 showed intussusception distal to the insertion of jejunostomy tube patient was admitted to surgical service, jejunostomy tube was removed. Follow-up CT PET scan done on September 28, 2020 showed status post esophageal stent placement, there is a new increased FDG uptake along the proximal and distal aspect of stent with a maximum SUV 4.8 and 5.4, may be postprocedural or inflammatory. New mildly hypermetabolic right supraclavicular, pretracheal and subcarinal lymph nodes with FDG uptake slightly above the mediastinal blood pool. May be inflammatory, metastatic disease not completely excluded. Mildly hypermetabolic tree-in-bud opacities within the superior right lower lobe, measuring below level of mediastinal blood pool likely due to inflammatory or aspiration. Mr Shell began concurrent chemoradiation on October 20, 2020 with carboplatin/paclitaxel. And completed on 11/11/2020 Came for follow-up, complaining of generalized weakness and fatigue, patient said he was not admitted to hospital on 11/19/2020 with chest pain and epigastric discomfort but denies any shortness of breath or diaphoresis, he was given Cardizem 10 mg IV push for heart rate 120s, patient was in A. fib which is a chronic problem patient underwent nuclear cardiac stress test which showed small size reversible perfusion abnormality of the mid anterolateral, mid to apical inferior and apical lateral burroughs. This may represent small area of ischemia in the right coronary artery and circumflex artery territory.Denies any fever or chills denies any nausea or vomiting denies any diarrhea or constipation,Denies any hemoptysis or hematemesis Patient still having problem with swallowing, and not getting enough nutrition or hydration, patient wants to see surgery for possible esophagectomy, patient has seen surgeon at [facility] in [place] Medications: HYDROcodone-Acetaminophen 15 mL (of 7.5-325 mg/15mL) Solution Oral q 4 hours, LORazepam 0.5 - 1 Tablet (of 1 mg) Oral t.i.d. PRN, Metoclopramide HCl 1 Tablet (of 10 mg) Oral PRN, Metoprolol Succinate ER 1 Tablet (of 25 mg) Tablet SR 24 HR Oral b.i.d., Midodrine HCl 1 Tablet (of 10 mg) Oral t.i.d., Pantoprazole Sodium 1 Tablet (of 40 mg) Tablet, enteric coated Oral daily, traZODone HCl 1 Tablet (of 50 mg) Oral at bedtime Allergies: No Known Allergies. Review of Systems: Review of Systems is not available for this patient. Vital Signs: Vitals are not available for this patient. Performance Status: 1 - No physically strenuous activity, but ambulatory and able to carry out light or sedentary work (e.g. office work, light house work). (ECOG) Physical Examination: ENMT - No mouth sores, no thrush, no jaundice, no cervical lymphadenopathy, Respiratory - Lungs are clear to auscultation, Cardiovascular - Irregular rate and rhythm, Abdomen - Soft, bowel sounds present, Extremities - No visible edema. Lab/Imaging: Test performed on November 08, 2020 14:06 Glucose 288 mg/dL BUN 9 mg/dL Creatinine 0.5 mg/dL Cr Clearance (Est) 159.89 mL/min Sodium 138 mmol/L Potassium 4.0 mmol/L Chloride 103 mmol/L CO2 26 mmol/L Calcium 8.5 mg/dL Protein, Total 5.6 g/dL Albumin 3.4 g/dL Globulin 2.2 g/dL Bilirubin, Total 0.3 mg/dL Alkaline Phosphatase 59 IU/L AST (SGOT) 17 IU/L ALT (SGPT) 13 IU/L WBC 2.3 10^9/L RBC 3.45 10^12/L HGB 10.5 g/dL HCT 32.7 % MCV 94.9 fl MCH 30.4 pg MCHC 32.1 g/dL RDW 13.4 % Platelet Count 100 10^9/L MPV 10.1 fL Neutrophils (Gran) 1.58 10^9/L Lymphocytes 0.2 10^9/L Monocytes 0.4 10^9/L Eosinophils 0.0 10^9/L Basophils 0.0 10^9/L Manual Lymphocytes 9.1 % Manual Monocytes 19.0 % Manual Eosinophils 0.9 % Manual Basophils 0.9 % Test performed on Oct 27, 2020 09:10 Anion Gap 10.6 eGFR 215.9 mL/min Osmolality - Calculated 288 mOsm/kg Neutrophil % 94.3 % Lymphocyte % 2.7 % Monocyte % 1.5 % Eosinophil % 0.0 % Basophils % 0.5 % NRBC % 0 % Test performed on Oct 08, 2020 09:12 Iron 51 mcg/dL Vitamin B12 338 pg/mL Iron Binding Capacity (TIBC) 249 mcg/dl % Iron Saturation 20.4 % UIBC 198 mcg/dL Retic Count % 2.6 % Test performed on Aug 03, 2020 08:50 CBC Slide Review Slide Review Perform SLIDE REVIEW AGREES WITH AUTOMATED RESULTS ST Test performed on Jun 15, 2020 00:00 Manual Diff Cancelled via OM: Cancelled in Connected System Impression: Moderately differentiated invasive adenocarcinoma involving distal/mid esophagus for EGD done on April 28, 2020 HER-2/justus 3+ positive CT scan of neck/chest abdomen done on April 20, 2020 showed mild nodular thickening of true vocal cord bilaterally otherwise unremarkable neck and CT scan of chest abdomen showed no mediastinal or hilar lymphadenopathy small esophageal hiatal hernia, mild diffuse fatty infiltration liver. Small left adrenal adenoma measuring 10 mm. Incidental fat-containing umbilical hernia. CT PET scan done on May 27, 2020 showed distal esophageal focal hypermetabolic activity. No findings to suggest distant metastatic disease. Incidental focal uptake at the left ventricle apex can be associated with hypertrophic cardiomyopathy. EUS done on June 22, 2020 showed mass in the distal esophagus, circumferential measures up to 12 mm in thickness suggesting invasion into adventitia, T3 and 2 lymph nodes were seen in the middle paraesophageal mediastinum largest is 15 mm ,N1 Dysphagia/weight loss due to above. Hypertension. discussed disease status and treatment options with Mr Shell. Based on the EUS finding, he has locally advanced disease so combined chemoradiation therapy with weekly carboplatin AUC 2 and Taxol 50 mg/m??? concurrent with radiation therapy was recommended. did request Port-A-Cath placement to facilitate chemotherapy administration. Mr. Shell had right subclavian PowerPort port placement and jejunostomy [address] Whitten on July 19, 2020. Mr. Shell began combined chemotherapy radiation on October 20, 2020.And completed on 11/11/2020 Coronary artery disease, confirmed with nuclear cardiac stress test done on 11/19/2020 Plan: Discussed with patient regarding his concern and questions, patient was recently admitted to hospital with chest pain and was diagnosed with coronary artery disease per nuclear cardiac stress test and being managed medically. Patient has completed combined chemoradiation, which was delayed multiple times because of feeding tube site cellulitis, eventually completed his combined chemoradiation on 11/11/2020, now patient wants to see surgery for possible resection or alternative options for feeding., Patient has seen GI surgical oncologist at [facility] prior to combined chemoradiation, will refer him back for evaluation in the meantime we will continue supportive care with hydration and he will receive 500 cc of normal saline today and then continue every other day Return to clinic in 2 weeks with CBC CMP Signed By: Genoveva Carlos M.D. <<Signature on File>>
== END 2020-11-15 15:00 | disposition home or self-care (01) ==
LOC: ONCMED 05:33
PROVIDERS: Nurse Practitioner; Absent Provider Radiology Radiation Oncology; PCP Electrodiagnostic Medicine; Visit Provider Internal Medicine Hematology & Oncology
DX: Z51.0 Encounter for antineoplastic radiation therapy (principal); Z51.11 Encounter for antineoplastic chemotherapy; C15.5 Malignant neoplasm of lower third of esophagus
CPT/HCPCS: 36591; 77336; 77386; 80053; 85025; 96361; 96365; 96367; 96374; 96375; 96413; 96417; J1100; J1170; J1200; J1450; J1453; J2469; J3490; J7030; J7050; J9045; J9267

== ENCOUNTER 2020-11-15 15:30 | Inpatient (IN) | payer MEDICARE, SELFPAY ==
[2020-11-15] VITALS (11 sets, daily range): BP systolic 90–120; BP diastolic 57–86; PULSE 86–133; RESP 12–20; TEMP 36.6–36.9; O2SAT 96–100; BMI 22.2
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
--- NOTE | 2020-11-15 16:52 | XRR_ITS ---
PROCEDURE INFORMATION: Exam: XR Chest Exam date and time: 11/15/2020 5:19 PM Age: 65 years old Clinical indication: Chest pain; Additional info: Chest discomfort/dyspena TECHNIQUE: Imaging protocol: XR of the chest. Views: 1 view. COMPARISON: CR XR chest 1V portable [id number] 08/05/2020 10:48 AM FINDINGS: Tubes, catheters and devices: Infusion port catheter tip is in the superior vena cava. Lungs: Unremarkable. No consolidation. Pleural spaces: Unremarkable. No pleural effusion. No pneumothorax. Heart/Mediastinum: Unremarkable. No cardiomegaly. Bones/joints: There are degenerative changes in the thoracic spine. There are old healed left rib fractures. Soft tissues: Small nodular opacity in the left 6th anterior interspace most likely represents nipple shadow. XR/XR chest 1V portable [id number] IMPRESSION: No acute infiltrate.
--- NOTE | 2020-11-15 16:53 | ECG_ITS ---
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 Measurements Intervals [place] Rate: 111 P: NV: QRS: -18 QRSD: 104 T: 41 QT: 328 QTc: 446 Interpretive Statements ATRIAL FIBRILLATION WITH RAPID VENTRICULAR RESPONSE ABNORMAL RHYTHM ECG Compared to ECG 11/15/2020 17:26:51 Ventricular premature complex(es) no longer present Aberrant conduction of supraventricular beat(s) no longer present Incomplete right bundle-branch block no longer present Electronically Signed On 11-16-2020 9:22:32 CDT by Megan Jensen M.D. [id number]
[2020-11-15 17:16] LABS: Basophils % 0.4 %; Hematocrit 33.5 % (42.0-52.0); Hemoglobin 11.3 g/dL (11.7-16.6); Lymphocytes # 0.1 10^3/uL (0.8-4.8); Lymphocytes % 3.5 %; Mean Corpuscular HGB Conc 33.7 g/dL (30.0-36.0); Mean Corpuscular Hemoglobin 30.6 pg (28.0-34.0); Mean Corpuscular Volume 90.8 fL (80-94); Mean Platelet Volume 10.6 fL (7.4-10.4); Monocytes # 0.4 10^3/uL (0.2-0.9); Neutrophils # 2.34 10^3/uL (1.8-7.7); Nucleated Red Blood Cells % 0 %; Platelet Count 75 10^3/cmm (130-400); Red Blood Count 3.69 10^6/uL (4.1-5.3); Red Cell Distribution Width 12.9 % (12.1-15.1); White Blood Count 2.9 10^3/uL (4.0-10.0)
[2020-11-15 17:26] LABS: Alanine Aminotransferase 19 U/L (0-41); Albumin Level 3.7 g/dL (3.5-5.2); Alkaline Phosphatase 65 IU/L (40-130); Anion Gap 13.2 (5-19); Aspartate Amino Transferase 22 U/L (0-40); Blood Urea Nitrogen 14 mg/dL (8-23); Calcium 8.7 mg/dL (8.5-10.5); Carbon Dioxide 30 mmol/L (22-29); Chloride 97 mmol/L (98-107); Globulin 2.2 g/dL (1.3-4.6); Glomerular Filtration Rate 166.9 mL/min (90-130); Glucose 137 mg/dL (65-115); Osmolality Calculated 285 mOsm/kg (285-295); Potassium 4.2 mmol/L (3.5-5.1); Sodium 136 mmol/L (136-145); Total Bilirubin 0.4 mg/dL (0.15-1.2); Total Protein 5.9 g/dL (6.6-8.7)
[2020-11-15 17:27] LABS: Troponin(5th) Baseline 31 ng/L (0-15)
[2020-11-15] MEDS: HYDROmorphone 1 mg/mL INJ 1 mL IVP (17:58)
[2020-11-15] MEDS: ondansetron 2 mg/ML SDV 2 mL 4 MG IVP (17:59)
[2020-11-15] MEDS: metoprolol tartrate 25 mg Tablet 12.5 MG PO (17:59)
--- NOTE | 2020-11-15 18:53 | ECG_ITS ---
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 Measurements Intervals [place] Rate: 97 P: MD: QRS: 12 QRSD: 100 T: 43 QT: 335 QTc: 426 Interpretive Statements ATRIAL FIBRILLATION WITH ABERRANT CONDUCTION OR VENTRICULAR PREMATURE COMPLEXES INCOMPLETE RIGHT BUNDLE BRANCH BLOCK Compared to ECG 09/24/2020 17:23:55 Ventricular premature complex(es) now present Aberrant conduction of supraventricular beat(s) now present Incomplete right bundle-branch block now present Electronically Signed On 11-16-2020 17:37:42 CDT by Megan Jensen M.D. [id number]
--- NOTE | 2020-11-15 19:25 | PM.HP ---
Providers/Chief Complaint Admitting Physician: José Antonio Gu MD Primary Care Provider: Raleigh Boyd DO Chief Complaint: CA PT/NO INTAKE X 3 DAYS, PAIN History of Present Illness Emery Shell is a 65 year old male who has history of invasive adenocarcinoma of distal esophagus currently undergoing chemoradiotherapy, Port-A-Cath placement this year presented today with chief complaint of chest discomfort. Patient is stating that he gets epigastric discomfort which she is describing as heaviness which is nonradiating not associated with any fever, nausea, diaphoresis or shortness of breath, it gets aggravated every time he tries to eat, he gets recurrent episodes of emesis every time he tries to eat solid food, his PEG tube has been removed he is able to tolerate liquid diet but sometimes because of food craving tries to eat chicken which causes multiple episodes of emesis later on. Today he was on his tractor at 1 PM when he started experiencing epigastric discomfort which she is describing as heaviness, he has not been able to eat or drink much in last few days, his bowel movements or urine output has been according to his p.o. intake but denying any changes. He is endorsing feeling extremely thirsty. Diagnosis in the ER revealed A. fib RVR Cardizem 10 mg IV push was given, his heart rate stays in 120s, Cardizem drip was initiated at the time of my evaluation his heart rate was 80 to 90s Cardizem drip was at 5 mg/h which was terminated at 11 PM, patient is not endorsing chest pain however describing epigastric discomfort, hemodynamically stable, saturating well on room air He does not take any anticoagulating agent, denies previous history of GI bleed, stating Dr. Carlos has started him on high-dose aspirin. CBC shows leukopenia with lymphopenia, Covid antigen negative, magnesium 1.4 with hypokalemia and contraction alkalosis, he drinks 1 beer in a week has cut down on his alcohol intake significantly Review of Systems Const: Reports: fatigue; Denies: fever(s) Eyes: Denies: change in vision ENMT: Denies: throat pain Card: Reports: chest pain and irregular heart rhythm Resp: Denies: dyspnea GI: Reports: abdominal pain, nausea, vomiting and heartburn : Denies: flank pain Musc: Denies: neck pain Skin/Breast: Denies: rash Neuro: Denies: headache(s) Psych: Denies: anxiety Endo: Denies: polyuria Sundeep/Lymph: Denies: easy bruising All/Imm: Denies: urticaria Medications/Allergies Home Medications Medication Instructions Recorded Confirmed Last Taken Type acetaminophen [Tylenol Arthritis 1,300 mg PO PRN 07/22/20 11/15/20 09/17/20 History Pain] ibuprofen 600 mg PO PRN 07/22/20 11/15/20 09/17/20 History lorazepam 1 mg PO TID PRN 07/22/20 11/15/20 10/27/20 History lidocaine-prilocaine See Rx Instructions .ROUTE .COMPLEX 09/24/20 11/15/20 Unknown History pantoprazole [Protonix] 40 mg PO DAILY 09/24/20 11/15/20 10/27/20 History hydrocodone-acetaminophen 15 - 30 ml PO PRN PRN 10/29/20 11/15/20 11/13/20 History ferrous fum-vit C-vit B12-FA 1 cap PO DAILY #30 cap 10/30/20 11/15/20 11/13/20 Rx Reglan 10 mg PO Q6H PRN 11/15/20 11/15/20 Unknown History hydromorphone [Dilaudid] 4 - 8 mg PO Q4H PRN 11/15/20 11/15/20 11/13/20 History Allergies Allergy/AdvReac Type Severity Reaction Status Date / Time No Known Allergies Allergy Verified 11/15/20 16:06 PFSH Acute PFSH: Medical History (Updated 11/15/20 @ 22:43 by Keith Fragoso MD) Alcohol use Atrial fibrillation/flutter Dysphagia 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 Carlos, HER-2/jusuts 3+positive, Clinical Stage III, started carboplatin/taxol 07/21/20, receiving radiation therapy History of heart failure Hypertension Intussusception of jejunum Incidental finding without clinical significance Jejunal intussusception Jejunostomy tube leak Postop check Skin excoriation Skin excoriation Skin care and teaching Surgical History History of incision and drainage (07/22/20) abdominal wall abscess/hematoma History of jejunostomy tube placement (07/19/20) History of knee surgery ACL reconstruction Port-A-Cath in place (07/19/20) Family History Father Cancer lung Mother Cancer breast Brother Cancer prostate cancer Sister Cancer melanoma Denies family history of Anesthesia complication Bleeding disorder Social History Smoking and tobacco status: never smoked Alcohol intake: current Alcohol intake frequency: 3 or more drinks per day Vitals/I&O/Wt Last Vital Signs Temp 98.1 F 11/15/20 16:02 Pulse 114 H 11/15/20 19:08 Resp 15 11/15/20 19:08 BP 98/71 11/15/20 19:08 Pulse Ox 100 11/15/20 19:08 11/15/20 11/15/20 11/15/20 06:59 14:59 22:59 Intake Total 6.333 / 6.333 Balance 6.333 / 6.333 Weight last 48 hrs Weight 70.307 kg Physical Exam Narrative: EXAM NARRATIVE: Pleasant elderly male Who clinically looks dehydrated S1, S2, no murmur appreciated Abdomen soft, flat, nontender with positive bowel sounds Lower extremity no edema gangrene or ulcer Muscle mass loss/sarcopenia No neurological deficits Awake alert oriented x3 GCS 15 Appropriate mood and affect Bilateral breath sounds without adventitious rhonchi or crackles Data : 11/15/20 16:44 11/15/20 16:44 A&P Assessment and plan (1) Atrial fibrillation: Status: Acute Qualifiers: Atrial fibrillation type: unspecified Qualified Code(s): I48.91 - Unspecified atrial fibrillation (2) Nausea and vomiting: Status: Acute Qualifiers: Vomiting Intractability: intractable Vomiting type: unspecified Qualified Code(s): R11.2 - Nausea with vomiting, unspecified (3) Alkalosis, metabolic: Status: Acute (4) Hypomagnesemia: Status: Acute (5) Dehydration: Status: Acute Additional A&P Information A. fib with RVR This seems secondary to hypomagnesemia and dehydration He has been having recurrent nausea and vomiting, as per the patient this is chronic every time he tries to transition from liquid diet to semisolid or solid food EKG without ischemic or infarct changes, troponin trending down, no active chest pain Is endorsing aggravation of pain with eating food which I believe is secondary to his history of esophageal cancer which is at distal end, it can cause referred pain at the similar area Cardizem gtt. turned off at 11 PM, will start oral beta-silvestre Toprol but he takes at home continue aspirin high-dose, I would not repeat echo TSH is normal Hypomagnesemia: Secondary to dehydration: Repleted Contraction alkalosis We will give him normal saline at 30 cc/h for next 7 hours and discontinue the more Esophageal cancer invasive adenocarcinoma Follows up with Dr. Carlos DNR/DNI Liquid diet DVT prophylaxis Lovenox Attestations Medical Necessity Statement*: Anticipating discharge in less than 48 hours for A. fib RVR currently heart rate well controlled Cardizem drip turned off Time Spent in Patient Care: (>than 50% of time spent in counselling and/or direct pt care on unit). 40mins Coding Level of Care Code Acute [employer] Car [employer]er for g Fwd Diagnoses Atrial fibrillation I48.91 Atrial fibrillation type: unspecified Nausea and vomiting R11.2 Vomiting Intractability: intractable Vomiting type: unspecified Alkalosis, metabolic E87.3 Hypomagnesemia E83.42 Dehydration E86.0
[2020-11-15 19:39] LABS: Troponin 5 2HR 30.37 ng/L (0-15)
[2020-11-15 19:43] LABS: Troponin 5 2HR Delta -0.63 ABS# (0-10)
[2020-11-15 20:11] LABS: Magnesium 1.4 mg/dL (1.7-2.3)
[2020-11-15 20:26] LABS: Alcohol Level < 10 mg/dL (0-10)
[2020-11-15 20:38] LABS: SARS Covid-2 Antigen Negative (Negative)
[2020-11-15] MEDS: LORazepam 1 mg Tablet 0.5 MG PO (20:40)
--- NOTE | 2020-11-15 22:53 | ECG_ITS ---
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 Measurements Intervals [place] Rate: 87 P: [place]: QRS: -14 QRSD: 108 T: 62 QT: 372 QTc: 449 Interpretive Statements ATRIAL FIBRILLATION INCOMPLETE RIGHT BUNDLE BRANCH BLOCK [90+ ms QRS DURATION, TERMINAL R IN V1/V2, 40+ ms S IN I/aVL/V4/V5/V6] ABNORMAL RHYTHM ECG Compared to ECG 11/15/2020 18:49:50 Incomplete right bundle-branch block now present Electronically Signed On 11-16-2020 19:25:10 CDT by Greta Truong M.D. [id number]
[2020-11-15] MEDS: enoxaparin 40 mg/0.4 mL Syringe SUBCUT (23:19)
[2020-11-15 23:20] LABS: Troponin 5 6HR 27.39 ng/L (0-15)
[2020-11-15] MEDS: sodium chloride 0.9% 1,000 ML 75 ML IV (23:20)
[2020-11-15] MEDS: magnesium sulfate premix 2 GM/50 ML PIGGYBACK IV (23:20)
[2020-11-15 23:21] LABS: Troponin 5 6HR Delta -3.61 ng/L (0-12)
[2020-11-16] VITALS (9 sets, daily range): BP systolic 96–115; BP diastolic 57–73; PULSE 89–112; RESP 10–16; TEMP 36.6–36.8; O2SAT 96–99
[2020-11-16 05:03] LABS: Anion Gap 10.3 (5-19); Blood Urea Nitrogen 11 mg/dL (8-23); Calcium 8.4 mg/dL (8.5-10.5); Carbon Dioxide 30 mmol/L (22-29); Chloride 98 mmol/L (98-107); Glomerular Filtration Rate 215.9 mL/min (90-130); Glucose 106 mg/dL (65-115); Magnesium 1.6 mg/dL (1.7-2.3); Osmolality Calculated 280 mOsm/kg (285-295); Potassium 3.3 mmol/L (3.5-5.1); Sodium 135 mmol/L (136-145)
[2020-11-16] MEDS: lidocaine 1% 5 ML in potassium chloride premix 100 ML 25 ML IV (06:33)
[2020-11-16] MEDS: phenol oral Spray 177 mL 3 SPRAY MUCOUS MEM ×3 (09:03→20:29)
[2020-11-16] MEDS: thiamine 100 mg Tablet PO (09:04)
[2020-11-16] MEDS: aspirin 325 mg EC Tablet PO (09:04)
[2020-11-16] MEDS: metoprolol succinate ER (24 HR) 25 mg Tablet PO ×2 (09:04→18:46)
[2020-11-16] MEDS: pantoprazole DR 40 mg Tablet PO (09:05)
[2020-11-16] MEDS: HYDROcodone-APAP 7.5-325 mg/15 mL UDC PO ×3 (10:53→22:46)
--- NOTE | 2020-11-16 12:10 | P.PN_ITS ---
Subjective Subjective: Interval history: Patient was seen and examined this morning, he is complaining of substernal chest pain, with exertion as well as shortness of breath with minimal exertion.It has progressively worsened over time. Vitals/I&O/Wt Last Vital Signs Temp 98.1 F 11/16/20 07:30 Pulse 105 H 11/16/20 07:30 Resp 16 11/16/20 07:30 BP 96/73 11/16/20 07:30 Pulse Ox 98 11/16/20 07:30 11/15/20 11/16/20 11/16/20 22:59 06:59 14:59 Intake Total 529.833 / 529.833 608 / 1137.833 517 / 517 Output Total 350 / 350 500 / 850 400 / 400 Balance 179.833 / 179.833 108 / 287.833 117 / 117 Weight last 48 hrs Weight 67.313 kg Weight 70.307 kg Physical Exam Const: COMMON NORMALS: patient oriented x3 HENMT: COMMON NORMALS: normocephalic and atraumatic HEAD & SCALP: normocephalic and atraumatic Resp: COMMON NORMALS: clear to auscultation bilaterally AUSCULTATION: clear to auscultation bilaterally Cardio: COMMON NORMALS: No gallops present (Cardio), No murmurs present (Cardio), No rub (Cardio) and Peripheral pulses 2+ throughout PERIPHERAL PULSES: Peripheral pulses 2+ throughout OTHER: S1-S2 variable intensity, no murmur rub or gallop GI: COMMON NORMALS: Normal to inspection, nondistended, normoactive bowel sounds present, Soft to palpation, non-tender, No hepatosplenomegaly present and no masses AUSCULTATION: Yes normoactive bowel sounds PALPATION: Yes Soft to palpation and Yes No hepatosplenomegaly present RECTAL EXAM: Yes deferred Extremity: COMMON NORMALS: no clubbing, cyanosis or edema and no pedal edema Neuro: COMMON NORMALS: patient oriented x3 Data : 11/15/20 16:44 11/16/20 04:06 A&P Assessment and plan (1) Chest pain: 2D echo: 07/23/20 Diffuse hypokinesia of the left ventricle with slightly diminished ejection fraction of 50%.Normal LV size. Aspirin 325 mg p.o. daily Metoprolol succinate 25 mg p.o. twice daily Sublingual nitro Stress test in a.m. Status: Acute (2) Atrial fibrillation: Currently rate controlled: Continue metoprolol succinate 25 mg p.o. twice daily Status: Acute Qualifiers: Atrial fibrillation type: unspecified Qualified Code(s): I48.91 - Unspecified atrial fibrillation (3) Nausea and vomiting: Status: Acute Qualifiers: Vomiting Intractability: intractable Vomiting type: unspecified Qualified Code(s): R11.2 - Nausea with vomiting, unspecified (4) Alkalosis, metabolic: Status: Acute (5) Hypomagnesemia: Status: Acute (6) Dehydration: Status: Acute Additional A&P Information A. fib with RVR This seems secondary to hypomagnesemia and dehydration He has been having recurrent nausea and vomiting, as per the patient this is chronic every time he tries to transition from liquid diet to semisolid or solid food EKG without ischemic or infarct changes, troponin trending down, no active chest pain Is endorsing aggravation of pain with eating food which I believe is secondary to his history of esophageal cancer which is at distal end, it can cause referred pain at the similar area Cardizem gtt. turned off at 11 PM, will start oral beta-silvestre Toprol but he takes at home continue aspirin high-dose, I would not repeat echo TSH is normal Hypomagnesemia: Secondary to dehydration: Repleted Contraction alkalosis We will give him normal saline at 30 cc/h for next 7 hours and discontinue the more Esophageal cancer invasive adenocarcinoma Follows up with Dr. Carlos DNR/DNI Liquid diet DVT prophylaxis Lovenox Attestations Medical Necessity Statement*: Patient needs to be in hospital for management and evaluation of chest pain. Coding Level of Care Code Acute Vehicle Painter for Chg Fwd Diagnoses Chest pain R07.9 Atrial fibrillation I48.91 Atrial fibrillation type: unspecified Nausea and vomiting R11.2 Vomiting Intractability: intractable Vomiting type: unspecified Alkalosis, metabolic E87.3 Hypomagnesemia E83.42 Dehydration E86.0
--- NOTE | 2020-11-16 18:46 | ECG_ITS ---
[facility] Test Date: 2020-11-17 Pat Name: Emery Shell Department: Room: 105 Gender: Male Hr Coordinator: : 1955 Requested By: José Antonio Gu Order Number: [id number] Oleksandr MD: Megan Jensen M.D. Interpretive Statements NAME OF STUDY: LEXISCAN SESTAMIBI STRESS TEST INDICATION: Chest Pain PROCEDURE: At the baseline, the blood pressure was 137/71 mmHg, oxygen saturation 98% with a heart rate of 119 bpm. The electrocardiogram showed atrial fibrillation with rapid ventricle response. Incomplete right bundle branch block. nonspecific ST-T wave changes. The Lexiscan was infused over a period of 20 seconds. A total of 0.4 milligrams of Lexiscan was infused. The stress phase was continued for a total of 5 minutes. Heart rate at the end of the stress phase was 128 bpm, oxygen saturation 98% with a blood pressure of 79/56 mmHg. The EKG at the peak infusion revealed no significant ST-T wave changes. Study was terminated due to protocol completion. Sestamibi was injected 20 seconds after the Lexiscan infusion. Blood pressure at the end of the recovery phase was 91/56 mmHg, oxygen saturation 98% with a heart rate of 131 beats per minute. CONCLUSION: 1. No significant EKG changes with the LexiScan infusion. 2. No LexiScan induced chest pain or cardiac arrhythmia. 3. Normal blood pressure and heart rate response. 4. Sestamibi/sestamibi perfusion scan pending; see separate report. Electronically Signed On 11-17-2020 13:25:28 CDT by Mgean Jensen M.D. [id number]
[2020-11-16] MEDS: LORazepam 1 mg Tablet 0.5 MG PO (20:32)
--- NOTE | 2020-11-16 21:12 | PC.NURSE ---
Informed Dr Fragoso of negative rapid COVID test and received order to discontinue isolation precautions.
[2020-11-16] MEDS: enoxaparin 40 mg/0.4 mL Syringe SUBCUT (22:43)
[2020-11-17] VITALS (12 sets, daily range): BP systolic 78–115; BP diastolic 52–68; PULSE 90–129; RESP 14–107; TEMP 36.4–36.7; O2SAT 96–100
[2020-11-17] MEDS: phenol oral Spray 177 mL 3 SPRAY MUCOUS MEM ×4 (04:43→20:44)
[2020-11-17] MEDS: HYDROcodone-APAP 7.5-325 mg/15 mL UDC PO ×2 (04:43→20:44)
[2020-11-17 04:57] LABS: Basophils % 0.6 %; Hemoglobin 11.2 g/dL (11.7-16.6); Lymphocytes # 0.1 10^3/uL (0.8-4.8); Lymphocytes % 4.5 %; Mean Corpuscular HGB Conc 33.9 g/dL (30.0-36.0); Mean Corpuscular Hemoglobin 30.8 pg (28.0-34.0); Mean Corpuscular Volume 90.7 fL (80-94); Mean Platelet Volume 11.1 fL (7.4-10.4); Monocytes # 0.4 10^3/uL (0.2-0.9); Monocytes % 21.2 %; Neutrophils # 1.31 10^3/uL (1.8-7.7); Neutrophils % 73.1 %; Nucleated Red Blood Cells % 0 %; Platelet Count 62 10^3/cmm (130-400); Red Blood Count 3.64 10^6/uL (4.1-5.3); White Blood Count 1.8 10^3/uL (4.0-10.0)
[2020-11-17 05:13] LABS: Anion Gap 8.8 (5-19); Blood Urea Nitrogen 7 mg/dL (8-23); Calcium 8.3 mg/dL (8.5-10.5); Carbon Dioxide 29 mmol/L (22-29); Chloride 102 mmol/L (98-107); Glomerular Filtration Rate 215.9 mL/min (90-130); Glucose 127 mg/dL (65-115); Magnesium 1.5 mg/dL (1.7-2.3); Osmolality Calculated 282 mOsm/kg (285-295); Potassium 3.8 mmol/L (3.5-5.1); Sodium 136 mmol/L (136-145)
[2020-11-17] MEDS: regadenoson 0.4 Mg/5 ml Syringe IVP (09:20)
[2020-11-17] MEDS: aspirin 325 mg EC Tablet PO (09:58)
[2020-11-17] MEDS: metoprolol succinate ER (24 HR) 25 mg Tablet PO ×3 (09:58→17:58)
[2020-11-17] MEDS: pantoprazole DR 40 mg Tablet PO (09:58)
[2020-11-17] MEDS: thiamine 100 mg Tablet PO (09:58)
--- NOTE | 2020-11-17 10:07 | PC.NURSE ---
patient returned back from stress test patient alert oriented and in stable condition upon return
--- NOTE | 2020-11-17 10:27 | PC.NURSE ---
Addendum entered by Merlene Burgess RN 11/17/20 10:38: clarified instructions with Dr Issa via telephone instructions: give and additional dose of metorolol succinate ER 25mg x 1 Original Note: patient HR jumping up to 130-[address] issa on unit. and this nurse went in to assess patient and he had just sat back down in the bed. after speaking with patient verbal instructions from Dr issa to wait one more half hour if HR remains greater 110 or greater give and addittional 25mg metoprolol will clarify what type if needed patients HR recovered at this time to 108
--- NOTE | 2020-11-17 14:33 | P.PN_ITS ---
Subjective Subjective: Interval history: Patient was seen and examined this morning, continues to complain of chest discomfort, he is also having nausea, continues to be in A. fib, heart rate, has varied, mostly well controlled, but varies with ambulation has been as high as 130, received extra dose of metoprolol succinate 25 MG PO today. Vitals/I&O/Wt Last Vital Signs Temp 97.8 F 11/17/20 11:46 Pulse 117 H 11/17/20 11:46 Resp 17 11/17/20 11:46 BP 115/60 11/17/20 11:46 Pulse Ox 100 11/17/20 11:46 11/16/20 11/17/20 11/17/20 22:59 06:59 14:59 Intake Total 360 / 1997 360 / 360 Output Total 800 / 1200 200 / 1400 Balance -440 / 797 -200 / 597 360 / 360 Weight last 48 hrs Weight 67.313 kg Weight 70.307 kg Physical Exam Const: COMMON NORMALS: patient oriented x3 HENMT: COMMON NORMALS: normocephalic and atraumatic HEAD & SCALP: normocephalic and atraumatic Resp: COMMON NORMALS: clear to auscultation bilaterally AUSCULTATION: clear to auscultation bilaterally Cardio: COMMON NORMALS: No gallops present (Cardio), No murmurs present (Cardio), No rub (Cardio) and Peripheral pulses 2+ throughout PERIPHERAL PULSES: Peripheral pulses 2+ throughout OTHER: S1-S2 variable intensity, no murmur rub or gallop GI: COMMON NORMALS: Normal to inspection, nondistended, normoactive bowel soun ds present, Soft to palpation, non-tender, No hepatosplenomegaly present and no masses AUSCULTATION: Yes normoactive bowel sounds PALPATION: Yes Soft to palpation and Yes No hepatosplenomegaly present RECTAL EXAM: Yes deferred Extremity: COMMON NORMALS: no clubbing, cyanosis or edema and no pedal edema Neuro: COMMON NORMALS: patient oriented x3 Data : 11/17/20 04:18 11/17/20 04:18 A&P Assessment and plan (1) Chest pain: Typical [place] Chest Pain: 2D echo: 07/23/20 Diffuse hypokinesia of the left ventricle with slightly diminished ejection fraction of 50%.Normal LV size. Stress test:Small sized reversible perfusion abnormality of mid anterolateral, mid to apical inferior and apical lateral burroughs. This may represents small area of ischemia in right coronary artery and circumflex artery territory. Aspirin 325 mg p.o. daily Metoprolol succinate 25 mg p.o. twice daily IMDUR 30 MG PO Daily Sublingual nitro Stress test result was discussed with the patient, given his current comorbid conditions, it was decided, to pursue medical management.And to follow-up with cardiology as an outpatient. Status: Acute (2) Atrial fibrillation: Currently rate controlled: Continue metoprolol succinate 25 mg p.o. twice daily Status: Acute Qualifiers: Atrial fibrillation type: unspecified Qualified Code(s): I48.91 - Unspecified atrial fibrillation (3) Pancytopenia: Patient currently has pancytopenia, WBC count:1.8, hemoglobin:11.2, platelet count:62T. We will continue to monitor CBC. Status: Acute (4) Nausea and vomiting: Status: Acute Qualifiers: Vomiting Intractability: intractable Vomiting type: unspecified Qu alified Code(s): R11.2 - Nausea with vomiting, unspecified (5) Alkalosis, metabolic: Status: Acute (6) Hypomagnesemia: Status: Acute (7) Dehydration: Status: Acute Additional A&P Information A. fib with RVR This seems secondary to hypomagnesemia and dehydration He has been having recurrent nausea and vomiting, as per the patient this is chronic every time he tries to transition from liquid diet to semisolid or solid food EKG without ischemic or infarct changes, troponin trending down, no active chest pain Is endorsing aggravation of pain with eating food which I believe is secondary to his history of esophageal cancer which is at distal end, it can cause referred pain at the similar area Cardizem gtt. turned off at 11 PM, will start oral beta-silvestre Toprol but he takes at home continue aspirin high-dose, I would not repeat echo TSH is normal Hypomagnesemia: Secondary to dehydration: Repleted Contraction alkalosis We will give him normal saline at 30 cc/h for next 7 hours and discontinue the more Esophageal cancer invasive adenocarcinoma Follows up with Dr. Carlos DNR/DNI Liquid diet DVT prophylaxis Lovenox Attestations Medical Necessity Statement*: Patient needs to be in hospital for the management of Typical cardiac chest pain as well as A.Fib Coding Level of Care Code Acute Reference Data Expert for Chg Fwd Diagnoses Chest pain R07.9 Atrial fibrillation I48.91 Atrial fibrillation type: unspecified Pancytopenia D61.818 Nausea and vomiting R11.2 Vomiting Intractability: intractable Vomiting type: unspecified Alkalosis, metabolic E87.3 Hypomagnesemia E83.42 Dehydration E86.0
--- NOTE | 2020-11-17 14:34 | PC.NURSE ---
dr issa at bedside to discuss results of stress test and options of treatment patient agreeable to medications only at this time verbal orders received from Dr issa to start Imdur 30mg PO daily to start now
[2020-11-17] MEDS: isosorbide mononitrate ER 30 mg Tablet PO (15:17)
[2020-11-17] MEDS: magnesium sulfate premix 2 GM/50 ML PIGGYBACK IV (15:17)
[2020-11-17] MEDS: ondansetron 2 mg/ML SDV 2 mL 4 MG IVP ×2 (15:32→20:45)
--- NOTE | 2020-11-17 18:46 | NMCV_ITS ---
NM rodri perf SPECT r/s* [id number] Emery Shell Age: 65 Gender: M : 1955 Exam Date: 11/17/2020 06:54 Ordering Phys: José Antonio Gu MD Technologist: JAY Meléndez Exam Location: [facility] Indications: CHEST PAIN STRESS TEST Please see separate stress test report in [facility] for full findings IMAGE PROTOCOL Rest/Stress 1 Lexiscan Day Radiopharmaceutical Dose (mCi) Administration Site Administered by Rest: Tc-99m 10.8 IV JAY Short Sestamibi Stress:Tc-99m 32.4 IV JAY Short Sestamibi Rest: 17-Nov-2020 60 Discovery 630 Stress: 17-Nov-2020 30 Discovery 630 0.4mg Lexiscan. Supine position only as patient was unable to lay prone. SPECT RESULTS Technical Quality: Excellent Raw Data Analysis: Normal Image Corrections: Summed Stress Score: 7 Summed Rest Score: 2 Summed Difference Score: 5 PERFUSION FINDINGS Small sized perfusion abnormality of mild severity of mid to apical inferior and apical lateral wall on rest images with reversibility noted in mid anterolateral, mid to apical inferior and apical lateral wall on stress images. FUNCTIONAL RESULTS (calculated via Gated SPECT) Stress Image LV EF (%): 62 Stress EDV (mL):103 TID: 1.12 Stress ESV (mL):39 FUNCTIONAL FINDINGS: The left ventricle is normal in size. Transient Ischemia Dilatation of 1.1. There is normal left ventricular systolic function. The left ventricular ejection fraction is normal with a value of 62%. There is normal left ventricular wall thickening with no regional wall motion abnormality. Normal end-diastolic and end-systolic volumes. IMPRESSIONS 1. Small sized reversible perfusion abnormality of mid anterolateral, mid to apical inferior and apical lateral burroughs. 2. This may represents small area of ischemia in right coronary artery and circumflex artery territory. Attenuation artifact cannot be ruled out given lack of prone imaging. 3. Overall left ventricular systolic function is normal without regional wall motion abnormalities, LVEF=62%. 4. No prior similar studies to compare. Megan Jensen MD (Electronically Signed) Final Date: 17 Nov 2020 13:37 S
--- NOTE | 2020-11-17 20:23 | PC.NURSE ---
Received bedside report from Merlene Mendes RN. Patient resting in bed with eyes closed. No distress observed.
[2020-11-17] MEDS: LORazepam 1 mg Tablet 0.5 MG PO (20:45)
[2020-11-18] VITALS (14 sets, daily range): BP systolic 74–109; BP diastolic 46–69; PULSE 93–119; RESP 10–19; TEMP 36.6–36.7; O2SAT 95–99
[2020-11-18 04:36] LABS: Basophils % 0.5 %; Hematocrit 32.6 % (42.0-52.0); Hemoglobin 10.9 g/dL (11.7-16.6); Lymphocytes # 0.1 10^3/uL (0.8-4.8); Mean Corpuscular HGB Conc 33.4 g/dL (30.0-36.0); Mean Corpuscular Hemoglobin 30.3 pg (28.0-34.0); Mean Corpuscular Volume 90.6 fL (80-94); Mean Platelet Volume 9.9 fL (7.4-10.4); Monocytes # 0.5 10^3/uL (0.2-0.9); Monocytes % 26.9 %; Neutrophils # 1.35 10^3/uL (1.8-7.7); Neutrophils % 67.1 %; Nucleated Red Blood Cells % 0 %; Platelet Count 61 10^3/cmm (130-400); Red Cell Distribution Width 13.1 % (12.1-15.1)
[2020-11-18 04:52] LABS: Anion Gap 9.7 (5-19); Blood Urea Nitrogen 7 mg/dL (8-23); Calcium 8.5 mg/dL (8.5-10.5); Carbon Dioxide 30 mmol/L (22-29); Chloride 99 mmol/L (98-107); Glomerular Filtration Rate 215.9 mL/min (90-130); Glucose 131 mg/dL (65-115); Osmolality Calculated 280 mOsm/kg (285-295); Potassium 3.7 mmol/L (3.5-5.1); Sodium 135 mmol/L (136-145)
--- NOTE | 2020-11-18 07:45 | PC.NURSE ---
Per Dr. Gu hold morning metoprolol dose due to patient's decreased BP.
[2020-11-18] MEDS: sodium chloride 0.9% 1,000 ML 125 ML IV ×3 (08:06→22:20)
[2020-11-18] MEDS: ondansetron 2 mg/ML SDV 2 mL 4 MG IVP ×3 (08:13→19:41)
[2020-11-18] MEDS: phenol oral Spray 177 mL 3 SPRAY MUCOUS MEM ×3 (08:14→19:40)
[2020-11-18] MEDS: thiamine 100 mg Tablet PO (10:07)
[2020-11-18] MEDS: pantoprazole DR 40 mg Tablet PO (10:07)
[2020-11-18] MEDS: aspirin 325 mg EC Tablet PO (10:08)
[2020-11-18] MEDS: HYDROcodone-APAP 7.5-325 mg/15 mL UDC PO ×2 (10:12→19:40)
--- NOTE | 2020-11-18 10:41 | P.CONIM_ITS ---
Providers/Reason For Consult Consulting Physican/Specialty*: Anton Castillo MD/ Cardiology Reason for Consult*: Chest pain/abnormal stress test Requesting Physcian: Dr Gu Attending Physician: José Antonio Gu MD Primary Care Provider: Raleigh Boyd DO History of Present Illness History of Present Illness Emery Shell is a 65 year old male with PMH of invasive adenocarcinoma of distal esophagus currently undergoing chemoradiotherapy, Port-A-Cath placement this year presented today with chief complaint of chest discomfort. According to patient his chest pain is substernal. He feels heaviness especially after eating semisolid food. He has also noted to discomfort both at rest and exertion. He underwent a nuclear stress test that showed a small sized reversible perfusion defect of mid anterolateral, mid to apical inferior and apical lateral burroughs.. According to patient there are plans for reevaluating his distal esophageal mass and possible surgery. When he came to the hospital he was in A. fib with RVR. Heart rates are still elevated. His blood pressure is soft. No ischemic changes on the EKG. Review of Systems Const: Reports: fatigue; Denies: fever(s) Eyes: Denies: change in vision ENMT: Denies: throat pain Card: Reports: chest pain and irregular heart rhythm Resp: Denies: dyspnea GI: Reports: abdominal pain, nausea, vomiting and heartburn : Denies: flank pain Musc: Denies: neck pain Skin/Breast: Denies: rash Neuro: Denies: headache(s) Psych: Denies: anxiety Endo: Denies: polyuria Sundeep/Lymph: Denies: easy bruising All/Imm: Denies: urticaria Meds/Allergies Home Medications and Allergies Home Medications Medication Instructions Recorded Confirmed Last Taken Type acetaminophen [Tylenol Arthritis 1,300 mg PO PRN 07/22/20 11/15/20 09/17/20 History Pain] ibuprofen 600 mg PO PRN 07/22/20 11/15/20 09/17/20 History lorazepam 1 mg PO TID PRN 07/22/20 11/15/20 10/27/20 History lidocaine-prilocaine See Rx Instructions .ROUTE .COMPLEX 09/24/20 11/15/20 Unknown History pantoprazole [Protonix] 40 mg PO DAILY 09/24/20 11/15/20 10/27/20 History hydrocodone-acetaminophen 15 - 30 ml PO PRN PRN 10/29/20 11/15/20 11/13/20 History ferrous fum-vit C-vit B12-FA 1 cap PO DAILY #30 cap 10/30/20 11/15/20 11/13/20 Rx Reglan 10 mg PO Q6H PRN 11/15/20 11/15/20 Unknown History hydromorphone [Dilaudid] 4 - 8 mg PO Q4H PRN 11/15/20 11/15/20 11/13/20 History Allergies Allergy/AdvReac Type Severity Reaction Status Date / Time No Known Allergies Allergy Verified 11/15/20 16:06 Current Medications Current Medications Generic Name Dose Route Start Last Admin Trade Name Freq PRN Reason Stop Dose Admin Hydrocodone Bitart/Acetaminophen 15 ml 11/15/20 22:34 11/18/20 10:12 Hydrocodone-Apap 7.5-325 Mg/15 Ml Udc PO 15 ml Q6H PRN Administration SEVERE Pain Aspirin 325 mg 11/16/20 09:00 11/18/20 10:08 Aspirin 325 Mg Ec Tablet PO 325 mg DAILY TENNILLE Administration Diltiazem HCl 125 mg/ Sodium 125 mls @ 0 mls/hr 11/15/20 17:00 11/15/20 22:55 Chloride IV 0 mg/hr .Q0M TENNILLE 0 mls/hr Titration Protocol Per Protocol Sodium Chloride 1,000 mls @ 125 mls/hr 11/18/20 07:45 11/18/20 08:06 Sodium Chloride 0.9% IV 125 mls/hr .Q8H TENNILLE Administration Isosorbide Mononitrate 30 mg 11/17/20 14:34 11/17/20 15:17 Isosorbide Mononitrate Er 30 Mg Tablet PO 30 mg DAILY TENNILLE Administration Lorazepam 0.5 mg 11/15/20 19:39 11/17/20 20:45 Lorazepam 1 Mg Tablet PO 0.5 mg BID PRN Administration Nausea Metoprolol Succinate 25 mg 11/16/20 09:00 11/18/20 07:44 Metoprolol Succinate Er (24 Hr) 25 Mg Tablet PO Not Given BID TENNILLE Ondansetron HCl 4 mg 11/17/20 15:20 11/18/20 08:13 Ondansetron 2 Mg/Ml Sdv 2 Ml IVP 4 mg Q4H PRN Administration NAUSEA AND VOMITING Pantoprazole Sodium 40 mg 11/16/20 09:00 11/18/20 10:[address] 40 Mg Tablet PO 40 mg DAILY TENNILLE Administration Phenol 3 spray 11/16/20 08:00 11/18/20 08:14 Phenol Oral [place] 177 Ml MUCOUS MEM 3 spray Q2H PRN Administration SORE THROAT Thiamine Mononitrate 100 mg 11/16/20 09:00 11/18/20 10:07 Thiamine 100 Mg Tablet PO 100 mg DAILY TENNILLE Administration PFSH Acute PFSH: Medical History Alcohol use Atrial fibrillation/flutter Dysphagia 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 Carlos, HE R-2/justus 3+positive, Clinical Stage III, started carboplatin/taxol 07/21/20, receiving radiation therapy History of heart failure Hypertension Intussusception of jejunum Incidental finding without clinical significance Jejunal intussusception Jejunostomy tube leak Postop check Skin excoriation Skin excoriation Skin care and teaching Surgical History History of incision and drainage (07/22/20) abdominal wall abscess/hematoma History of jejunostomy tube placement (07/19/20) History of knee surgery ACL reconstruction Port-A-Cath in place (07/19/20) Family History Father Cancer lung Mother Cancer breast Brother Cancer prostate cancer Sister Cancer melanoma Denies family history of Anesthesia complication Bleeding disorder Social History Smoking and tobacco status: never smoked Alcohol intake: current Alcohol intake frequency: 3 or more drinks per day Vitals/I&O/Wt Last Vital Signs Temp 98.0 F 11/18/20 10:39 Pulse 98 11/18/20 10:39 Resp 19 H 11/18/20 10:39 BP 92/58 11/18/20 10:39 Pulse Ox 97 11/18/20 10:39 11/17/20 11/18/20 11/18/20 22:59 06:59 14:59 Intake Total 530 / 890 240 / 240 Output Total 300 / 300 600 / 900 300 / 300 Balance 230 / 590 -600 / -10 -60 / -60 Physical Exam Const: COMMON NORMALS: patient oriented x3 HENMT: COMMON NORMALS: normocephalic and atraumatic HEAD & SCALP: normocephalic and atraumatic Resp: COMMON NORMALS: clear to auscultation bilaterally AUSCULTATION: clear to auscultation bilaterally Cardio: COMMON NORMALS: No gallops present (Cardio), No murmurs present (Cardio), No rub (Cardio) and Peripheral pulses 2+ throughout PERIPHERAL PULSES: Peripheral pulses 2+ throughout OTHER: Irregularly irregular, tachycardic, no murmur rub or gallop GI: COMMON NORMALS: Normal to inspection, nondistended, normoactive bowel sounds present, Soft to palpation, non-tender, No hepatosplenomegaly present and no masses AUSCULTATION: Yes normoactive bowel sounds PALPATION: Yes Soft to palpation and Yes No hepatosplenomegaly present RECTAL EXAM: Yes deferred Extremity: COMMON NORMALS: no clubbing, cyanosis or edema and no pedal edema Neuro: COMMON NORMALS: patient oriented x3 A&P Assessment and plan (1) Chest pain: Status: Acute (2) Atrial fibrillation: Status: Acute Qualifiers: Atrial fibrillation type: unspecified Qualified Code(s): I48.91 - Unspecified atrial fibrillation (3) Abnormal stress test: Status: Acute Patient's chest discomfort is mostly atypical. He had a stress test that showed a small sized reversible perfusion defect in LCx/RCA territory. At this time invasive cardiac procedures will complicated is cancer therapy . He is overall low cardiac risk given low risk stress test. Will recommend managing medically at this time. His symptoms are more likely from his cancer and A. fib with RVR. We will need to uptitrate rate controlling agents. His blood pressure transiently gets low. Can be started on digoxin. Ideally should be on anticoagulation for A. fib however given his cancer diagnosis and low blood counts, he can be put on at least aspirin. We will have discussion regarding her anticoagulation later again. Thank you for involving us with care of this patient. We will continue to follow. Please call with questions. Coding Level of Care Code Acute Music Theory Professor for Jasen Watkins Diagnoses Chest pain R07.9 Atrial fibrillation I48.91 Atrial fibrillation type: unspecified Abnormal stress test R94.39
--- NOTE | 2020-11-18 13:10 | PM.PN ---
Subjective Subjective: Interval history: Patient was seen and examined this morning, experienced an episode of lightheadedness, this morning, orthostatic vital signs was checked, and it was positive. Plan is to hydrate the patient with 125 cc an hour normal saline. Continues to be in A. fib with rate around 100 -110. Medications: Reviewed: Yes Vitals/I&O/Wt Last Vital Signs Temp 98.0 F 11/18/20 10:39 Pulse 98 11/18/20 10:39 Resp 19 H 11/18/20 10:39 BP 92/58 11/18/20 10:39 Pulse Ox 97 11/18/20 10:39 11/17/20 11/18/20 11/18/20 22:59 06:59 14:59 Intake Total 530 / 890 480 / 480 Output Total 300 / 300 600 / 900 300 / 300 Balance 230 / 590 -600 / -10 180 / 180 Physical Exam Const: COMMON NORMALS: patient oriented x3 HENMT: COMMON NORMALS: normocephalic and atraumatic HEAD & SCALP: normocephalic and atraumatic Resp: COMMON NORMALS: clear to auscultation bilaterally AUSCULTATION: clear to auscultation bilaterally Cardio: COMMON NORMALS: No gallops present (Cardio), No murmurs present (Cardio), No rub (Cardio) and Peripheral pulses 2+ throughout PERIPHERAL PULSES: Peripheral pulses 2+ throughout OTHER: S1-S2 variable intensity, no murmur rub or gallop GI: COMMON NORMALS: Normal to inspection, nondistended, normoactive bowel sounds present, Soft to palpation, non-tender, No hepatosplenomegaly present and no masses AUSCULTATION: Yes normoactive bowel sounds PALPATION: Yes Soft to palpation and Yes No hepatosplenomegaly present RECTAL EXAM: Yes deferred Extremity: COMMON NORMALS: no clubbing, cyanosis or edema and no pedal edema Neuro: COMMON NORMALS: patient oriented x3 Data : 11/18/20 04:02 11/18/20 04:02 A&P Assessment and plan (1) Chest pain: Typical [place] Chest Pain: 2D echo: 07/23/20 Diffuse hypokinesia of the left ventricle with slightly diminished ejection fraction of 50%.Normal LV size. Stress test:Small sized reversible perfusion abnormality of mid anterolateral, mid to apical inferior and apical lateral burroughs. This may represents small area of ischemia in right coronary artery and circumflex artery territory. Aspirin 325 mg p.o. daily Metoprolol succinate 25 mg p.o. twice daily IMDUR 30 MG PO Daily Sublingual nitro Stress test result was discussed with the patient, given his current comorbid conditions, it was decided, to pursue medical management.And to follow-up with cardiology as an outpatient. Status: Acute (2) Atrial fibrillation: Currently rate controlled: Continue metoprolol succinate 25 mg p.o. twice daily Status: Acute Qualifiers: Atrial fibrillation type: unspecified Qualified Code(s): I48.91 - Unspecified atrial fibrillation (3) Pancytopenia: Patient currently has pancytopenia, WBC count:1.8, hemoglobin:11.2, platelet count:62T. We will continue to monitor CBC. Status: Acute (4) Orthostatic hypotension: Continue I.V Hydration Fall Precaution Status: Acute (5) Nausea and vomiting: Status: Acute Qualifiers: Vomiting Intractability: intractable Vomiting type: unspecified Qualified Code(s): R11.2 - Nausea with vomiting, unspecified (6) Alkalosis, metabolic: Status: Acute (7) Hypomagnesemia: Status: Acute (8) Dehydration: Status: Acute Additional A&P Information A. fib with RVR This seems secondary to hypomagnesemia and dehydration He has been having recurrent nausea and vomiting, as per the patient this is chronic every time he tries to transition from liquid diet to semisolid or solid food EKG without ischemic or infarct changes, troponin trending down, no active chest pain Is endorsing aggravation of pain with eating food which I believe is secondary to his history of esophageal cancer which is at distal end, it can cause referred pain at the similar area Cardizem gtt. turned off at 11 PM, will start oral beta-silvestre Toprol but he takes at home continue aspirin high-dose, I would not repeat echo TSH is normal Hypomagnesemia: Secondary to dehydration: Repleted Contraction alkalosis We will give him normal saline at 30 cc/h for next 7 hours and discontinue the more Esophageal cancer invasive adenocarcinoma Follows up with Dr. Carlos DNR/DNI Liquid diet DVT prophylaxis Lovenox Attestations Medical Necessity Statement*: Patient is to be in hospital for management of, chest pain, orthostatic hypotension, A. fib. Coding Level of Care Code Acute Aniline Press Worker for Chg Fwd Diagnoses Chest pain R07.9 Atrial fibrillation I48.91 Atrial fibrillation type: unspecified Pancytopenia D61.818 Orthostatic hypotension I95.1 Nausea and vomiting R11.2 Vomiting Intractability: intractable Vomiting type: unspecified Alkalosis, metabolic E87.3 Hypomagnesemia E83.42 Dehydration E86.0
[2020-11-18] MEDS: docusate sodium 10 mg/mL (5ml) Liq 50 MG PO (14:53)
--- NOTE | 2020-11-18 17:30 | PC.NURSE ---
Call placed tp Dr. Gu regarding patient's BP (86/56) and HR (110-120). Order to hold metoprolol & imdur.
--- NOTE | 2020-11-18 19:29 | PC.NURSE ---
Received report from ELIZA Horowitz. Patient resting in bed watching tv. Discussed plan for tonight to include medications. Patient has pain to abdomen/epigastric area. History of radiation treatment for CA per patient. Assessment completed as documented.
[2020-11-18] MEDS: LORazepam 1 mg Tablet 0.5 MG PO (19:40)
[2020-11-18] MEDS: metoprolol succinate ER (24 HR) 25 mg Tablet PO (19:40)
--- NOTE | 2020-11-18 19:48 | PC.NURSE ---
Dr Gu in to see patient. BP at that time was 105/73 while lying down with MAP of 83 with heart rate of 111. BP while sitting is 85/60 with MAP of 68. Received verbal to give Metoprolol 25mg PO now, which was given.
[2020-11-19] VITALS (10 sets, daily range): BP systolic 69–109; BP diastolic 50–73; PULSE 83–128; RESP 14–19; TEMP 36.7–37.1; O2SAT 97–99
[2020-11-19] MEDS: sodium chloride 0.9% 1,000 ML 125 ML IV (05:58)
[2020-11-19] MEDS: HYDROcodone-APAP 7.5-325 mg/15 mL UDC PO ×3 (06:02→19:33)
[2020-11-19] MEDS: LORazepam 1 mg Tablet 0.5 MG PO ×2 (06:02→19:33)
[2020-11-19] MEDS: ondansetron 2 mg/ML SDV 2 mL 4 MG IVP ×4 (06:03→21:26)
[2020-11-19 06:05] LABS: Basophils % 0.5 %; Hematocrit 32.8 % (42.0-52.0); Lymphocytes # 0.1 10^3/uL (0.8-4.8); Lymphocytes % 4.2 %; Mean Corpuscular HGB Conc 33.5 g/dL (30.0-36.0); Mean Corpuscular Hemoglobin 30.3 pg (28.0-34.0); Mean Corpuscular Volume 90.4 fL (80-94); Mean Platelet Volume 10.3 fL (7.4-10.4); Monocytes # 0.4 10^3/uL (0.2-0.9); Monocytes % 23.2 %; Neutrophils # 1.37 10^3/uL (1.8-7.7); Neutrophils % 72.1 %; Nucleated Red Blood Cells % 0 %; Platelet Count 64 10^3/cmm (130-400); Red Blood Count 3.63 10^6/uL (4.1-5.3); White Blood Count 1.9 10^3/uL (4.0-10.0)
[2020-11-19 06:26] LABS: Anion Gap 8.7 (5-19); Blood Urea Nitrogen 6 mg/dL (8-23); Calcium 8.3 mg/dL (8.5-10.5); Carbon Dioxide 30 mmol/L (22-29); Chloride 103 mmol/L (98-107); Glomerular Filtration Rate 166.9 mL/min (90-130); Glucose 121 mg/dL (65-115); Magnesium 1.4 mg/dL (1.7-2.3); Osmolality Calculated 285 mOsm/kg (285-295); Potassium 3.7 mmol/L (3.5-5.1); Sodium 138 mmol/L (136-145)
[2020-11-19] MEDS: aspirin 325 mg EC Tablet PO (09:30)
[2020-11-19] MEDS: metoprolol succinate ER (24 HR) 25 mg Tablet PO ×2 (09:30→17:57)
[2020-11-19] MEDS: pantoprazole DR 40 mg Tablet PO (09:30)
[2020-11-19] MEDS: midodrine 5 mg TABLET 10 MG PO ×3 (09:31→19:33)
[2020-11-19] MEDS: docusate sodium 10 mg/mL (5ml) Liq 50 MG PO (09:32)
[2020-11-19] MEDS: magnesium sulfate premix 4 GM/100 ML PREMIX IV (09:33)
--- NOTE | 2020-11-19 11:32 | PM.PN ---
Subjective Subjective: Interval history: Patient is doing well. no active complaints. Vitals/I&O/Wt Last Vital Signs Temp 98.0 F 11/19/20 11:07 Pulse 88 11/19/20 11:07 Resp 14 11/19/20 11:07 BP 107/61 11/19/20 11:07 Pulse Ox 99 11/19/20 11:07 11/18/20 11/19/20 11/19/20 22:59 06:59 14:59 Intake Total 1285 / 2619.167 1074.167 / 3693.334 Output Total 200 / 500 1050 / 1550 Balance 1085 / 2119.167 24.167 / 2143.334 Physical Exam Const: COMMON NORMALS: patient oriented x3 HENMT: COMMON NORMALS: normocephalic and atraumatic HEAD & SCALP: normocephalic and atraumatic Resp: COMMON NORMALS: clear to auscultation bilaterally AUSCULTATION: clear to auscultation bilaterally Cardio: COMMON NORMALS: No gallops present (Cardio), No murmurs present (Cardio), No rub (Cardio) and Peripheral pulses 2+ throughout PERIPHERAL PULSES: Peripheral pulses 2+ throughout OTHER: Irregularly irregular, tachycardic, no murmur rub or gallop GI: COMMON NORMALS: Normal to inspection, nondistended, normoactive bowel sounds present, Soft to palpation, non-tender, No hepatosplenomegaly present and no masses AUSCULTATION: Yes normoactive bowel sounds PALPATION: Yes Soft to palpation and Yes No hepatosplenomegaly present RECTAL EXAM: Yes deferred Extremity: COMMON NORMALS: no clubbing, cyanosis or edema and no pedal edema Neuro: COMMON NORMALS: patient oriented x3 Data : 11/19/20 05:45 11/19/20 05:45 A&P Assessment and plan (1) Chest pain: Status: Acute (2) Atrial fibrillation: Status: Acute Qualifiers: Atrial fibrillation type: unspecified Qualified Code(s): I48.91 - Unspecified atrial fibrillation (3) Abnormal stress test: Status: Acute Patient's chest discomfort is mostly atypical. He had a stress test that showed a small sized reversible perfusion defect in LCx/RCA territory. At this time invasive cardiac procedures will complicated is cancer therapy . He is overall low cardiac risk given low risk stress test. Will recommend managing medically at this time. His symptoms are more likely from his cancer and A. fib with RVR. Heart rate is relatively better controlled. If needed, can be started on digoxin Ideally should be on anticoagulation for A. fib however given his cancer diagnosis and low blood counts, he can be put on aspirin. We will have discussion regarding anticoagulation as outpatient as well Thank you for involving us with care of this patient. Please call with questions. Attestations Medical Necessity Statement*: Care expected to cross 2 midnights. Coding Level of Care Code Acute Traveling Missionary for Jasen Fwralph Diagnoses Chest pain R07.9 Atrial fibrillation I48.91 Atrial fibrillation type: unspecified Abnormal stress test R94.39
[2020-11-19] MEDS: isosorbide dinitrate 20 mg Tablet 10 MG PO (11:48)
--- NOTE | 2020-11-19 14:34 | P.PN_ITS ---
Subjective Subjective: Interval history: Patient was seen and examined this morning,continue to have soft blood pressure. Continue to be in A.fib with h/r in high 90s to low 100s. No active complain. Medications: Reviewed: Yes Vitals/I&O/Wt Last Vital Signs Temp 98.0 F 11/19/20 11:07 Pulse 88 11/19/20 11:07 Resp 14 11/19/20 11:07 BP 107/61 11/19/20 11:07 Pulse Ox 99 11/19/20 11:07 11/18/20 11/19/20 11/19/20 22:59 06:59 14:59 Intake Total 1285 / 2619.167 1074.167 / 3693.334 Output Total 200 / 500 1050 / 1550 300 / 300 Balance 1085 / 2119.167 24.167 / 2143.334 -300 / -300 Physical Exam Const: COMMON NORMALS: patient oriented x3 HENMT: COMMON NORMALS: normocephalic and atraumatic HEAD & SCALP: norm ocephalic and atraumatic Resp: COMMON NORMALS: clear to auscultation bilaterally AUSCULTATION: clear to auscultation bilaterally Cardio: COMMON NORMALS: No gallops present (Cardio), No murmurs present (Cardio), No rub (Cardio) and Peripheral pulses 2+ throughout PERIPHERAL PULSES: Peripheral pulses 2+ throughout OTHER: S1-S2 variable intensity, no murmur rub or gallop GI: COMMON NORMALS: Normal to inspection, nondistended, normoactive bowel sounds present, Soft to palpation, non-tender, No hepatosplenomegaly present and no masses AUSCULTATION: Yes normoactive bowel sounds PALPATION: Yes Soft to palpation and Yes No hepatosplenomegaly present RECTAL EXAM: Yes deferred Extremity: COMMON NORMALS: no clubbing, cyanosis or edema and no pedal edema Neuro: COMMON NORMALS: patient oriented x3 Data : 11/19/20 05:45 11/19/20 05:45 A&P Assessment and plan (1) Chest pain: Typical [place] Chest Pain: 2D echo: 07/23/20 Diffuse hypokinesia of the left ventricle with slightly diminished ejection fraction of 50%.Normal LV size. Stress test:Small sized reversible perfusion abnormality of mid anterolateral, mid to apical inferior and apical lateral burroughs. This may represents small area of ischemia in right coronary artery and circumflex artery territory. Aspirin 325 mg p.o. daily Metoprolol succinate 25 mg p.o. twice daily IMDUR 30 MG PO Daily was discontinued as the blood pressure was low.He has been started oon ISDN 10 mg po daily. Sublingual nitro Stress test result was discussed with the patient, given his current comorbid conditions, it was decided, to pursue medical management.And to follow-up with cardiology as an outpatient. Status: Acute (2) Atrial fibrillation: Continue metoprolol succinate 25 mg p.o. twice daily Status: Acute Qualifiers: Atrial fibrillation type: unspecified Qualified Code(s): I48.91 - Unspecified atrial fibrillation (3) Pancytopenia: Patient currently has pancytopenia, WBC count:1.8, hemoglobin:11.2, platelet count:62T. We will continue to monitor CBC. Status: Acute (4) Orthostatic hypotension: Continue I.V Hydration. Midodrine 10 mg po TID Fall Precaution Status: Acute (5) Nausea and vomiting: Resolved Status: Acute Qualifiers: Vomiting Intractability: intractable Vomiting type: unspecified Qualified Code(s): R11.2 - Nausea with vomiting, unspecified (6) Alkalosis, metabolic: Status: Acute (7) Hypomagnesemia: Monitor and replace Status: Acute (8) Dehydration: Continue I.V Hydration Status: Acute Additional A&P Information A. fib with RVR This seems secondary to hypomagnesemia and dehydration He has been having recurrent nausea and vomiting, as per the patient this is chronic every time he tries to transition from liquid diet to semisolid or solid food EKG without ischemic or infarct changes, troponin trending down, no active chest pain Is endorsing aggravation of pain with eating food which I believe is secondary to his history of esophageal cancer which is at distal end, it can cause refer red pain at the similar area Cardizem gtt. turned off at 11 PM, will start oral beta-silvestre Toprol but he takes at home continue aspirin high-dose, I would not repeat echo TSH is normal Hypomagnesemia: Secondary to dehydration: Repleted Contraction alkalosis We will give him normal saline at 30 cc/h for next 7 hours and discontinue the more Esophageal cancer invasive adenocarcinoma Follows up with Dr. Carlos DNR/DNI Liquid diet DVT prophylaxis Lovenox Attestations Medical Necessity Statement*: Patient needs to be in hospital for management of above defined problems. Coding Level of Care Code Acute Public Health Outreach Worker for g Fwd Diagnoses Chest pain R07.9 Atrial fibrillation I48.91 Atrial fibrillation type: unspecified Pancytopenia D61.818 Orthostatic hypotension I95.1 Nausea and vomiting R11.2 Vomiting Intractability: intractable Vomiting type: unspecified Alkalosis, metabolic E87.3 Hypomagnesemia E83.42 Dehydration E86.0
[2020-11-19] MEDS: sodium chloride 0.9% 1,000 ML 50 ML IV (19:06)
--- NOTE | 2020-11-19 19:10 | PC.NURSE ---
Received report from ELIZA Horowitz. Patient resting in bed. SHUT OFF WORKER at bedside performing orthostatics. Patient does have significant changes however denies dizziness or lightheadedness at this time. Patient c/o nausea and pain 12/16. Will provided medication as ordered.
[2020-11-20] MEDS: ondansetron 2 mg/ML SDV 2 mL 4 MG IVP ×3 (01:38→10:24)
[2020-11-20 03:14] VITALS: BP 96/57; PULSE 95; RESP 16; TEMP 36.8; O2SAT 99
[2020-11-20 05:38] VITALS: PULSE 95
--- NOTE | 2020-11-20 05:58 | PC.NURSE ---
Patient requesting something for pain. Pain medication had during the night. Informed Dr Treadwell and received order to restart Hydrocodone 7.5/325 per 15ml as previously ordered.
[2020-11-20] MEDS: HYDROcodone-APAP 7.5-325 mg/15 mL UDC PO (06:10)
[2020-11-20 07:18] VITALS: BP 92/62; PULSE 102; RESP 15; TEMP 36.7; O2SAT 96
--- NOTE | 2020-11-20 09:50 | P.DS_ITS ---
Discharge Providers Date of Admission: 11/19/20 17:32 Date of Discharge: November 20, 2020 Attending Provider at Admission: José Antonio Gu MD Attending Provider at Discharge: José Antonio Gu MD Primary Care Provider: Raleigh Villarreal DO Diagnoses at Discharge Discharge Diagnosis (1) Chest pain: Status: Acute (2) Atrial fibrillation: Status: Chronic Qualifiers: Atrial fibrillation type: unspecified Qualified Code(s): I48.91 - Unspecified atrial fibrillation (3) Abnormal stress test: Status: Acute Reason for Visit Reason for Visit: CA PT/NO INTAKE X 3 DAYS, PAIN Hospital Course Hospital Course 65 year old male who has history of invasive adenocarcinoma of distal esophagus currently undergoing chemoradiotherapy, Port-A-Cath placement this year presented today with chief complaint of chest discomfort. Patient is stating that he gets epigastric discomfort which she is describing as heaviness which is nonradiating not associated with any fever, nausea, diaphoresis or shortness of breath.Diagnosis in the ER revealed A. fib RVR Cardizem 10 mg IV push was given, his heart rate stays in 120s, Cardizem drip was initiated little he was switched to P.o. metoprolol, at the time of discharge his heart rate was well controlled, he was discharged on metoprolol succinate 37.5 mg p.o. every 12 hours daily. Patient has been kept on high dose of aspirin 325 mg p.o. daily, even though he qualifies for therapeutic anticoagulation,he was not started on any anticoagulation given his pending CA esophagus work-up and the possibility for possible surgery in the near future.For his chest pain, which is typical cardiac chest pain, he underwent nuclear cardiac stress test, which showed Small sized reversible perfusion abnormality of mid anterolateral, mid to apical inferior and apical lateral burroughs.This may represents small area of ischemia in right coronary artery and circumflex artery territory. He was started on Imdur 30 mg po daily,but unfortunately it could not be continued, as the patient was hypotensive With systolic going into as low as upper 80s.Patient was appropriately hydrated with IV hydration, midodrine was also added to help with better blood pressure given persistent hypotension.Patient responded well to midodrine his maps at the time of discharge was greater than 65%. He was discharged on midodrine 10 mg p.o. 3 times daily as needed For systolic blood pressure less than 100. Isosorbide dinitrate 10 mg p.o. daily was added, which he tolerated well. At the time of discharge his heart rate was also well controlled. He was discharged to follow-up with cardiology as an outpatient. Physical Exam Const: COMMON NORMALS: patient oriented x3 HENMT: COMMON NORMALS: normocephalic and atraumatic HEAD & SCALP: normocephalic and atraumatic Resp: COMMON NORMALS: clear to auscultation bilaterally AUSCULTATION: clear to auscultation bilaterally Cardio: COMMON NORMALS: No gallops present (Cardio), No murmurs present (Cardio), No rub (Cardio) and Peripheral pulses 2+ throughout PERIPHERAL PULSES: Peripheral pulses 2+ throughout OTHER: S1-S2 variable intensity, no murmur rub or gallop GI: COMMON NORMALS: Normal to inspection, nondistended, normoactive bowel sounds present, Soft to palpation, non-tender, No hepatosplenomegaly present and no masses AUSCULTATION: Yes normoactive bowel sounds PALPATION: Yes Soft to palpation and Yes No hepatosplenomegaly present RECTAL EXAM: Yes deferred Extremity: COMMON NORMALS: no clubbing, cyanosis or edema and no pedal edema Neuro: COMMON NORMALS: patient oriented x3 Discharge Data Data Completed and Pending: Completed Studies During Hospitalization Category Date Time Status Sestamibi Stress Test Request Routi ne Exams 11/16/20 18:46 Completed XR chest 1V carl ble [id number] Stat Exams 11/15/20 16:52 Completed NM rodri perf SPECT r/s* [id number] Routin e Nuc Med 11/17/20 18:46 Completed Vitals: Last Vital Signs Temp 98.1 F 11/20/20 07:18 Pulse 102 H 11/20/20 07:18 Resp 11/20/20 07:18 BP 92/62 11/20/20 07:18 Pulse Ox 96 11/20/20 07:18 Discharge Plan Discharge Patient Disposition: Home Condition: Stable Prescriptions: New Docu 50 mg/5 mL Liquid 50 mg PO DAILY Qty: 473 RF: 0 aspirin 325 mg Tablet,Delayed Release (Dr/Ec) 325 mg PO DAILY 30 Days RF: 3 isosorbide dinitrate 20 mg Tablet 10 mg PO Q24H 30 Days Qty: 15 RF: 3 nitroglycerin 0.4 mg Tablet, Sublingual 0.4 mg sublingual Q5M PRN (Reason: Chest Pain) Qty: 30 RF: 0 metoprolol succinate 25 mg Tablet Extended Release 24 Hr 37.5 mg PO BID 30 Days Qty: 90 RF: 3 midodrine 10 mg tablet 10 mg PO TID PRN (Reason: hypotension) Qty: 30 RF: 0 Continued acetaminophen [Tylenol Arthritis Pain] 650 mg Tablet Extended Release 1,300 mg PO PRN RF: 0 ibuprofen 200 mg Tablet 600 mg PO PRN RF: 0 lorazepam 1 mg tablet 1 mg PO TID PRN (Reason: Nausea) RF: 0 lidocaine-prilocaine 2.5-2.5 % cream See Rx Instructions .ROUTE .COMPLEX RF: 0 pantoprazole [Protonix] 40 mg tablet,delayed release (DR/EC) 40 mg PO DAILY RF: 0 hydrocodone-acetaminophen 7.5-325 mg/15 mL solution 15 - 30 ml PO PRN PRN (Reason: Pain) RF: 0 ferrous fum-vit C-vit B12-FA 460-60-0.01-1 mg capsule 1 cap PO DAILY Qty: 30 RF: 0 Dilaudid 4 mg Tablet 4 - 8 mg PO Q4H PRN (Reason: Pain) RF: 0 Reglan 10 mg tablet 10 mg PO Q6H PRN (Reason: Nausea) RF: 0 Discharge Orders: Discharge Order (Routine); Ordered 11/20/20 Ordered By: José Antonio Gu Referrals: Anton Castillo M.D [Physician] - 1 month ([facility] TO SET UP YOUR APPOINTMENT. IF YOU DO NOT HEAR FROM THEM BY SUNDAY CALL [phone].) Magalie Mustafa FNP [Nurse Practitioner] - 1 week ([facility] TO SET UP YOUR APPOINTMENT. IF YOU DO NOT HEAR FROM THEM BY SUNDAY CALL [phone].) Raleigh Villarreal DO [Primary Care Provider] - 4-7 days (DR. VILLARREAL'S OFFICE WILL CALL YOU TO SET UP AN APPOINTMENT. IF YOU DO NOT HEAR FROM THEM BY SUNDAY PLEASE CALL [phone]. ) Discharge Diet: Regular Discharge Activity: Resume usual activity Patient Instructions: Isosorbide Dinitrate (By mouth), Metoprolol (By mouth), Nitroglycerin (By mouth), Aspirin (By mouth), Laxative, Stool Softeners (By mouth), Midodrine (By mouth), Atrial Fibrillation (DC), Chest Pain Stoplight, Opioid Safety Discharge Attestations Time Spent in Discharge Care*: less than 30 min Specific Discharge Activities: educating patient, educating and/or supporting family/caregiver, discussing with pcp/other providers, discussing with case making machine operator/social workers/dc planners, documenting/other paperwork and evaluating patient/reviewing data Status at Discharge: Cognitive status at discharge: cognitively intact , Behavioral status at discharge: cooperative , Quality Metrics Clinical Quality Measures During this hospital stay, did patient experience: None Coding Level of Care Code Acute Chg FW DC note Exam Detailed Diagnoses Chest pain R07.9 Atrial fibrillation I48.91 Atrial fibrillation type: unspecified Abnormal stress test R94.39
[2020-11-20] MEDS: aspirin 325 mg EC Tablet PO (09:59)
[2020-11-20] MEDS: midodrine 5 mg TABLET 10 MG PO (09:59)
[2020-11-20] MEDS: thiamine 100 mg Tablet PO (10:00)
[2020-11-20] MEDS: metoprolol succinate ER (24 HR) 25 mg Tablet PO (10:00)
[2020-11-20] MEDS: pantoprazole DR 40 mg Tablet PO (10:00)
[2020-11-20] MEDS: metoprolol succinate ER (24 HR) 25 mg Tablet 12.5 MG PO (10:01)
[2020-11-20] MEDS: isosorbide dinitrate 20 mg Tablet 10 MG PO (10:24)
[2020-11-20] MEDS: docusate sodium 10 mg/mL (5ml) Liq 50 MG PO (10:24)
[2020-11-20 10:49] VITALS: BP 90/52; PULSE 102; RESP 18; O2SAT 95
[2020-11-20 11:45] VITALS: BP 90/52; PULSE 102; RESP 18; O2SAT 95
--- NOTE | 2020-11-20 12:14 | PM.PN ---
Subjective Subjective: Interval history: Patient is feeling better. No complaints of chest pain today Vitals/I&O/Wt Last Vital Signs Temp 98.1 F 11/20/20 07:18 Pulse 102 H 11/20/20 11:45 Resp 18 11/20/20 11:45 BP 90/52 11/20/20 11:45 Pulse Ox 95 11/20/20 11:45 11/19/20 11/20/20 11/20/20 22:59 06:59 14:59 Intake Total 340 / 1340 1015.833 / 1015.833 Output Total 600 / 900 Balance 340 / 1040 -600 / 440 1015.833 / 1015.833 Physical Exam Const: COMMON NORMALS: patient oriented x3 HENMT: COMMON NORMALS: normocephalic and atraumatic HEAD & SCALP: normocephalic and atraumatic Resp: COMMON NORMALS: clear to auscultation bilaterally AUSCULTATION: clear to auscultation bilaterally Cardio: COMMON NORMALS: No gallops present (Cardio), No murmurs present (Cardio), No rub (Cardio) and Peripheral pulses 2+ throughout PERIPHERAL PULSES: Peripheral pulses 2+ throughout OTHER: Irregularly irregular, tachycardic, no murmur rub or gallop GI: COMMON NORMALS: Normal to inspection, nondistended, normoactive bowel sounds present, Soft to palpation, non-tender, No hepatosplenomegaly present and no masses AUSCULTATION: Yes normoactive bowel sounds PALPATION: Yes Soft to palpation and Yes No hepatosplenomegaly present RECTAL EXAM: Yes deferred Extremity: COMMON NORMALS: no clubbing, cyanosis or edema and no pedal edema Neuro: COMMON NORMALS: patient oriented x3 Data : 11/19/20 05:45 11/19/20 05:45 A&P Assessment and plan (1) Chest pain: (2) Atrial fibrillation: Qualifiers: Atrial fibrillation type: unspecified Qualified Code(s): I48.91 - Unspecified atrial fibrillation (3) Abnormal stress test: Patient's chest discomfort is mostly atypical. He had a stress test that showed a small sized reversible perfusion defect in LCx/RCA territory. At this time invasive cardiac procedures will complicated is cancer therapy . He is overall low cardiac risk given low risk stress test. Will recommend managing medically at this time. His symptoms are more likely from his cancer and A. fib with RVR. Heart rate is better controlled. If needed, can be started on digoxin Ideally should be on anticoagulation for A. fib however given his cancer diagnosis and low blood counts, he can be put on aspirin. We will have discussion regarding anticoagulation as outpatient as well Thank you for involving us with care of this patient. He is stable to discharged from cardiology standpoint. Please call with questions. Attestations Medical Necessity Statement*: Care expected to cross 2 midnights. Coding Level of Care Code Acute Laser Beam Color Scanner Operator for [place] Fwd Diagnoses Chest pain R07.9 Atrial fibrillation I48.91 Atrial fibrillation type: unspecified Abnormal stress test R94.39
== END 2020-11-20 12:07 | disposition home or self-care (01) | DRG 309 ==
LOC: ER 18:38 → CSU 11-16 09:30
PROVIDERS: Family Medicine; Internal Medicine; Admitting Provider Internal Medicine; Emergency Provider Emergency Medicine; PCP Electrodiagnostic Medicine; Visit Provider Internal Medicine
DX: I48.91 Unspecified atrial fibrillation (principal); C15.5 Malignant neoplasm of lower third of esophagus; E87.3 Alkalosis; D61.818 Other pancytopenia; Z79.899 Other long term (current) drug therapy; Z95.828 Presence of other vascular implants and grafts; E87.6 Hypokalemia; F10.10 Alcohol abuse, uncomplicated; E83.42 Hypomagnesemia; E86.0 Dehydration; R94.39 Abnormal result of other cardiovascular function study; I95.1 Orthostatic hypotension; Z79.891 Long term (current) use of opiate analgesic
CPT/HCPCS: 36415; 71045; 78452; 80048; 80053; 80307; 83735; 84443; 84484; 85025; 87426; 93005; 93017; 96372; A9500; G0378; J1170; J1650; J2405; J2785; J3475; J3480; J3490; J7030

== ENCOUNTER 2020-11-25 05:32 | Outpatient (RCR) | payer MEDICARE, SELFPAY ==
[2020-11-24] MEDS: sodium chloride 0.9% 1,000 ML 999 ML IV (08:30)
[2020-11-24] MEDS: ondansetron 2 mg/ML SDV 2 mL 8 MG IVP (08:30)
[2020-11-24 08:32] VITALS: RESP 18; O2SAT 97
[2020-11-24] MEDS: HYDROmorphone 1 mg/mL INJ 1 mL 2 MG IV (08:32)
[2020-11-24 08:34] LABS: Basophils % 0.7 %; Hematocrit 31.7 % (42.0-52.0); Hemoglobin 10.5 g/dL (11.7-16.6); Lymphocytes # 0.3 10^3/uL (0.8-4.8); Lymphocytes % 10.4 %; Mean Corpuscular HGB Conc 33.1 g/dL (30.0-36.0); Mean Corpuscular Hemoglobin 29.5 pg (28.0-34.0); Mean Platelet Volume 9.3 fL (7.4-10.4); Monocytes # 0.6 10^3/uL (0.2-0.9); Monocytes % 20.4 %; Neutrophils # 2.05 10^3/uL (1.8-7.7); Neutrophils % 68.5 %; Nucleated Red Blood Cells % 0 %; Platelet Count 124 10^3/cmm (130-400); Red Blood Count 3.56 10^6/uL (4.1-5.3); Red Cell Distribution Width 13.3 % (12.1-15.1)
[2020-11-24] MEDS: famotidine 20 mg/2 mL INJ IVP (08:36)
[2020-11-24 08:55] LABS: Alanine Aminotransferase 11 U/L (0-41); Albumin Level 3.4 g/dL (3.5-5.2); Alkaline Phosphatase 66 IU/L (40-130); Anion Gap 13.8 (5-19); Aspartate Amino Transferase 15 U/L (0-40); Blood Urea Nitrogen 17 mg/dL (8-23); Calcium 8.4 mg/dL (8.5-10.5); Carbon Dioxide 28 mmol/L (22-29); Chloride 100 mmol/L (98-107); Globulin 2.6 g/dL (1.3-4.6); Glomerular Filtration Rate 166.9 mL/min (90-130); Glucose 156 mg/dL (65-115); Osmolality Calculated 291 mOsm/kg (285-295); Potassium 3.8 mmol/L (3.5-5.1); Sodium 138 mmol/L (136-145); Total Bilirubin 0.5 mg/dL (0.15-1.2)
[2020-11-25] MEDS: sodium chloride 0.9% 1,000 ML 999 ML IV (09:40)
[2020-11-25] MEDS: ondansetron 2 mg/ML SDV 2 mL 8 MG IVP (09:42)
== END 2020-11-28 08:30 | disposition home or self-care (01) ==
LOC: ONCMED 05:32
PROVIDERS: Absent Provider Radiology Radiation Oncology; PCP Electrodiagnostic Medicine; Visit Provider Internal Medicine Hematology & Oncology
DX: Z51.11 Encounter for antineoplastic chemotherapy (principal); C15.5 Malignant neoplasm of lower third of esophagus; K44.9 Diaphragmatic hernia without obstruction or gangrene; K76.0 Fatty (change of) liver, not elsewhere classified; D35.02 Benign neoplasm of left adrenal gland; K42.9 Umbilical hernia without obstruction or gangrene; I42.2 Other hypertrophic cardiomyopathy; R13.10 Dysphagia, unspecified; R63.4 Abnormal weight loss; I10 Essential (primary) hypertension; I25.10 Atherosclerotic heart disease of native coronary artery without angina pectoris; Z79.899 Other long term (current) drug therapy
CPT/HCPCS: 80053; 85025; 96361; 96374; 96375; 99215; J1100; J1170; J2405; J3490; J7030

== ENCOUNTER 2020-11-28 08:31 | Emergency (ER) | payer MEDICARE, SELFPAY ==
[2020-11-28 08:39] VITALS: BP 97/62; PULSE 118; RESP 18; TEMP 36.6; O2SAT 106; BMI 21.2
--- NOTE | 2020-11-28 08:41 | W.ED.GENADLT ---
HPI - General Adult General: Chief complaint: Abdominal Pain Stated complaint: no intake x 3 days Time Seen by Provider: 11/28/20 08:36 Source: patient and RN notes reviewed Mode of arrival: ambulatory Limitations: no limitations History of Present Illness: HPI narrative: This patient is a 65-year-old male with a long history of esophageal cancer. Patient is cachectic and reportedly has lost over 75 pounds in the past year. Patient has been through radiation and chemotherapy but to the standpoint they were doing a referral to [facility] for possible surgical removal of his cancer. Patient states that the cancer is stomach cancer however according to records resection of the esophagus it appears to be affected. Patient states he has been unable to take any p.o. fluids or eat anything significant for some time and having dry heaves. Patient states he recently was in the hospital for the same and was advised to come back if he started having signs and symptoms of dehydration. Patient states he did have a feeding tube but they had to take it out because of some issues with infection. Patient has been waiting on a call from [facility] of when to go up to [place] to have surgery. Patient states she has not been notified yet. We will do medical evaluation treat as needed. Onset (ago): year(s) Radiation: abdomen Severity: moderate and similar to prior episodes Associated symptoms: Reports nausea; Deny chest pain, dyspnea, headache(s), rash, palpitations or vomiting Review of Systems General: Reports: 10 or more systems reviewed and unremarkable except in HPI and below Const: Denies: fever(s), chills, body aches or fatigue Eyes: Denies: change in vision or blurry vision ENMT: Denies: throat pain, hoarseness or mouth pain Card: Denies: chest pain, palpitations, irregular heart rhythm, edema, swelling of feet/ankles or lightheadedness Resp: Denies: dyspnea, productive cough, non-productive cough, wheezing or pain on inspiration GI: Reports: abdominal pain, nausea and dysphagia; Denies: vomiting : Denies: flank pain, dysuria, urinary frequency, urinary urgency or urinary hesitancy Musc: Denies: neck pain, back pain, extremity pain, extremity swelling, joint pain, joint swelling, joint redness, joint warmth or limited range of motion Skin/Breast: Denies: rash, pruritus, erythema or skin tenderness Neuro: Denies: headache(s), numbness in extremities or weakness in extremities Psych: Denies: anxiety or depression PFSH ED PFSH: Medical History Abnormal stress test Alcohol use Alkalosis, metabolic Atrial fibrillation Atrial fibrillation/flutter Chest pain Dehydration Dysphagia 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 Surgical History History of incision and drainage (07/22/20) abdominal wall abscess/hematoma History of jejunostomy tube placement (07/19/20) History of knee surgery ACL reconstruction Port-A-Cath in place (07/19/20) Family History Father Cancer lung Mother Cancer breast Brother Cancer prostate cancer Sister Cancer melanoma Denies family history of Anesthesia complication Bleeding disorder Social History Smoking and tobacco status: never smoked Alcohol intake: current Alcohol intake frequency: 3 or more drinks per day Physical Exam Const: COMMON NORMALS: no acute distress, patient oriented x3, no limitations, healthy appearing, alert and well nourished NUTRITIONAL APPEARANCE: cachectic ORIENTATION/CONSCIOUSNESS: Yes awake, Yes oriented to person, Yes oriented to place and Yes oriented to time HENMT: COMMON NORMALS: normocephalic, atraumatic, external ears normal, EAC's normal, TM's normal bilaterally, Normal external nose present and Normal nasal mucous membranes and turbinates present HEAD & SCALP: normocephalic and atraumatic NOSE: Normal external nose present and Normal nasal mucous membranes and turbinates present EXTERNAL EAR: Yes external ears normal EXTERNAL AUDITORY CANAL: EAC's normal TYMPANIC MEMBRANE: TM's normal bilaterally Neck/C-Spine: COMMON NORMALS: full ROM, no lymphadenopathy, supple, no meningeal signs, no JVD, Thyroid normal and No carotid bruits THYROID: Thyroid normal Chest: COMMONS NORMALS: normal inspection of the chest, normal palpation of entire chest wall, normal inspection of the breasts and normal palpation of the breasts Breast/axilla inspection: Yes normal inspection of the breasts BREAST/AXILLA PALPATION: Yes normal palpation of the breasts Resp: COMMON NORMALS: normal respiratory effort, No retractions, No use of accessory muscles, clear to auscultation bilaterally and percussion normal AUSCULTATION: clear to auscultation bilaterally PERCUSSION: percussion normal Cardio: COMMON NORMALS: no JVD, regular rate, regular rhythm, S1 normal heart sound present, S2 normal heart sound present, No gallops present (Cardio), No clicks present (Cardio), No murmurs present (Cardio), No rub (Cardio) and Peripheral pulses 2+ throughout RATE: regular rate RHYTHM: regular rhythm HEART SOUNDS: S1 normal heart sound present and S2 normal heart sound present PERIPHERAL PULSES: Peripheral pulses 2+ throughout GI: COMMON NORMALS: Normal to inspection, nondistended, normoactive bowel sounds present, Soft to palpation, non-tender, No hepatosplenomegaly present, no masses and no bruits PALPATION: Yes Soft to palpation and Yes No hepatosplenomegaly present : COMMON NORMALS: Yes no CVA tenderness BLADDER/KIDNEY EXAM: Yes no CVA tenderness Back/Pelvis: COMMON NORMALS: no CVA tenderness, thoracic and lumbar spine normal to inspection, no thoracic nor lumbar tenderness, thoraco-lumbar ROM normal and straight leg raise negative bilaterally Extremity: COMMON NORMALS: normal to inspection, full ROM, capillary refill normal, no joint enlargement, no clubbing, cyanosis or edema, no calf tenderness and no pedal edema Neuro: COMMON NORMALS: patient oriented x3 SENSORIUM/ORIENTATION: Yes alert, Yes oriented to person, Yes oriented to place and Yes oriented to time MENINGEAL SIGNS: Yes no meningeal signs Course Reevaluation(s): Reevaluation #1: Chronic conditions appear to be stable. Patient has no complaints at this time after IV fluid bolus. Laboratory values appear to be stable no acute complaints or findings. I did discuss at length with patient the bedside. Patient request to be discharged home patient will follow up with his oncologist and specialist at [facility] for further evaluation and treatment of his esophageal cancer. Patient will be discharged home Time: 11:33 Vital Signs: Vital signs: Vital Signs Temperature 97.8 F 11/28/20 08:39 Pulse Rate 83 11/28/20 11:00 Respiratory Rate 18 11/28/20 11:00 Blood Pressure 119/76 11/28/20 11:00 Pulse Oximetry 100 11/28/20 11:00 MDM - General Adult MDM Narrative: Medical decision making narrative: This patient is a 65-year-old male with a long history of esophageal cancer. Patient is cachectic and reportedly has lost over 75 pounds in the past year. Patient has been through radiation and chemotherapy but to the standpoint they were doing a referral to [facility] for possible surgical removal of his cancer. Patient states that the cancer is stomach cancer however according to records resection of the esophagus it appears to be affected. Patient states he has been unable to take any p.o. fluids or eat anything significant for some time and having dry heaves. Patient states he recently was in the hospital for the same and was advised to come back if he started having signs and symptoms of dehydration. Patient states he did have a feeding tube but they had to take it out because of some issues with infection. Patient has been waiting on a call from [facility] of when to go up to [place] to have surgery. Patient states he has not been notified yet. Chronic conditions appear to be stable. Patient has no complaints at this time after IV fluid bolus. Laboratory values appear to be stable no acute complaints or findings. I did discuss at length with patient the bedside. Patient request to be discharged home patient will follow up with his oncologist and specialist at [facility] for further evaluation and treatment of his esophageal cancer. Patient will be discharged home Differential Diagnosis: Differential Diagnosis: Chronic history of esophageal cancer Medical Records: Attestation: I reviewed the patient's medical records. Lab Data: Attestation: I reviewed the patient's lab results. Labs: Lab Results 11/28/20 11/28/20 11/28/20 Range/Units 08:58 08:58 11:07 WBC 3.6 L (4.0-10.0) 10^3/ uL RBC 3.76 L (4.1-5.3) 10^6/u L Hgb 11.3 L (11.7-16.6) g/dL Hct 33.4 L (42.0-52.0) % MCV 88.8 (80-94) fL MCH 30.1 (28.0-34.0) pg MCHC 33.8 (30.0-36.0) g/dL RDW 13.6 (12.1-15.1) % Plt Count 146 (130-400) 10^3/c mm MPV 9.4 (7.4-10.4) fL Neut % (Auto) 67.6 % Lymph % (Auto) 16.3 % Nicholas % (Auto) 15.2 % Eos % (Auto) 0.0 % Baso % (Auto) 0.6 % Neut # (Auto) 2.40 (1.8-7.7) 10^3/u L Lymph # (Auto) 0.6 L (0.8-4.8) 10^3/u L Nicholas # (Auto) 0.5 (0.2-0.9) 10^3/u L Eos # (Auto) 0.0 (0.0-0.8) 10^3/u L Baso # (Auto) 0.0 (0.0-0.1) 10^3/u L Nucleated RBC % (a uto) 0 % Nucleated RBCs # 0.0 /100WBC Sodium 136 (136-145) mmol/L Potassium 3.7 (3.5-5.1) mmol/L Chloride 99 (98-107) mmol/L Carbon Dioxide 26 (22-29) mmol/L Anion Gap 14.7 (5-19) BUN 12 (8-23) mg/dL Creatinine 0.7 (0.7-1.2) mg/dL GFR Calculation 113.2 (90-130) mL/min Glucose 223 H (65-115) mg/dL Calculated Osmolal ity 289 (285-295) mOsm/k g Calcium 8.5 (8.5-10.5) mg/dL Total Bilirubin 0.8 (0.15-1.2) mg/dL AST 19 (0-40) U/L ALT 15 (0-41) U/L Alkaline Phosphata se 74 (40-130) IU/L Total Protein 5.6 L (6.6-8.7) g/dL Albumin 3.5 (3.5-5.2) g/dL Globulin 2.1 (1.3-4.6) g/dL Lipase 15 (13-60) U/L Urine Color Odalis (Yellow) Urine Appearance Hazy A (CLEAR) Urine pH 5 (5-7) Ur Specific Gravit y 1.020 (1.005-1.030) Urine Protein 1+ H (Negative) Urine Glucose (UA) Trace H (Normal) Urine Ketones 1+ H (Negative) Urine Blood Neg (Negative) Urine Nitrate Negative (Negative) Urine Bilirubin 2+ H (Negative) Urine Urobilinogen 8 H (Negative) mg/dL Ur Leukocyte Raissa ase Trace H (Negative) Urine RBC None (0-2) /hpf Urine WBC 10-15 H (0-5) /hpf Ur Squamous Epith Cells Rare (0-5) /hpf Amorphous Sediment Not Reportable Urine Bacteria Trace (NONE) /hpf Hyaline Casts 15-25 H /lpf Fine Granular Cast s 0-4 H /lpf Urine Mucus 3+ /hpf Urine Sperm 1+ /hpf Discharge Plan Discharge Patient Disposition: Home Clinical Impression: Dehydration, mild, Esophageal cancer Condition: Stable Prescriptions: No Action acetaminophen [Tylenol Arthritis Pain] 650 mg Tablet Extended Release 1,300 mg PO PRN RF: 0 ibuprofen 200 mg Tablet 600 mg PO PRN RF: 0 lorazepam 1 mg tablet 1 mg PO TID PRN (Reason: Nausea) RF: 0 lidocaine-prilocaine 2.5-2.5 % cream See Rx Instructions .ROUTE .COMPLEX RF: 0 pantoprazole [Protonix] 40 mg tablet,delayed release (DR/EC) 40 mg PO DAILY RF: 0 hydrocodone-acetaminophen 7.5-325 mg/15 mL solution 15 - 30 ml PO PRN PRN (Reason: Pain) RF: 0 ferrous fum-vit C-vit B12-FA 460-60-0.01-1 mg capsule 1 cap PO DAILY Qty: 30 RF: 0 hydromorphone [Dilaudid] 4 mg Tablet 4 - 8 mg PO Q4H PRN (Reason: Pain) RF: 0 metoclopramide HCl [Reglan] 10 mg tablet 10 mg PO Q6H PRN (Reason: Nausea) RF: 0 docusate sodium [Docu] 50 mg/5 mL Liquid 50 mg PO DAILY Qty: 473 RF: 0 aspirin 325 mg Tablet,Delayed Release (Dr/Ec) 325 mg PO DAILY 30 Days RF: 3 isosorbide dinitrate 20 mg Tablet 10 mg PO Q24H 30 Days Qty: 15 RF: 3 nitroglycerin 0.4 mg Tablet, Sublingual 0.4 mg sublingual Q5M PRN (Reason: Chest Pain) Qty: 30 RF: 0 metoprolol succinate 25 mg Tablet Extended Release 24 Hr 37.5 mg PO BID 30 Days Qty: 90 RF: 3 midodrine 10 mg tablet 10 mg PO TID PRN (Reason: hypotension) Qty: 30 RF: 0 Discharge Orders: Discharge ED (Routine); Ordered 11/28/20 Ordered By: Barndon Cruz Referrals: Raleigh Boyd, [Primary Care Provider] - Discharge Diet: Usual diet Discharge Activity: Resume usual activity Patient Instructions: Opioid Safety Activity Restrictions/Additional Instructions: Encourage p.o. fluids. Continue all home medications. Follow-up with your oncologist, PCP, and specialist at [facility] in the next 2 to 3 days if all possible. Return to the emergency department symptoms fail to improve or worsen. Coding Level of Care Code ED Dispatcher Chief [employer] Slurry for Chg Fwd Exam Comprehensive
[2020-11-28 08:44] VITALS: BP 97/62; PULSE 121; RESP 18; O2SAT 98
[2020-11-28 09:02] VITALS: RESP 18
[2020-11-28 09:02] LABS: Basophils % 0.6 %; Hematocrit 33.4 % (42.0-52.0); Hemoglobin 11.3 g/dL (11.7-16.6); Lymphocytes # 0.6 10^3/uL (0.8-4.8); Lymphocytes % 16.3 %; Mean Corpuscular HGB Conc 33.8 g/dL (30.0-36.0); Mean Corpuscular Hemoglobin 30.1 pg (28.0-34.0); Mean Corpuscular Volume 88.8 fL (80-94); Mean Platelet Volume 9.4 fL (7.4-10.4); Monocytes # 0.5 10^3/uL (0.2-0.9); Monocytes % 15.2 %; Neutrophils % 67.6 %; Nucleated Red Blood Cells % 0 %; Platelet Count 146 10^3/cmm (130-400); Red Blood Count 3.76 10^6/uL (4.1-5.3); Red Cell Distribution Width 13.6 % (12.1-15.1); White Blood Count 3.6 10^3/uL (4.0-10.0)
[2020-11-28] MEDS: morphine 4 mg/mL SDV 1 mL 2 MG IVP (09:02)
[2020-11-28] MEDS: ondansetron 2 mg/ML SDV 2 mL 4 MG IVP (09:02)
[2020-11-28] MEDS: sodium chloride 0.9% 1,000 ML 999 ML IV (09:02)
[2020-11-28 09:18] LABS: Alanine Aminotransferase 15 U/L (0-41); Albumin Level 3.5 g/dL (3.5-5.2); Alkaline Phosphatase 74 IU/L (40-130); Anion Gap 14.7 (5-19); Aspartate Amino Transferase 19 U/L (0-40); Blood Urea Nitrogen 12 mg/dL (8-23); Calcium 8.5 mg/dL (8.5-10.5); Carbon Dioxide 26 mmol/L (22-29); Chloride 99 mmol/L (98-107); Globulin 2.1 g/dL (1.3-4.6); Glomerular Filtration Rate 113.2 mL/min (90-130); Glucose 223 mg/dL (65-115); Lipase 15 U/L (13-60); Osmolality Calculated 289 mOsm/kg (285-295); Potassium 3.7 mmol/L (3.5-5.1); Sodium 136 mmol/L (136-145); Total Bilirubin 0.8 mg/dL (0.15-1.2); Total Protein 5.6 g/dL (6.6-8.7)
[2020-11-28 10:44] VITALS: BP 119/76; PULSE 82; RESP 18; O2SAT 99
[2020-11-28 11:00] VITALS: BP 119/76; PULSE 83; RESP 18; O2SAT 100
[2020-11-28 11:22] LABS: Bilirubin Urine 2+ (Negative); Blood Urine Neg (Negative); Glucose Urine UA Trace (Normal); Ketones Urine 1+ (Negative); Nitrate Urine Negative (Negative); Protein Urine 1+ (Negative); Urine Appearance Hazy (CLEAR); Urine Color Amber (Yellow); Urobilinogen Urine 8 mg/dL (Negative); pH Urine 5 (5-7)
[2020-11-28 11:23] LABS: Add Urine Microscopic? YES; Leukocyte Esterase Urine Trace (Negative)
[2020-11-28 11:25] LABS: Bacteria Urine TRACE /hpf; Fine Granular Casts Urine 0-4 /lpf; Hyaline Casts Urine 15-25 /lpf; Mucus Urine 3+ /hpf; Squamous Epithelial Cell Urine RARE /hpf (0-5)
[2020-11-28 11:26] LABS: Add Urine Culture? No; Sperm Urine 1+ /hpf
[2020-11-28 11:56] VITALS: BP 119/76; PULSE 95; RESP 18; TEMP 37.1; O2SAT 100
== END 2020-11-28 11:57 | disposition home or self-care (01) ==
PROVIDERS: Emergency Provider Emergency Medicine; PCP Electrodiagnostic Medicine
DX: E86.0 Dehydration (principal); C15.9 Malignant neoplasm of esophagus, unspecified; Z79.82 Long term (current) use of aspirin; I48.91 Unspecified atrial fibrillation; I10 Essential (primary) hypertension
CPT/HCPCS: 80053; 81001; 83690; 85025; 96361; 96374; 96375; 99284; J2270; J2405; J7030

== ENCOUNTER 2020-12-01 11:27 | Outpatient (RCR) | payer MEDICARE, SELFPAY ==
[2020-12-01] MEDS: sodium chloride 0.9% 1,000 ML 999 ML IV (12:00)
[2020-12-01] MEDS: ondansetron 2 mg/ML SDV 2 mL 8 MG IV (12:15)
[2020-12-01] MEDS: famotidine 20 mg/2 mL INJ IVP (12:30)
== END 2020-12-06 23:59 | disposition home or self-care (01) ==
LOC: ONCMED 11:27
PROVIDERS: Absent Provider Radiology Radiation Oncology; PCP Electrodiagnostic Medicine; Visit Provider Internal Medicine Hematology & Oncology
DX: C15.5 Malignant neoplasm of lower third of esophagus (principal); Z79.899 Other long term (current) drug therapy
CPT/HCPCS: 96361; 96374; 96375; J1100; J2405; J3490; J7030

== ENCOUNTER 2020-12-04 11:20 | Emergency (ER) | payer MEDICARE, SELFPAY ==
[2020-12-04 11:55] VITALS: BP 83/51; PULSE 110; RESP 18; TEMP 36.8; O2SAT 100; BMI 20.7
--- NOTE | 2020-12-04 12:01 | ECG_ITS ---
[facility] Test Date: 2020-12-04 Pat Name: Emery Shell Department: Room: Gender: Male Delivery Department Supervisor: : 1955 Requested By: Osei Mcneil Order Number: [id number] Leggett MD: Anton Castillo M.D. Measurements Intervals [place] Rate: 107 P: GA: QRS: 22 QRSD: 85 T: 19 QT: 327 QTc: 437 Interpretive Statements ATRIAL FIBRILLATION WITH RAPID VENTRICULAR RESPONSE Compared to ECG 11/15/2020 23:57:30 Incomplete right bundle-branch block no longer present Electronically Signed On 12-05-2020 16:02:39 CDT by Anton Castillo M.D. [id number]
--- NOTE | 2020-12-04 12:11 | XRR_ITS ---
PROCEDURE INFORMATION: Exam: XR Chest Exam date and time: 12/04/2020 12:39 PM Age: 65 years old Clinical indication: Pain; Chest pressure; Additional info: Cp TECHNIQUE: Imaging protocol: XR of the chest. Views: 1 view. COMPARISON: CR (CHEST, ) 11/15/2020 5:13 PM FINDINGS: Lungs: Unremarkable. No consolidation. Pleural spaces: Unremarkable. No pleural effusion. No pneumothorax. Heart/Mediastinum: Unremarkable. No cardiomegaly. Vasculature: MediPort catheter is present with the tip projecting in the SVC in satisfactory position. Bones/joints: There are multiple old healed left rib fractures. XR/XR chest 1V portable 20290 IMPRESSION: No acute cardiopulmonary abnormality.
[2020-12-04 12:36] LABS: Basophils % 0.4 %; Hematocrit 34.1 % (42.0-52.0); Hemoglobin 11.3 g/dL (11.7-16.6); Lymphocytes # 0.8 10^3/uL (0.8-4.8); Lymphocytes % 17.1 %; Mean Corpuscular HGB Conc 33.1 g/dL (30.0-36.0); Mean Corpuscular Hemoglobin 29.7 pg (28.0-34.0); Mean Corpuscular Volume 89.7 fL (80-94); Mean Platelet Volume 9.7 fL (7.4-10.4); Monocytes # 0.7 10^3/uL (0.2-0.9); Neutrophils # 3.05 10^3/uL (1.8-7.7); Neutrophils % 66.1 %; Nucleated Red Blood Cells % 0 %; Platelet Count 161 10^3/cmm (130-400); White Blood Count 4.6 10^3/uL (4.0-10.0)
[2020-12-04 12:46] LABS: Glucose Urine UA 1+ (Normal); Protein Urine Neg (Negative); Urine Appearance Clear (CLEAR); Urine Color Yellow (Yellow); pH Urine 5 (5-7)
[2020-12-04 12:47] LABS: Bilirubin Urine 1+ (Negative); Blood Urine Neg (Negative); Ketones Urine Negative (Negative); Leukocyte Esterase Urine Negative (Negative); Nitrate Urine Negative (Negative); Urobilinogen Urine 8 mg/dL (Negative)
[2020-12-04 12:56] LABS: Troponin(5th) Baseline 39 ng/L (0-15)
[2020-12-04 12:57] LABS: Alanine Aminotransferase 20 U/L (0-41); Albumin Level 3.7 g/dL (3.5-5.2); Alkaline Phosphatase 101 IU/L (40-130); Aspartate Amino Transferase 24 U/L (0-40); Blood Urea Nitrogen 14 mg/dL (8-23); Calcium 8.7 mg/dL (8.5-10.5); Carbon Dioxide 28 mmol/L (22-29); Chloride 100 mmol/L (98-107); Globulin 1.8 g/dL (1.3-4.6); Glomerular Filtration Rate 135.2 mL/min (90-130); Glucose 143 mg/dL (65-115); Lipase 17 U/L (13-60); Osmolality Calculated 293 mOsm/kg (285-295); Sodium 140 mmol/L (136-145); Total Bilirubin 0.5 mg/dL (0.15-1.2); Total Protein 5.5 g/dL (6.6-8.7)
[2020-12-04 13:00] LABS: Bacteria Urine TRACE /hpf; Calcium Oxalate Crystals Urine 0-4 /hpf; Mucus Urine 2+ /hpf; WBC Urine RARE /hpf (0-5)
[2020-12-04 13:01] LABS: Add Urine Culture? No
--- NOTE | 2020-12-04 13:12 | W.ED.GENADLT ---
HPI - General Adult General: Chief complaint: General Medical Stated complaint: N/V AND WEAK Time Seen by Provider: 12/04/20 11:27 Source: patient Mode of arrival: ambulatory Limitations: no limitations History of Present Illness: HPI narrative: The patient is a 65-year-old male with esophageal cancer who recently completed chemotherapy and presents to the emergency department with nausea, dizziness. He has a reduced appetite and is unable to eat. He has also not been able to take his medications because objects. He feels he may be dehydrated. He denies any fever, denies any diarrhea or constipation. He has constant chest pain that he says has been on for years. Associated symptoms: Reports chest pain, decreased appetite and nausea; Deny confusion, cough, diaphoresis, dyspnea, fevers/chills, headache(s), malaise, rash, palpitations, seizures, short of breath, syncope, vomiting or weakness Treatments prior to arrival: none Review of Systems General: Reports: 10 or more systems reviewed and unremarkable except in HPI and below Const: Denies: malaise or diaphoresis Card: Reports: chest pain; Denies: palpitations or syncope Resp: Denies: dyspnea GI: Reports: nausea; Denies: vomiting Skin/Breast: Denies: rash Neuro: Denies: headache(s) or confusion PFSH ED PFSH: Medical History (Reviewed 12/04/20 @ 13:17 by Caitlin Fuentes MD, [facility] Abnormal stress test Alcohol use Alkalosis, metabolic Atrial fibrillation Atrial fibrillation/flutter Chest pain Dehydration Dysphagia 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 Surgical History (Reviewed 12/04/20 @ 13:17 by Caitlin Fuentes MD, [facility] History of incision and drainage (07/22/20) abdominal wall abscess/hematoma History of jejunostomy tube placement (07/19/20) History of knee surgery ACL reconstruction Port-A-Cath in place (07/19/20) Family History (Reviewed 12/04/20 @ 13:17 by Caitlin Fuentes MD, [facility] Father Cancer lung Mother Cancer breast Brother Cancer prostate cancer Sister Cancer melanoma Denies family history of Anesthesia complication Bleeding disorder Social History (Reviewed 12/04/20 @ 13:17 by Caitlin Fuentes MD, [facility] Smoking and tobacco status: never smoked Alcohol intake: current Alcohol intake frequency: 3 or more drinks per day Physical Exam Const: COMMON NORMALS: no acute distress, average body habitus, patient oriented x3, no limitations, healthy appearing, alert and well nourished HENMT: COMMON NORMALS: normocephalic, atraumatic and moist oral mucous membranes HEAD & SCALP: normocephalic and atraumatic Neck/C-Spine: COMMON NORMALS: no meningeal signs and no JVD Resp: COMMON NORMALS: normal respiratory effort, No retractions, No use of accessory muscles, clear to auscultation bilaterally and percussion normal AUSCULTATION: clear to auscultation bilaterally PERCUSSION: percussion normal Cardio: COMMON NORMALS: no JVD, regular rate, regular rhythm, S1 normal heart sound present, S2 normal heart sound present, No gallops present (Cardio), No clicks present (Cardio), No murmurs present (Cardio), No rub (Cardio) and Peripheral pulses 2+ throughout RATE: regular rate RHYTHM: regular rhythm HEART SOUNDS: S1 normal heart sound present and S2 normal heart sound present PERIPHERAL PULSES: Peripheral pulses 2+ throughout GI: COMMON NORMALS: Normal to inspection, nondistended, normoactive bowel sounds present, Soft to palpation, non-tender, No hepatosplenomegaly present, no masses and no bruits INSPECTION: Yes scaphoid PALPATION: Yes Soft to palpation and Yes No hepatosplenomegaly present Extremity: COMMON NORMALS: normal to inspection, full ROM, capillary refill normal, no calf tenderness and no pedal edema Neuro: COMMON NORMALS: patient oriented x3 SENSORIUM/ORIENTATION: Yes alert MENINGEAL SIGNS: Yes no meningeal signs Skin: COMMON NORMALS: no rashes or lesions noted, no wounds, turgor normal, no jaundice, no petechiae and no mottling GENERAL SKIN EXAM: no rashes or lesions noted and turgor normal Course ED course: 163: Discussed the patient with Dr. Gu, hospitalist. He would like me to discuss with the surgeon before he accepts this patient as the patient may require transfer. 1640: Discussed the patient Dr. Whitten, surgeon. Since the patient has a stents that appears to be obstructed he will probably benefit from evaluation at [facility] where the patient had the stent placed. 1650: Talk to the transfer center [facility] and they will get in touch with the eyeletter and call us back. 5: Discussed the patient with Dr. Jewell, Lath Hand at [facility] in [place] and he kindly accepted the patient to his service Vital Signs: Vital signs: Vital Signs Temperature 98.2 F 12/04/20 11:55 Pulse Rate 86 12/04/20 19:03 Respiratory Rate 15 12/04/20 19:03 Blood Pressure 123/76 12/04/20 14:49 Pulse Oximetry 99 12/04/20 19:03 MDM - General Adult MDM Narrative: Medical decision making narrative: 65-year-old male with esophageal cancer who presents to the emergency department with difficulty swallowing, nausea, weakness. Evaluation in the emergency department shows that he has an obstruction of an esophageal stent that he has placed with possible aspiration pneumonia. He is being transferred to [facility] in [place] for further evaluation and management. Medical Records: Attestation: I reviewed the patient's medical records. Lab Data: Attestation: I reviewed the patient's lab results. Labs: Lab Results 12/04/20 12/04/20 12/04/20 Range/Units 12:23 12:23 12:23 WBC 4.6 (4.0-10.0) 10^3/ uL RBC 3.80 L (4.1-5.3) 10^6/u L Hgb 11.3 L (11.7-16.6) g/dL Hct 34.1 L (42.0-52.0) % MCV 89.7 (80-94) fL MCH 29.7 (28.0-34.0) pg MCHC 33.1 (30.0-36.0) g/dL RDW 14.0 (12.1-15.1) % Plt Count 161 (130-400) 10^3/c mm MPV 9.7 (7.4-10.4) fL Neut % (Auto) 66.1 % Lymph % (Auto) 17.1 % [place] % (Auto) 16.0 % Eos % (Auto) 0.0 % Baso % (Auto) 0.4 % Neut # (Auto) 3.05 (1.8-7.7) 10^3/u L Lymph # (Auto) 0.8 (0.8-4.8) 10^3/u L [place] # (Auto) 0.7 (0.2-0.9) 10^3/u L Eos # (Auto) 0.0 (0.0-0.8) 10^3/u L Baso # (Auto) 0.0 (0.0-0.1) 10^3/u L Nucleated RBC % (a uto) 0 % Nucleated RBCs # 0.0 /100WBC D-Dimer (0-0.59) ug/mIFE U Sodium 140 (136-145) mmol/L Potassium 4.0 (3.5-5.1) mmol/L Chloride 100 (98-107) mmol/L Carbon Dioxide 28 (22-29) mmol/L Anion Gap 16.0 (5-19) BUN 14 (8-23) mg/dL Creatinine 0.6 L (0.7-1.2) mg/dL GFR Calculation 135.2 H (90-130) mL/min Glucose 143 H (65-115) mg/dL Calculated Osmolal ity 293 (285-295) mOsm/k g Calcium 8.7 (8.5-10.5) mg/dL Total Bilirubin 0.5 (0.15-1.2) mg/dL AST 24 (0-40) U/L ALT 20 (0-41) U/L Alkaline Phosphata se 101 (40-130) IU/L Troponin T Baselin e 39 H (0-15) ng/L Troponin T 120 Min [place] (0-15) ng/L Delta Troponin T (0-10) ABS# Total Protein 5.5 L (6.6-8.7) g/dL Albumin 3.7 (3.5-5.2) g/dL Globulin 1.8 (1.3-4.6) g/dL Lipase 17 (13-60) U/L Urine Color (Yellow) Urine Appearance (CLEAR) Urine pH (5-7) Ur Specific Gravit y (1.005-1.030) Urine Protein (Negative) Urine Glucose (UA) (Normal) Urine Ketones (Negative) Urine Blood (Negative) Urine Nitrate (Negative) Urine Bilirubin (Negative) Urine Urobilinogen (Negative) mg/dL Ur Leukocyte Raissa ase (Negative) Urine RBC (0-2) /hpf Urine WBC (0-5) /hpf Ur Squamous Epith Cells (0-5) /hpf Calcium Oxalate Cr ystal /hpf Amorphous Sediment Urine Bacteria (NONE) /hpf Urine Mucus /hpf 12/04/20 12/04/20 12/04/20 Range/Units 12:29 14:24 14:52 WBC (4.0-10.0) 10^3/ uL RBC (4.1-5.3) 10^6/u L Hgb (11.7-16.6) g/dL Hct (42.0-52.0) % MCV (80-94) fL MCH (28.0-34.0) pg MCHC (30.0-36.0) g/dL RDW (12.1-15.1) % Plt Count (130-400) 10^3/c mm MPV (7.4-10.4) fL Neut % (Auto) % Lymph % (Auto) % [place] % (Auto) % Eos % (Auto) % Baso % (Auto) % Neut # (Auto) (1.8-7.7) 10^3/u L Lymph # (Auto) (0.8-4.8) 10^3/u L [place] # (Auto) (0.2-0.9) 10^3/u L Eos # (Auto) (0.0-0.8) 10^3/u L Baso # (Auto) (0.0-0.1) 10^3/u L Nucleated RBC % (a uto) % Nucleated RBCs # /100WBC D-Dimer 1.08 H (0-0.59) ug/mIFE U Sodium (136-145) mmol/L Potassium (3.5-5.1) mmol/L Chloride (98-107) mmol/L Carbon Dioxide (22-29) mmol/L Anion Gap (5-19) BUN (8-23) mg/dL Creatinine (0.7-1.2) mg/dL GFR Calculation (90-130) mL/min Glucose (65-115) mg/dL Calculated Osmolal ity (285-295) mOsm/k g Calcium (8.5-10.5) mg/dL Total Bilirubin (0.15-1.2) mg/dL AST (0-40) U/L ALT (0-41) U/L Alkaline Phosphata se (40-130) IU/L Troponin T Baselin e (0-15) ng/L Troponin T 120 Min [place] 29.98 H (0-15) ng/L Delta Troponin T -9.02 L (0-10) ABS# Total Protein (6.6-8.7) g/dL Albumin (3.5-5.2) g/dL Globulin (1.3-4.6) g/dL Lipase (13-60) U/L Urine Color Yellow (Yellow) Urine Appearance Clear (CLEAR) Urine pH 5 (5-7) Ur Specific Gravit y 1.020 (1.005-1.030) Urine Protein Neg (Negative) Urine Glucose (UA) 1+ (Normal) Urine Ketones Negative (Negative) Urine Blood Neg (Negative) Urine Nitrate Negative (Negative) Urine Bilirubin 1+ H (Negative) Urine Urobilinogen 8 H (Negative) mg/dL Ur Leukocyte Raissa ase Negative (Negative) Urine RBC None (0-2) /hpf Urine WBC Rare (0-5) /hpf Ur Squamous Epith Cells None (0-5) /hpf Calcium Oxalate Cr ystal 0-4 H /hpf Amorphous Sediment Not Reportable Urine Bacteria Trace (NONE) /hpf Urine Mucus 2+ /hpf Imaging Data^: CTA Chest: Attestation: I personally reviewed and interpreted this imaging study as follows: Radiologist's impression: [address] [id number] Scan ReportSigned with Addenda Patient: Emery Shell #: [id number]: 5Acct#:[id number]/Sex: 65 / MADM Date: 12/04/20Loc: ERRoom/Bed:Attending Dr: Ordering Provider/Ordering MD: Caitlin Fuentes MD, [facility] Date of Service: 05/29/21 Procedure(s): CT angio chest PE protcl [id number] Accession Number(s): [id number] Report Number: [id number]/CT angio chest PE protcl [id number] CRITICAL RESULT: The study was personally discussed on the telephone with CAITLIN Leija on 12/04/2020 4:01 PM CDT. The results were understood and acknowledged. Radiation Dose CTDIVOL = (mGy): DLP = 623.94 (mGy-cm) Addendum Dictated By: Romy Milner MDAddendum Signed By: Romy Milner MDSigned Date/Time:12/04/20 1602Addendum Cosigned By: PROCEDURE INFORMATION: Exam: CTA Chest With Contrast Exam date and time: 12/04/2020 3:12 PM Age: 65 years old Clinical indication: Other: Nausea, dizziness; Prior surgery; Surgery date: 6+ months; Surgery type: Esoph stent; Patient HX: C/O chronic chest pain now w nausea and dizziness - HX of stomach CA; Additional info: Chest pain, h/o cancer TECHNIQUE: Imaging protocol: Computed tomographic angiography of the chest with contrast. 3D rendering (Not supervised by radiologist): MIP and/or 3D reconstructed images were created by the technologist. Radiation optimization: All CT scans at this facility use at least one of these dose optimization techniques: automated exposure control; mA and/or kV adjustment per patient size (includes targeted exams where dose is matched to clinical indication); or iterative reconstruction. Contrast material: OMNI 350; Contrast volume: 93 ml; Contrast route: INTRAVENOUS (IV); COMPARISON: CT chest abdomen w con* 04/20/2020 1:45 PM RADIATION DOSE METRICS: Total DLP (mGy-cm): 623.94 FINDINGS: Pulmonary arteries: Normal. No pulmonary emboli. Aorta: Unremarkable. No aortic aneurysm. No aortic dissection. Lungs: There are scattered pulmonary ground-glass opacities in the left lower lobe consistent with atypical pneumonia. Pleural spaces: Unremarkable. No pneumothorax. No pleural effusion. Heart: Multivessel atherosclerotic disease which involves the coronary arteries. Mediastinal space: There is diffuse esophageal mucosal thickening, worsened when compared to the prior study, with a stent in the distal esophagus traversing the gastroesophageal junction. There is mucosal thickening of the gastroesophageal junction as well. Air-fluid levels are present in the esophagus including in the region of the stent. Fluid is present in the esophagus superior to the stent consistent with a least partial occlusion. Lymph nodes: Unremarkable. No enlarged lymph nodes. Bones/joints: Unremarkable. No acute fracture. Soft tissues: Unremarkable. CT/CT angio chest PE protcl [id number] IMPRESSION: 1. There is diffuse esophageal mucosal thickening which has worsened compared to the prior study, consistent with neoplasm. Air-fluid levels are present in the stent and fluid is present in the esophagus superior to the stent, consistent with at least partial occlusion. 2. There are scattered pulmonary ground-glass opacities in the left lower lobe consistent with atypical pneumonia. Radiation Dose CTDIVOL = (mGy): DLP = 623.94 (mGy-cm) Dictated By:Romy Milner MDSigned By:Romy Milner MDSigned Date/Time:12/04/20 1550DD/ 1548 CXR: Attestation: I personally reviewed and interpreted this imaging study as follows: Radiologist's impression: [address] [id number] ReportSigned Patient: Emery Shell #: [id number]: 5Acct#:[id number]/Sex: 65 / MADM Date: 12/04/20Loc: ERRoom/Bed:Attending Dr: Ordering Provider/Ordering MD: Osei Mcneil Date of Service: 12/04/20 Procedure(s): XR chest 1V portable [id number] Accession Number(s): [id number] Report Number: [id number] PROCEDURE INFORMATION: Exam: XR Chest Exam date and time: 12/04/2020 12:39 PM Age: 65 years old Clinical indication: Pain; Chest pressure; Additional info: Cp TECHNIQUE: Imaging protocol: XR of the chest. Views: 1 view. COMPARISON: CR (CHEST, ) 11/15/2020 5:13 PM FINDINGS: Lungs: Unremarkable. No consolidation. Pleural spaces: Unremarkable. No pleural effusion. No pneumothorax. Heart/Mediastinum: Unremarkable. No cardiomegaly. Vasculature: MediPort catheter is present with the tip projecting in the SVC in satisfactory position. Bones/joints: There are multiple old healed left rib fractures. XR/XR chest 1V portable [id number] IMPRESSION: No acute cardiopulmonary abnormality. Dictated By:Patric Good By:Patric Good Date/Time:12/04/20 1320DD/ 1318 EKG Data^: EKG 1: Attestation: I personally reviewed and interpreted this EKG as follows: EKG interpretation date: 12/04/20 EKG interpretation time: 14:00 Prior EKG tracings: not available for review Interpretation: Atrial fibrillation. Heart rate 82 bpm. Incomplete right bundle branch block. No ST changes Computer generated interpretation: Chest X-Ray 12/04/20 12:11 IMPRESSION: No acute cardiopulmonary abnormality. Chest CTA 12/04/20 14:58 IMPRESSION: 1. There is diffuse esophageal mucosal thickening which has worsened compared to the prior study, consistent with neoplasm. Air-fluid levels are present in the stent and fluid is present in the esophagus superior to the stent, consistent with at least partial occlusion. 2. There are scattered pulmonary ground-glass opacities in the left lower lobe consistent with atypical pneumonia. Radiation Dose CTDIVOL = (mGy): DLP = 623.94 (mGy-cm) ADDENDUM: 12/04/20 1602 CRITICAL RESULT: The study was personally discussed on the telephone with CAITLIN Leija on 12/04/2020 4:01 PM CDT. The results were understood and acknowledged. Radiation Dose CTDIVOL = (mGy): DLP = 623.94 (mGy-cm) EKG 2: Attestation: I personally reviewed and interpreted this EKG as follows: EKG interpretation date: 12/04/20 EKG interpretation time: 17:57 Prior EKG tracings: available for review Interpretation: Atrial fibrillation. Heart rate 94 bpm. Incomplete right bundle branch block. No significant change from earlier today. Computer generated interpretation: Chest X-Ray 12/04/20 12:11 IMPRESSION: No acute cardiopulmonary abnormality. Chest CTA 12/04/20 14:58 IMPRESSION: 1. There is diffuse esophageal mucosal thickening which has worsened compared to the prior study, consistent with neoplasm. Air-fluid levels are present in the stent and fluid is present in the esophagus superior to the stent, consistent with at least partial occlusion. 2. There are scattered pulmonary ground-glass opacities in the left lower lobe consistent with atypical pneumonia. Radiation Dose CTDIVOL = (mGy): DLP = 623.94 (mGy-cm) ADDENDUM: 12/04/20 1602 CRITICAL RESULT: The study was personally discussed on the telephone with CAITLIN Leija on 12/04/2020 4:01 PM CDT. The results were understood and acknowledged. Radiation Dose CTDIVOL = (mGy): DLP = 623.94 (mGy-cm) Discharge Plan Discharge Patient Disposition: Xfer Short-Term Hosp Clinical Impression: Other mechanical complication of esophageal anti-reflux device, initial encounter Aspiration pneumonia Qualifiers: Aspiration pneumonia type: unspecified Laterality: left Lung location: lower lobe of lung Qualified Code(s): J69.0 - Pneumonitis due to inhalation of food and vomit Condition: Stable Discharge Orders: Transfer Out of Facility (Order); Ordered 12/04/20 Ordered By: Caitlin Fuentes Referrals: Raleigh Boyd DO [Primary Care Provider] - Coding Level of Care Code ED Payroll Assistant for Chg Fwd Exam Comprehensive
[2020-12-04] MEDS: sodium chloride 0.9% 1,000 ML 999 ML IV (13:16)
[2020-12-04] MEDS: HYDROmorphone 1 mg/mL INJ 1 mL IVP ×2 (13:17→19:02)
[2020-12-04 13:19] VITALS: BP 92/64; PULSE 92; RESP 16; O2SAT 100
[2020-12-04] MEDS: ondansetron 2 mg/ML SDV 2 mL 4 MG IVP (13:22)
--- NOTE | 2020-12-04 13:33 | PC.PHAR ---
Addendum entered by Shannan Dugan 12/04/20 13:38: pt states he usually just takes all his medications in the am-pt states unless its his nausea medication then he will take Original Note: pt states he takes care of his own medications-pt states he only takes aspirin prn and states maybe takes twice a week rx written on 11/20/20 for 325mg daily-rx written on 11/20/20 metoprolol succinate 37.5mg bid pt states he is unsure if he is taking this medication-midodrine 10mg tid prn filled on 11/21/20 7d/s pt states he only takes 10mg qam-pt states he finished chemo 2 weeks ago and is no longer taking dexamethasone pt states last took 2 weeks ago
--- NOTE | 2020-12-04 14:11 | ECG_ITS ---
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 Measurements Intervals [place] Rate: 82 P: HI: QRS: -4 QRSD: 99 T: 27 QT: 365 QTc: 428 Interpretive Statements ATRIAL FIBRILLATION INCOMPLETE RIGHT BUNDLE BRANCH BLOCK [90+ ms QRS DURATION, TERMINAL R IN V1/V2, 40+ ms S IN I/aVL/V4/V5/V6] Compared to ECG 12/04/2020 12:08:16 Incomplete right bundle-branch block now present Electronically Signed On 12-05-2020 16:06:44 CDT by Anton Castillo M.D. [email or web address]
[2020-12-04 14:49] VITALS: BP 123/76; PULSE 91; RESP 15; O2SAT 100
[2020-12-04 14:56] LABS: D Dimer 1.08 ug/mIFEU (0-0.59)
--- NOTE | 2020-12-04 14:58 | CTR_ITS ---
PROCEDURE INFORMATION: Exam: CTA Chest With Contrast Exam date and time: 12/04/2020 3:12 PM Age: 65 years old Clinical indication: Other: Nausea, dizziness; Prior surgery; Surgery date: 6+ months; Surgery type: Esoph stent; Patient HX: C/O chronic chest pain now w nausea and dizziness - HX of stomach CA; Additional info: Chest pain, h/o cancer TECHNIQUE: Imaging protocol: Computed tomographic angiography of the chest with contrast. 3D rendering (Not supervised by radiologist): MIP and/or 3D reconstructed images were created by the technologist. Radiation optimization: All CT scans at this facility use at least one of these dose optimization techniques: automated exposure control; mA and/or kV adjustment per patient size (includes targeted exams where dose is matched to clinical indication); or iterative reconstruction. Contrast material: OMNI 350; Contrast volume: 93 ml; Contrast route: INTRAVENOUS (IV); COMPARISON: CT chest abdomen w con* 04/20/2020 1:45 PM RADIATION DOSE METRICS: Total DLP (mGy-cm): 623.94 FINDINGS: Pulmonary arteries: Normal. No pulmonary emboli. Aorta: Unremarkable. No aortic aneurysm. No aortic dissection. Lungs: There are scattered pulmonary ground-glass opacities in the left lower lobe consistent with atypical pneumonia. Pleural spaces: Unremarkable. No pneumothorax. No pleural effusion. Heart: Multivessel atherosclerotic disease which involves the coronary arteries. Mediastinal space: There is diffuse esophageal mucosal thickening, worsened when compared to the prior study, with a stent in the distal esophagus traversing the gastroesophageal junction. There is mucosal thickening of the gastroesophageal junction as well. Air-fluid levels are present in the esophagus including in the region of the stent. Fluid is present in the esophagus superior to the stent consistent with a least partial occlusion. Lymph nodes: Unremarkable. No enlarged lymph nodes. Bones/joints: Unremarkable. No acute fracture. Soft tissues: Unremarkable. CT/CT angio chest PE protcl [id number] IMPRESSION: 1. There is diffuse esophageal mucosal thickening which has worsened compared to the prior study, consistent with neoplasm. Air-fluid levels are present in the stent and fluid is present in the esophagus superior to the stent, consistent with at least partial occlusion. 2. There are scattered pulmonary ground-glass opacities in the left lower lobe consistent with atypical pneumonia. Radiation Dose CTDIVOL = (mGy): DLP = 623.94 (mGy-cm)
[2020-12-04 15:18] LABS: Troponin 5 2HR 29.98 ng/L (0-15)
[2020-12-04] MEDS: iohexol 350 mg/mL 100 mL Btl IV (15:18)
[2020-12-04 15:22] LABS: Troponin 5 2HR Delta -9.02 ABS# (0-10)
[2020-12-04] MEDS: piperacillin-tazobactam 3.375 GM in sodium chloride 0.9% (plus) 50 ML IV (17:16)
[2020-12-04 17:17] VITALS: PULSE 93; RESP 16; O2SAT 98
--- NOTE | 2020-12-04 18:11 | ECG_ITS ---
[facility] Test Date: 2020-12-04 Pat Name: Emery Shell Department: Room: Gender: Male Bridge Tender: : 1955 Requested By: Osei Mcneil Order Number: [id number] Leggett MD: Anton Castillo M.D. Measurements Intervals [place] Rate: 94 P: RI: QRS: 0 QRSD: 99 T: 50 QT: 351 QTc: 441 Interpretive Statements ATRIAL FIBRILLATION INCOMPLETE RIGHT BUNDLE BRANCH BLOCK [90+ ms QRS DURATION, TERMINAL R IN V1/V2, 40+ ms S IN I/aVL/V4/V5/V6] Compared to ECG 12/04/2020 14:00:03 No significant changes Electronically Signed On 12-05-2020 16:06:27 CDT by Anton Castillo M.D. [id number]
[2020-12-04] MEDS: metoclopramide 5 mg/mL SDV 2 mL 10 MG IVP (19:02)
[2020-12-04 19:03] VITALS: PULSE 86; RESP 15; O2SAT 99
== END 2020-12-04 19:04 | disposition short-term general hospital (02) ==
PROVIDERS: Physician Assistant; Emergency Provider Family Medicine; PCP Electrodiagnostic Medicine
DX: J69.0 Pneumonitis due to inhalation of food and vomit (principal); T85.591A Other mechanical complication of esophageal anti-reflux device, initial encounter; I48.91 Unspecified atrial fibrillation; Z85.01 Personal history of malignant neoplasm of esophagus; I11.0 Hypertensive heart disease with heart failure; I50.9 Heart failure, unspecified
CPT/HCPCS: 36415; 71045; 71275; 80053; 81001; 83690; 84484; 85025; 85378; 93005; 96365; 96375; 96376; 99285; J1170; J2405; J2543; J2765; J7030; Q9967